=== PATIENT | female | born 1970 | race Caucasian/White ===

== ENCOUNTER 2021-04-11 14:47 | Emergency (ER) | payer MEDICAID, SELFPAY ==
[2021-04-11 14:48] VITALS: BP 143/87; PULSE 95; RESP 22; TEMP 37.1; O2SAT 91; BMI 29.2; BMI 32.8
--- NOTE | 2021-04-11 14:58 | XR_ITS ---
FINAL REPORT CLINICAL HISTORY: cough, smoker, no hx of surg FINDINGS: The heart size is normal. The mediastinum is normal. There is no focal infiltrate or edema. There are no pleural effusions. There is no pneumothorax. There is no osseous abnormality. IMPRESSION: No acute cardiopulmonary process Reviewed, Interpreted and Dictated by Elías Sumner MD Transcribed by Jaime Dick Authenticated by Elías Sumner MD on 04/11/2021 04:58:[address] [facility]
[2021-04-11 15:18] VITALS: PULSE 93; PULSE 96
--- NOTE | 2021-04-11 15:23 | HMH.EDGENADL ---
ED Disposition Clinical Impression: COPD (chronic obstructive pulmonary disease) Qualifiers: COPD type: chronic bronchitis Chronic bronchitis type: simple Qualified Code(s): J41.0 - Simple chronic bronchitis Lumbar strain Qualifiers: Encounter type: initial encounter Qualified Code(s): S39.012A - Strain of muscle, fascia and tendon of lower back, initial encounter Disposition: Home, Self-Care Condition on Discharge: Good Instructions: Chronic Obstructive Pulmonary Disease (Alternative Therapy) Prescriptions: Doxycycline Monohydrate [Doxycycline Pike 100mg Tab] 100 mg PO Q12 #20 tab Transmission Status: Pending to [id number] methocarbamoL [Methocarbamol 500mg Tablet] 1,000 mg PO TID 10 Days #60 tab Transmission Status: Pending to [id number] Referrals: Sunny Subramanian [Primary Care Provider] - - Critical Care Critical Care Time: No Attestation: On 04/11/21, the high probability of a clinically significant, sudden or life threatening deterioration of the following system(s) required my full and direct attention, intervention and personal management. The time I documented below is in addition to time spent performing reported procedures but includes the following listed in this critical care notation. Medical Decision Making - Medical Records Medical records reviewed: Yes: I reviewed the patient's medical records. - Kristofer Inquiry Pt receiving controlled substance: No Vital Signs: 04/11/21 14:48 04/11/21 15:18 04/11/21 16:57 Temperature 98.8 F Temperature Source Oral Pulse Rate 96 H 98 H Pulse Rate [Radial] 95 H Respiratory Rate 22 18 Blood Pressure 136/80 Blood Pressure [Right Arm] 143/87 H Blood Pressure Mean 99 Blood Pressure Mean [Right Arm] 105 Blood Pressure Position [Right Arm] Sitting 02 Sat by Pulse Oximetry 91 L 97 Oxygen Delivery Method Room Air 04/11/21 17:00 04/11/21 17:30 Temperature Temperature Source Pulse Rate 100 H 99 H Pulse Rate [Radial] Respiratory Rate Blood Pressure 143/87 H 129/79 Blood Pressure [Right Arm] Blood Pressure Mean 100 100 Blood Pressure Mean [Right Arm] Blood Pressure Position [Right Arm] 02 Sat by Pulse Oximetry 96 93 L Oxygen Delivery Method - Lab Data Lab Results 04/11/21 15:46: WBC 5.8, RBC 5.21, Hgb 16.9 H, Hct 47.3 H, MCV 90.7, MCH 32.4 H, MCHC 35.7 H, RDW 16.0, Plt Count 266, MPV 8.1, Neut % (Auto) 57.6, Lymph % (Auto) 33.0, [place] % (Auto) 5.1, Eos % (Auto) 2.0, Baso % (Auto) 2.3 H, Neut # (Auto) 3.3, Lymph # (Auto) 1.9, [place] # (Auto) 0.3, Eos # (Auto) 0.1, Baso # (Auto) 0.1 04/11/21 15:46: Troponin I 0.03, NT-Pro-B Natriuret Pep 15.0 04/11/21 15:46: Sodium 130 L, Potassium 5.8 H, Chloride 100, Carbon Dioxide 20 L, Anion Gap 15.8 H, BUN 12, Creatinine 0.40 L, Estimated Creat Clear 203, Estimated GFR 170, Est GFR ( Amer) 206, Glucose 480 H*, Calcium 9.0 04/11/21 17:32: POC Glucose 384 H* 04/11/21 17:35: Urine Color Straw, Urine Appearance Clear, Urine pH 6.0, Ur Specific [place] 1.015, Urine Protein Trace, Urine Glucose (UA) 3+, Urine Ketones Negative, Urine Blood Negative, Urine Nitrate Negative, Urine Bilirubin Negative, Urine Urobilinogen 0.2, Ur Leukocyte Esterase Negative Result diagrams: 04/11/21 15:46 04/11/21 15:46 Orders (Tests/Meds): ED MEDICATIONS Generic Name Dose Route Start Last Admin Trade Name Freq PRN Reason Stop Dose Admin Sodium Chloride 1,000 mls @ 999 mls/hr 04/11/21 16:45 04/11/21 16:54 Sod Chlor 0.9% 1000ml Bag IV 04/11/21 17:45 999 mls/hr .Q1H1M MAUREEN Administration Discontinued Medications Generic Name Dose Route Start Last Admin Trade Name Freq PRN Reason Stop Dose Admin Albuterol/Ipratropium 3 ml 04/11/21 14:59 04/11/21 15:18 Ipratropium/Albuterol 3 Ml Neb IH 04/11/21 15:00 3 ml ONCE ONE Administration Insulin Human Regular 10 unit 04/11/21 16:33 04/11/21 16:54 Insulin Human Regular 100 Units/Ml 10ml Vial I
[2021-04-11 16:18] LABS: Anion Gap 15.8 mEq/L (5-15); Blood Urea Nitrogen 12 mg/dl (7-17); Carbon Dioxide 20 mmol/L (22.0-30.0); Chloride 100 mmol/L (98-107); Creatinine Clearance Estimated 203 mL/min (50-200); Estimated Glomerular Filt Rate 170 ml/min (>60); GFR (African American) 206 ML/MIN (>60); Potassium 5.8 mmoL/L (3.5-5.1); Sodium 130 mmol/L (136-145)
[2021-04-11 16:27] LABS: Glucose 480 mg/dl (74-100)
[2021-04-11 16:31] LABS: Troponin I 0.03 ng/ml (0.00-0.034)
[2021-04-11 16:57] VITALS: BP 136/80; PULSE 98; RESP 18; O2SAT 97
[2021-04-11 17:00] VITALS: BP 143/87; PULSE 100; O2SAT 96
[2021-04-11 17:09] LABS: Basophils # 0.1 K/mm3 (0-0.2); Basophils % 2.3 % (0.1-2.0); Eosinophils # 0.1 K/mm3 (0.0-0.4); Hematocrit 47.3 % (37.0-47.0); Hemoglobin 16.9 g/dL (12.2-16.2); Lymphocytes # 1.9 K/mm3 (0.7-4.5); Mean Corpuscular HGB Conc 35.7 g/dL (31.8-35.4); Mean Corpuscular Hemoglobin 32.4 pg (27.0-31.2); Mean Corpuscular Volume 90.7 fl (81-99); Mean Platelet Volume 8.1 fl (7.4-10.4); Monocytes # 0.3 K/mm3 (0.1-1.0); Monocytes % 5.1 % (1.7-9.3); Neutrophils # 3.3 K/mm3 (1.8-7.8); Neutrophils % 57.6 % (37.0-80.0); Platelet Count 266 K/mm3 (142-424); Red Blood Count 5.21 M/mm3 (4.20-5.40); White Blood Count 5.8 K/mm3 (4.8-10.8)
[2021-04-11 17:30] VITALS: BP 129/79; PULSE 99; O2SAT 93
--- NOTE | 2021-04-11 17:32 | ECG_ITS ---
APPROVED REPORT Exam: Resting ECG HR:97 bpm ECG Measurements Heart Rate 97 AXES [place] 179 P 35 QRSd 96 QRS 164 QT 357 T 47 QTc 412 Conclusion SINUS RHYTHM INCOMPLETE RIGHT BUNDLE BRANCH BLOCK Old anteroseptal changes ABNORMAL ECG UNCONFIRMED REPORT Electronically signed by : Shun Goss MD 04/12/2021 13:49:49
[2021-04-11 17:38] LABS: POC Glucose,Bedside 384 (70-110)
[2021-04-11 18:21] LABS: Microscopic, Urine URINE MICROSCOPIC (MICROSCOPIC)
[2021-04-11 18:25] LABS: Appearance,Urine CLEAR (Clear); Bilirubin,Urine Negative (Negative); Blood, Urine Negative (Negative); Color,Urine STRAW (Yellow); Glucose,Urine (UA) 3+ (Negative); Ketones,Urine Negative (Negative); Leukocyte Esterase,Urine Negative (Negative); Nitrate,Urine Negative (Negative); Protein,Urine TRACE (Negative); Specific Gravity, Urine 1.015 (1.005-1.030); Urobilinogen,Urine 0.2 EU/dl (0.2)
[2021-04-11 19:05] VITALS: BP 121/74; PULSE 78; RESP 20; TEMP 36.6; O2SAT 98
[2021-04-11 19:15] LABS: Troponin I 0.01 ng/ml (0.00-0.034)
== END 2021-04-11 19:06 | disposition home or self-care (01) ==
PROVIDERS: Emergency Provider Emergency Medicine; PCP Family Medicine
DX: J44.0 Chronic obstructive pulmonary disease with (acute) lower respiratory infection (principal); S39.012A Strain of muscle, fascia and tendon of lower back, initial encounter; E11.65 Type 2 diabetes mellitus with hyperglycemia; F41.8 Other specified anxiety disorders; F17.210 Nicotine dependence, cigarettes, uncomplicated
CPT/HCPCS: 71045; 80048; 81001; 82962; 83880; 84484; 85025; 93005; 96365; 96375; 99283

== ENCOUNTER 2021-05-02 19:58 | Emergency (ER) | payer MEDICAID, SELFPAY ==
[2021-05-02 19:59] VITALS: BP 123/70; PULSE 102; RESP 22; TEMP 36.9; O2SAT 96; BMI 32.8
--- NOTE | 2021-05-02 20:29 | PC.NURSE ---
patient was called back to room at approximately 8:15 patient went to her car to smoke and has not returned as of this time
--- NOTE | 2021-05-02 20:32 | PC.NURSE ---
registration called and stated that patient is back in from parking lot
[2021-05-02 20:44] LABS: Microscopic, Urine URINE MICROSCOPIC (MICROSCOPIC)
--- NOTE | 2021-05-02 20:47 | CT_ITS ---
PROCEDURE INFORMATION: Exam: CT Abdomen And Pelvis With Contrast Exam date and time: 05/02/2021 8:47 PM Age: 50 years old Clinical indication: Abdominal pain; Additional info: Ruq pain TECHNIQUE: Imaging protocol: Computed tomography of the abdomen and pelvis with contrast. Radiation optimization: All CT scans at this facility use at least one of these dose optimization techniques: automated exposure control; mA and/or kV adjustment per patient size (includes targeted exams where dose is matched to clinical indication); or iterative reconstruction. Contrast material: ISOVUE; Contrast volume: 75 ml; Contrast route: IV; COMPARISON: CR XR CHEST PORTABLE 04/11/2021 3:24 PM FINDINGS: Lungs: 1.9 cm mass in the left lung base. Liver: Fatty liver and hepatomegaly. Gallbladder and bile ducts: Normal. No calcified stones. No ductal dilation. Pancreas: Normal. No ductal dilation. Spleen: Tiny too small to characterize hypodense lesions. No splenomegaly. Adrenal glands: Normal. No mass. Kidneys and ureters: Scarring in the right kidney. No hydronephrosis or calcified stones bilaterally. Stomach and bowel: There is wall thickening of the sigmoid colon with diverticulosis and subtle infiltration of the surrounding fat in the distal sigmoid which could reflect mild acute diverticulitis. There is constipation. No small bowel obstruction. Appendix: Appendix normal. Intraperitoneal space: Unremarkable. No free air. No significant fluid collection. Vasculature: Unremarkable. No abdominal aortic aneurysm. Lymph nodes: Unremarkable. No enlarged lymph nodes. Urinary bladder: Unremarkable as visualized. Reproductive: Unremarkable as visualized. Bones/joints: Unremarkable. No acute fracture. Soft tissues: Unremarkable. IMPRESSION: 1. Mild acute diverticulitis in the sigmoid colon. 2. Gallbladder normal. 3. Pancreas normal. 4. No obstructive uropathy. 5. Innumerable too small to characterize hypodense lesions in the spleen technically indeterminate. Outpatient nonemergent ultrasound can be obtained to further characterize. 6. 1.9 cm mass in the left lung base. Recommend chest CT for complete evaluation of the chest. For both low risk and high risk patients, consider CT Chest at 3 months, PET/CT, or biopsy. (Reference: Girma) References: Girma Bob, et al. Guidelines for Management of Incidental Pulmonary Nodules Detected on CT Images: From the Fleischner Society 2017. Radiology. 2017;284(1):228-243.
[2021-05-02 20:48] LABS: Appearance,Urine CLEAR (Clear); Bilirubin,Urine Negative (Negative); Blood, Urine Negative (Negative); Color,Urine YELLOW (Yellow); Glucose,Urine (UA) 3+ (Negative); Ketones,Urine TRACE (Negative); Leukocyte Esterase,Urine Negative (Negative); Nitrate,Urine Negative (Negative); PH,Urine 5.5 (5.0-8.5); Protein,Urine Negative (Negative); Urobilinogen,Urine 0.2 EU/dl (0.2)
[2021-05-02 20:55] LABS: WBC,Urine Occasional #/hpf (0-3)
[2021-05-02 21:00] VITALS: PULSE 98; O2SAT 96
[2021-05-02 21:13] LABS: Basophils # 0.1 K/mm3 (0-0.2); Basophils % 2.2 % (0.1-2.0); Eosinophils # 0.2 K/mm3 (0.0-0.4); Eosinophils % 2.6 % (0.1-12.0); Hematocrit 46.5 % (37.0-47.0); Hemoglobin 16.9 g/dL (12.2-16.2); Lymphocytes # 1.8 K/mm3 (0.7-4.5); Lymphocytes % 29.2 % (10-50); Mean Corpuscular HGB Conc 36.3 g/dL (31.8-35.4); Mean Corpuscular Volume 90.9 fl (81-99); Mean Platelet Volume 7.9 fl (7.4-10.4); Monocytes # 0.3 K/mm3 (0.1-1.0); Monocytes % 4.7 % (1.7-9.3); Neutrophils # 3.7 K/mm3 (1.8-7.8); Neutrophils % 61.4 % (37.0-80.0); Platelet Count 327 K/mm3 (142-424); Red Blood Count 5.11 M/mm3 (4.20-5.40); Red Cell Distribution Width 16.7 % (11.5-17.5)
[2021-05-02 21:21] LABS: Alanine Aminotransferase 29 U/L (12-78); Albumin Level 4.6 g/dl (3.5-5.0); Alkaline Phosphatase 109 U/L (38-126); Amylase 49 U/L (30-110); Anion Gap 17.7 mEq/L (5-15); Aspartate Amino Transferase 65 U/L (14-36); Bilirubin,Total 2.4 mg/dl (0.2-1.3); Blood Urea Nitrogen 10 mg/dl (7-17); Calcium 8.8 mg/dl (8.4-10.2); Carbon Dioxide 21 mmol/L (22.0-30.0); Chloride 98 mmol/L (98-107); Creatinine Clearance Estimated 152 mL/min (50-200); Estimated Glomerular Filt Rate 107 ml/min (>60); GFR (African American) 129 ML/MIN (>60); Globulin 4.7 g/dL (1.3-3.2); Lipase 71 U/L (23-300); Sodium 130 mmol/L (136-145); Total Protein,Serum 9.3 g/dl (6.3-8.2)
[2021-05-02 21:26] LABS: C-Reactive Protein 9.9 mg/L (0-4)
[2021-05-02 21:30] VITALS: PULSE 101; O2SAT 97
[2021-05-02 21:36] LABS: Erythrocyte Sedimentation Rate 1 mm/hr (0-20)
[2021-05-02 21:39] LABS: Glucose 602 mg/dl (74-100); Potassium 6.7 mmoL/L (3.5-5.1)
[2021-05-02 21:40] LABS: Procalcitonin 0.065 ng/mL (0.0-2.0)
--- NOTE | 2021-05-02 21:45 | PC.NURSE ---
notified crystal of critical potassium of 6.7. glucose 602
[2021-05-02 21:50] LABS: Acetone, Serum (Rapid) None Detected (None Detect)
--- NOTE | 2021-05-02 21:57 | HMH.EDNVD ---
ED Disposition Clinical Impression: Diverticulitis, Severe sepsis with acute organ dysfunction, Hyperkalemia Diabetes mellitus Qualifiers: Diabetes mellitus type: type 2 Diabetes mellitus terminal manager insulin use: unspecified terminal manager insulin use status Diabetes mellitus complication status: with other specified complication Qualified Code(s): E11.69 - Type 2 diabetes mellitus with other specified complication Disposition: Left Against Medical Advice Condition on Discharge: Good - Critical Care Critical Care Time: No Attestation: On 05/02/21, the high probability of a clinically significant, sudden or life threatening deterioration of the following system(s) required my full and direct attention, intervention and personal management. The time I documented below is in addition to time spent performing reported procedures but includes the following listed in this critical care notation. Medical Decision Making - Medical Records Medical records reviewed: Yes: I reviewed the patient's medical records. - Kristofer Inquiry Pt receiving controlled substance: No Vital Signs: 05/02/21 19:59 05/02/21 21:00 05/02/21 21:30 Temperature 98.5 F Temperature Source Oral Pulse Rate 98 H 101 H Pulse Rate [Right] 102 H Respiratory Rate 22 Blood Pressure Blood Pressure [Right Arm] 123/70 Blood Pressure Mean Blood Pressure Mean [Right Arm] 87 02 Sat by Pulse Oximetry 96 96 97 Oxygen Delivery Method Room Air Room Air 05/02/21 22:00 05/02/21 22:30 05/03/21 00:40 Temperature Temperature Source Pulse Rate 98 H 104 H 92 H Pulse Rate [Right] Respiratory Rate Blood Pressure 126/87 123/84 Blood Pressure [Right Arm] Blood Pressure Mean 99 Blood Pressure Mean [Right Arm] 02 Sat by Pulse Oximetry 94 L 94 L 95 Oxygen Delivery Method Room Air Room Air Room Air 05/03/21 01:00 Temperature Temperature Source Pulse Rate 93 H Pulse Rate [Right] Respiratory Rate Blood Pressure 119/80 Blood Pressure [Right Arm] Blood Pressure Mean Blood Pressure Mean [Right Arm] 02 Sat by Pulse Oximetry 95 Oxygen Delivery Method Room Air - Lab Data Lab results reviewed: Yes: I reviewed the patient's lab results. Lab Results 05/02/21 20:39: Urine Color Yellow, Urine Appearance Clear, Urine pH 5.5, Ur Specific [place] 1.010, Urine Protein Negative, Urine Glucose (UA) 3+, Urine Ketones Trace, Urine Blood Negative, Urine Nitrate Negative, Urine Bilirubin Negative, Urine Urobilinogen 0.2, Ur Leukocyte Esterase Negative, Urine RBC None, Urine WBC Occasional, Ur Squamous Epith Cells 3-5, Urine Bacteria None 05/02/21 21:04: WBC 6.0, RBC 5.11, Hgb 16.9 H, Hct 46.5, MCV 90.9, MCH 33.0 H, MCHC 36.3 H, RDW 16.7, Plt Count 327, MPV 7.9, Neut % (Auto) 61.4, Lymph % (Auto) 29.2, [place] % (Auto) 4.7, Eos % (Auto) 2.6, Baso % (Auto) 2.2 H, Neut # (Auto) 3.7, Lymph # (Auto) 1.8, [place] # (Auto) 0.3, Eos # (Auto) 0.2, Baso # (Auto) 0.1, ESR 1 05/02/21 21:04: Sodium 130 L, Potassium 6.7 H*, Chloride 98, Carbon Dioxide 21 L, Anion Gap 17.7 H, BUN 10, Creatinine 0.60, Estimated Creat Clear 152, Estimated GFR 107, Est GFR ( Amer) 129, Glucose 602 H*, Calcium 8.8, Total Bilirubin 2.4 H, AST 65 H, ALT 29, Alkaline Phosphatase 109, C-Reactive Protein 9.9 H, Total Protein 9.3 H D, Albumin 4.6, Globulin 4.7 H, Albumin/Globulin Ratio 1.0 L, Amylase 49, Lipase 71, Procalcitonin 0.065 05/02/21 21:04: Acetone Level None detected 05/02/21 21:04: Troponin I 0.02 05/02/21 22:34: Lactate 1.9 05/02/21 22:34: SARS-CoV-2 (PCR) Not detected, Influenza A Untype (PCR) Not detected, Influenza Type B (PCR) Not detected 05/02/21 23:07: POC Glucose 514 H* 05/02/21 23:31: Sodium 131 L, Potassium 4.5 D, Chloride 103, Carbon Dioxide 18 L, Anion Gap 14.5, BUN 9, Creatinine 0.50 L, Estimated Creat Clear 182, Estimated GFR 132, Est GFR ( Amer) 159 D, Glucose 436 H* D, Calcium 8.4 Result diagrams: 05/02/21 21:04 05/02/21 23:31 Orders (Tests/Meds
[2021-05-02 22:00] VITALS: PULSE 98; O2SAT 94
--- NOTE | 2021-05-02 22:03 | CT_ITS ---
PROCEDURE INFORMATION: Exam: CT Thoracic Spine With Contrast Exam date and time: 05/02/2021 10:03 PM Age: 50 years old Clinical indication: Pain in thoracic spine; Additional info: Pain for several weeks TECHNIQUE: Imaging protocol: Computed tomography images of the thoracic spine with intravenous contrast. Radiation optimization: All CT scans at this facility use at least one of these dose optimization techniques: automated exposure control; mA and/or kV adjustment per patient size (includes targeted exams where dose is matched to clinical indication); or iterative reconstruction. Contrast material: ISOVUE; Contrast volume: 45 ml; Contrast route: IV; COMPARISON: CT ABDOMEN PELVIS W CON 05/02/2021 9:14 PM FINDINGS: Vertebrae: No acute fracture. Normal alignment. Discs/Spinal canal/Neural foramina: No significant disc protrusion. No severe spinal canal stenosis. No significant neural foraminal narrowing. Soft tissues: Unremarkable. 1.9 cm mass in the left lung base. Pleural based pulmonary nodule right lung base 7 mm. IMPRESSION: Unremarkable CT Spine. Pulmonary nodules in the lower lobes. Recommend chest CT to further evaluate. For patients at low risk (minimal or absent history of smoking and of other known risk factors), recommend CT Chest at 3-6 months, then consider CT Chest at 18-24 months. For patients at high risk (history of smoking or of other known risk factors), recommend CT Chest at 3-6 months, then CT Chest at 18-24 months. (Reference: Girma) References: Girma Bob et al. Guidelines for Management of Incidental Pulmonary Nodules Detected on CT Images: From the Fleischner Society 2017. Radiology. 2017;284(1):228-243.
--- NOTE | 2021-05-02 22:04 | CT_ITS ---
PROCEDURE INFORMATION: Exam: CT Lumbar Spine With Contrast Exam date and time: 05/02/2021 10:04 PM Age: 50 years old Clinical indication: Low back pain TECHNIQUE: Imaging protocol: Computed tomography images of the lumbar spine with intravenous contrast. Radiation optimization: All CT scans at this facility use at least one of these dose optimization techniques: automated exposure control; mA and/or kV adjustment per patient size (includes targeted exams where dose is matched to clinical indication); or iterative reconstruction. Contrast material: ISOVUE; Contrast volume: 50 ml; Contrast route: IV; COMPARISON: CT THORACIC SPINE W CON 05/02/2021 10:51 PM FINDINGS: Vertebrae: No acute fracture. Normal alignment. Discs/Spinal canal/Neural foramina: No significant disc protrusion. No severe spinal canal stenosis. No significant neural foraminal narrowing. Soft tissues: Unremarkable. IMPRESSION: No acute findings.
--- NOTE | 2021-05-02 22:18 | ECG_ITS ---
APPROVED REPORT Exam: Resting ECG HR:102 bpm ECG Measurements Heart Rate 102 AXES [place] 182 P 23 QRSd 98 QRS -59 QT 340 T 44 QTc 398 Conclusion SINUS TACHYCARDIA POSSIBLE LEFT ATRIAL ENLARGEMENT [-0.1mV P-WAVE IN V1/V2] INDETERMINATE AXIS INCOMPLETE RIGHT BUNDLE block, Poor R wave progression, unchanged Electronically signed by : Shun Goss MD 05/03/2021 14:06:02
[2021-05-02 22:30] VITALS: BP 126/87; PULSE 100; PULSE 104; PULSE 99; O2SAT 94
[2021-05-02 22:37] LABS: Troponin I 0.02 ng/ml (0.00-0.034)
[2021-05-02 22:40] LABS: Coronavirus 19, PCR Not Detected (NotDetected); Influenza A, PCR Not Detected (NotDetected); Influenza B, PCR Not Detected (NotDetected)
[2021-05-02 22:50] LABS: Lactic Acid 1.9 mmol/L (0.7-2.1)
--- NOTE | 2021-05-02 22:54 | PC.NURSE ---
pt to CT scan
[2021-05-02 23:14] LABS: POC Glucose,Bedside 514 (70-110)
[2021-05-02 23:48] LABS: Anion Gap 14.5 mEq/L (5-15); Blood Urea Nitrogen 9 mg/dl (7-17); Calcium 8.4 mg/dl (8.4-10.2); Carbon Dioxide 18 mmol/L (22.0-30.0); Chloride 103 mmol/L (98-107); Creatinine Clearance Estimated 182 mL/min (50-200); Estimated Glomerular Filt Rate 132 ml/min (>60); GFR (African American) 159 ML/MIN (>60); Potassium 4.5 mmoL/L (3.5-5.1); Sodium 131 mmol/L (136-145)
[2021-05-02 23:50] LABS: Glucose 436 mg/dl (74-100)
[2021-05-03 00:40] VITALS: BP 123/84; PULSE 92; O2SAT 95
--- NOTE | 2021-05-03 00:46 | XR_ITS ---
PROCEDURE INFORMATION: Exam: XR Chest Exam date and time: 05/03/2021 12:46 AM Age: 50 years old Clinical indication: Abnormal findings; Abnormal radiologic exam of lung or chest; Additional info: Abd CT scan TECHNIQUE: Imaging protocol: XR of the chest. Views: 2 views. COMPARISON: CR XR CHEST PORTABLE 04/11/2021 3:24 PM FINDINGS: Lungs: Subtle interstitial haziness could reflect interstitial pneumonia. No consolidation. Pleural spaces: Unremarkable. No pleural effusion. No pneumothorax. Heart/Mediastinum: Unremarkable. No cardiomegaly. Bones/joints: Unremarkable. IMPRESSION: Subtle interstitial haziness could reflect interstitial pneumonia.
[2021-05-03 01:00] VITALS: BP 119/80; PULSE 93; O2SAT 95
--- NOTE | 2021-05-03 01:57 | PC.NURSE ---
Pt refuses to stay for admission, states she will stay for IV abx but that is it, I have a grandbaby to get home to . MD notified, he & staff encouraged pt to stay and continue treatment. She continued to refuse, stating I am feeling better now . Pt signed AMA form.
[2021-05-03 02:08] VITALS: BP 116/80; PULSE 85; RESP 20; TEMP 36.9; O2SAT 96
--- NOTE | 2021-05-03 07:30 | P.CONPHA_ITS ---
[facility] Pharmacy VTE Monitoring - Patient Demographics Admission date: 05/03/21 Report Date: 05/03/21 Time: 07:30 Allergies/Adverse Reactions: Patient Allergies aspirin Allergy (Verified 12/07/17 17:56) fluoxetine [From Prozac] Allergy (Verified 12/07/17 17:56) latex Allergy (Verified 09/12/18 23:53) morphine Allergy (Verified 09/12/18 23:50) quetiapine [From Seroquel] Allergy (Verified 12/07/17 17:56) Height: 1.6 m Weight: 83.915 kg Patient Problems: Current Active Problems Diverticulitis (Acute) Severe sepsis with acute organ dysfunction (Acute) Diabetes mellitus (Acute) Hyperkalemia (Acute) - VTE Risk Labs: VTE Related Lab Results Hgb 16.9 g/dL (12.2-16.2) H 05/02/21 21:04 Hct 46.5 % (37.0-47.0) 05/02/21 21:04 Plt Count 327 K/mm3 (142-424) 05/02/21 21:04 BUN 9 mg/dl (7-17) 05/02/21 23:31 Creatinine 0.50 mg/dl (0.52-1.04) L 05/02/21 23:31 Estimated Creat Clear 182 mL/min (50-200) 05/02/21 23:31 Clinical Trial Participant: No - Prophylaxis VTE Prophylaxis Ordered?: Yes Types of VTE Prophylaxis: TEDS Knee High
== END 2021-05-03 02:15 | disposition left against medical advice (07) ==
LOC: ER 20:57 → 2ND 05-03 02:14
PROVIDERS: Emergency Provider Emergency Medicine; PCP Family Medicine
DX: E87.5 Hyperkalemia (principal)
CPT/HCPCS: 71046; 72129; 72132; 74177; 80048; 80053; 81001; 82009; 82150; 82962; 83605; 83690; 84145; 84484; 85025; 85651; 86140; 87040; 93005; 96365; 96366; 96367; 96375; C9803; J1956; J2405; Q9967; U0003; U0005

== ENCOUNTER 2021-05-03 19:36 | Inpatient (IN) | payer MEDICAID, SELFPAY ==
[2021-05-03] VITALS (10 sets, daily range): BP systolic 111–140; BP diastolic 67–82; PULSE 87–98; RESP 18; TEMP 36.6; O2SAT 95–98; BMI 32.8; BMI 31.5
--- NOTE | 2021-05-03 19:47 | CT_ITS ---
PROCEDURE INFORMATION: Exam: CT Abdomen And Pelvis With Contrast Exam date and time: 05/03/2021 7:47 PM Age: 50 years old Clinical indication: Abdominal pain; Generalized; Patient HX: Worsening abdomen pain. Patient had a cat scan of the abdomen last night here at this hospital. ; Additional info: Abd pain TECHNIQUE: Imaging protocol: Computed tomography of the abdomen and pelvis with contrast. Radiation optimization: All CT scans at this facility use at least one of these dose optimization techniques: automated exposure control; mA and/or kV adjustment per patient size (includes targeted exams where dose is matched to clinical indication); or iterative reconstruction. Contrast material: ISOVUE; Contrast volume: 75 ml; Contrast route: IV; COMPARISON: CT ABDOMEN PELVIS W CON 05/02/2021 9:14 PM FINDINGS: Lungs: Pulmonary nodules again noted in the lung bases. Liver: Fatty liver. Hepatomegaly, measuring 21.0 cm in craniocaudal axis. Gallbladder and bile ducts: Acute areas excretion of intravenous contrast material noted in the gallbladder. Gallbladder is otherwise unremarkable. Biliary Pancreas: Unremarkable. Spleen: Splenomegaly, measuring 13.5 cm in craniocaudal axis. Innumerable subcentimeter hypodensities in the spleen unchanged. Adrenal glands: Unremarkable. Kidneys and ureters: No renal or ureteral stones. No hydronephrosis. Stomach and bowel: Colonic diverticulosis with focal segment of mild wall thickening and pericolonic fat stranding in the sigmoid colon. No focal fluid collection or free air to suggest perforation. No pneumatosis. Appendix: Appendix is normal. Intraperitoneal space: No free fluid. No pneumoperitoneum. Vasculature: Unremarkable. Lymph nodes: Unremarkable. Urinary bladder: Within normal limits. Reproductive: Unremarkable. Bones/joints: No acute osseous abnormality. Soft tissues: Unremarkable. IMPRESSION: 1. Acute uncomplicated diverticulitis, not significantly changed from CT performed 1 day prior. 2. Fatty liver and hepatomegaly. Consider non-emergent referral to Hepatology. 3. Splenomegaly with subcentimeter hypodensities in the spleen unchanged. Please see comment #1 below. 4. Pulmonary nodules again noted in the lung bases. Please see comment #2 below. COMMENTS: 1. Regarding incidental splenic lesions, current guidelines recommend for patients with cancer history to pursue follow-up MRI in 6 and 12 months for subcentimeter lesions or prompt evaluation with PET-CT vs MRI vs biopy. For patients with no cancer history, guidelines recommend follow-up MRI in 6 and 12 months for lesions with indeterminate imaging features or prompt evaluation with PET-CT vs MRI vs biopy for lesions with suspicious imaging features. (Reference: Arlene) 2. Per current guidelines, for patients at low risk (minimal or absent history of smoking and of other known risk factors), recommend CT Chest at 3-6 months, then consider CT Chest at 18-24 months. For patients at high risk (history of smoking or of other known risk factors), recommend CT Chest at 3-6 months, then CT Chest at 18-24 months. (Reference: Girma) REFERENCES: 1. Christophre Jacobs, et al. Managing incidental findings on abdominal and pelvic CT and MRI, part 3: white paper of the ACR Incidental Findings Committee II on splenic and cameron findings. Journal of the [employer] 10.11 (2013): 833-839. 2. Girma Bob, et al. Guidelines for Management of Incidental Pulmonary Nodules Detected on CT Images: From the Fleischner Society 2017. Radiology. 2017;284(1):228-243. 20
[2021-05-03 19:51] LABS: Basophils # 0.1 K/mm3 (0-0.2); Basophils % 1.2 % (0.1-2.0); Eosinophils # 0.2 K/mm3 (0.0-0.4); Eosinophils % 3.4 % (0.1-12.0); Hematocrit 46.6 % (37.0-47.0); Hemoglobin 16.1 g/dL (12.2-16.2); Lymphocytes # 1.7 K/mm3 (0.7-4.5); Lymphocytes % 27.4 % (10-50); Mean Corpuscular HGB Conc 34.6 g/dL (31.8-35.4); Mean Corpuscular Hemoglobin 31.5 pg (27.0-31.2); Mean Platelet Volume 8.3 fl (7.4-10.4); Monocytes # 0.2 K/mm3 (0.1-1.0); Monocytes % 3.1 % (1.7-9.3); Neutrophils % 64.8 % (37.0-80.0); Platelet Count 308 K/mm3 (142-424); Red Blood Count 5.12 M/mm3 (4.20-5.40); Red Cell Distribution Width 16.6 % (11.5-17.5); White Blood Count 6.2 K/mm3 (4.8-10.8)
[2021-05-03 20:00] LABS: Alanine Aminotransferase 24 U/L (12-78); Albumin Level 4.1 g/dl (3.5-5.0); Albumin/Globulin Ratio 1.1 (1.1-1.8); Alkaline Phosphatase 90 U/L (38-126); Anion Gap 15.9 mEq/L (5-15); Aspartate Amino Transferase 34 U/L (14-36); Bilirubin,Total 0.8 mg/dl (0.2-1.3); Blood Urea Nitrogen 10 mg/dl (7-17); Calcium 9.1 mg/dl (8.4-10.2); Carbon Dioxide 22 mmol/L (22.0-30.0); Chloride 103 mmol/L (98-107); Creatinine Clearance Estimated 152 mL/min (50-200); Estimated Glomerular Filt Rate 107 ml/min (>60); GFR (African American) 129 ML/MIN (>60); Globulin 3.6 g/dL (1.3-3.2); Lactic Acid 1.1 mmol/L (0.7-2.1); Potassium 4.9 mmoL/L (3.5-5.1); Sodium 136 mmol/L (136-145); Total Protein,Serum 7.7 g/dl (6.3-8.2)
[2021-05-03 20:04] LABS: Glucose 400 mg/dl (74-100)
[2021-05-03 20:05] LABS: C-Reactive Protein 8.5 mg/L (0-4)
[2021-05-03 20:19] LABS: Procalcitonin 0.057 ng/mL (0.0-2.0)
--- NOTE | 2021-05-03 21:08 | HMH.EDNVD ---
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 The time I documented below is in addition to time spent performing reported procedures but includes the following listed in this critical care notation. Medical Decision Making - Medical Records Medical records reviewed: Yes: I reviewed the patient's medical records. - Kristofer Inquiry Pt receiving controlled substance: No Vital Signs: 05/03/21 19:33 Temperature 97.8 F Temperature Source Oral Pulse Rate [Left Radial] 92 H Respiratory Rate 18 Blood Pressure [Right Arm] 133/82 Blood Pressure Mean [Right Arm] 99 02 Sat by Pulse Oximetry 98 Oxygen Delivery Method Room Air - Lab Data Lab results reviewed: Yes: I reviewed the patient's lab results. Lab Results 05/03/21 19:35: WBC 6.2, RBC 5.12, Hgb 16.1, Hct 46.6, MCV 91.0, MCH 31.5 H, MCHC 34.6, RDW 16.6, Plt Count 308, MPV 8.3, Neut % (Auto) 64.8, Lymph % (Auto) 27.4, [place] % (Auto) 3.1, Eos % (Auto) 3.4, Baso % (Auto) 1.2, Neut # (Auto) 4.0, Lymph # (Auto) 1.7, [place] # (Auto) 0.2, Eos # (Auto) 0.2, Baso # (Auto) 0.1 05/03/21 19:35: Sodium 136, Potassium 4.9, Chloride 103, Carbon Dioxide 22, Anion Gap 15.9 H, BUN 10, Creatinine 0.60, Estimated Creat Clear 152, Estimated GFR 107, Est GFR ( Amer) 129, Glucose 400 H, Calcium 9.1, Total Bilirubin 0.8, AST 34 D, ALT 24, Alkaline Phosphatase 90, C-Reactive Protein 8.5 H, Total Protein 7.7, Albumin 4.1 D, Globulin 3.6 H, Albumin/Globulin Ratio 1.1, Procalcitonin 0.057 05/03/21 19:35: Lactate 1.1 05/03/21 19:35: ESR 2 05/03/21 19:35: Hemoglobin A1c 13.9 H 05/03/21 19:43: Urine Opiates Screen Positive H, Urine Methadone Screen Negative, Ur Barbituates Screen Negative, Ur Phencyclidine Scrn Negative, Ur Amphetamines Screen Negative, U Benzodiazepines Scrn Negative, Urine Cocaine Screen Negative, U Marijuana (THC) Screen Positive H 05/03/21 22:00: SARS-CoV-2 (PCR) Not detected, Influenza A Untype (PCR) Not detected, Influenza Type B (PCR) Not detected Result diagrams: 05/03/21 19:35 05/03/21 19:35 Orders (Tests/Meds): ED MEDICATIONS Generic Name Dose Route Start Last Admin Trade Name Freq PRN Reason Stop Dose Admin Sodium Chloride 1,000 mls @ 999 mls/hr 05/03/21 19:45 05/03/21 19:50 Sod Chlor 0.9% 1000ml Bag IV 05/03/21 20:45 999 mls/hr .Q1H1M MAUREEN Administration Levofloxacin/Dextrose 750 mg in 150 mls @ 100 mls/hr 05/03/21 23:00 05/03/21 23:39 Levofloxacin 750mg/150ml Premix IV 05/17/21 22:59 100 mls/hr Q24H MAUREEN Administration Metronidazole 500 mg in 100 mls @ 100 mls/hr 05/03/21 23:00 Flagyl 500mg/100ml Ivpb IV 05/17/21 22:59 Q8H MAUREEN Sodium Chloride 8 ml 05/03/21 19:47 Sodium Chloride 0.9% 10ml Vial IV 06/02/21 19:46 NEEDED PRN dilute pepcid Discontinued Medications Generic Name Dose Route Start Last Admin Trade Name Freq PRN Reason Stop Dose Admin Famotidine 20 mg 05/03/21 19:47 05/03/21 19:51 Famotidine 20mg/2ml Vial IV 05/03/21 19:48 20 mg ONCE ONE Administration Iopamidol 75 ml 05/03/21 20:16 05/03/21 20:17 Iopamidol-370 (76%);100ml Bottle IV 05/03/21 20:17 75 ml ONCE ONE Administration Ketorolac Tromethamine 30 mg 05/03/21 19:47 05/03/21 19:50 Ketorolac 30mg/Ml Vial IV 05/03/21 19:48 30 mg ONCE ONE Admi
[2021-05-03 21:23] LABS: Erythrocyte Sedimentation Rate 2 mm/hr (0-20)
[2021-05-03 22:09] LABS: Amphetamine/Metha Screen,Urine Negative ng/ml (<1000)
[2021-05-03 22:10] LABS: Barbiturates Screen,Urine Negative ng/ml (<200); Benzodiazepines Screen,Urine Negative ng/ml (<200)
[2021-05-03 22:11] LABS: Cannabinoid Screen,Urine Positive ng/ml (<50)
[2021-05-03 22:12] LABS: Cocaine Screen,Urine Negative ng/ml (<300); Methadone Screen,Urine Negative ng/ml (<300)
[2021-05-03 22:13] LABS: Opiate Screen,Urine Positive ng/ml (<300)
[2021-05-03 22:14] LABS: Phencyclidine Screen,Urine Negative ng/ml (<25)
[2021-05-03 23:02] LABS: Hemoglobin A1C 13.9 % (4.0-6.0)
[2021-05-03 23:02] LABS: Coronavirus 19, PCR Not Detected (NotDetected); Influenza A, PCR Not Detected (NotDetected); Influenza B, PCR Not Detected (NotDetected)
[2021-05-04] VITALS (8 sets, daily range): BP systolic 131–150; BP diastolic 66–91; PULSE 76–97; RESP 16–20; TEMP 36.3–36.9; O2SAT 89–98; BMI 31.2
--- NOTE | 2021-05-04 01:43 | PC.NURSE ---
patient up to floor @ 00:26.
[2021-05-04 06:10] LABS: POC Glucose,Bedside 323 (70-110)
[2021-05-04 06:41] LABS: Basophils # 0.1 K/mm3 (0-0.2); Eosinophils # 0.2 K/mm3 (0.0-0.4); Monocytes # 0.3 K/mm3 (0.1-1.0); Neutrophils # 2.7 K/mm3 (1.8-7.8)
--- NOTE | 2021-05-04 07:19 | HMH.PHAVTE ---
[facility] Pharmacy VTE Monitoring - Patient Demographics Admission date: 05/03/21 Report Date: 05/04/21 Time: 07:19 Allergies/Adverse Reactions: Patient Allergies aspirin Allergy (Verified 12/07/17 17:56) fluoxetine [From Prozac] Allergy (Verified 12/07/17 17:56) latex Allergy (Verified 09/12/18 23:53) morphine Allergy (Verified 09/12/18 23:50) quetiapine [From Seroquel] Allergy (Verified 12/07/17 17:56) Height: 1.6 m Weight: 80.768 kg Patient Problems: Current Active Problems Diverticulitis (Acute) Diabetes mellitus (Acute) Obesity (BMI 30-39.9) (Acute) Tobacco use (Acute) - VTE Risk Labs: VTE Related Lab Results Hgb 16.1 g/dL (12.2-16.2) 05/03/21 19:35 Hct 46.6 % (37.0-47.0) 05/03/21 19:35 Plt Count 308 K/mm3 (142-424) 05/03/21 19:35 BUN 10 mg/dl (7-17) 05/03/21 19:35 Creatinine 0.60 mg/dl (0.52-1.04) 05/03/21 19:35 Estimated Creat Clear 152 mL/min (50-200) 05/03/21 19:35 VTE Score: 3 VTE Risk Level: Low Risk - Prophylaxis VTE Prophylaxis Ordered?: Yes Types of VTE Prophylaxis: TEDS Knee High Location of Applied Device: Bilateral Lower Extremeties
[2021-05-04 07:20] LABS: Anion Gap 13.5 mEq/L (5-15); Blood Urea Nitrogen 8 mg/dl (7-17); Calcium 8.6 mg/dl (8.4-10.2); Carbon Dioxide 23 mmol/L (22.0-30.0); Chloride 105 mmol/L (98-107); Creatinine Clearance Estimated 175 mL/min (50-200); Estimated Glomerular Filt Rate 132 ml/min (>60); GFR (African American) 159 ML/MIN (>60); Glucose 289 mg/dl (74-100); Potassium 4.5 mmoL/L (3.5-5.1); Sodium 137 mmol/L (136-145)
[2021-05-04 07:42] LABS: Basophils % 1.3 % (0.1-2.0); Eosinophils % 3.8 % (0.1-12.0); Hematocrit 41.3 % (37.0-47.0); Lymphocytes # 1.8 K/mm3 (0.7-4.5); Lymphocytes % 34.9 % (10-50); Mean Corpuscular HGB Conc 34.8 g/dL (31.8-35.4); Mean Corpuscular Hemoglobin 32.1 pg (27.0-31.2); Mean Corpuscular Volume 92.3 fl (81-99); Mean Platelet Volume 8.5 fl (7.4-10.4); Monocytes % 5.8 % (1.7-9.3); Neutrophils % 54.2 % (37.0-80.0); Platelet Count 289 K/mm3 (142-424); Red Blood Count 4.47 M/mm3 (4.20-5.40); Red Cell Distribution Width 16.6 % (11.5-17.5)
--- NOTE | 2021-05-04 07:53 | HMH.PHAINT ---
Home med rec complete
[2021-05-04 11:19] LABS: POC Glucose,Bedside 323 (70-110)
--- NOTE | 2021-05-04 11:55 | HMH.HP ---
*Admission Date: 05/03/21 *History of present illness: 50 yr old female presented to ed with c/o rt sided abd pain and back pain over the last few days. Pt states she signed out AMA yesterday and returned home but the back,abd and elevated glucose and returned for treatment. Pt admitted for diverticulitis and iv antibiotics. pt has hx of dm and diverticulitis [facility] History I have reviewed the patient's past medical history: Yes Medical History: Reports:: Anxiety, Cancer (CERVICAL), Coronary Artery Disease, Depression, Diabetes Mellitus Type 2 Denies:: Diabetes Mellitus Type 1 *Have you ever received a pneumonia vaccine?: Yes *Have you received a flu vaccine this season?: Yes Other Medical History: Reports: Other (Chronic left arm pain) Other Surgeries: Yes: Cardiac Catheterization - *Social History Smoking Status: Current every day smoker Tobacco Type: cigarettes # Packs/Day (cigarettes): 1 Alcohol Intake: never Alcohol Intake Frequency:: holidays/special occasions only *Occupational Status:: disabled *Travel in the last 8 weeks: None - Psychiatric History Pschychiatric History:: Reports:: Anxiety, Depression Family Hx:: Cancer, Diabetes, Heart Attack, Hypertension Review of Systems - Review of Systems Review of systems:: pertinent systems reviewed and negative unless documented below - Constitutional Denies daytime sleepiness - Eyes Denies change in vision - ENT Denies change in voice - *Cardiovascular Denies chest pain with activity - *Respiratory Denies chest congestion - *Gastrointestinal Reports abdominal pain, Denies bloating - *Genitourinary Denies urinary urgency - *Musculoskeletal Denies joint pain - Integumentary/Breasts Denies boil - *Neurologic Denies abnormal movements, Denies seizure-like activity - Psychiatric Denies lack of enjoyment - Endocrine Denies flushing - Hematologic/Lymphatic Denies enlarged lymph nodes - Allergic/Immunologic Denies lip swelling Meds Home Medications Medication Instructions Recorded Confirmed Type ALPRAZolam [Alprazolam ER] 1 mg PO BID PRN 05/04/21 05/04/21 History Diclofenac Sodium [Diclofenac 75mg 75 mg PO BID 05/04/21 05/04/21 History Tab] Dicyclomine HCl 20 mg PO TID 05/04/21 05/04/21 History Dulaglutide [Trulicity] 1.5 mg SQ TU 05/04/21 05/04/21 History Famotidine [Acid Controller] 20 mg PO DAILY 05/04/21 05/04/21 History Fenofibric Acid (Choline) 135 mg PO DAILY 05/04/21 05/04/21 History [Fenofibric Acid] Fluticasone/Salmeterol [Advair 1 puff INHALATION BID 05/04/21 05/04/21 History 250/50mcg Diskus] Insulin Glargine,Hum.rec.anlog 70 units SQ HS 05/04/21 05/04/21 History [Lantus Solostar 100 Units/mL 3mL flexpen] Linagliptin [Tradjenta 5mg tablet] 5 mg PO DAILY 05/04/21 05/04/21 History OLANZapine [Olanzapine] 20 mg PO HS 05/04/21 05/04/21 History Topiramate 50 mg PO BID 05/04/21 05/04/21 History Venlafaxine HCl [Venlafaxine HCl 75 mg PO DAILY 05/04/21 05/04/21 History ER] Venlafaxine HCl [Venlafaxine HCl 150 mg PO DAILY 05/04/21 05/04/21 History ER] Allergies Allergy/AdvReac Type Severity Reaction Status Date / Time aspirin Allergy Verified 12/07/17 17:56 fluoxetine [From Prozac] Allergy Verified 12/07/17 17:56 latex Allergy Verified 09/12/18 23:53 morphine Allergy Verified 09/12/18 23:50 quetiapine [From Seroquel] Allergy Verified 12/07/17 17:56 Exam Vital signs and Labs for Last 24 Hours: Temp Pulse Resp BP Pulse Ox 97.9 F 85 18 131/72 89 L 05/04/21 08:00 05/04/21 08:00 05/04/21 08:00 05/04/21 08:00 05/04/21 08:00 Laboratory Results - last 24 hr 05/03/21 19:35: WBC 6.2, RBC 5.12, Hgb 16.1, Hct 46.6, MCV 91.0, MCH 31.5 H, MCHC 34.6, RDW 16.6, Plt Count 308, MPV 8.3, Neut % (Auto) 64.8, Lymph % (Auto) 27.4, [place] % (Auto) 3.1, Eos % (Auto) 3.4, Baso % (Auto) 1.2, Neut # (Auto) 4.0, Lymph # (Auto) 1.7, [place] # (Auto) 0.2, Eos # (Auto) 0.2, Baso # (Auto) 0.
[2021-05-04 16:27] LABS: POC Glucose,Bedside 292 (70-110)
[2021-05-04 17:51] LABS: Hemoglobin 14.3 g/dL (12.2-16.2)
[2021-05-04 20:33] LABS: POC Glucose,Bedside 254 (70-110)
[2021-05-05 04:00] VITALS: BP 150/80; PULSE 85; RESP 16; TEMP 36.8; O2SAT 94
[2021-05-05 06:16] VITALS: BMI 31.6
--- NOTE | 2021-05-05 06:17 | PC.NURSE ---
pt has been restless t/o shift, has required PRN medications twice for RUQ pain, no complaints of SOA, has remained on room air with O2 sats 93-94%, ambulating to independently
[2021-05-05 07:05] LABS: Basophils # 0.1 K/mm3 (0-0.2); Basophils % 1.3 % (0.1-2.0); Eosinophils # 0.2 K/mm3 (0.0-0.4); Eosinophils % 3.2 % (0.1-12.0); Hematocrit 45.8 % (37.0-47.0); Hemoglobin 14.6 g/dL (12.2-16.2); Lymphocytes # 1.8 K/mm3 (0.7-4.5); Lymphocytes % 32.4 % (10-50); Mean Corpuscular Hemoglobin 29.6 pg (27.0-31.2); Mean Corpuscular Volume 92.6 fl (81-99); Mean Platelet Volume 7.8 fl (7.4-10.4); Monocytes # 0.3 K/mm3 (0.1-1.0); Monocytes % 4.8 % (1.7-9.3); Neutrophils # 3.3 K/mm3 (1.8-7.8); Neutrophils % 58.2 % (37.0-80.0); Platelet Count 282 K/mm3 (142-424); Red Blood Count 4.94 M/mm3 (4.20-5.40); Red Cell Distribution Width 16.4 % (11.5-17.5); White Blood Count 5.6 K/mm3 (4.8-10.8)
[2021-05-05 07:10] LABS: Anion Gap 14.1 mEq/L (5-15); Blood Urea Nitrogen 5 mg/dl (7-17); Calcium 8.6 mg/dl (8.4-10.2); Carbon Dioxide 22 mmol/L (22.0-30.0); Chloride 106 mmol/L (98-107); Creatinine Clearance Estimated 220 mL/min (50-200); Estimated Glomerular Filt Rate 170 ml/min (>60); GFR (African American) 206 ML/MIN (>60); Glucose 237 mg/dl (74-100); Potassium 4.1 mmoL/L (3.5-5.1); Sodium 138 mmol/L (136-145)
[2021-05-05 08:00] VITALS: BP 144/56; PULSE 81; RESP 21; TEMP 36.6; O2SAT 95
--- NOTE | 2021-05-05 08:33 | CT_ITS ---
FINAL REPORT CLINICAL HISTORY: confusion FINDINGS: Axial images of the head were obtained without contrast. Coronal reformatted images were also obtained.This study was performed with techniques to keep radiation doses as low as reasonably achievable (ALARA). Individualized dose reduction techniques using automated exposure control or adjustment of mA and/or kV according to the patient's size were employed. There is no evidence of intracranial hemorrhage or mass. The ventricular size is within normal limits. There is no evidence of shift of the midline structures. No abnormal extra axial fluid collection is identified. No skull abnormality is seen on the bone window images. IMPRESSION: No acute intracranial abnormality. Reviewed, Interpreted and Dictated by Octaviano Perry III, MD Transcribed by Isa Sierra Authenticated by Octaviano Perry III, MD on 05/05/2021 09:14:24 AM [facility]
[2021-05-05 08:51] LABS: POC Glucose,Bedside 249 (70-110)
[2021-05-05 09:20] LABS: Barbiturates Screen,Urine Negative ng/ml (<200)
[2021-05-05 09:21] LABS: Amphetamine/Metha Screen,Urine Negative ng/ml (<1000)
[2021-05-05 09:23] LABS: Methadone Screen,Urine Negative ng/ml (<300)
--- NOTE | 2021-05-05 09:27 | P.PN_ITS ---
Internal Medicine - PN: Subj *Date: 05/05/21 *Time: 08:15 Interval history: pt sitting up in bed states she is confused. pt states she is unable to say what she is thinking Exam Vital signs and Labs for Last 24 Hours: Temp Pulse Resp BP Pulse Ox 97.8 F 81 21 144/56 H 95 05/05/21 08:00 05/05/21 08:00 05/05/21 08:00 05/05/21 08:00 05/05/21 08:00 Laboratory Results - last 24 hr 05/04/21 05:36: Hgb 14.3 D 05/04/21 11:06: POC Glucose 323 H* 05/04/21 16:13: POC Glucose 292 H 05/04/21 20:05: POC Glucose 254 H 05/05/21 05:41: WBC 5.6, RBC 4.94, Hgb 14.6, Hct 45.8, MCV 92.6, MCH 29.6, MCHC 32.0, RDW 16.4, Plt Count 282, MPV 7.8, Neut % (Auto) 58.2, Lymph % (Auto) 32.4, [place] % (Auto) 4.8, Eos % (Auto) 3.2, Baso % (Auto) 1.3, Neut # (Auto) 3.3, Lymph # (Auto) 1.8, [place] # (Auto) 0.3, Eos # (Auto) 0.2, Baso # (Auto) 0.1 05/05/21 05:41: Sodium 138, Potassium 4.1, Chloride 106, Carbon Dioxide 22, Anion Gap 14.1, BUN 5 L D, Creatinine 0.40 L, Estimated Creat Clear 220, Estimated GFR 170, Est GFR ( Amer) 206 D, Glucose 237 H, Calcium 8.6 05/05/21 08:37: POC Glucose 249 H 05/05/21 08:58: Urine Methadone Screen Negative, Ur Barbituates Screen Negative, Ur Amphetamines Screen Negative I & O for Last 24 hours: Intake & Output 05/02/21 05/03/21 05/04/21 05/05/21 11:59 11:59 11:59 11:59 Intake Total 1100 / 1100 2659 / 2659 Balance 1100 / 1100 2659 / 2659 Weight 176 lb 5.917 oz 178 lb 7 oz - Constitutional no acute distress, obese - *Routine HEENT Exam Head: Present: normocephalic Eye: Present: PERRL ENT: Present: mucous membranes moist - *Routine Neck Exam Present: supple. Absent: lymphadenopathy - *Routine Respiratory Exam Present: CTA bilaterally - *Routine Cardiovascular Exam Present: RRR - *Routine Abdominal Exam Present: soft, normoactive bowel sounds, tenderness - *Routine Extremities Exam Present: normal capillary refill. Absent: cyanosis, clubbing, edema - *Routine Skin Exam Present: warm. Absent: rash - *Routine Neurological Exam Present: alert, oriented X3, CN II-XII intact pt short with answers but answers vincenzo Assessment and Plan (1) Diabetes mellitus Status: Acute Qualifiers: Diabetes mellitus type: type 2 Diabetes mellitus [employer] insulin use: unspecified [employer] de[employer] insulin use status Diabetes mellitus complication status: with other specified complication Qualified Code(s): E11.69 - Type 2 diabetes mellitus with other specified complication Category: Medical Code(s): E11.9 - Type 2 diabetes mellitus without c omplications (2) Diverticulitis Status: Acute Category: Medical Code(s): K57.92 - Diverticulitis of inte milady, part unspecified, without perforation or abscess without bleeding (3) Obesity (BMI 30-39.9) Status: Acute Category: Medical Code(s): E66.9 - Obesity, unspecified - Assessment and plan all Dx Assessment and Plan for all problems:: rounded with dr rojas all orders per dr rojas ct head urine uds surgery consult
--- NOTE | 2021-05-05 10:58 | HMH.GSCON ---
*Admission Date: 05/03/21 *Reason for consult:: Diverticulitis *History of present illness: This is a 50-year-old female seen in consultation from the primary service for evaluation regarding diverticulitis. She was initially evaluated in the emergency department on May 02 after presenting with abdominal pain and nausea. She left AGAINST MEDICAL ADVICE. She returned the following evening with persistent symptoms. A CT scan performed on both days revealed changes consistent with mild sigmoid diverticulitis. She has been placed on IV Levaquin/Flagyl and states that she feels better right now . No fevers. Some recent nausea/vomiting/diarrhea. Forwarded from admission H&P and emergency department evaluation: *Admission Date: 05/03/21 *History of present illness: 50 yr old female presented to ed with c/o rt sided abd pain and back pain over the last few days. Pt states she signed out AMA yesterday and returned home but the back,abd and elevated glucose and returned for treatment. Pt admitted for diverticulitis and iv antibiotics. pt has hx of dm and diverticulitis Nausea/Vomiting/Diarrhea HPI - General Chief complaint: Abdominal Pain Stated complaint: BACK PAIN Time Seen by Provider: 05/03/21 21:08 Mode of Arrival: EMS Source of Information: Patient, Medical Record Limitations: No Limitations Description of Symptoms (Recalled from ER Triage Doc. by RN): PT REPORTS THAT SHE SIGNED OUT AMA YESTERDAY. SHE HAS RETURNED TODAY BECAUSE SHE CONTINUES TO HAVE BACK PAIN, ABDOMINAL PAIN AND HIGH BLOOD SUGARS AT HOME. - History of Present Illness HPI Narrative: pt with progressive abd pain with vomiting and diarrhea - no other c/o MD complaint: nausea, vomiting, abdominal pain Onset (ago): day(s) Associated Abdominal Pain: Yes Location of pain: RUQ Severity: moderate Associated symptoms: denies other symptoms Review of Systems - Constitutional Denies body ache(s), Denies chills, Denies fever(s) - *Cardiovascular Denies chest pain - *Respiratory Denies cough - *Gastrointestinal Reports abdominal pain, Reports loose stools, Reports nausea, Reports vomiting - *Neurologic Denies abnormal movements, Denies seizure-like activity [facility] History Medical History: Reports:: Anxiety, Cancer (CERVICAL), Coronary Artery Disease, Depression, Diabetes Mellitus Type 2 Denies:: Diabetes Mellitus Type 1 *Have you ever received a pneumonia vaccine?: Yes *Have you received a flu vaccine this season?: Yes Other Medical History: Reports: Other (Chronic left arm pain) Other Surgeries: Yes: Cardiac Catheterization - *Social History Smoking Status: Current every day smoker Tobacco Type: cigarettes # Packs/Day (cigarettes): 1 Alcohol Intake: never Alcohol Intake Frequency:: holidays/special occasions only *Occupational Status:: disabled *Travel in the last 8 weeks: None - Psychiatric History Pschychiatric History:: Reports:: Anxiety, Depression Family Hx:: Cancer, Diabetes, Heart Attack, Hypertension Meds Home Medications Medication Instructions Recorded Confirmed Type ALPRAZolam [Alprazolam ER] 1 mg PO BID PRN 05/04/21 05/04/21 History Diclofenac Sodium [Diclofenac 75mg 75 mg PO BID 05/04/21 05/04/21 History Tab] Dicyclomine HCl 20 mg PO TID 05/04/21 05/04/21 History Dulaglutide [Trulicity] 1.5 mg SQ TU 05/04/21 05/04/21 History Famotidine [Acid Controller] 20 mg PO DAILY 05/04/21 05/04/21 History Fenofibric Acid (Choline) 135 mg PO DAILY 05/04/21 05/04/21 History [Fenofibric Acid] Fluticasone/Salmeterol [Advair 1 puff INHALATION BID 05/04/21 05/04/21 History 250/50mcg Diskus] Insulin Glargine,Hum.rec.anlog 70 units SQ HS 05/04/21 05/04/21 History [Lantus Solostar 100 Units/mL 3mL flexpen] Linagliptin [Tradjenta 5mg tablet] 5 mg PO DAILY 05/04/21
--- NOTE | 2021-05-05 11:22 | PC.NURSE ---
spoke with lab about patient urine drug screen and they stated it would have to be sent out to obtain results. did request for them to use that urine for a ua as well.
[2021-05-05 11:26] LABS: Microscopic, Urine URINE MICROSCOPIC (MICROSCOPIC)
[2021-05-05 11:30] LABS: Appearance,Urine SL CLOUDY (Clear); Blood, Urine Negative (Negative); Glucose,Urine (UA) 3+ (Negative); Ketones,Urine 3+ (Negative); Leukocyte Esterase,Urine Negative (Negative); Nitrate,Urine Negative (Negative); Protein,Urine 1+ (Negative); Specific Gravity, Urine >= 1.030 (1.005-1.030); Urobilinogen,Urine 0.2 EU/dl (0.2)
[2021-05-05 11:43] LABS: Bilirubin,Urine 2+ (Negative); Color,Urine AMBER (Yellow)
[2021-05-05 11:54] LABS: Bacteria,Urine 1+ /lpf
[2021-05-05 13:18] LABS: POC Glucose,Bedside 293 (70-110)
[2021-05-05 13:18] LABS: POC Glucose,Bedside 254 (70-110)
--- NOTE | 2021-05-05 14:39 | PC.NURSE ---
patient is requesting to go home at this time. called md office to relay this information
--- NOTE | 2021-05-05 15:22 | PC.NURSE ---
patient has agreed to stat since md stated she could not be discharged. she is asking for her xanax which md was notified. they stated they would get back to us about that. patient does seem more alert than earlier in shift. answers all questions appropriately. does seem to take longer to get out what she means, but has no other issues noted.
[2021-05-05 16:00] VITALS: BP 132/71; PULSE 78; RESP 19; TEMP 36.9; O2SAT 92
[2021-05-05 20:00] VITALS: BP 157/86; PULSE 76; RESP 17; TEMP 36.8; O2SAT 93
[2021-05-05 20:31] LABS: POC Glucose,Bedside 252 (70-110)
[2021-05-06 04:00] VITALS: BP 140/83; PULSE 87; RESP 16; TEMP 37; O2SAT 90
[2021-05-06 05:00] VITALS: BMI 32.4
[2021-05-06 06:16] LABS: POC Glucose,Bedside 224 (70-110)
[2021-05-06 06:59] LABS: Anion Gap 8.2 mEq/L (5-15); Blood Urea Nitrogen 5 mg/dl (7-17); Calcium 8.4 mg/dl (8.4-10.2); Carbon Dioxide 25 mmol/L (22.0-30.0); Chloride 108 mmol/L (98-107); Creatinine Clearance Estimated 180 mL/min (50-200); Estimated Glomerular Filt Rate 132 ml/min (>60); GFR (African American) 159 ML/MIN (>60); Glucose 192 mg/dl (74-100); Potassium 4.2 mmoL/L (3.5-5.1); Sodium 137 mmol/L (136-145)
[2021-05-06 07:01] LABS: Basophils # 0.1 K/mm3 (0-0.2); Basophils % 2.1 % (0.1-2.0); Eosinophils # 0.2 K/mm3 (0.0-0.4); Hematocrit 42.7 % (37.0-47.0); Hemoglobin 13.7 g/dL (12.2-16.2); Lymphocytes # 1.4 K/mm3 (0.7-4.5); Lymphocytes % 35.9 % (10-50); Mean Corpuscular HGB Conc 32.1 g/dL (31.8-35.4); Mean Corpuscular Hemoglobin 29.3 pg (27.0-31.2); Mean Corpuscular Volume 91.2 fl (81-99); Mean Platelet Volume 7.9 fl (7.4-10.4); Monocytes # 0.2 K/mm3 (0.1-1.0); Monocytes % 6.1 % (1.7-9.3); Platelet Count 228 K/mm3 (142-424); Red Blood Count 4.68 M/mm3 (4.20-5.40); Red Cell Distribution Width 16.3 % (11.5-17.5); White Blood Count 3.9 K/mm3 (4.8-10.8)
[2021-05-06 08:00] VITALS: BP 121/63; PULSE 80; RESP 18; TEMP 36.4; O2SAT 95
--- NOTE | 2021-05-06 09:16 | HMH.GSPN ---
Subjective Patient reports: feels better Progress Note: A&P (1) Diabetes mellitus Status: Acute (2) Diverticulitis Status: Acute Assessment and plan: Continuing to improve on Levaquin/Flagyl Okay from surgical standpoint to convert to PO Levaquin/Flagyl Outpatient follow-up for serial abdominal exams and to plan colonoscopy in 6-8 weeks (3) Obesity (BMI 30-39.9) Status: Acute Exam Vital signs and Labs for Last 24 Hours: Temp Pulse Resp BP Pulse Ox 97.6 F 80 18 121/63 95 05/06/21 08:00 05/06/21 08:00 05/06/21 08:00 05/06/21 08:00 05/06/21 08:00 Laboratory Results - last 24 hr 05/05/21 05:33: POC Glucose 254 H 05/05/21 08:58: Urine Color [place], Urine Appearance Sl cloudy, Urine pH 6.0, Ur Specific [place] >= 1.030, Urine Protein 1+, Urine Glucose (UA) 3+, Urine Ketones 3+, Urine Blood Negative, Urine Nitrate Negative, Urine Bilirubin 2+ A, Urine Urobilinogen 0.2, Ur Leukocyte Esterase Negative, Urine RBC None, Urine WBC None, Ur Squamous Epith Cells 5-10, Urine Bacteria 1+ 05/05/21 08:58: Urine Opiates Screen TNP, Urine Methadone Screen Negative, Ur Barbituates Screen Negative, Ur Phencyclidine Scrn TNP, Ur Amphetamines Screen Negative, U Benzodiazepines Scrn TNP, Urine Cocaine Screen TNP, U Marijuana (THC) Screen TNP 05/05/21 11:44: POC Glucose 293 H 05/05/21 20:13: POC Glucose 252 H 05/06/21 05:31: WBC 3.9 L D, RBC 4.68, Hgb 13.7, Hct 42.7, MCV 91.2, MCH 29.3, MCHC 32.1, RDW 16.3, Plt Count 228, MPV 7.9, Neut % (Auto) 52.0, Lymph % (Auto) 35.9, [place] % (Auto) 6.1, Eos % (Auto) 4.0, Baso % (Auto) 2.1 H, Neut # (Auto) 2.0, Lymph # (Auto) 1.4, [place] # (Auto) 0.2, Eos # (Auto) 0.2, Baso # (Auto) 0.1 05/06/21 05:31: Sodium 137, Potassium 4.2, Chloride 108 H, Carbon Dioxide 25, Anion Gap 8.2, BUN 5 L, Creatinine 0.50 L D, Estimated Creat Clear 180, Estimated GFR 132, Est GFR ( Amer) 159 D, Glucose 192 H, Calcium 8.4 05/06/21 05:59: POC Glucose 224 H I & O for Last 24 hours: Intake & Output 05/03/21 05/04/21 05/05/21 05/06/21 11:59 11:59 11:59 11:59 Intake Total 1100 / 1100 2899 / 2899 960 / 960 Output Total 0 / 0 600 / 600 Balance 1100 / 1100 2899 / 2899 360 / 360 Weight 176 lb 5.917 oz 178 lb 7 oz 183 lb 1.6 oz Microbiology Reports for the Last 24 Hours: Microbiology 05/03/21 19:35 Blood Blood Culture - Preliminary NO GROWTH AFTER 48 HOURS 05/03/21 19:35 Blood Blood Culture - Preliminary NO GROWTH AFTER 48 HOURS - Constitutional no acute distress - *Routine Respiratory Exam Absent: respiratory distress - *Routine Cardiovascular Exam Absent: tachycardia - *Routine Abdominal Exam Present: soft
--- NOTE | 2021-05-06 09:50 | DIET.NUTRFU ---
During rounds Dr. Witt decided to advance diet and plan for discharge. RD updated ordered and took lunch menu
--- NOTE | 2021-05-06 11:28 | HMH.DCSUM ---
General - General Admission date:: 05/04/21 Discharge date: 05/06/21 HPI HPI: 50 yr old female presented to ed with c/o rt sided abd pain and back pain over the last few days. Pt states she signed out AMA yesterday and returned home but the back,abd and elevated glucose and returned for treatment. Pt admitted for diverticulitis and iv antibiotics. pt has hx of dm and diverticulitis Hospital Course Hospital Course: Abnormal Lab Results 05/05/21 05:33: POC Glucose 254 H 05/05/21 08:58: Urine Bilirubin 2+ A 05/05/21 11:44: POC Glucose 293 H 05/05/21 20:13: POC Glucose 252 H 05/06/21 05:31: WBC 3.9 L D, Baso % (Auto) 2.1 H 05/06/21 05:31: Chloride 108 H, BUN 5 L, Creatinine 0.50 L D, Glucose 192 H 05/06/21 05:59: POC Glucose 224 H Microbiology 05/03/21 19:35 Blood Blood Culture - Preliminary NO GROWTH AFTER 48 HOURS 05/03/21 19:35 Blood Blood Culture - Preliminary NO GROWTH AFTER 48 HOURS Ordering Physician: Derrick Witt MD Date of Service: 05/03/21 Procedure(s): CT abdomen pelvis w con Accession Number(s): [id number] cc: Sunny Subramanian ; Derrick Witt MD; Jazzmine Barragan MD~ PROCEDURE INFORMATION: Exam: CT Abdomen And Pelvis With Contrast Exam date and time: 05/03/2021 7:47 PM Age: 50 years old Clinical indication: Abdominal pain; Generalized; Patient HX: Worsening abdomen pain. Patient had a cat scan of the abdomen last night here at this hospital. ; Additional info: Abd pain TECHNIQUE: Imaging protocol: Computed tomography of the abdomen and pelvis with contrast. Radiation optimization: All CT scans at this facility use at least one of these dose optimization techniques: automated exposure control; mA and/or kV adjustment per patient size (includes targeted exams where dose is matched to clinical indication); or iterative reconstruction. Contrast material: ISOVUE; Contrast volume: 75 ml; Contrast route: IV; COMPARISON: CT ABDOMEN PELVIS W CON 05/02/2021 9:14 PM FINDINGS: Lungs: Pulmonary nodules again noted in the lung bases. Liver: Fatty liver. Hepatomegaly, measuring 21.0 cm in craniocaudal axis. Gallbladder and bile ducts: Acute areas excretion of intravenous contrast material noted in the gallbladder. Gallbladder is otherwise unremarkable. Biliary Pancreas: Unremarkable. Spleen: Splenomegaly, measuring 13.5 cm in craniocaudal axis. Innumerable subcentimeter hypodensities in the spleen unchanged. Adrenal glands: Unremarkable. Kidneys and ureters: No renal or ureteral stones. No hydronephrosis. Stomach and bowel: Colonic diverticulosis with focal segment of mild wall thickening and pericolonic fat stranding in the sigmoid colon. No focal fluid collection or free air to suggest perforation. No pneumatosis. Appendix: Appendix is normal. Intraperitoneal space: No free fluid. No pneumoperitoneum. Vasculature: Unremarkable. Lymph nodes: Unremarkable. Urinary bladder: Within normal limits. Reproductive: Unremarkable. Bones/joints: No acute osseous abnormality. Soft tissues: Unremarkable. IMPRESSION: 1. Acute uncomplicated diverticulitis, not significantly changed from CT performed 1 day prior. 2. Fatty liver and hepatomegaly. Consider non-emergent referral to Hepatology. 3. Splenomegaly with subcentimeter hypodensities in the spleen unchanged. Please see comment #1 below. 4. Pulmonary nodules again noted in the lung bases. Please see comment #2 below. Ordering Physician: Luda Otto APRN Date of Service: 05/05/21 Procedure(s): CT head/brain wo con Accession Number(s): [id number] cc: Sunny Subramanian ; Luda Otto APRN; Octaviano Perry MD~ FINAL REPORT CLINICAL HISTORY: confusion FINDINGS: Axial images of the head were obtained without contrast. Coronal reformatted images were also obtained.This study was performed with techniqu
[2021-05-06 16:03] LABS: POC Glucose,Bedside 206 (70-110)
--- NOTE | 2021-05-09 15:06 | CARE MANAGER ---
Spoke with patient. Was able to picker and sorter load and unload prescriptions an francisca saware of follow up appointment with Dr. Saldivar this week. She denies any questions or concerns. States her appetite is fine and she is having some abdominal pain but not like it was. ALEXANDRE Bey
[2021-05-12 04:20] LABS: Phencyclidine, Urine Negative (Cutoff=25)
[2021-05-18 15:14] LABS: Alprazolam Negative (Cutoff=100); Benzodiazepines Positive ng/mL (Cutoff=100); Clonazepam Negative (Cutoff=100); Codeine Positive (.); Codeine Confirm 181 ng/mL (Cutoff=100); Flurazepam Negative (Cutoff=100); Hydrocodone Negative (Cutoff=100); Hydromorphone Positive (.); Hydromorphone Confirm 2037 ng/mL (Cutoff=100); Lorazepam Positive (.); Midazolam Negative (Cutoff=100); Morphine Positive (.); Morphine Confirm 282 ng/mL (Cutoff=100); Opiates Positive (.); Temazepam Negative (Cutoff=100); Triazolam Negative (Cutoff=100)
== END 2021-05-06 14:08 | disposition home or self-care (01) | DRG 392 ==
LOC: ER 20:43 → 2ND 23:11
PROVIDERS: Nurse Practitioner Family; Admitting Provider Emergency Medicine; Emergency Provider Emergency Medicine; PCP Family Medicine; Visit Provider Emergency Medicine
DX: K57.92 Diverticulitis of intestine, part unspecified, without perforation or abscess without bleeding (principal); E66.9 Obesity, unspecified; Z68.32 Body mass index [BMI] 32.0-32.9, adult; E11.9 Type 2 diabetes mellitus without complications; Z85.41 Personal history of malignant neoplasm of cervix uteri; I25.10 Atherosclerotic heart disease of native coronary artery without angina pectoris; F17.210 Nicotine dependence, cigarettes, uncomplicated; Z20.822 Contact with and (suspected) exposure to COVID-19
CPT/HCPCS: 36415; 70450; 71046; 72129; 72132; 74177; 80048; 80053; 80305; 80346; 80349; 80353; 80361; 81001; 82009; 82150; 82962; 83036; 83605; 83690; 83992; 84145; 84484; 85025; 85651; 86140; 87040; 87086; 93005; 96365; 96366; 96367; 96375; 99285; C9803; G0480; J1956; J2405; Q9967; U0003; U0005

== ENCOUNTER 2022-07-06 23:33 | Emergency (ER) | payer MEDICAID, SELFPAY ==
--- NOTE | 2022-07-06 23:42 | ECG_ITS ---
APPROVED REPORT Exam: Resting ECG HR:99 bpm ECG Measurements Heart Rate 99 AXES AK 169 P 55 QRSd 102 QRS 266 QT 350 T 57 QTc 406 Conclusion SINUS RHYTHM Late R wave progression with biatrial abnormality and Borderline right axis deviation ABNORMAL ECG UNCONFIRMED REPORT Electronically signed by : Shun Goss MD 07/08/2022 07:50:03
[2022-07-06 23:57] VITALS: BP 131/83; PULSE 89; RESP 18; TEMP 36.6; O2SAT 90; BMI 30.8
--- NOTE | 2022-07-07 00:01 | CT_ITS ---
PROCEDURE INFORMATION: Exam: CTA Chest With Contrast Exam date and time: 07/07/2022 12:30 AM Age: 51 years old Clinical indication: Shortness of breath; Additional info: SOA TECHNIQUE: Imaging protocol: Computed tomographic angiography of the chest with contrast. 3D rendering (Not supervised by radiologist): MIP and/or 3D reconstructed images were created by the technologist. Radiation optimization: All CT scans at this facility use at least one of these dose optimization techniques: automated exposure control; mA and/or kV adjustment per patient size (includes targeted exams where dose is matched to clinical indication); or iterative reconstruction. Contrast material: ISOVUE; Contrast volume: 70 ml; Contrast route: INTRAVENOUS (IV); REPORTING DATA: Count of CT and Cardiac NM exams in prior 12 months: This patient has received 0 known CTs and 0 known cardiac nuclear medicine studies in the 12 months prior to the current study. COMPARISON: CR XR CHEST 2V 07/07/2022 12:16 AM FINDINGS: Pulmonary arteries: Normal. No pulmonary emboli. Aorta: Unremarkable. No aortic aneurysm. No aortic dissection. Lungs: Poorly defined hypodense focus in left posterior lung base measuring 2.6 x 2.1 cm with central air collection. Surrounding nodular bronchovascular thickening in posterior lung base. Poorly defined hypodense focus in superior segment right lower lobe measuring 1.4 x 1.9 cm. Small adjacent nodule measuring approximally 0.3 cm. 0.7 cm nodular focus in right posterior basilar lung. Pleural spaces: Unremarkable. No pneumothorax. No pleural effusion. Heart: Unremarkable. No cardiomegaly. No pericardial effusion. Lymph nodes: Confluent poorly defined mediastinal and perihilar lymphadenopathy. Largest discrete lymph node measures 2.1 x 1.0 cm in subcarinal region. Liver: Fatty liver infiltration in visualized abdomen Bones/joints: Unremarkable. No acute fracture. Soft tissues: Unremarkable. IMPRESSION: 1. No central or segmental pulmonary embolism by CT criteria. 2. Multiple pulmonary masses/nodules with largest nodular mass in left lower lobe with central necrosis, suspicious for metastases. Possible regional lymphangitic tumor spread in left lower lobe adjacent to this necrotic lesion. Smaller metastatic lesions in both lungs. 3. Mediastinal and perihilar lymphadenopathy. 4. Fatty liver infiltration.
--- NOTE | 2022-07-07 00:01 | XR_ITS ---
PROCEDURE INFORMATION: Exam: XR Chest Exam date and time: 07/07/2022 12:16 AM Age: 51 years old Clinical indication: Shortness of breath; Additional info: SOA TECHNIQUE: Imaging protocol: Radiologic exam of the chest. Views: 2 views. COMPARISON: CR XR CHEST 2V 05/03/2021 1:15 AM FINDINGS: Lungs: Known pulmonary nodules are not conspicuous on radiographs. Pleural spaces: Unremarkable. No pleural effusion. No pneumothorax. Heart/Mediastinum: Mediastinum aorta, cardiac silhouettes stable. Bones/joints: Unremarkable. IMPRESSION: Stable radiographs.
[2022-07-07 00:07] LABS: Coronavirus 19, PCR Not Detected (NotDetected); Influenza A, PCR Not Detected (NotDetected); Influenza B, PCR Not Detected (NotDetected)
[2022-07-07 00:11] LABS: Basophils # 0.1 K/mm3 (0-0.2); Basophils % 0.8 % (0.1-2.0); Eosinophils # 0.2 K/mm3 (0.0-0.4); Eosinophils % 2.2 % (0.1-12.0); Hematocrit 44.8 % (37.0-47.0); Hemoglobin 14.9 g/dL (12.2-16.2); Lymphocytes # 2.9 K/mm3 (0.7-4.5); Lymphocytes % 27.9 % (10-50); Mean Corpuscular HGB Conc 33.3 g/dL (31.8-35.4); Mean Corpuscular Hemoglobin 29.9 pg (27.0-31.2); Mean Platelet Volume 7.8 fl (7.4-10.4); Monocytes # 0.6 K/mm3 (0.1-1.0); Monocytes % 5.8 % (1.7-9.3); Neutrophils # 6.7 K/mm3 (1.8-7.8); Neutrophils % 63.4 % (37.0-80.0); Platelet Count 315 K/mm3 (142-424); Red Blood Count 4.98 M/mm3 (4.20-5.40); White Blood Count 10.5 K/mm3 (4.8-10.8)
[2022-07-07 00:12] LABS: Chloride 100 mmol/L (98-107); Potassium 3.7 mmoL/L (3.5-5.1); Sodium 136 mmol/L (136-145)
[2022-07-07 00:15] LABS: Anion Gap 16.7 mEq/L (5-15); Blood Urea Nitrogen 12 mg/dl (7-17); Calcium 9.5 mg/dl (8.4-10.2); Carbon Dioxide 23 mmol/L (22.0-30.0); Creatinine Clearance Estimated 106 mL/min (50-200); Estimated Glomerular Filt Rate 76 ml/min (>60); GFR (African American) 92 ML/MIN (>60); Glucose 196 mg/dl (74-100)
[2022-07-07 00:22] LABS: C-Reactive Protein 74.4 mg/L (0-4)
[2022-07-07 00:25] VITALS: PULSE 100; PULSE 97
[2022-07-07 00:30] LABS: Troponin I < 0.01 ng/ml (0.00-0.034)
--- NOTE | 2022-07-07 00:34 | HMH.EDSOB ---
Discharge Plan Disposition Patient Disposition: Home, Self-Care Prescriptions Prescriptions: New prednisone [prednisone] 20 mg tablet 20 mg PO BID Qty: 10 0RF levofloxacin 500 mg tablet 500 mg PO DAILY Qty: 7 0RF No Action topiramate 50 MG tablet 50 mg PO BID venlafaxine 150 MG capsule,extended release 24hr 150 mg PO DAILY dicyclomine 20 MG tablet 20 mg PO TID diclofenac sodium 75 MG tablet,delayed release (DR/EC) 75 mg PO BID olanzapine 20 MG tablet 20 mg PO HS alprazolam 1 MG tablet extended release 24 hr 1 mg PO BID PRN (Reason: Anxiety) venlafaxine 75 MG tablet extended release 24hr 75 mg PO DAILY fluticasone propion-salmeterol 28 PUFFS/50 MCG inhaler 1 puff INHALATION BID famotidine 20 MG tablet 20 mg PO DAILY insulin glargine 100 UNIT/ML insulin pen 70 units SQ HS Label Comments: USE SUBCUTANEOUSLY (INJECT UNDER THE SKIN) 70 UNITS NIGHTLY. fenofibric acid (choline) 135 MG capsule,delayed release(DR/EC) 135 mg PO DAILY linagliptin 5 MG tablet 5 mg PO DAILY dulaglutide 1.5 MG/0.5 ML pen injector 1.5 mg SQ TU Referrals Follow up/Referrals: Scottie Siu MD [Physician] - See instructions Sunny Subramanian [Primary Care Provider] - See instructions Clinical Impressions Clinical Impression: Acute exacerbation of chronic obstructive airways disease, Pulmonary mass Instructions Patient Instructions: DI for Chronic Obstructive Pulmonary Disease Discharge ED Provider: Eduar (ED)Derrick Resp/SOB HPI General Chief Complaint: Shortness of Breath/Dyspnea Stated Complaint: Cough; Short of breath Time Seen by Provider: 07/07/22 00:34 Mode of Arrival: Ambulatory Source of Information: Patient and Medical Record Limitations: No Limitations Description of Symptoms (Recalled from ER Triage Doc. by RN): Pt arrives via private vehicle c c/o soa since this afternoon with associated dizziness and lung pain. States that she does have copd but this is worse than normal. History of Present Illness pt with cough and sob with lt sided chest pain - pt with hx of pul nodules - pt with tob use and copd Complaint: shortness of breath, cough and pain with inspiration Onset (ago): day(s) Severity: moderate Known history of: COPD Associated symptoms: denies other symptoms Related Data Home oxygen amount: none Home Medications Medication Instructions Recorded Confirmed alprazolam 1 mg tablet,extended 1 mg PO BID PRN Anxiety 05/04/21 05/13/21 release 24 hr diclofenac sodium 75 mg 75 mg PO BID Pain 05/04/21 05/13/21 tablet,delayed release dicyclomine 20 mg tablet 20 mg PO TID Stomach cramps 05/04/21 05/13/21 dulaglutide 1.5 mg/0.5 mL 1.5 mg SQ TU Diabetes 05/04/21 05/13/21 subcutaneous pen injector famotidine 20 mg tablet 20 mg PO DAILY GERD 05/04/21 05/13/21 fenofibric acid (choline) 135 mg 135 mg PO DAILY High cholesterol 05/04/21 05/13/21 capsule,delayed release fluticasone 250 mcg-salmeterol 50 1 puff inhalation BID Breathing 05/04/21 05/13/21 mcg/dose blistr powdr for problems inhalation insulin glargine 100 unit/mL (3 70 units SQ HS Diabetes 05/04/21 05/13/21 mL) subcutaneous pen linagliptin 5 mg tablet 5 mg PO DAILY Diabetes 05/04/21 05/13/21 olanzapine 20 mg tablet 20 mg PO HS Mental disorder 05/04/21 05/13/21 topiramate 50 mg tablet 50 mg PO BID headache 05/04/21 05/13/21 venlafaxine 150 mg 150 mg PO DAILY antidepressant 05/04/21 05/13/21 capsule,extended release 24 hr venlafaxine 75 mg tablet,extended 75 mg PO DAILY Antidepessant 05/04/21 05/13/21 release 24 hr Previous Rx's Medication Instructions Recorded levofloxacin 500 mg tablet 500 mg PO DAILY #7 tabs 07/07/22 prednisone 20 mg tablet 20 mg PO BID #10 tabs 07/07/22 Allergies Allergy/AdvReac Type Severity Reaction Status Date / Time aspirin Allergy Verified 05/13/21 09:19 fluoxetine [From [facility]] Allergy Verified
[2022-07-07 00:50] LABS: Erythrocyte Sedimentation Rate 37 mm/hr (0-20)
[2022-07-07 01:00] VITALS: BP 102/58; PULSE 99; RESP 27; O2SAT 91
[2022-07-07 01:17] LABS: Procalcitonin 0.063 ng/mL (0.0-2.0)
[2022-07-07 01:22] LABS: ABG Base Excess -6.6 mmol/L (-2.4-2.3); ABG HCO3 19.2 mmhg (22.0-26.0); ABG Oxygen Saturation 87 % (90-100); ABG PCO2 36.7 mmhg (35.0-45.0); ABG PH 7.34 mmol/L (7.35-7.45); ABG PO2 53.9 mmhg (80-100); ABG TCO2 20.3 mmhg (23-27); Allen's Test Acceptable; Oxygen RA %; Source Right Radial
[2022-07-07 01:30] VITALS: BP 103/54; PULSE 100; RESP 45; O2SAT 90
--- NOTE | 2022-07-07 02:03 | PC.NURSE ---
Spoke with Patient with . Patient was updated on the results of her ct scan and advised to follow up with pulmonology in the am and to speak to her pcp as soon as possible.
[2022-07-07 02:16] VITALS: BP 105/55; PULSE 105; RESP 24; TEMP 36.6; O2SAT 90
== END 2022-07-07 02:31 | disposition home or self-care (01) ==
PROVIDERS: Emergency Provider Emergency Medicine; PCP Family Medicine
DX: J44.1 Chronic obstructive pulmonary disease with (acute) exacerbation (principal); R91.8 Other nonspecific abnormal finding of lung field; F17.210 Nicotine dependence, cigarettes, uncomplicated
CPT/HCPCS: 71046; 71275; 80048; 82803; 83735; 83880; 84145; 84484; 85025; 85651; 86140; 87635; 87636; 93005; 96361; 96374; 99285; C9803; Q9967; U0003; U0005

== ENCOUNTER → 2022-07-19 10:50 | Outpatient (CLI) | payer MEDICAID, SELFPAY ==
[2022-07-19 11:36] LABS: Basophils # 0.1 K/mm3 (0-0.2); Basophils % 0.7 % (0.1-2.0); Eosinophils # 0.2 K/mm3 (0.0-0.4); Eosinophils % 1.9 % (0.1-12.0); Hematocrit 51.8 % (37.0-47.0); Hemoglobin 16.4 g/dL (12.2-16.2); Lymphocytes # 3.2 K/mm3 (0.7-4.5); Mean Corpuscular HGB Conc 31.6 g/dL (31.8-35.4); Mean Corpuscular Hemoglobin 28.7 pg (27.0-31.2); Mean Corpuscular Volume 90.8 fl (81-99); Mean Platelet Volume 7.6 fl (7.4-10.4); Monocytes # 0.5 K/mm3 (0.1-1.0); Monocytes % 4.7 % (1.7-9.3); Neutrophils % 60.7 % (37.0-80.0); Platelet Count 337 K/mm3 (142-424); Red Cell Distribution Width 16.8 % (11.5-17.5)
[2022-07-19 11:46] LABS: C-Reactive Protein 4.4 mg/L (0-4)
[2022-07-22 00:10] LABS: QuantiFERON-TB Gold Plus Negative (Negative)
[2022-07-22 20:02] LABS: Aspergillus flavus Negative (Neg:<1:1); Aspergillus fumigatus Negative (Neg:<1:1); Aspergillus niger Negative (Neg:<1:1); Blastomyces Antibody Negative (Neg:<1:1)
== END ==
PROVIDERS: PCP Family Medicine; Visit Provider Internal Medicine Pulmonary Disease
DX: R06.09 Other forms of dyspnea (principal); J45.909 Unspecified asthma, uncomplicated; J84.10 Pulmonary fibrosis, unspecified; J18.9 Pneumonia, unspecified organism
CPT/HCPCS: 36415; 85025; 86140; 86480; 86606; 86612; 87070; 87116; 87186; 87205; 87206; 87220

== ENCOUNTER → 2022-08-04 13:00 | Outpatient (CLI) | payer MEDICAID, SELFPAY ==
--- NOTE | 2022-08-04 13:09 | ECG_ITS ---
APPROVED REPORT Exam: Resting ECG HR:80 bpm ECG Measurements Heart Rate 80 AXES OK 160 P -5 QRSd 96 QRS -62 QT 352 T 30 QTc 388 Conclusion SINUS RHYTHM LEFT ANTERIOR FASCICULAR BLOCK [QRS AXIS <= -45, QR IN I, RS IN II] NONSPECIFIC T-WAVE ABNORMALITY ABNORMAL ECG UNCONFIRMED REPORT Electronically signed by : Shun Goss MD 08/04/2022 16:16:16
== END ==
PROVIDERS: PCP Family Medicine; Visit Provider Internal Medicine Pulmonary Disease
DX: R06.09 Other forms of dyspnea (principal)
CPT/HCPCS: 93005

== ENCOUNTER 2022-08-07 08:05 | Day surgery (SDC) | payer MEDICAID, SELFPAY ==
[2022-08-03 10:44] VITALS: BMI 28.3
[2022-08-07] VITALS (13 sets, daily range): BP systolic 102–147; BP diastolic 61–73; PULSE 71–88; RESP 12–18; TEMP 36.1–43; O2SAT 93–97
[2022-08-07 09:33] LABS: Chloride 105 mmol/L (98-107)
[2022-08-07 09:34] LABS: Sodium 139 mmol/L (136-145)
[2022-08-07 09:37] LABS: Blood Urea Nitrogen 12 mg/dl (7-17); Calcium 9.2 mg/dl (8.4-10.2); Carbon Dioxide 23 mmol/L (22.0-30.0); Creatinine Clearance Estimated 111 mL/min (50-200); Estimated Glomerular Filt Rate 89 ml/min (>60); GFR (African American) 108 ML/MIN (>60); Glucose 260 mg/dl (74-100)
[2022-08-07 09:50] LABS: Anion Gap 16.5 mEq/L (5-15); Potassium 5.5 mmoL/L (3.5-5.1)
--- NOTE | 2022-08-07 09:56 | EXP.ANES.CKL ---
[facility] Disclaimer: The information contained in this section may have been updated after the patient was seen, as this information can be updated by other users. Medical History Asthma Cervical cancer Coronary artery disease Dyspnea on exertion Hilar lymphadenopathy History of asthma History of COPD History of coronary angiogram History of diverticulitis History of stroke Hyperlipidemia Irritable bowel syndrome (IBS) Mediastinal lymphadenopathy Migraine Multiple lung nodules on CT Smoking greater than 30 pack years Surgical History H/O laparoscopy History of tubal ligation Family History Other Family history of COPD (chronic obstructive pulmonary disease) Family history of diabetes mellitus type II Social History Smoking Status: Current every day smoker tobacco type: cigarettes packs per day: 1 years smoked: 35 second hand exposure: Yes alcohol intake: never substance use type: denies use current occupational status: disabled Travel in the last 8 weeks: None household members: none lives independently: Yes marital status: single pets and animals: Yes [facility] Anesthesia Checklist Patient Identification Patient Identification: Arm Band Structural Data Admitted From: Home Planned Operative Procedure/s: Bronchoscopy with Bx and EBUS Consent for Planned Operative Procedure(s) Verified: Yes Verified Documents: Surgical Consent and History and Physical NPO Status Verified Time NPO: 00:00 Additional verifications Anesthesia Reactions: No Hx Blood Transfusions: No Airway Assessment C-Spine Mobility Assessed: Yes TMJ Mobility Assessed: Yes Neurological Assessment Level of Consciousness: Awake and Alert Anesthesia Plan Anesthesia Risk discussed: Yes Anesthesia Plan: Verified ASA Class: III Anesthesia Type: General
--- NOTE | 2022-08-07 12:05 | XR_ITS ---
FINAL REPORT CLINICAL HISTORY: BRONCHOSCOPY WITH BIOPSY, LEFT LOWER LOBE 4:48 fluoro time FINDINGS: Intraoperative fluoroscopy was performed during a bronchoscopy with biopsy in the left lower lobe by history. No films were available for evaluation. FLUORO TIME PROCEDURE: Fluoroscopy in the operating room. FINDINGS: Fluoroscopy time was provided by the radiology department for the clinical service. 0 films were obtained. Fluoroscopy exposure time: 4 minutes 48 seconds IMPRESSION: See operative report. Reviewed, Interpreted and Dictated by Elías Sumner MD Transcribed by Pooja Foster Authenticated and [facility]
--- NOTE | 2022-08-07 12:19 | P.PNANES_ITS ---
[facility] Anesthesia Record Part I Anesthesia Record I Intake, IV Amount: 1,500 Estimated blood loss (mL): 0 Urine output (mL): 0 Blood Pressure: 141/67 SaO2: 95 Pulse Rate: 88 Respiratory Rate: 12 Temperature: 97.5 F Patient is:: Awake and Stable Stable to PACU at:: 12:15
--- NOTE | 2022-08-07 12:24 | XR_ITS ---
FINAL REPORT CLINICAL HISTORY: POST BRONCH COMPARISON: 07/07/2022 FINDINGS: The heart size is normal. The mediastinum is normal. There is no focal infiltrate or edema. There are no pleural effusions. There is no pneumothorax. There is no osseous abnormality. IMPRESSION: No acute cardiopulmonary process. No evidence of pneumothorax post bronchoscopy. Reviewed, Interpreted and Dictated by Elías Sumner MD Transcribed by Ana Navarro Authenticated and [facility]
[2022-08-07 12:36] LABS: POC Glucose,Bedside 276 (70-110)
[2022-08-07 12:56] LABS: POC Glucose,Bedside 331 (70-110)
--- NOTE | 2022-08-07 13:07 | SUR.PHASEI ---
1230- radiology at bedside for chest xray 1250- fsbs- [id number] yohana herron aware and ok with this at this time 1259- detailed report given to normarn in post op. pt in stable condition in post op with vss
--- NOTE | 2022-08-07 13:09 | EXP.BRONCH.N ---
Procedure: Date: 08/07/22 Patient Date of :: 1970 Procedure Performed:: Bronchoscopy airway examination, bronchoalveolar lavage, transbronchial biopsy and endobronchial ultrasound-guided fine-needle aspiration of lymph nodes Indications:: Lung nodule. Lymphadenopathy Performing Provider:: Scottie Siu MD Referring Provider:: Dr:Sunny Martinez Sedation:: General anesthesia Procedure:: Bronchoscopy airway examination, bronchoalveolar lavage, transbronchial biopsy and endobronchial ultrasound-guided fine-needle aspiration of lymph nodes: A clean EBUS bronchoscopy advance to the ET tube and lymph node surveillance was performed. Patient noted lymphadenopathy at stations 10 R, station 7 and station 10 L. Five passes were performed at stations 7 and station 10 R. Pathology at bedside confirmed lymphoid tissue. No evidence of malignancy noted on preliminary examination. Seven passes was performed at station 10 L, specimens from 5 passes were sent in CytoLyt for cytopathologic examination. The remaining 2 passes were each sent separately in broth medium and AFB, fungal and bacterial stain and cultures. A clean DIAGNOSTIC bronchoscopy was advanced through the ET tube and airways were examined up to subsegmental bronchi. Airways appeared grossly normal, no evidence of mucoid secretions, mucous plugging active bleeding/old blood clots noted. Bronchoalveolar lavage was performed in the LEFT LOWER LOBE with instillation of 60 cc normal saline with return of 15 cc back. BAL fluid was sent for bacterial fungal and AFB stain and cultures. Transbronchial biopsy was performed in the LEFT LOWER LOBE with a total of 7 biopsies performed, 5 biopsy specimens were sent in formalin for cytopathologic examination. The other 2 biopsy samples, one was sent in broth medium for AFB and fungal cultures. The second sample was send in normal saline and bacterial stain and cultures. Special request was also made for the pathologist to evaluate for AFB and fungal organisms on the cytopathologic examination. Patient tolerated the procedure with no immediate acute complications. We will follow the patient in pulmonary clinic in 7 to 10 days. Findings:: Please see the procedure note Recommendations:: Please see the procedure note. Postoperative bronchoscopy instructions Follow in pulmonary clinic in 5 to 7 days Complications:: No acute immediate complications Estimated blood obtained (mL): 10
--- NOTE | 2022-08-07 13:16 | PC.NURSE ---
Very faint inspiratory wheezes scattered throughout all lobes
--- NOTE | 2022-08-07 13:37 | SUR.PHASEII ---
Pt coughed deeply and produced red blood tinged mucous, small amt. Denies pain.
== END 2022-08-07 13:39 | disposition home or self-care (01) ==
PROVIDERS: PCP Family Medicine; Visit Provider Internal Medicine Pulmonary Disease
DX: R59.1 Generalized enlarged lymph nodes (principal)
CPT/HCPCS: 71045; 76000; 80048; 82962; 87070; 87102; 87116; 87186; 87205; 87206; J2405

== ENCOUNTER 2022-08-07 21:27 | Inpatient (IN) | payer MEDICAID, SELFPAY ==
[2022-08-07 21:26] VITALS: BP 161/90; PULSE 111; RESP 20; TEMP 37; O2SAT 85; BMI 28.3
[2022-08-07 21:28] VITALS: BMI 25.8
--- NOTE | 2022-08-07 21:29 | XR_ITS ---
PROCEDURE INFORMATION: Exam: XR Chest Exam date and time: 08/07/22 09:31 PM Age: 51 years old Clinical indication: Shortness of breath; Prior surgery; Surgery date: Post-operative (0-2 days); Surgery type: Biopsy; Additional info: SOA TECHNIQUE: Imaging protocol: Radiologic exam of the chest. Views: 1 view. COMPARISON: CR XR CHEST PORTABLE 08/07/22 12:41 PM FINDINGS: Lungs: Left lower lobe atelectasis. No consolidation. Pleural spaces: Small left apical pneumothorax. Heart/Mediastinum: Unremarkable. No cardiomegaly. Bones/joints: Unremarkable. IMPRESSION: Small left apical pneumothorax.
[2022-08-07 21:38] LABS: ABG Base Excess -2.6 mmol/L (-2.4-2.3); ABG HCO3 22.6 mmhg (22.0-26.0); ABG Oxygen Saturation 93 % (90-100); ABG PCO2 39.8 mmhg (35.0-45.0); ABG PH 7.37 mmol/L (7.35-7.45); ABG TCO2 23.9 mmhg (23-27)
[2022-08-07 21:39] LABS: Allen's Test Acceptable; Oxygen 2 lpm %; Source Left Radial
--- NOTE | 2022-08-07 21:45 | ECG_ITS ---
APPROVED REPORT Exam: Resting ECG HR:107 bpm ECG Measurements Heart Rate 107 AXES IN 175 P 40 QRSd 82 QRS 137 QT 318 T 53 QTc 381 Conclusion SINUS TACHYCARDIA INDETERMINATE AXIS POSSIBLE ANTERIOR MYOCARDIAL INFARCTION , OF INDETERMINATE AGE [30 ms Q WAVE IN V3/V4, OR R < 0.2 mV IN V4] ABNORMAL ECG UNCONFIRMED REPORT Electronically signed by : Shun Goss MD 08/08/2022 20:14:17
[2022-08-07 21:47] LABS: Basophils % 0.2 % (0.1-2.0); Eosinophils # 0.2 K/mm3 (0.0-0.4); Hematocrit 50.7 % (37.0-47.0); Hemoglobin 16.3 g/dL (12.2-16.2); Mean Corpuscular HGB Conc 32.2 g/dL (31.8-35.4); Mean Corpuscular Hemoglobin 29.2 pg (27.0-31.2); Mean Corpuscular Volume 90.7 fl (81-99); Mean Platelet Volume 7.5 fl (7.4-10.4); Monocytes # 0.6 K/mm3 (0.1-1.0); Neutrophils # 13.1 K/mm3 (1.8-7.8); Neutrophils % 87.9 % (37.0-80.0); Platelet Count 306 K/mm3 (142-424); Red Blood Count 5.59 M/mm3 (4.20-5.40); White Blood Count 14.9 K/mm3 (4.8-10.8)
[2022-08-07 21:49] LABS: Chloride 100 mmol/L (98-107); MANUAL DIFFERENTIAL MANUAL DIFFERENTIAL (MANUAL DIFF)
[2022-08-07 21:50] LABS: Potassium 4.4 mmoL/L (3.5-5.1); Sodium 140 mmol/L (136-145)
[2022-08-07 21:52] LABS: Alanine Aminotransferase 50 U/L (12-78); Alkaline Phosphatase 70 U/L (38-126); Aspartate Amino Transferase 38 U/L (14-36); Bilirubin,Total 0.4 mg/dl (0.2-1.3); Blood Urea Nitrogen 13 mg/dl (7-17); Creatinine Clearance Estimated 87 mL/min (50-200); Estimated Glomerular Filt Rate 67 ml/min (>60); GFR (African American) 81 ML/MIN (>60)
[2022-08-07 21:53] LABS: Albumin Level 4.7 g/dl (3.5-5.0); Albumin/Globulin Ratio 1.5 (1.1-1.8); Anion Gap 20.4 mEq/L (5-15); Calcium 9.6 mg/dl (8.4-10.2); Carbon Dioxide 24 mmol/L (22.0-30.0); Globulin 3.1 g/dL (1.3-3.2); Glucose 372 mg/dl (74-100); Total Protein,Serum 7.8 g/dl (6.3-8.2)
--- NOTE | 2022-08-07 21:53 | HMH.EDGENADL ---
Discharge Plan Disposition Patient Disposition: Admitted Chief Complaint: PAIN Clinical Impressions Clinical Impression: Diabetes mellitus, COPD (chronic obstructive pulmonary disease), Pneumothorax after biopsy Discharge ED Provider: Eduar (ED)Derrick General Adult HPI General Chief complaint: PAIN Stated complaint: lt lung pain Time Seen by Provider: 08/07/22 21:40 Mode of Arrival: EMS Source of Information: Patient, EMS and Medical Record Limitations: No Limitations Description of Symptoms (Recalled from ER Triage Doc. by RN): pt reports that she had a lung biopsy today.pt states that about 5 pm she started having pain and was unable to take a deep breath. the pt states the pain starts in her back lower rib cage and radiates around to the front pain 10/10. History of Present Illness HPI narrative: recent bronchoscopy with lung bx and has inc pain and sob this pm - Onset (ago): hour(s) Location: chest Severity: moderate Quality: sharp Consistency: intermittent Exacerbating factors: other (resp) Associated symptoms: shortness of breath Related Data Home Medications Medication Instructions Recorded Confirmed alprazolam 1 mg tablet,extended 1 mg PO BID PRN Anxiety 05/04/21 08/03/22 release 24 hr diclofenac sodium 75 mg 75 mg PO BID Pain 05/04/21 08/03/22 tablet,delayed release dicyclomine 20 mg tablet 20 mg PO TID Stomach cramps 05/04/21 08/03/22 famotidine 20 mg tablet 20 mg PO DAILY GERD 05/04/21 08/03/22 fenofibric acid (choline) 135 mg 135 mg PO DAILY High cholesterol 05/04/21 08/03/22 capsule,delayed release insulin glargine 100 unit/mL (3 60 units SQ HS Diabetes 05/04/21 08/03/22 mL) subcutaneous pen olanzapine 20 mg tablet 20 mg PO HS Mental disorder 05/04/21 08/03/22 topiramate 50 mg tablet 50 mg PO BID headache 05/04/21 08/03/22 venlafaxine 150 mg 150 mg PO DAILY antidepressant 05/04/21 08/03/22 capsule,extended release 24 hr venlafaxine 75 mg tablet,extended 75 mg PO DAILY Antidepessant 05/04/21 08/03/22 release 24 hr acarbose 25 mg tablet 25 mg PO TID * 07/19/22 08/03/22 albuterol sulfate 0.63 mg/3 mL 0.63 mg inhalation Q6H soa 07/19/22 08/03/22 solution for nebulization albuterol sulfate 90 mcg/actuation 2 puff inhalation Q6H PRN soa 07/19/22 08/03/22 aerosol inhaler aspirin 81 mg tablet,delayed 81 mg PO DAILY CAD 07/19/22 08/03/22 release (Adult Low Dose Aspirin) atorvastatin 40 mg tablet 40 mg PO DAILY Cholesterol 07/19/22 08/03/22 bupropion HCl 150 mg 24 hr tablet, 150 mg PO DAILY Depression 07/19/22 08/03/22 extended release (Wellbutrin XL) cholecalciferol (vitamin D3) 625 625 mcg PO WEEKLY Supplement 07/19/22 08/03/22 mcg (25,000 unit) capsule empagliflozin 25 mg tablet 25 mg PO DAILY Diabetes 07/19/22 08/03/22 (Jardiance) epinephrine 0.3 mg/0.3 mL 0.3 mg IM Q4H PRN Allergy Symptoms 07/19/22 08/03/22 injection, auto-injector fluticasone 100 mcg-salmeterol 50 1 inh inhalation BID COPD 07/19/22 08/03/22 mcg/dose blistr powdr for inhalation (Advair Diskus) methocarbamol 500 mg tablet 500 mg PO HS * 07/19/22 08/03/22 promethazine 25 mg tablet 25 mg PO Q6H PRN Nausea 07/19/22 08/03/22 propranolol 10 mg tablet 10 mg PO TID bp 07/19/22 08/03/22 Allergies Allergy/AdvReac Type Severity Reaction Status Date / Time fluoxetine [From Prozac] Allergy Verified 08/07/22 08:44 latex Allergy Verified 08/07/22 08:44 morphine Allergy Verified 08/07/22 08:44 quetiapine [From Seroquel] Allergy Verified 08/07/22 08:44 shellfish derived Allergy Anaphylaxis Verified 08/07/22 08:44 [facility] Disclaimer: The information contained in this section may have been updated after the patient was seen, as this information can be updated by other users. Medical History Asthma Cervical cancer Coronary artery disease Dyspnea on exertion Hilar lymphadenopathy History of asthma History of COPD History of coronary angiogram History of diverticulitis History of strok
[2022-08-07 21:56] VITALS: BP 126/76; PULSE 108; O2SAT 95
[2022-08-07 22:00] VITALS: BP 128/71; PULSE 110; O2SAT 96
[2022-08-07 22:00] LABS: Lymphocytes % 7 % (10-50); Monocytes % 1 % (2-9); Neutrophils % 92 % (42-76); Platelet Estimate Normal; RBC Morphology Normal; Total Cells Counted 100
[2022-08-07 22:05] LABS: Troponin I < 0.01 ng/ml (0.00-0.034)
[2022-08-07 22:10] LABS: NT Pro Brain Natriuretic Pep. 98.5 pg/mL (0-125)
[2022-08-07 22:10] LABS: Lactic Acid 3.3 mmol/L (0.7-2.1)
[2022-08-07 22:31] LABS: Coronavirus 19, PCR Not Detected (NotDetected); Influenza A, PCR Not Detected (NotDetected); Influenza B, PCR Not Detected (NotDetected)
[2022-08-07 22:41] VITALS: BP 131/72; PULSE 105; RESP 20; TEMP 37; O2SAT 96
--- NOTE | 2022-08-07 22:53 | EXP.HP ---
History of Present Illness *Admission Date: 08/07/22 *Reason for visit:: pain and SOB *History of present illness: This is a 51-year-old female with extensive PMHx including but not limitted to COPD and asthma, multiples pulmonary nodules, current smoker greater than 33-[id number] smoker, diabetes mellitus, CAD, bipolar, anxiety, PTSD patient was over the pulmonary clinic after abnormal CT chest that showed multiple pulmonary nodules. pt reported that she had a lung biopsy today. pt stated? that about 5 pm she started having pain and was unable to take a deep breath. the pt states the pain starts in her back lower rib cage and radiates around to the front pain 10/10. At ER initial evaluation included chest x-ray, concerning an small left apical pneumothorax, patient tachycardic, tachypneic, satting 85 on room air, patient was placed on O2, now was obtained, leukocytosis present. ABG was showing hypoxemic. Patient denied fever, chest pain, no nausea and vomiting, sepsis work-up was performed. Discussed with pulmonology and ER provider. I agree for admission. [facility] Disclaimer: The information contained in this section may have been updated after the patient was seen, as this information can be updated by other users. Medical History Advanced osteoarthritis of spine Anxiety disorder Asthma Cervical cancer Coronary artery disease Dyspnea on exertion Dyspnea on exertion Hilar lymphadenopathy History of asthma History of COPD History of coronary angiogram History of diverticulitis History of stroke Hyperlipidemia Irritable bowel syndrome (IBS) Major depression Mediastinal lymphadenopathy Migraine Multiple lung nodules on CT Pneumothorax Smoking greater than 30 pack years Surgical History (Updated 08/07/22 @ 23:08 by Kimmie Joshi RN) H/O laparoscopy History of lung biopsy History of tubal ligation Family History Other Family history of COPD (chronic obstructive pulmonary disease) Family history of diabetes mellitus type II Social History (Updated 08/07/22 @ 23:09 by Kimmie Joshi RN) Smoking Status: Current every day smoker tobacco type: cigarettes packs per day: 2 pack-years: 40 years smoked: 35 second hand exposure: Yes alcohol intake: never substance use type: denies use current occupational status: disabled Travel in the last 8 weeks: None household members: none lives independently: Yes marital status: single pets and animals: Yes Review of Systems Review of Systems Review of systems:: pertinent systems reviewed and negative unless documented below Meds Home Medications and Allergies Home Medications Medication Instructions Recorded Confirmed Type diclofenac sodium 75 mg 75 mg PO BIDP PRN Mild Pain (Scale 05/04/21 08/08/22 History tablet,delayed release Score 1-4) famotidine 20 mg tablet 20 mg PO DAILY Acid reflux 05/04/21 08/07/22 History fenofibric acid (choline) 135 mg 135 mg PO DAILY High cholesterol 05/04/21 08/07/22 History capsule,delayed release insulin glargine 100 unit/mL (3 60 units SQ HS Diabetes 05/04/21 08/07/22 History mL) subcutaneous pen olanzapine 20 mg tablet 20 mg PO HS MOOD 05/04/21 08/07/22 History topiramate 50 mg tablet 50 mg PO BID MIGRAINES 05/04/21 08/07/22 History venlafaxine 150 mg 150 mg PO DAILY MOOD 05/04/21 08/07/22 History capsule,extended release 24 hr venlafaxine 75 mg tablet,extended 75 mg PO DAILY MOOD 05/04/21 08/07/22 History release 24 hr acarbose 25 mg tablet 25 mg PO TIDWMEAL Diabetes 07/19/22 08/08/22 History albuterol sulfate 90 mcg/actuation 2 puff inhalation Q4HP PRN 07/19/22 08/08/22 History aerosol inhaler Shortness Of Breath aspirin 81 mg tablet,delayed 81 mg PO DAILY HEART HEALTH 07/19/22 08/07/22 History release (Adult Low Dose Aspirin) atorvastatin 40 mg tablet 40 mg PO HS Cholesterol 07/19/22 08/07/22 History bupropion HCl 150 mg 24 hr
[2022-08-07 23:12] VITALS: BP 127/72; PULSE 105; RESP 22; TEMP 37.9; O2SAT 97; BMI 25.5
[2022-08-07 23:12] LABS: Acetone, Serum (Rapid) None Detected (None Detect)
[2022-08-08] VITALS (13 sets, daily range): BP systolic 99–119; BP diastolic 49–71; PULSE 60–100; RESP 18–22; TEMP 36.1–37.3; O2SAT 97–100; BMI 25.5; BMI 25.4
[2022-08-08 00:50] LABS: Troponin I < 0.01 ng/ml (0.00-0.034)
[2022-08-08 01:57] LABS: Reflex Lactic Add Lactic Reflex
[2022-08-08 03:12] LABS: Troponin I < 0.01 ng/ml (0.00-0.034)
[2022-08-08 05:54] LABS: POC Glucose,Bedside 292 (70-110)
--- NOTE | 2022-08-08 06:10 | PC.NURSE ---
Pt tolerating 6 L nc well with O2 >96% per E Salmeron request. Pt has asked for PRN pain medication 2x rating pain in left side 8/10. Pt states pain level <4/10 after administration. Lung sounds diminished. Pt currently in shower at this time.
[2022-08-08 06:19] LABS: Basophils % 0.2 % (0.1-2.0); Mean Platelet Volume 7.8 fl (7.4-10.4); Monocytes # 0.6 K/mm3 (0.1-1.0); Monocytes % 5.2 % (1.7-9.3)
[2022-08-08 06:24] LABS: Chloride 102 mmol/L (98-107); Potassium 4.2 mmoL/L (3.5-5.1); Sodium 137 mmol/L (136-145)
[2022-08-08 06:26] LABS: Alanine Aminotransferase 29 U/L (12-78); Aspartate Amino Transferase 23 U/L (14-36); Blood Urea Nitrogen 12 mg/dl (7-17); Creatinine Clearance Estimated 111 mL/min (50-200); Estimated Glomerular Filt Rate 89 ml/min (>60); GFR (African American) 108 ML/MIN (>60)
[2022-08-08 06:27] LABS: Albumin Level 3.7 g/dl (3.5-5.0); Albumin/Globulin Ratio 1.4 (1.1-1.8); Alkaline Phosphatase 59 U/L (38-126); Anion Gap 15.2 mEq/L (5-15); Bilirubin,Total 0.4 mg/dl (0.2-1.3); Calcium 8.8 mg/dl (8.4-10.2); Carbon Dioxide 24 mmol/L (22.0-30.0); Globulin 2.6 g/dL (1.3-3.2); Glucose 284 mg/dl (74-100); Total Protein,Serum 6.3 g/dl (6.3-8.2)
[2022-08-08 06:39] LABS: Eosinophils % 0.3 % (0.1-12.0); Hematocrit 44.7 % (37.0-47.0); Hemoglobin 14.3 g/dL (12.2-16.2); Lymphocytes # 2.2 K/mm3 (0.7-4.5); Lymphocytes % 18.5 % (10-50); Mean Corpuscular HGB Conc 31.9 g/dL (31.8-35.4); Mean Corpuscular Hemoglobin 28.5 pg (27.0-31.2); Mean Corpuscular Volume 89.3 fl (81-99); Neutrophils # 8.9 K/mm3 (1.8-7.8); Neutrophils % 75.8 % (37.0-80.0); Platelet Count 210 K/mm3 (142-424); Red Blood Count 5.01 M/mm3 (4.20-5.40); Red Cell Distribution Width 16.1 % (11.5-17.5); White Blood Count 11.7 K/mm3 (4.8-10.8)
[2022-08-08 07:04] LABS: Lactate Dehydrogenase 222 U/L (313-618)
--- NOTE | 2022-08-08 07:56 | PC.NURSE ---
Pt. switched from NC 6L to NRB 15L by respiratory staff per DR. Siu.
--- NOTE | 2022-08-08 08:17 | HMH.PHAINT1 ---
Pharmacy Intervention Comments: MEDICATION RECONCILIATION COMPLETED ON PATIENT USING EXTERNAL FILL HISTORY FROM PHARMACY AND PATIENT INTERVIEW. -WONG AGUILAR, SANTOSHD
--- NOTE | 2022-08-08 08:25 | P.PNANES_ITS ---
[facility] Anesthesia Record Part II Anesthesia Record Part II Discharge Time: 12:45 Destination: [facility] PAC[facility] nurse assessment reviewed?: Yes Patient Condition:: Good Anesthesia Complications:: None Swallowing reflex intact?: Yes Cyanosis?: No Blood Pressure: 119/71 Pulse Rate: 76 Temperature: 97.0 F Mental Status: Alert & Oriented Pain level:: 2 Nausea and/or vomitting:: None Intake, IV Amount: 1,500
--- NOTE | 2022-08-08 09:08 | XR_ITS ---
FINAL REPORT CLINICAL HISTORY: eval pneuthorax progression/regression trend COMPARISON: 08/07/2022 FINDINGS: SINGLE-VIEW CHEST The heart size is upper limits of normal in size. The mediastinum is normal. There is mild left lung base atelectasis. The previously seen left apical pneumothorax is no longer seen. IMPRESSION: Previously seen left apical pneumothorax is no longer seen. Reviewed, Interpreted and Dictated by Elías Sumner MD Transcribed by Louisa Medina Authenticated and [facility]
--- NOTE | 2022-08-08 09:49 | EXP.PULM.CON ---
History of Present Illness History of present illness: Ms. Putnam is a 51-year-old female greater than 88-kvth-[id number] smoking history, emphysema, lung nodule lymphadenopathy presented for elective bronchoscopy transbronchial biopsy EBUS FNA discharged home presented to the ER with worsening chest pain and new oxygen requirements found to be having small left apical pneumothorax and was admitted to the hospital for further observation management. [facility] Disclaimer: The information contained in this section may have been updated after the patient was seen, as this information can be updated by other users. Medical History Advanced osteoarthritis of spine Anxiety disorder Asthma Cervical cancer Coronary artery disease Dyspnea on exertion Dyspnea on exertion Hilar lymphadenopathy History of asthma History of COPD History of coronary angiogram History of diverticulitis History of stroke Hyperlipidemia Irritable bowel syndrome (IBS) Major depression Mediastinal lymphadenopathy Migraine Multiple lung nodules on CT Pneumothorax Smoking greater than 30 pack years Surgical History (Updated 08/07/22 @ 23:08 by Kimmie Joshi RN) H/O laparoscopy History of lung biopsy History of tubal ligation Family History Other Family history of COPD (chronic obstructive pulmonary disease) Family history of diabetes mellitus type II Social History (Updated 08/07/22 @ 23:09 by Kimmie Joshi RN) Smoking Status: Current every day smoker tobacco type: cigarettes packs per day: 2 pack-years: 40 years smoked: 35 second hand exposure: Yes alcohol intake: never substance use type: denies use current occupational status: disabled Travel in the last 8 weeks: None household members: none lives independently: Yes marital status: single pets and animals: Yes Review of Systems Constitutional Constitutional: Denies anorexia, Denies body ache(s) and Denies fatigue Eyes Eyes: Denies eye discharge, Denies dry eyes, Denies irritation and Denies itchy eyes ENT Ears, Nose, Mouth, and Throat: Denies epistaxis, Denies facial pain, Denies lip swelling and Denies throat swelling *Cardiovascular Cardiovascular: Reports dyspnea on exertion and Denies orthopnea *Respiratory Respiratory: Denies chest congestion, Reports cough, Reports dyspnea on exertion, Denies excessive phlegm production, Denies hemoptysis, Reports pain on inspiration, Reports pain with cough and Denies wheezing *Gastrointestinal Gastrointestinal: Denies abdominal pain, Denies belching, Denies cramping and Reports nausea *Musculoskeletal Musculoskeletal: Reports back pain, Reports myalgias and Reports other (No small joint swelling or Pain) Psychiatric Psychiatric: Denies homicidal ideation and Denies suicidal ideation Endocrine Endocrine: Denies fatigue and Denies heat intolerance Hematologic/Lymphatic Hematologic/Lymphatic: Denies easy bleeding and Denies lymphadenopathy Allergic/Immunologic Allergic/Immunologic: Denies itchy eyes, Denies lip swelling, Denies throat swelling and Denies wheezing Pulmonology Exam Inpatient Vital signs and Labs for Last 24 Hours: Temp Pulse Resp BP Pulse Ox 98.4 F 86 22 111/60 100 08/08/22 08:00 08/08/22 08:00 08/08/22 08:00 08/08/22 08:00 08/08/22 08:00 Laboratory Results - last 24 hr 08/07/22 21:12: NT-Pro-B Natriuret Pep 98.5 08/07/22 21:28: Specimen Source Left radial, O2 % 2 lpm, ABG pH 7.37, ABG pCO2 39.8, ABG pO2 61.0 L, ABG HCO3 22.6, ABG Total CO2 23.9, ABG O2 Saturation 93, ABG Base Excess -2.6 L, Frank Test Acceptable 08/07/22 21:28: WBC 14.9 H, RBC 5.59 H, Hgb 16.3 H, Hct 50.7 H, MCV 90.7, MCH 29.2, MCHC 32.2, RDW 16.0, Plt Count 306, MPV 7.5, Neut % (Auto) 87.9 H, Lymph % (Auto) 7.0 L, Taney % (Auto) 4.0, Eos % (Auto) 1.0, Baso % (Auto) 0.2, Neut # (Auto) 13.1 H, Lymph # (Auto) 1.0, Taney # (Auto) 0.6, Eos # (Auto) 0.2, Baso # (Auto) 0.0, Tot
[2022-08-08 12:09] LABS: POC Glucose,Bedside 307 (70-110)
--- NOTE | 2022-08-08 13:13 | EXP.PN ---
Subjective *Date: 08/08/22 *Time: 09:30 Interval history: Patient in good spirits at time of evaluation by Dr. Parsons today. Patient on nonrebreather per pulmonary consult advised. Denies new respiratory distress. Still complains of pleuritic chest discomfort with deep breathing. Exam Data for Last 24 hours Vital signs and Labs for Last 24 Hours: Temp Pulse Resp BP Pulse Ox 98.0 F 78 20 119/64 100 08/08/22 12:00 08/08/22 13:07 08/08/22 12:00 08/08/22 12:00 08/08/22 12:00 Laboratory Results - last 24 hr 08/07/22 21:12: NT-Pro-B Natriuret Pep 98.5 08/07/22 21:28: Specimen Source Left radial, O2 % 2 lpm, ABG pH 7.37, ABG pCO2 39.8, ABG pO2 61.0 L, ABG HCO3 22.6, ABG Total CO2 23.9, ABG O2 Saturation 93, ABG Base Excess -2.6 L, Frank Test Acceptable 08/07/22 21:28: WBC 14.9 H, RBC 5.59 H, Hgb 16.3 H, Hct 50.7 H, MCV 90.7, MCH 29.2, MCHC 32.2, RDW 16.0, Plt Count 306, MPV 7.5, Neut % (Auto) 87.9 H, Lymph % (Auto) 7.0 L, Traill % (Auto) 4.0, Eos % (Auto) 1.0, Baso % (Auto) 0.2, Neut # (Auto) 13.1 H, Lymph # (Auto) 1.0, Traill # (Auto) 0.6, Eos # (Auto) 0.2, Baso # (Auto) 0.0, Total Counted 100, Neutrophils % (Manual) 92 H, Lymphocytes % (Manual) 7 L, Monocytes % (Manual) 1 L, Platelet Estimate Normal, RBC Morphology Normal 08/07/22 21:28: Sodium 140, Potassium 4.4, Chloride 100, Carbon Dioxide 24, Anion Gap 20.4 H, BUN 13, Creatinine 0.90 D, Estimated Creat Clear 87, Estimated GFR 67, Est GFR ( Amer) 81 D, Glucose 372 H D, Calcium 9.6, Total Bilirubin 0.4, AST 38 H, ALT 50, Alkaline Phosphatase 70, Troponin I < 0.01, Total Protein 7.8, Albumin 4.7, Globulin 3.1, Albumin/Globulin Ratio 1.5 08/07/22 21:52: Lactate 3.3 H 08/07/22 22:21: Acetone Level None detected 08/07/22 22:21: SARS-CoV-2 (PCR) Not detected, Influenza A Untype (PCR) Not detected, Influenza Type B (PCR) Not detected 08/08/22 00:15: Troponin I < 0.01 08/08/22 02:35: Troponin I < 0.01 08/08/22 02:35: Lactate 2.0 08/08/22 05:40: WBC 11.7 H, RBC 5.01, Hgb 14.3 D, Hct 44.7, MCV 89.3, MCH 28.5, MCHC 31.9, RDW 16.1, Plt Count 210 D, MPV 7.8, Neut % (Auto) 75.8, Lymph % (Auto) 18.5, Traill % (Auto) 5.2, Eos % (Auto) 0.3, Baso % (Auto) 0.2, Neut # (Auto) 8.9 H, Lymph # (Auto) 2.2, Traill # (Auto) 0.6, Eos # (Auto) 0.0, Baso # (Auto) 0.0 08/08/22 05:40: Sodium 137, Potassium 4.2, Chloride 102, Carbon Dioxide 24, Anion Gap 15.2 H, BUN 12, Creatinine 0.70 D, Estimated Creat Clear 111, Estimated GFR 89, Est GFR ( Amer) 108 D, Glucose 284 H D, Calcium 8.8, Total Bilirubin 0.4, AST 23 D, ALT 29 D, Alkaline Phosphatase 59, Total Protein 6.3, Albumin 3.7 D, Globulin 2.6, Albumin/Globulin Ratio 1.4 08/08/22 05:40: Lactate Dehydrogenase 222 L 08/08/22 05:47: POC Glucose 292 H 08/08/22 11:59: POC Glucose 307 H* I & O for Last 24 hours: Intake & Output 08/05/22 08/06/22 08/07/22 08/08/22 23:59 23:59 23:59 23:59 Intake Total 1620 / 1620 Output Total 0 / 0 Balance 1620 / 1620 Weight 72.076 kg 72 kg Constitutional Constitutional: no acute distress *Routine HEENT Exam Head: Present normocephalic Eye: Present EOMI and normal accommodation ENT: Present mucous membranes moist *Routine Neck Exam Neck: Present supple and full ROM *Routine Respiratory Exam Respiratory: Present accessory muscle use, respiratory distress and diminished air movement *Routine Cardiovascular Exam Cardiovascular: Present RRR and Normal S1 *Routine Abdominal Exam Abdominal: Present soft and normoactive bowel sounds; Absent rebound or guarding *Routine Rectal Exam Comments: deferred *Routine Exam Comments: deferred *Routine Extremities Exam Extremities: Present full ROM and normal capillary refill *Routine Skin Exam Skin: Present intact and normal turgor *Routine Neurological Exam Neurological: Present alert, oriented X3 and moving all extremities Assessment and Plan *Assessment and plan (1) Dyspnea on exertion: Status: Acute Category: Medical Code(s):
[2022-08-08 16:05] LABS: POC Glucose,Bedside 301 (70-110)
--- NOTE | 2022-08-08 17:01 | PC.NURSE ---
20g iv rt ac. no skin issues noted. OR staff speaking with pt now.
[2022-08-08 21:19] LABS: POC Glucose,Bedside 272 (70-110)
[2022-08-09] VITALS (7 sets, daily range): BP systolic 96–106; BP diastolic 43–49; PULSE 58–86; RESP 17–19; TEMP 36.4–36.9; O2SAT 92–100; BMI 26.3
[2022-08-09 05:43] LABS: POC Glucose,Bedside 157 (70-110)
--- NOTE | 2022-08-09 07:53 | XR_ITS ---
FINAL REPORT CLINICAL HISTORY: Shortness of breath COMPARISON: 08/08/2022 FINDINGS: The heart size is normal. The mediastinum is normal. There is scarring at the left base. There is no focal infiltrate or edema. There are no pleural effusions. There is no pneumothorax. There is no osseous abnormality. IMPRESSION: No acute cardiopulmonary process Reviewed, Interpreted and Dictated by Elías Sumner MD Transcribed by Ana Navarro Authenticated and [facility]
--- NOTE | 2022-08-09 09:37 | EXP.PULM.PN ---
Subjective *Date: 08/09/22 *Time: 10:02 Interval history: No acute respiratory vents overnight. Pulmonology Exam Inpatient Vital signs and Labs for Last 24 Hours: Temp Pulse Resp BP Pulse Ox FiO2 98.5 F 86 19 106/47 L 97 100 08/09/22 07:52 08/09/22 07:52 08/09/22 07:52 08/09/22 07:52 08/09/22 07:52 08/08/22 18:38 Laboratory Results - last 24 hr 08/08/22 11:59: POC Glucose 307 H* 08/08/22 15:56: POC Glucose 301 H* 08/08/22 21:03: POC Glucose 272 H 08/09/22 05:36: POC Glucose 157 H I & O for Labs for Last 24 Hours: Intake & Output 08/06/22 08/07/22 08/08/22 08/09/22 23:59 23:59 23:59 23:59 Intake Total 1860 / 1860 240 / 240 Output Total 0 / 0 Balance 1860 / 1860 240 / 240 Weight 158 lb 14.4 oz 158 lb 11.725 oz 163 lb 11.2 oz Constitutional: Present mild distress Head: Present normocephalic and atraumatic ENT: Present normal exam, normal oropharynx and mucous membranes moist Neck: Present normal inspection and full ROM Respiratory: Present able to speak in complete sentences; Absent accessory muscle use, respiratory distress, wheezes, crackles or diminished air movement Cardiac: Present S1/S2, Tachycardia and radial pulses present GI: Present soft and distention; Absent tenderness or guarding Rectal (female): Present deferred (female): Present deferred Skin: Present intact; Absent cyanosis or jaundice Neuro: Present alert, awake and oriented x 3 Extremities: Present normal inspection; Absent clubbing or cyanosis Psychiatric: Present normal affect and cooperative Assessment and Plan *Assessment and plan (1) Pneumothorax: Status: Acute Category: Medical Code(s): J93.9 - Pneumothorax, unspecified (2) Dyspnea on exertion: Status: Acute Category: Medical Code(s): R06.09 - Other forms of dyspnea Plan Ms. Putnam is a 51-year-old female greater than [id number] smoking history, emphysema, lung nodule lymphadenopathy presented for elective bronchoscopy transbronchial biopsy EBUS FNA discharged home presented to the ER with worsening chest pain and new oxygen requirements found to be having small left apical pneumothorax and was admitted to the hospital for further observation management. Patient is morning admits significant improvement in her pain. Patient was initially on antibiotics and admission service upon admission. Patient continued to be stable with no new respiratory complaints. Chest x-ray this morning near complete resolution of the noted left apical pneumothorax. Plan: -Patient can be discharged home on home inhaler therapy include Anoro along with DuoNebs every 6 hours on as-needed basis -Benzonatate 100 mg 3 times daily as needed for cough -Tramadol/ibuprofen as needed for pain management #Thank you for involving pulmonary in this patient care. We will follow the patient in pulmonary clinic as previously scheduled
--- NOTE | 2022-08-09 10:34 | EXP.DC.SUM ---
General Admission date:: 08/07/22 HPI HPI HPI: This is a 51-year-old female with extensive PMHx including but not limitted to COPD and asthma, multiples pulmonary nodules, current smoker greater than 96-[id number] smoker, diabetes mellitus, CAD, bipolar, anxiety, PTSD patient was over the pulmonary clinic after abnormal CT chest that showed multiple pulmonary nodules. pt reported that she had a lung biopsy today. pt stated? that about 5 pm she started having pain and was unable to take a deep breath. the pt states the pain starts in her back lower rib cage and radiates around to the front pain 10/10. At ER initial evaluation included chest x-ray, concerning an small left apical pneumothorax, patient tachycardic, tachypneic, satting 85 on room air, patient was placed on O2, now was obtained, leukocytosis present. ABG was showing hypoxemic. Patient denied fever, chest pain, no nausea and vomiting, sepsis work-up was performed. Discussed with pulmonology and ER provider. I agree for admission. Hospital Course Hospital Course Hospital Course: Patient presented with shortness of breath after lung biopsy with small pneumothorax. Patient maintained on nonrebreather during hospitalization, with rapid improvement/amelioration of pneumothorax. Patient never required chest tube placement. Patient only required oral pain medications during hospitalization. Patient followed by pulmonary cost consultant throughout inpatient hospital stay. Patient ultimately discharged home with instructions to follow-up with both pulmonary and primary care physician on outpatient basis. Exam Data for Last 24 hours Vital signs and Labs for Last 24 Hours: Temp Pulse Resp BP Pulse Ox FiO2 98.5 F 86 19 106/47 L 92 L 100 08/09/22 07:52 08/09/22 07:52 08/09/22 07:52 08/09/22 07:52 08/09/22 10:14 08/08/22 18:38 Laboratory Results - last 24 hr 08/08/22 11:59: POC Glucose 307 H* 08/08/22 15:56: POC Glucose 301 H* 08/08/22 21:03: POC Glucose 272 H 08/09/22 05:36: POC Glucose 157 H I & O for Last 24 hours: Intake & Output 08/06/22 08/07/22 08/08/22 08/09/22 23:59 23:59 23:59 23:59 Intake Total 1860 / 1860 240 / 240 Output Total 0 / 0 Balance 1859 240 / 240 Weight 72.076 kg 72 kg 74.253 kg Results Data Completed and Pending Labs on day of discharge: Labs from last 24 hours 08/09/22 08/08/22 08/08/22 05:36 21:03 15:56 POC Glucose 157 H 272 H 301 H* 08/08/22 11:59 POC Glucose 307 H* DS: Diagnosis Discharge Diagnosis (1) Pneumothorax: Status: Acute Code(s): J93.9 - Pneumothorax, unspecified (2) Dyspnea on exertion: Status: Acute Code(s): R06.09 - Other forms of dyspnea Meds Home Medications and Allergies Home Medications Medication Instructions Recorded Confirmed Type diclofenac sodium 75 mg 75 mg PO BIDP PRN Mild Pain (Scale 05/04/21 08/08/22 History tablet,delayed release Score 1-4) famotidine 20 mg tablet 20 mg PO DAILY Acid reflux 05/04/21 08/07/22 History fenofibric acid (choline) 135 mg 135 mg PO DAILY High cholesterol 05/04/21 08/07/22 History capsule,delayed release insulin glargine 100 unit/mL (3 60 units SQ HS Diabetes 05/04/21 08/07/22 History mL) subcutaneous pen olanzapine 20 mg tablet 20 mg PO HS MOOD 05/04/21 08/07/22 History topiramate 50 mg tablet 50 mg PO BID MIGRAINES 05/04/21 08/07/22 History venlafaxine 150 mg 150 mg PO DAILY MOOD 05/04/21 08/07/22 History capsule,extended release 24 hr venlafaxine 75 mg tablet,extended 75 mg PO DAILY MOOD 05/04/21 08/07/22 History release 24 hr acarbose 25 mg tablet 25 mg PO TIDWMEAL Diabetes 07/19/22 08/08/22 History aspirin 81 mg tablet,delayed 81 mg PO BID HEART HEALTH 07/19/22 08/09/22 History release (Adult Low Dose Aspirin) atorvastatin 40 mg tablet 40 mg PO HS Cholesterol 07/19/22 08/07/22 History bupropion HCl 150 mg 24 hr tablet, 150 mg PO DAILY Depression 07/19/22 08/07/22 H
--- NOTE | 2022-08-09 10:45 | PC.NURSE ---
Patient 94-95% room air while walking
[2022-08-09 11:29] LABS: POC Glucose,Bedside 315 (70-110)
--- NOTE | 2022-08-10 13:26 | CARE MANAGER ---
Contacted patient related to hospital discharge. She states she is still in pain but the Tramadol is helping. She is aware of follow up appointments and denies any questions or concerns. ALEXANDRE Bey
== END 2022-08-09 11:25 | disposition home or self-care (01) | DRG 168 ==
LOC: ER 21:54 → 2ND 22:31
PROVIDERS: Nurse Practitioner Family; Admitting Provider Internal Medicine; Emergency Provider Emergency Medicine; PCP Family Medicine; Visit Provider Internal Medicine
DX: J95.811 Postprocedural pneumothorax (principal); E11.9 Type 2 diabetes mellitus without complications; Z79.4 Long term (current) use of insulin; F17.210 Nicotine dependence, cigarettes, uncomplicated; I25.10 Atherosclerotic heart disease of native coronary artery without angina pectoris; Z86.73 Personal history of transient ischemic attack (TIA), and cerebral infarction without residual deficits; E78.5 Hyperlipidemia, unspecified; J43.9 Emphysema, unspecified; F41.9 Anxiety disorder, unspecified; F31.9 Bipolar disorder, unspecified
CPT/HCPCS: 31624; 31628; 36415; 71045; 76000; 80048; 80053; 82009; 82803; 82962; 83605; 83615; 83880; 84484; 85007; 85025; 87040; 87070; 87077; 87102; 87116; 87186; 87205; 87206; 87636; 93005; 94640; 94760; 99285; C9803; J0696; J2405; U0003; U0005

== ENCOUNTER 2022-11-02 21:55 | Observation (INO) | payer MEDICAID, SELFPAY ==
[2022-11-02 21:55] VITALS: BP 141/74; PULSE 91; RESP 18; TEMP 36.9; O2SAT 98; BMI 27.4
[2022-11-02 22:30] VITALS: BP 131/82; PULSE 86; RESP 17; O2SAT 97
--- NOTE | 2022-11-02 22:48 | CT_ITS ---
PROCEDURE INFORMATION: Exam: CT Abdomen And Pelvis With Contrast Exam date and time: 11/02/2022 11:53 PM Age: 52 years old Clinical indication: Abdominal pain; Epigastric; Patient HX: States pain started around 1800 tonight; Additional info: Epigastric pain, vomiting TECHNIQUE: Imaging protocol: Computed tomography of the abdomen and pelvis with contrast. Radiation optimization: All CT scans at this facility use at least one of these dose optimization techniques: automated exposure control; mA and/or kV adjustment per patient size (includes targeted exams where dose is matched to clinical indication); or iterative reconstruction. Contrast material: ISOVUE; Contrast volume: 75 ml; Contrast route: IV; REPORTING DATA: Count of CT and Cardiac NM exams in prior 12 months: This patient has received [address] and 0 known cardiac nuclear medicine studies in the 12 months prior to the current study. COMPARISON: CT ABDOMEN PELVIS W CON 05/03/2021 8:06 PM FINDINGS: Lungs: Marked interval improvement in the previously identified mass in the left lower lobe, image 13 series 3. 7 mm noncalcified pulmonary nodule in the dependent right lower lobe, slightly decreased in size compared to the prior exam, image 6 series 3. Liver: No acute findings. No mass. Gallbladder and bile ducts: No acute findings, calcified stones or ductal dilation. Pancreas: No acute findings, focal abnormality or ductal dilation. Spleen: Numerous subcentimeter cystic appearing lesions in the spleen, similar to the prior exam. Adrenal glands: Normal. No mass. Kidneys and ureters: Persistent cortical atrophy in the right kidney likely related to remote infection. No acute obstructive uropathy. Stomach and bowel: There are several loops of mildly dilated small bowel with a short segment of focal wall thickening suggestive of partial obstruction. Diverticulosis is noted in the colon without evidence of acute diverticulitis. Appendix: No evidence of appendicitis. Intraperitoneal space: Small amount of free fluid in the pelvis. No free air. Vasculature: No abdominal aortic aneurysm. Lymph nodes: No pathologically enlarged lymph nodes. Urinary bladder: Unremarkable as visualized. Reproductive: Unremarkable as visualized. Bones/joints: No acute fracture. Soft tissues: No acute findings. IMPRESSION: 1. Small-bowel obstruction suspected be partial or early which may be related to focal enteritis. 2. Small amount of free fluid in the pelvis. 3. Interval improvement in bilateral lower lobe pulmonary nodules for which continued follow-up is recommended. 4. Other chronic changes as described.
[2022-11-02 22:58] LABS: Chloride 107 mmol/L (98-107); Potassium 4.5 mmoL/L (3.5-5.1); Sodium 141 mmol/L (136-145)
[2022-11-02 22:59] LABS: Basophils # 0.1 K/mm3 (0-0.2); Basophils % 0.7 % (0.1-2.0); Eosinophils # 0.2 K/mm3 (0.0-0.4); Eosinophils % 2.1 % (0.1-12.0); Hematocrit 54.3 % (37.0-47.0); Hemoglobin 17.3 g/dL (12.2-16.2); Lymphocytes # 1.8 K/mm3 (0.7-4.5); Lymphocytes % 19.3 % (10-50); Mean Corpuscular HGB Conc 31.8 g/dL (31.8-35.4); Mean Corpuscular Hemoglobin 28.3 pg (27.0-31.2); Mean Corpuscular Volume 89.1 fl (81-99); Mean Platelet Volume 7.8 fl (7.4-10.4); Monocytes # 0.5 K/mm3 (0.1-1.0); Monocytes % 5.2 % (1.7-9.3); Neutrophils # 6.9 K/mm3 (1.8-7.8); Neutrophils % 72.7 % (37.0-80.0); Platelet Count 244 K/mm3 (142-424); Red Blood Count 6.09 M/mm3 (4.20-5.40); Red Cell Distribution Width 16.1 % (11.5-17.5); White Blood Count 9.5 K/mm3 (4.8-10.8)
--- NOTE | 2022-11-02 22:59 | ECG_ITS ---
APPROVED REPORT Exam: Resting ECG HR:91 bpm ECG Measurements Heart Rate 91 AXES CA 188 P 30 QRSd 95 QRS -77 QT 358 T 34 QTc 407 Conclusion SINUS RHYTHM POSSIBLE LEFT ATRIAL ENLARGEMENT [-0.1mV P-WAVE IN V1/V2] LEFT AXIS DEVIATION [QRS AXIS < -30] LOW QRS VOLTAGE IN PRECORDIAL LEADS [QRS DEFLECTION < 1.0 mV IN CHEST LEADS] INCOMPLETE RIGHT BUNDLE BRANCH BLOCK [90+ ms QRS DURATION, TERMINAL R IN V1/V2, 40+ ms S IN I/aVL/V4/V5/V6] ABNORMAL ECG UNCONFIRMED REPORT Electronically signed by : Shun Goss MD 11/03/2022 15:54:46
[2022-11-02 23:00] VITALS: BP 124/83; PULSE 93; RESP 18; O2SAT 97
[2022-11-02 23:01] LABS: Alanine Aminotransferase 21 U/L (12-78); Albumin/Globulin Ratio 1.2 (1.1-1.8); Alkaline Phosphatase 82 U/L (38-126); Anion Gap 12.5 mEq/L (5-15); Aspartate Amino Transferase 24 U/L (14-36); Bilirubin,Total 0.4 mg/dl (0.2-1.3); Blood Urea Nitrogen 19 mg/dl (7-17); Calcium 9.7 mg/dl (8.4-10.2); Carbon Dioxide 26 mmol/L (22.0-30.0); Creatinine Clearance Estimated 107 mL/min (50-200); Estimated Glomerular Filt Rate 89 ml/min (>60); GFR (African American) 107 ML/MIN (>60); Globulin 3.3 g/dL (1.3-3.2); Glucose 256 mg/dl (74-100); Lipase 105 U/L (23-300); Total Protein,Serum 7.3 g/dl (6.3-8.2)
[2022-11-02 23:16] LABS: Microscopic, Urine URINE MICROSCOPIC (MICROSCOPIC)
[2022-11-02 23:19] LABS: Appearance,Urine CLEAR (Clear); Blood, Urine Negative (Negative); Color,Urine YELLOW (Yellow); Glucose,Urine (UA) 3+ (Negative); Ketones,Urine 1+ (Negative); Leukocyte Esterase,Urine Negative (Negative); Nitrate,Urine Negative (Negative); Protein,Urine TRACE (Negative); Specific Gravity, Urine 1.025 (1.005-1.030); Urobilinogen,Urine 0.2 EU/dl (0.2)
--- NOTE | 2022-11-02 23:24 | HMH.EDGENADL ---
Discharge Plan Disposition Patient Disposition: Admitted Chief Complaint: Abdominal Pain Clinical Impressions Clinical Impression: Generalized abdominal pain, Nausea vomiting and diarrhea, Partial small bowel obstruction, Enteritis Discharge ED Provider: Latasha Lam General Adult HPI <Latasha Lam DO - Last Filed: 11/02/22 23:28> General Chief complaint: Abdominal Pain Stated complaint: Abd pain Time Seen by Provider: 11/02/22 22:46 Mode of Arrival: EMS Source of Information: Patient Limitations: No Limitations Description of Symptoms (Recalled from ER Triage Doc. by RN): Presents to ED with c/o 6/10 epigastric pain that began at 1600. +N/V/D. Patient reports hx of diverticulitis and takes Bentyl PRN but did not take any today. Patient also reports hx of stomach ulcers. 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 History of Present Illness HPI narrative: This patient is a 52-year-old female with a history of diabetes, CAD, diverticulitis, and COPD presenting to the emergency department for evaluation with concern for generalized abdominal pain, nausea, vomiting, and diarrhea that started around 4:00 PM. She stated initially started out as epigastric abdominal pain. She reported that she also was feeling lightheaded. She states that she had multiple episodes of nonbloody, nonbilious emesis as well as loose, watery, nonbloody diarrhea. She did not take any medications prior to arrival. Nothing seems to make her symptoms better or worse. Related Data Home Medications Medication Instructions Recorded Confirmed diclofenac sodium 75 mg 75 mg PO BIDP PRN Mild Pain (Scale 05/04/21 08/17/22 tablet,delayed release Score 1-4) famotidine 20 mg tablet 20 mg PO DAILY Acid reflux 05/04/21 08/17/22 fenofibric acid (choline) 135 mg 135 mg PO DAILY High cholesterol 05/04/21 08/17/22 capsule,delayed release insulin glargine 100 unit/mL (3 60 units SQ HS Diabetes 05/04/21 08/17/22 mL) subcutaneous pen olanzapine 20 mg tablet 20 mg PO HS MOOD 05/04/21 08/17/22 topiramate 50 mg tablet 50 mg PO BID MIGRAINES 05/04/21 08/17/22 venlafaxine 150 mg 150 mg PO DAILY MOOD 05/04/21 08/17/22 capsule,extended release 24 hr venlafaxine 75 mg tablet,extended 75 mg PO DAILY MOOD 05/04/21 08/17/22 release 24 hr acarbose 25 mg tablet 25 mg PO TIDWMEAL Diabetes 07/19/22 08/17/22 aspirin 81 mg tablet,delayed 81 mg PO BID HEART HEALTH 07/19/22 08/17/22 release (Adult Low Dose Aspirin) atorvastatin 40 mg tablet 40 mg PO HS Cholesterol 07/19/22 08/17/22 bupropion HCl 150 mg 24 hr tablet, 150 mg PO DAILY Depression 07/19/22 08/17/22 extended release (Wellbutrin XL) cholecalciferol (vitamin D3) 625 1,250 mcg PO WEEKLY Supplement 07/19/22 08/17/22 mcg (25,000 unit) capsule empagliflozin 25 mg tablet 25 mg PO DAILY Diabetes 07/19/22 08/17/22 (Jardiance) fluticasone 100 mcg-salmeterol 50 1 inh inhalation BID COPD 07/19/22 08/17/22 mcg/dose blistr powdr for inhalation (Advair Diskus) promethazine 25 mg tablet 25 mg PO Q6HP PRN Nausea 07/19/22 08/17/22 propranolol 10 mg tablet 10 mg PO TID Hypertension 07/19/22 08/17/22 albuterol sulfate 2.5 mg/3 mL 2.5 mg inhalation Q4HP PRN 08/08/22 08/17/22 (0.083 %) solution for nebulization Shortness Of Breath alprazolam 1 mg tablet 1 mg PO BIDP PRN Anxiety 08/08/22 08/17/22 ondansetron HCl 4 mg tablet 4 mg PO Q8HP PRN Nausea 08/08/22 08/17/22 semaglutide 0.25 mg or 0.5 mg (2 0.5 mg SQ WEEKLY Diabetes 08/08/22 08/17/22 mg/3 mL) subcutaneous pen injector (Ozempic) sumatriptan succinate 100 mg tablet 100 mg PO DAILYP PRN Migraine 08/08/22 08/17/22 Headache Previous Rx's Medication Instructions Recorded albuterol sulfate 90 mcg/actuation 2 puff inhalation Q4HP PRN 08/09/22 aerosol inhaler Shortness Of Breath #8.5 grams benzonatate 100 mg capsule 200 mg PO TID #90 caps 08/09/22 dextromethorphan-guaifenesin 10 10 ml PO Q4HP PRN Cough #237 mL 08/09/22 mg-100 mg/5 mL oral syrup cefdinir 300 mg capsule 300 mg PO BI
[2022-11-02 23:30] VITALS: BP 147/93; PULSE 90; O2SAT 94
[2022-11-03] VITALS (8 sets, daily range): BP systolic 91–135; BP diastolic 52–82; PULSE 64–96; RESP 16–20; TEMP 36.6–36.9; O2SAT 90–97; BMI 27.8
[2022-11-03 00:03] LABS: Bilirubin,Urine 1+ (Negative)
[2022-11-03 00:04] LABS: WBC,Urine Occasional #/hpf (0-3)
--- NOTE | 2022-11-03 00:47 | PC.NURSE ---
on phone with hospitalist
--- NOTE | 2022-11-03 00:49 | PC.NURSE ---
observation 208 to service of hospitalist with dx of enteritis and SBO.
--- NOTE | 2022-11-03 00:50 | PC.NURSE ---
Rounded on patient; NG tube placed by Lesia SCHROEDER.
--- NOTE | 2022-11-03 00:51 | XR_ITS ---
PROCEDURE INFORMATION: Exam: XR Chest Exam date and time: 11/03/2022 1:11 AM Age: 52 years old Clinical indication: Device placement; Ng tube TECHNIQUE: Imaging protocol: Radiologic exam of the chest. Views: 1 view. COMPARISON: CR XR CHEST PORTABLE 08/09/2022 8:25 AM FINDINGS: Tubes, catheters and devices: Enteric tube is seen with the tip in the left upper quadrant, likely in the stomach. Lungs: No acute findings or consolidation. Pleural spaces: No pleural effusion. No pneumothorax. Heart/Mediastinum: No acute findings or cardiomegaly. Bones/joints: No acute findings. IMPRESSION: 1. Enteric tube tip in the left upper quadrant, likely in the stomach. 2. No acute cardiopulmonary findings.
--- NOTE | 2022-11-03 00:57 | PC.NURSE ---
Radiology has been notified of XR for NG tube placement
--- NOTE | 2022-11-03 01:07 | PC.NURSE ---
Report called to Josselin SCHROEDER. Report handed off to Bhavesh SCHROEDER
--- NOTE | 2022-11-03 01:18 | PC.NURSE ---
pt to floor via wheelchair at this time
--- NOTE | 2022-11-03 02:04 | EXP.HP ---
History of Present Illness *Admission Date: 11/03/22 *Reason for visit:: SBO *History of present illness: This is a 52-year-old female with PMHx of diabetes, CAD, diverticulitis, and COPD presenting to the emergency department for evaluation with concern for generalized abdominal pain, nausea, vomiting, and diarrhea that started around 4:00 PM. She stated initially started out as epigastric abdominal pain. She reported that she also was feeling lightheaded. She states that she had multiple episodes of nonbloody, nonbilious emesis as well as loose, watery, nonbloody diarrhea. She did not take any medications prior to arrival. Nothing seems to make her symptoms better or worse. Admitted for treatment and management. [facility] Disclaimer: The information contained in this section may have been updated after the patient was seen, as this information can be updated by other users. Medical History Advanced osteoarthritis of spine Anxiety disorder Asthma Cervical cancer Coronary artery disease Dyspnea on exertion Dyspnea on exertion Hilar lymphadenopathy History of asthma History of COPD History of coronary angiogram History of diverticulitis History of stroke Hyperlipidemia Irritable bowel syndrome (IBS) Major depression Mediastinal lymphadenopathy Migraine Multiple lung nodules on CT Pneumothorax Smoking greater than 30 pack years Surgical History H/O laparoscopy History of lung biopsy History of tubal ligation Family History Other Family history of COPD (chronic obstructive pulmonary disease) Family history of diabetes mellitus type II Social History (Updated 11/03/22 @ 01:42 by Mar Harvey RN) Smoking Status: Current every day smoker tobacco type: cigarettes packs per day: 2 pack-years: 40 years smoked: 35 second hand exposure: Yes alcohol intake: never substance use type: denies use current occupational status: disabled Travel in the last 8 weeks: None household members: none lives independently: Yes marital status: single pets and animals: Yes Review of Systems Review of Systems Review of systems:: pertinent systems reviewed and negative unless documented below Meds Home Medications and Allergies Home Medications Medication Instructions Recorded Confirmed Type famotidine 20 mg tablet 20 mg PO DAILY Acid reflux 05/04/21 11/03/22 History fenofibric acid (choline) 135 mg 135 mg PO DAILY High cholesterol 05/04/21 11/03/22 History capsule,delayed release insulin glargine 100 unit/mL (3 60 units SQ HS Diabetes 05/04/21 11/03/22 History mL) subcutaneous pen olanzapine 20 mg tablet 20 mg PO HS MOOD 05/04/21 11/03/22 History topiramate 50 mg tablet 50 mg PO BID MIGRAINES 05/04/21 11/03/22 History venlafaxine 150 mg 150 mg PO DAILY MOOD 05/04/21 11/03/22 History capsule,extended release 24 hr venlafaxine 75 mg tablet,extended 75 mg PO DAILY MOOD 05/04/21 11/03/22 History release 24 hr aspirin 81 mg tablet,delayed 81 mg PO DAILY CAD 07/19/22 11/03/22 History release (Adult Low Dose Aspirin) bupropion HCl 150 mg 24 hr tablet, 150 mg PO DAILY Depression 07/19/22 11/03/22 History extended release (Wellbutrin XL) empagliflozin 25 mg tablet 25 mg PO DAILY Diabetes 07/19/22 11/03/22 History (Jardiance) fluticasone 100 mcg-salmeterol 50 1 inh inhalation BIDRT COPD 07/19/22 11/03/22 History mcg/dose blistr powdr for inhalation (Advair Diskus) promethazine 25 mg tablet 25 mg PO Q6HP PRN Nausea 07/19/22 11/03/22 History propranolol 10 mg tablet 10 mg PO TID Headache 07/19/22 11/03/22 History albuterol sulfate 2.5 mg/3 mL 2.5 mg inhalation Q4HP PRN 08/08/22 11/03/22 History (0.083 %) solution for nebulization Shortness Of Breath alprazolam 1 mg tablet 1 mg PO BIDP PRN Anxiety 08/08/22 11/03/22 History ondansetron HCl 4 mg tablet 4 mg PO Q8HP PRN Nausea 06
--- NOTE | 2022-11-03 05:19 | PC.NURSE ---
Since coming to the floor the patient has rested well. NG remains in place at 62, to low wall suction. Has complained of pain once see MAR. has not companied of it since. States it comes in waves. No other issues noted
--- NOTE | 2022-11-03 06:39 | EXP.SURG.CON ---
History of Present Illness *Admission Date: 11/03/22 *Reason for visit:: Partial SBO *History of present illness: Patient is a 52-year-old female from [facility] with medical history of diabetes, coronary artery disease, diverticulitis, COPD, anxiety, reported history of stroke, history of irritable bowel syndrome , who presented to the emergency department this morning with generalized abdominal pain, nausea, vomiting, and diarrhea which started in the afternoon of 11/02/2022. Evaluation in the emergency department included CT scan which revealed findings of small bowel obstruction suspected be partial or early which may be related to focal enteritis. Small amount of free fluid in the pelvis... She had a nasogastric tube placed and was admitted for inpatient management. Surgical consultation was obtained. She has had prior laparoscopy and tubal ligation. Patient was admitted in April 2021 with findings of uncomplicated diverticulitis of the sigmoid colon. She was seen as an inpatient by Dr. Saldivar as well as for outpatient follow-up. Plan was for repeat blood work and CT scan and tentative outpatient colonoscopy. Patient did not follow through with any of this. Patient states that she was evaluated after that, last year, as an outpatient at [place] for obstruction in my lower bowel . Consideration was apparently being given for colonoscopy. Exact details are unknown. [facility] Disclaimer: The information contained in this section may have been updated after the patient was seen, as this information can be updated by other users. Medical History Advanced osteoarthritis of spine Anxiety disorder Asthma Cervical cancer Coronary artery disease Dyspnea on exertion Dyspnea on exertion Hilar lymphadenopathy History of asthma History of COPD History of coronary angiogram History of diverticulitis History of stroke Hyperlipidemia Irritable bowel syndrome (IBS) Major depression Mediastinal lymphadenopathy Migraine Multiple lung nodules on CT Pneumothorax Smoking greater than 30 pack years Surgical History H/O laparoscopy History of lung biopsy History of tubal ligation Family History Other Family history of COPD (chronic obstructive pulmonary disease) Family history of diabetes mellitus type II Social History (Updated 11/03/22 @ 01:42 by Mar Harvey RN) Smoking Status: Current every day smoker tobacco type: cigarettes packs per day: 2 pack-years: 40 years smoked: 35 second hand exposure: Yes alcohol intake: never substance use type: denies use current occupational status: disabled Travel in the last 8 weeks: None household members: none lives independently: Yes marital status: single pets and animals: Yes Meds Home Medications and Allergies Home Medications Medication Instructions Recorded Confirmed Type diclofenac sodium 75 mg 75 mg PO BIDP PRN Mild Pain (Scale 05/04/21 11/03/22 History tablet,delayed release Score 1-4) famotidine 20 mg tablet 20 mg PO DAILY Acid reflux 05/04/21 11/03/22 History fenofibric acid (choline) 135 mg 135 mg PO DAILY High cholesterol 05/04/21 11/03/22 History capsule,delayed release insulin glargine 100 unit/mL (3 60 units SQ HS Diabetes 05/04/21 11/03/22 History mL) subcutaneous pen olanzapine 20 mg tablet 20 mg PO HS MOOD 05/04/21 11/03/22 History topiramate 50 mg tablet 50 mg PO BID MIGRAINES 05/04/21 11/03/22 History venlafaxine 150 mg 150 mg PO DAILY MOOD 05/04/21 11/03/22 History capsule,extended release 24 hr venlafaxine 75 mg tablet,extended 75 mg PO DAILY MOOD 05/04/21 11/03/22 History release 24 hr aspirin 81 mg tablet,delayed 81 mg PO BID HEART HEALTH 07/19/22 11/03/22 History release (Adult Low Dose Aspirin) bupropion HCl 150 mg 24 hr tablet, 150 mg PO DAILY Depression 07/19/22 11/03/22 History extended r
[2022-11-03 07:03] LABS: Basophils # 0.1 K/mm3 (0-0.2); Eosinophils # 0.2 K/mm3 (0.0-0.4); Eosinophils % 2.6 % (0.1-12.0); Hematocrit 51.4 % (37.0-47.0); Hemoglobin 16.3 g/dL (12.2-16.2); Lymphocytes # 2.5 K/mm3 (0.7-4.5); Lymphocytes % 30.2 % (10-50); Mean Corpuscular HGB Conc 31.7 g/dL (31.8-35.4); Mean Corpuscular Hemoglobin 28.2 pg (27.0-31.2); Mean Corpuscular Volume 88.9 fl (81-99); Mean Platelet Volume 7.8 fl (7.4-10.4); Monocytes # 0.5 K/mm3 (0.1-1.0); Monocytes % 6.4 % (1.7-9.3); Neutrophils # 4.9 K/mm3 (1.8-7.8); Neutrophils % 59.8 % (37.0-80.0); Platelet Count 220 K/mm3 (142-424); Red Blood Count 5.77 M/mm3 (4.20-5.40); Red Cell Distribution Width 16.3 % (11.5-17.5); White Blood Count 8.2 K/mm3 (4.8-10.8)
--- NOTE | 2022-11-03 07:04 | FL_ITS ---
FINAL REPORT CLINICAL HISTORY: . . BOWEL DISTENTION DAP:627.49 .49 SEC FINDINGS: SMALL BOWEL FOLLOW THROUGH HISTORY: Bowel distention, nausea, diarrhea. PROCEDURE: Gastrografin was administered through the patient's NG tube. Spot and overhead films were obtained. 18 images were saved. FINDINGS: The technical support representative film demonstrates dilated loops of small bowel. Manufacturing Engineer Paint film also reveals the NG tip to be in the distal esophagus. The NG tube was advanced until the tip was in the stomach prior to administration of contrast. The transit time to the colon is normal . Contrast reaches the colon at 90 minutes. No transition point could be identified. TI could not be visualized due to Gastrografin contrast. FLUOROSCOPY TIME: 49 seconds FLUORO DOSE: 627.49 DAP in [employer] IMPRESSION: Dilated small bowel loops. No complete small bowel obstruction. Contrast reaches colon in 90 minutes. Reviewed, Interpreted and Dictated by Octaviano Perry III, MD Transcribed by Marta Martinez PA-C Authenticated and . [facility]
[2022-11-03 07:12] LABS: Alanine Aminotransferase 17 U/L (12-78); Albumin Level 3.7 g/dl (3.5-5.0); Albumin/Globulin Ratio 1.4 (1.1-1.8); Alkaline Phosphatase 69 U/L (38-126); Anion Gap 13.1 mEq/L (5-15); Aspartate Amino Transferase 21 U/L (14-36); Bilirubin,Total 0.2 mg/dl (0.2-1.3); Blood Urea Nitrogen 19 mg/dl (7-17); Calcium 8.8 mg/dl (8.4-10.2); Carbon Dioxide 24 mmol/L (22.0-30.0); Chloride 107 mmol/L (98-107); Creatinine Clearance Estimated 108 mL/min (50-200); Estimated Glomerular Filt Rate 89 ml/min (>60); GFR (African American) 107 ML/MIN (>60); Globulin 2.7 g/dL (1.3-3.2); Glucose 212 mg/dl (74-100); Potassium 4.1 mmoL/L (3.5-5.1); Sodium 140 mmol/L (136-145); Total Protein,Serum 6.4 g/dl (6.3-8.2)
--- NOTE | 2022-11-03 10:51 | HMH.PHAINT1 ---
Pharmacy Intervention Comments: MEDICATION RECONCILIATION COMPLETE USING LIST FROM MOST RECENT MD OFFICE VISIT AND EXTERNAL PHARMACY FILL HISTORY.
--- NOTE | 2022-11-03 13:09 | SW/DCPLANNER ---
I received a referral on this patient regarding [facility]. Patient expressed to me this afternoon during my visit that she has issues w/ transportation and food at home. I have presented this patient w/ [facility] Resource list and discussed resources available on the list. Patient stated that she will need assistance w/ transportation home and I explained to patient we will be able to set up [employer]. Patient has no further needs/questions at this time. Discharge date is unknown: I will continue to follow up w/ this patient until ready for discharge.
--- NOTE | 2022-11-03 13:10 | EXP.PN ---
Subjective *Date: 11/03/22 *Time: 13:10 Interval history: Patient is seen and examined today. I am accompanied by nursing staff. Nursing staff report that she remains afebrile with stable vital signs and saturating appropriately on room air. She is due for small bowel follow-through this morning. Her morning labs and inflammatory markers have been reviewed, discussed and I personally interpreted her CBC as normal with a WBC 8.2 hemoglobin 16 platelet count 220. Her electrolytes are normal with a BUN 19 and creatinine 0.7. Her glucose is uncontrolled with blood sugars greater than 200. Her magnesium is normal. Her LFTs are normal. Her urinalysis is normal. Her lipase is normal. A CT scan of the abdomen identifies concerns with small bowel obstruction. Previous pulmonary nodules are well-documented as well as fatty liver with hepatosplenomegaly. She has chronic diverticulosis on previous imaging. Exam Data for Last 24 hours Vital signs and Labs for Last 24 Hours: Temp Pulse Resp BP Pulse Ox O2 Del Method 97.9 F 96 H 20 133/68 91 L Room Air 11/03/22 12:00 11/03/22 12:00 11/03/22 12:00 11/03/22 12:00 11/03/22 12:00 11/03/22 12:00 Laboratory Results - last 24 hr 11/02/22 22:05: WBC 9.5, RBC 6.09 H, Hgb 17.3 H, Hct 54.3 H, MCV 89.1, MCH 28.3, MCHC 31.8, RDW 16.1, Plt Count 244, MPV 7.8, Neut % (Auto) 72.7, Lymph % (Auto) 19.3, [place] % (Auto) 5.2, Eos % (Auto) 2.1, Baso % (Auto) 0.7, Neut # (Auto) 6.9, Lymph # (Auto) 1.8, [place] # (Auto) 0.5, Eos # (Auto) 0.2, Baso # (Auto) 0.1, Sodium 141, Potassium 4.5, Chloride 107, Carbon Dioxide 26, Anion Gap 12.5, BUN 19 H, Creatinine 0.70, Estimated Creat Clear 107, Estimated GFR 89, Est GFR ( Amer) 107, Glucose 256 H, Calcium 9.7, Total Bilirubin 0.4, AST 24, ALT 21, Alkaline Phosphatase 82, Total Protein 7.3, Albumin 4.0, Globulin 3.3 H, Albumin/Globulin Ratio 1.2, Lipase 105 11/02/22 23:08: Urine Color Yellow, Urine Appearance Clear, Urine pH 6.0, Ur Specific [place] 1.025, Urine Protein Trace, Urine Glucose (UA) 3+, Urine Ketones 1+, Urine Blood Negative, Urine Nitrate Negative, Urine Bilirubin 1+ A, Urine Urobilinogen 0.2, Ur Leukocyte Esterase Negative, Urine RBC None, Urine WBC Occasional, Ur Squamous Epith Cells 10-20, Urine Bacteria None 11/03/22 06:25: WBC 8.2, RBC 5.77 H, Hgb 16.3 H, Hct 51.4 H, MCV 88.9, MCH 28.2, MCHC 31.7 L, RDW 16.3, Plt Count 220, MPV 7.8, Neut % (Auto) 59.8, Lymph % (Auto) 30.2, [place] % (Auto) 6.4, Eos % (Auto) 2.6, Baso % (Auto) 1.0, Neut # (Auto) 4.9, Lymph # (Auto) 2.5, [place] # (Auto) 0.5, Eos # (Auto) 0.2, Baso # (Auto) 0.1, Sodium 140, Potassium 4.1, Chloride 107, Carbon Dioxide 24, Anion Gap 13.1, BUN 19 H, Creatinine 0.70, Estimated Creat Clear 108, Estimated GFR 89, Est GFR ( Amer) 107, Glucose 212 H, Calcium 8.8, Magnesium 2.0, Total Bilirubin 0.2, AST 21, ALT 17, Alkaline Phosphatase 69, Total Protein 6.4, Albumin 3.7, Globulin 2.7, Albumin/Globulin Ratio 1.4 I & O for Last 24 hours: Intake & Output 10/31/22 11/01/22 11/02/22 11/03/22 23:59 23:59 23:59 23:59 Output Total 0 / 0 Balance 0 / 0 Weight 70.307 kg 71.242 kg Constitutional Constitutional: no acute distress, chronically ill appearing and cooperative *Routine HEENT Exam Head: Present normocephalic Eye: Present EOMI and PERRL ENT: Present mucous membranes moist Comments: NG tube in place and secured *Routine Neck Exam Neck: Present supple, full ROM and trachea midline; Absent lymphadenopathy *Routine Respiratory Exam Respiratory: Present rhonchi, normal respiratory effort and symmetric chest movement *Routine Cardiovascular Exam Cardiovascular: Present RRR *Routine Abdominal Exam Abdominal: Present soft, normoactive bowel sounds and tenderness; Absent distended, rebound or guarding *Routine Extremities Exam Extremities: Present full ROM, pulses intact and normal capillary refill; Absent edema *Routine Skin Exam Skin: Present warm; Absent rash *Routine Neurolo
[2022-11-03 13:48] LABS: Adenovirus F 40/41, stool Not Detected (NotDetected); Astrovirus Not Detected (NotDetected); Campylobacter Not Detected (NotDetected); Clostridium Difficile A/B, PCR Not Detected (NotDetected); Cryptosporidium Not Detected (NotDetected); Cyclospora Cayetanesis Not Detected (NotDetected); Entamoeba histolytica Not Detected (NotDetected); Enteroaggregative E coli Not Detected (NotDetected); Enteropathogenic E coli Not Detected (NotDetected); Enterotoxigenic E coli Not Detected (NotDetected); Giardia lamblia Not Detected (NotDetected); Norovirus Not Detected (NotDetected); Plesimonas Shigalloides, PCR Not Detected (NotDetected); Rotavirus A Not Detected (NotDetected); Salmonella, PCR Not Detected (NotDetected); Sapovirus Not Detected (NotDetected); Shiga-like toxin E coli Not Detected (NotDetected); Shigella Enterovasive E coli Not Detected (NotDetected); Vibrio Cholerae Not Detected (NotDetected); Vibrio, PCR Not Detected (NotDetected); Yersinia Entercolitica, PCR Not Detected (NotDetected)
--- NOTE | 2022-11-03 15:35 | PC.NURSE ---
NG tube removed.
[2022-11-03 20:35] LABS: POC Glucose,Bedside 366 (70-110)
[2022-11-04 04:00] VITALS: BP 95/51; PULSE 51; RESP 20; TEMP 36.6; O2SAT 98; BMI 28.5
[2022-11-04 05:49] LABS: POC Glucose,Bedside 156 (70-110)
[2022-11-04 07:49] VITALS: BP 117/61; PULSE 70; RESP 17; TEMP 36.3; O2SAT 98
[2022-11-04 07:55] LABS: Anion Gap 8.5 mEq/L (5-15); Blood Urea Nitrogen 13 mg/dl (7-17); Calcium 8.7 mg/dl (8.4-10.2); Carbon Dioxide 27 mmol/L (22.0-30.0); Chloride 112 mmol/L (98-107); Creatinine Clearance Estimated 97 mL/min (50-200); Estimated Glomerular Filt Rate 76 ml/min (>60); GFR (African American) 92 ML/MIN (>60); Glucose 158 mg/dl (74-100); Potassium 4.5 mmoL/L (3.5-5.1); Sodium 143 mmol/L (136-145)
--- NOTE | 2022-11-04 08:04 | PC.NURSE ---
pt denies any nausea or vomiting this am. no reports of diarrhea. tolerating sips of clears this am
--- NOTE | 2022-11-04 10:07 | PC.NURSE ---
hospitalist advanced pts diet to bland.
--- NOTE | 2022-11-04 10:13 | EXP.DC.SUM ---
General Admission date:: 11/03/22 Discharge date: 11/04/22 HPI HPI HPI: Patient is a 52-year-old female from [facility] with medical history of diabetes, coronary artery disease, diverticulitis, COPD, anxiety, reported history of stroke, history of irritable bowel syndrome , who presented to the emergency department this morning with generalized abdominal pain, nausea, vomiting, and diarrhea which started in the afternoon of 11/02/2022. Evaluation in the emergency department included CT scan which revealed findings of small bowel obstruction suspected be partial or early which may be related to focal enteritis. Small amount of free fluid in the pelvis... She had a nasogastric tube placed and was admitted for inpatient management. Surgical consultation was obtained. She has had prior laparoscopy and tubal ligation. Patient was admitted in April 2021 with findings of uncomplicated diverticulitis of the sigmoid colon. She was seen as an inpatient by Dr. Saldivar as well as for outpatient follow-up. Plan was for repeat blood work and CT scan and tentative outpatient colonoscopy. Patient did not follow through with any of this. Patient states that she was evaluated after that, last year, as an outpatient at [place] for obstruction in my lower bowel . Consideration was apparently being given for colonoscopy. Exact details are unknown. Hospital Course Hospital Course Hospital Course: 52-year-old female with PMHx of diabetes, CAD, diverticulosis, and COPD presenting to the emergency department for evaluation with concern for generalized abdominal pain, nausea, vomiting, and diarrhea that started around 4:00 PM. She stated initially started out as epigastric abdominal pain. upon ER arrival CT of abdomen showed partial vs earlier SBO. PAK tube was placed. The patient reports sick contacts (grandchildren). Imaging, laboratory studies and inflammatory markers were trended. She was provided IV fluid resuscitation, IV antibiotic therapy and general surgery was consulted. Problems addressed as follows: Small bowel obstruction General surgery consultation reviewed IV fluid resuscitation NG tube care and eventually discontinued CT scan of abdomen reviewed with concerns for small bowel obstruction small bowel follow-through with contrast to the colon in 90 minutes Initially n.p.o. then diet advanced with good tolerance Positive flatus and bowel elimination noted IV antiemetic therapy GI PCR panel Trending labs and inflammatory markers Coronary artery disease Antiplatelet therapy Statin therapy Beta-edith therapy ARB therapy Fatty liver with hepatosplenomegaly Chronicity identified on previous CT scans of abdomen and pelvis Fenofibrate therapy Statin therapy Low-fat calorie appropriate diet when taking p.o. Chronic hypoxic respiratory failure Tobacco dependence Pulse oximetry monitoring Oxygen therapy to maintain appropriate oxygen saturations Currently oxygenating appropriately on room air Dora/Walt inhalation therapy Tobacco cessation education Nicotine replacement therapy The patient identified improvement, NG tube was discontinued and she tolerated and advance diet with effective flatus and bowel elimination. With her identified improvement she inquired about discharge home. We have recommended continue oral hydration with bowel elimination diary. We have recommended she follow-up with her PCP next week and general surgery as scheduled. I spent 35 minutes in [id number] time with the patient and nursing staff concerning the discharge process. We discussed the admitting diagnoses and hospital course. We discussed identified improvement and the patient's desire to be discharged. We reviewed inpatient studies and imaging. The patient voiced understanding on the importance of follow-up with her primary care provider and general surgeon. The patient plans to be compliant with the medication regimen prescribed and follow-up appo
--- NOTE | 2022-11-06 15:30 | CARE MANAGER ---
Spoke with patient for post-discharge phone interview, no issues noted.
== END 2022-11-04 11:39 | disposition home or self-care (01) ==
LOC: ER 22:56 → 2ND 11-03 00:57
PROVIDERS: Emergency Medicine; Nurse Practitioner Family; Admitting Provider Family Medicine; Emergency Provider Emergency Medicine; PCP Family Medicine; Visit Provider Family Medicine
DX: R10.84 Generalized abdominal pain (principal); F17.210 Nicotine dependence, cigarettes, uncomplicated; K56.600 Partial intestinal obstruction, unspecified as to cause; E11.69 Type 2 diabetes mellitus with other specified complication; Z79.4 Long term (current) use of insulin; F33.40 Major depressive disorder, recurrent, in remission, unspecified; F41.0 Panic disorder [episodic paroxysmal anxiety]; I25.10 Atherosclerotic heart disease of native coronary artery without angina pectoris; J43.9 Emphysema, unspecified; Z79.899 Other long term (current) drug therapy; J96.11 Chronic respiratory failure with hypoxia; G43.909 Migraine, unspecified, not intractable, without status migrainosus; K52.9 Noninfective gastroenteritis and colitis, unspecified
CPT/HCPCS: 36415; 71045; 74177; 74250; 80048; 80053; 81001; 82962; 83690; 83735; 84145; 85025; 87507; 93005; 99291; G0378; J0131; J2405; Q9967

== ENCOUNTER 2023-04-22 12:30 | Emergency (ER) | payer MEDICAID, SELFPAY ==
--- NOTE | 2023-04-22 12:31 | CT_ITS ---
PROCEDURE INFORMATION: Exam: CT Abdomen And Pelvis With Contrast Exam date and time: 04/22/2023 1:08 PM Age: 52 years old Clinical indication: Abdominal pain; Localized; Lower; Additional info: History of diverticulitis, ower abdominal pain TECHNIQUE: Imaging protocol: Computed tomography of the abdomen and pelvis with contrast. Radiation optimization: All CT scans at this facility use at least one of these dose optimization techniques: automated exposure control; mA and/or kV adjustment per patient size (includes targeted exams where dose is matched to clinical indication); or iterative reconstruction. Contrast material: ISOVUE; Contrast volume: 75 ml; Contrast route: IV; COMPARISON: CT ABDOMEN PELVIS W CON 11/02/2022 11:53 PM FINDINGS: Lungs: 7.3 mm pleural-based nodule in the right lower lobe. Series 3, image 9 Previously it measured 6.5 mm.. Liver: Normal. No mass. Gallbladder and bile ducts: Normal. No calcified stones. No ductal dilation. Pancreas: Normal. No ductal dilation. Spleen: Again noted are multiple Subcentimeter low attenuation areas in the spleen which are too small for characterization. Adrenal glands: Normal. No mass. Kidneys and ureters: Stable contour abnormality in the right kidney. Subcentimeter low attenuation area in the right kidney is too small for characterization. Stomach and bowel: Diverticulosis and Bowel wall thickening along the rectosigmoid colon. Mild pericolonic inflammatory changes. No evidence of perforation or abscess formation or bleeding. Findings consistent with acute diverticulitis. Appendix: Normal appendix Intraperitoneal space: Unremarkable. No free air. No significant fluid collection. Vasculature: Unremarkable. No abdominal aortic aneurysm. Lymph nodes: Unremarkable. No enlarged lymph nodes. Urinary bladder: Unremarkable as visualized. Reproductive: Unremarkable as visualized. Bones/joints: Unremarkable. No acute fracture. Soft tissues: Unremarkable. Other findings: As an underlying malignancy cannot be entirely excluded, a follow-up examination after a course of treatment is recommended if clinically warranted. IMPRESSION: 1. Diverticulosis and Bowel wall thickening along the rectosigmoid colon. Mild pericolonic inflammatory changes. No evidence of perforation or abscess formation or bleeding. Findings consistent with acute diverticulitis. 2. As an underlying malignancy cannot be entirely excluded, a follow-up examination after a course of treatment is recommended if clinically warranted. 3. 7.3 mm pleural-based nodule in the right lower lobe. Series 3, image 9 Previously it measured 6.5 mm.. For patients at low risk (minimal or absent history of smoking and of other known risk factors), recommend CT Chest at 6-12 months, then consider CT Chest at 18-24 months. For patients at high risk (history of smoking or of other known risk factors), recommend CT Chest at 6-12 months, then CT Chest at 18-24 months. (Reference: Girma) References: Girma Bob, et al. Guidelines for Management of Incidental Pulmonary Nodules Detected on CT Images: From the Fleischner Society 2017. Radiology. 2017;284(1):228-243.
[2023-04-22 12:33] VITALS: BP 120/83; PULSE 94; RESP 16; TEMP 36.9; O2SAT 98; BMI 27.8
[2023-04-22] MEDS: ACETAMINOPHEN 1,000MG/100ML VIAL 1000 MG IV (12:44)
[2023-04-22] MEDS: KETOROLAC 30MG/ML VIAL 15 MG IV (12:44)
--- NOTE | 2023-04-22 12:47 | PC.NURSE ---
Dr. Phan at [facility] for pt eval
[2023-04-22 12:51] LABS: Microscopic, Urine URINE MICROSCOPIC (MICROSCOPIC)
[2023-04-22 12:52] LABS: Alanine Aminotransferase 27 U/L (12-78); Albumin Level 4.8 g/dl (3.5-5.0); Albumin/Globulin Ratio 1.5 (1.1-1.8); Alkaline Phosphatase 103 U/L (38-126); Aspartate Amino Transferase 25 U/L (14-36); Bilirubin,Total 0.5 mg/dl (0.2-1.3); Blood Urea Nitrogen 10 mg/dl (7-17); Calcium 10.2 mg/dl (8.4-10.2); Carbon Dioxide 29 mmol/L (22.0-30.0); Chloride 99 mmol/L (98-107); Creatinine Clearance Estimated 126 mL/min (50-200); Estimated Glomerular Filt Rate 106 ml/min (>60); GFR (African American) 128 ML/MIN (>60); Globulin 3.3 g/dL (1.3-3.2); Glucose 365 mg/dl (74-100); Lipase 225 U/L (23-300); Sodium 137 mmol/L (136-145); Total Protein,Serum 8.1 g/dl (6.3-8.2)
[2023-04-22 12:54] LABS: Appearance,Urine CLEAR (Clear); Bilirubin,Urine Negative (Negative); Blood, Urine Negative (Negative); Color,Urine YELLOW (Yellow); Glucose,Urine (UA) 3+ (Negative); Ketones,Urine Negative (Negative); Leukocyte Esterase,Urine Negative (Negative); Nitrate,Urine Negative (Negative); Protein,Urine Negative (Negative); Specific Gravity, Urine 1.015 (1.005-1.030); Urobilinogen,Urine 0.2 EU/dl (0.2)
[2023-04-22 12:59] LABS: Basophils # 0.1 K/mm3 (0-0.2); Basophils % 0.7 % (0.1-2.0); Eosinophils # 0.3 K/mm3 (0.0-0.4); Hemoglobin 16.7 g/dL (12.2-16.2); Lymphocytes % 33.6 % (10-50); Mean Corpuscular HGB Conc 32.8 g/dL (31.8-35.4); Mean Corpuscular Hemoglobin 30.7 pg (27.0-31.2); Mean Corpuscular Volume 93.7 fl (81-99); Mean Platelet Volume 8.1 fl (7.4-10.4); Monocytes # 0.5 K/mm3 (0.1-1.0); Monocytes % 5.1 % (1.7-9.3); Neutrophils # 5.1 K/mm3 (1.8-7.8); Neutrophils % 57.6 % (37.0-80.0); Platelet Count 261 K/mm3 (142-424); Red Blood Count 5.44 M/mm3 (4.20-5.40); Red Cell Distribution Width 15.3 % (11.5-17.5); White Blood Count 8.8 K/mm3 (4.8-10.8)
[2023-04-22 13:00] VITALS: BP 128/71; PULSE 79; RESP 16; O2SAT 98
--- NOTE | 2023-04-22 13:11 | ED_ITS ---
Discharge Plan Disposition Patient Disposition: Home, Self-Care Prescriptions Prescriptions: New levofloxacin 750 mg tablet 750 mg PO DAILY 10 Days Qty: 10 0RF metronidazole 500 mg tablet 500 mg PO Q8H 10 Days Qty: 30 0RF No Action propranolol 10 mg tablet 10 mg PO TID bupropion HCl [Wellbutrin XL] 150 mg tablet extended release 24 hr 150 mg PO DAILY aspirin [Adult Low Dose Aspirin] 81 mg tablet,delayed release (DR/EC) 81 mg PO DAILY Jardiance 25 mg tablet 25 mg PO DAILY promethazine 25 mg tablet 25 mg PO Q6HP PRN (Reason: Nausea) fluticasone propion-salmeterol [Advair Diskus] 100-50 mcg/dose blister with device 1 inh inhalation BIDRT Ozempic 1 mg/dose (4 mg/3 mL) pen injector 1 mg SQ WEEKLY clindamycin HCl 300 mg capsule 300 mg PO TID Qty: 30 0RF topiramate 50 MG tablet 50 mg PO BID venlafaxine 150 MG capsule,extended release 24hr 150 mg PO DAILY Rx Instructions: take with 75 mg for a total of 225mg. olanzapine 20 MG tablet 20 mg PO HS famotidine 20 MG tablet 20 mg PO DAILY insulin glargine 100 UNIT/ML insulin pen 60 units SQ HS fenofibric acid (choline) 135 MG capsule,delayed release(DR/EC) 135 mg PO DAILY pioglitazone 15 mg Tablet 15 mg PO DAILYDM rosuvastatin 40 mg Tablet 40 mg PO DAILY ergocalciferol (vitamin D2) 1,250 mcg (50,000 unit) capsule 50,000 unit PO WEEKLY Patient Comments: TAKE 1 CAPSULE BY MOUTH ONCE A WEEK. albuterol sulfate 2.5 mg /3 mL (0.083 %) solution for nebulization 2.5 mg inhalation Q4HP PRN (Reason: Shortness Of Breath) Patient Comments: INHALE THE CONTENTS OF 1 VIAL VIA NEBULIZER EVERY 4 HOURS NEEDED FOR WHEEZING. alprazolam 1 mg tablet 1 mg PO BIDP PRN (Reason: Anxiety) Patient Comments: TAKE 1 TABLET BY MOUTH TWICE DAILY NEEDED. ondansetron HCl 4 mg tablet 4 mg PO Q8HP PRN (Reason: Nausea) Patient Comments: TAKE 1 TABLET BY MOUTH EVERY 8 HOURS NEEDED FOR NAUSEA. albuterol sulfate 90 mcg/actuation HFA aerosol inhaler 2 puff inhalation Q4HP PRN (Reason: Shortness Of Breath) Qty: 8.5 3RF Referrals Follow up/Referrals: Marcus Castellon MD [Primary Care Provider] - See instructions Activity Restrictions/Add. Instructions Additional Instructions/Restrictions: Take levofloxacin once daily for 10 days and metronidazole 3 times daily for 10 days. Call your family doctor to establish care for this visit to the emergency department and schedule follow-up within 48 hours to ensure improvement. If you have any worsening of your condition or any other concerning signs or symptoms, return to the emergency department or your primary care doctor for further evaluation. Clinical Impressions Clinical Impression: Diverticulitis of large intestine without complication Instructions Patient Instructions: DI for Acute Abdominal Pain Discharge ED Provider: Fritz Phan General Adult HPI General Chief complaint: Abdominal Pain Stated complaint: DIVERT. Time Seen by Provider: 04/22/23 12:31 Mode of Arrival: Ambulatory Source of Information: Patient and EMS Limitations: No Limitations Description of Symptoms (Recalled from ER Triage Doc. by RN): EMS reports the pt called out for abd pain. pt reports she thinks her diverticulitis has been flared up x4d. pt c/o LLAsh, andi, 10/10 abd pain. pt also states when she had a BM last night she had some almita blood in her stool. History of Present Illness HPI narrative: [id number] female history of hypertension, hyperlipidemia, tobacco abuse, COPD, diverticulitis presenting with abdominal pain. She states that the abdominal pain started about 4 days prior to this visit. Is left lower quadrant, does not radiate, associated with nausea without vomiting. It is moderate to severe, intermittent, cramping in nature. 1 episode of bloody stool last night, 3/2, but since that time has had normal bowel movements that are primarily water. Has been able to tolerate intake still passing gas. No fevers or chills, dysuria, hematuria, abnormal vaginal discharge or bleeding, or any other concerns. Related Data Home Medications Medication Instructions Recorded Confirmed famotidine 20 mg tablet 20 mg PO DAILY Acid reflux 05/04/21 04/02/23 fenofibric acid (choline) 135 mg 135 mg PO DAILY High cholesterol 05/04/21 04/02/23 capsule,delayed release insulin glargine 100 unit/mL (3 60 units SQ HS Diabetes 05/04/21 04/02/23 mL) subcutaneous pen olanzapine 20 mg tablet 20 mg PO HS MOOD 05/04/21 04/02/23 topiramate 50 mg tablet 50 mg PO BID MIGRAINES 05/04/21 04/02/23 venlafaxine 150 mg 150 mg PO DAILY MOOD 05/04/21 04/02/23 capsule,extended release 24 hr aspirin 81 mg tablet,delayed 81 mg PO DAILY CAD 07/19/22 04/02/23 release (Adult Low Dose Aspirin) bupropion HCl 150 mg 24 hr tablet, 150 mg PO DAILY Depression 07/19/22 04/02/23 extended release (Wellbutrin XL) empagliflozin 25 mg tablet 25 mg PO DAILY Diabetes 07/19/22 04/02/23 (Jardiance) fluticasone 100 mcg-salmeterol 50 1 inh inhalation BIDRT COPD 07/19/22 04/02/23 mcg/dose blistr powdr for inhalation (Advair Diskus) promethazine 25 mg tablet 25 mg PO Q6HP PRN Nausea 07/19/22 04/02/23 propranolol 10 mg tablet 10 mg PO TID Headache 07/19/22 04/02/23 albuterol sulfate 2.5 mg/3 mL 2.5 mg inhalation Q4HP PRN 08/08/22 04/02/23 (0.083 %) solution for nebulization Shortness Of Breath alprazolam 1 mg tablet 1 mg PO BIDP PRN Anxiety 08/08/22 04/02/23 ondansetron HCl 4 mg tablet 4 mg PO Q8HP PRN Nausea 08/08/22 04/02/23 ergocalciferol (vitamin D2) 1,250 50,000 unit PO WEEKLY Supplement 11/03/22 04/02/23 mcg (50,000 unit) capsule pioglitazone 15 mg tablet 15 mg PO DAILYDM Diabetes 11/03/22 04/02/23 rosuvastatin 40 mg tablet 40 mg PO DAILY Cholesterol 11/03/22 04/02/23 semaglutide 1 mg/dose (4 mg/3 mL) 1 mg SQ WEEKLY 03/29/23 04/02/23 subcutaneous pen injector (Ozempic) Previous Rx's Medication Instructions Recorded albuterol sulfate 90 mcg/actuation 2 puff inhalation Q4HP PRN 08/09/22 aerosol inhaler Shortness Of Breath #8.5 grams clindamycin HCl 300 mg capsule 300 mg PO TID #30 caps 03/29/23 levofloxacin 750 mg tablet 750 mg PO DAILY 10 days #10 tabs 04/22/23 metronidazole 500 mg tablet 500 mg PO Q8H 10 days #30 tabs 04/22/23 Allergies Allergy/AdvReac Type Severity Reaction Status Date / Time adhesive tape Allergy Blister Verified 04/02/23 13:08 fluoxetine [From Prozac] Allergy Unknown Verified 04/02/23 13:08 allergy reaction latex Allergy Unknown Verified 04/02/23 13:08 allergy reaction quetiapine [From Seroquel] Allergy Unknown Verified 04/02/23 13:08 allergy reaction shellfish derived Allergy Anaphylaxis Verified 04/02/23 13:08 morphine AdvReac PANIC Verified 04/02/23 13:08 ATTACK PFSH [facility] Disclaimer: The information contained in this section may have been updated after the jonathan ent was seen, as this information can be updated by other users. Medical History Advanced osteoarthritis of spine Anxiety disorder Asthma Cervical cancer Coronary artery disease Dental caries Dyspnea on exertion Dyspnea on exertion Facial cellulitis Hilar lymphadenopathy History of asthma History of COPD History of coronary angiogram History of diverticulitis History of stroke Hyperlipidemia Irritable bowel syndrome (IBS) Major depression Mediastinal lymphadenopathy Migraine Multiple lung nodules on CT Multiple personality Pneumothorax Smoking greater than 30 pack years Surgical History H/O laparoscopy History of lung biopsy History of tubal ligation Family History Father Alcoholism Asthma Coronary artery disease Diabetes FHx: mental illness Heart attack Hypertension Mother Anemia Asthma Coronary artery disease FHx: mental illness Hyperlipidemia Hypertension Grandmother Stroke Other Cancer Family history of COPD (chronic obstructive pulmonary disease) Family history of diabetes mellitus type II Social History Smoking Status: Current every day smoker tobacco type: cigarettes packs per day: 2 years smoked: 35 second hand exposure: Yes alcohol intake: never substance use type: denies use current occupational status: disabled Travel in the last 8 weeks: None household members: none lives independently: Yes marital status: single pets and animals: Yes ROS Obtained: Yes All systems reviewed & no additional complaints except as do cumented Physical Exam General General appearance: alert and in no apparent distress Head Head exam: atraumatic and normocephalic Eye Eye exam: Present normal appearance, PERRL and EOMI ENT ENT exam: Present mucous membranes moist Neck Neck exam: Present normal inspection, full ROM and trachea midline Respiratory Respiratory exam: Absent respiratory distress, wheezes, stridor, accessory muscle use or prolonged expiratory phase Cardiovascular Cardiovascular exam: Present regular rate and normal rhythm Abdominal Exam Abdominal exam: Present soft and tenderness; Absent distention, guarding, rebound or rigidity Abdominal tenderness: Present RLQ, LLQ and moderate Extremities Exam Extremities exam: Absent edema Neurological Exam Neurological exam: Present alert, oriented X3, CN II-XII intact and normal gait; Absent motor sensory deficit Skin Skin exam: Present warm and dry; Absent diaphoresis or erythema Medical Decision Making Medical Records Medical records reviewed: Yes I reviewed the patient's medical records. Kristofer Inquiry Pt receiving controlled substance: No Kristofer was queried for this patient: No Vital Signs: 04/22/23 12:33 04/22/23 13:00 04/22/23 13:16 Temperature 98.4 F Temperature Source Oral Pulse Rate 79 77 Pulse Rate [Left] 94 H Respiratory Rate 16 16 Blood Pressure 128/71 114/80 Blood Pressure [Right Arm] 120/83 Blood Pressure Mean 88 Blood Pressure Mean [Right Arm] 95 Blood Pressure Source [Right Arm] Automatic Cuff Blood Pressure Position [Right Arm] Sitting 02 Sat by Pulse Oximetry 98 98 99 Oxygen Delivery Method Room Air Room Air 04/22/23 14:19 04/22/23 14:30 Temperature Temperature Source Pulse Rate 92 H 76 Pulse Rate [Left] Respiratory Rate Blood Pressure 125/80 138/72 Blood Pressure [Right Arm] Blood Pressure Mean Blood Pressure Mean [Right Arm] Blood Pressure Source [Right Arm] Blood Pressure Position [Right Arm] 02 Sat by Pulse Oximetry 98 99 Oxygen Delivery Method Room Air Room Air Lab Data Lab Results 04/22/23 12:34: WBC 8.8, RBC 5.44 H, Hgb 16.7 H, Hct 51.0 H, MCV 93.7, MCH 30.7, MCHC 32.8, RDW 15.3, Plt Count 261, MPV 8.1, Neut % (Auto) 57.6, Lymph % (Auto) 33.6, Mccreary % (Auto) 5.1, Eos % (Auto) 3.0, Baso % (Auto) 0.7, Neut # (Auto) 5.1, Lymph # (Auto) 3.0, Mccreary # (Auto) 0.5, Eos # (Auto) 0.3, Baso # (Auto) 0.1, Sodium 137, Potassium 4.0, Chloride 99, Carbon Dioxide 29, Anion Gap 13.0, BUN 10, Creatinine 0.60, Estimated Creat Clear 126, Estimated GFR 106, Est GFR ( Amer) 128, Glucose 365 H, Calcium 10.2, Total Bilirubin 0.5, AST 25, ALT 27, Alkaline Phosphatase 103, Total Protein 8.1 D, Albumin 4.8, Globulin 3.3 H, Albumin/Globulin Ratio 1.5, Lipase 225 04/22/23 12:45: Urine Color Yellow, Urine Appearance Clear, Urine pH 6.0, Ur Specific [place] 1.015, Urine Protein Negative, Urine Glucose (UA) 3+, Urine Ketones Negative, Urine Blood Negative, Urine Nitrate Negative, Urine Bilirubin Negative, Urine Urobilinogen 0.2, Ur Leukocyte Esterase Negative, Urine RBC None, Urine WBC None, Ur Squamous Epith Cells 5-10, Urine Bacteria Trace, Urine Yeast Occasional 04/22/23 13:22: Lactate 2.0 04/22/23 12:34 04/22/23 12:34 Orders (Tests/Meds): ED MEDICATIONS Generic Name Dose Route Start Last Admin Trade Name Freq PRN Reason Stop Dose Admin Sodium Chloride 10 ml 04/22/23 13:16 04/22/23 13:17 Sodium Chloride 0.9% 10ml Syr (Rad Only) IV 05/22/23 13:15 10 ml NEEDED PRN Administration Maintain IV Site Discontinued Medications Generic Name Dose Route Start Last Admin Trade Name Freq PRN Reason Stop Dose Admin Acetaminophen 1,000 mg 04/22/23 12:31 04/22/23 12:44 Acetaminophen 1,000mg/100ml Vial IV 04/22/23 12:32 1,000 mg ONCE ONE Administration Hydromorphone HCl 0.5 mg 04/22/23 14:20 04/22/23 14:34 Hydromorphone 2mg/Ml Syringe IV 04/22/23 14:21 0.5 mg ONCE ONE Administration Ampicillin Sodium/Sulbactam 100 mls @ 200 mls/hr 04/22/23 14:41 Sodium 3 gm/ Sodium Chloride IV 04/22/23 14:42 ONCE ONE Iopamidol 75 ml 04/22/23 13:16 04/22/23 13:17 Iopamidol-370 (76%);100ml Bottle IV 04/22/23 13:17 75 ml ONCE ONE Administration Ketorolac Tromethamine 15 mg 04/22/23 12:31 04/22/23 12:44 Ketorolac 30mg/Ml Vial IV 04/22/23 12:32 15 mg ONCE ONE Administration Levofloxacin 750 mg 04/22/23 14:50 Levofloxacin 750 Mg Tablet PO 04/22/23 14:51 ONCE ONE Metronidazole 500 mg 04/22/23 14:50 Metronidazole 500 Mg Tablet PO 04/22/23 14:51 ONCE ONE ORDERS Category Date Time Status CT abdomen pelvis w con Stat Cat Scan 04/22/23 12:31 Completed CBC w/Auto Diff [Complete Blood Count Auto Diff] Stat Lab 04/22/23 12:34 Completed CMP [Comprehensive Metabolic Panel] Stat Lab 04/22/23 12:34 Completed Lactic Acid Stat Lab 04/22/23 13:22 Completed Lipase Stat Lab 04/22/23 12:34 Completed UA [Urinalysis and Microscopic] Stat Lab 04/22/23 12:45 Completed Medical Decision Narrative: [id number] female history of hypertension, hyperlipidemia, tobacco abuse, COPD, diverticulitis presenting with abdominal pain. She states that the abdominal pain started about 4 days prior to this visit. Is left lower quadrant, does not radiate, associated with nausea without vomiting. It is moderate to severe, intermittent, cramping in nature. 1 episode of bloody stool last night, 3/2, but since that time has had normal bowel movements that are primarily water. Has been able to tolerate intake still passing gas. No fevers or chills, dysuria, hematuria, abnormal vaginal discharge or bleeding, or any other concerns. History was obtained via conversation with patient and EMS. On arrival, patient hemodynamically stable, alert, oriented x4, appropriate, GCS 15, moving all extremities spontaneously, pupils equal and reactive to light. Full physical exam performed and significant for well-appearing woman in no acute distress. Nontachycardic, normotensive, afebrile. Abdomen is soft, but tender in left lower quadrant and right lower quadrant without signs of peritonitis. No overlying skin changes. No flank tenderness. Differential includes PUD, gastritis, enteritis, gastroenteritis, pancreatitis, SBO, colitis, diverticulitis, nephrolithiasis, UTI, cholecystitis, ch oledocholithiasis, appendicitis, hepatitis, torsion, aortic pathology, mesenteric ischemia among others Patient was given Toradol, 0.5 mg Dilaudid for symptomatic management and correction of underlying abnormalities. Workup independently interpreted and significant for nonactionable CBC or chem istry. Lactate negative. Kidney function normal. Nonactionable UA. CT abdomen pelvis with sigmoid colonic diverticulitis without perforation or abscess. See radiology read for full review of final results. On reevaluation, patient resting comfortably in bed. She was given levofloxacin and Flagyl. Given patient presentation, workup, history, this most likely represents uncomplicated colonic diverticulitis. Because patient at baseline without signs or symptoms of clinical decompensation, deemed appropriate for discharge. Results were relayed to patient who voiced understanding and were agreeable to outpatient management and follow up. At the time of discharge the patient was hemodynamically stable, tolerating PO, and mobilizing appropriately. Critical Care Critical Care Time Critical Care Time: No
[2023-04-22 13:16] VITALS: BP 114/80; PULSE 77; O2SAT 99
[2023-04-22] MEDS: SODIUM CHLORIDE 0.9% 10ML SYR (RAD ONLY) 10 ML IV (13:17)
[2023-04-22] MEDS: IOPAMIDOL-370 (76%);100ML BOTTLE 75 ML IV (13:17)
[2023-04-22 13:20] LABS: Bacteria,Urine Trace /lpf; Yeast,Urine Occasional /lpf
[2023-04-22 14:19] VITALS: BP 125/80; PULSE 92; O2SAT 98
--- NOTE | 2023-04-22 14:19 | PC.NURSE ---
Rounded on pt. Advised she was still in pain at this time. Dr. Phan made aware.
[2023-04-22 14:30] VITALS: BP 138/72; PULSE 76; O2SAT 99
[2023-04-22] MEDS: HYDROMORPHONE 2MG/ML SYRINGE 0.5 MG IV (14:34)
[2023-04-22] MEDS: levoFLOXacin 750 MG TABLET PO (14:55)
[2023-04-22] MEDS: metroNIDAZOLE 500 MG TABLET PO (14:55)
[2023-04-22 15:05] VITALS: BP 146/81; PULSE 75; RESP 16; TEMP 36.9; O2SAT 98
== END 2023-04-22 15:06 | disposition home or self-care (01) ==
PROVIDERS: Emergency Provider Emergency Medicine; PCP Family Medicine
DX: K57.32 Diverticulitis of large intestine without perforation or abscess without bleeding (principal); R10.32 Left lower quadrant pain; R11.0 Nausea; J44.9 Chronic obstructive pulmonary disease, unspecified; F17.210 Nicotine dependence, cigarettes, uncomplicated; E11.65 Type 2 diabetes mellitus with hyperglycemia; I11.9 Hypertensive heart disease without heart failure; I25.10 Atherosclerotic heart disease of native coronary artery without angina pectoris; E78.5 Hyperlipidemia, unspecified; Z79.4 Long term (current) use of insulin; Z79.84 Long term (current) use of oral hypoglycemic drugs; Z79.85 Long-term (current) use of injectable non-insulin antidiabetic drugs
CPT/HCPCS: 74177; 80053; 81001; 83605; 83690; 85025; 96365; 96375; 99285; J0131; Q9967

== ENCOUNTER 2023-04-27 18:46 | Emergency (ER) | payer MEDICAID, SELFPAY ==
[2023-04-27] VITALS (8 sets, daily range): BP systolic 112–129; BP diastolic 63–82; PULSE 86–98; RESP 17–18; TEMP 36.7–36.9; O2SAT 95–98; BMI 27.8
[2023-04-27 19:16] LABS: Basophils # 0.1 K/mm3 (0-0.2); Basophils % 1.1 % (0.1-2.0); Eosinophils # 0.3 K/mm3 (0.0-0.4); Eosinophils % 3.8 % (0.1-12.0); Hematocrit 52.5 % (37.0-47.0); Hemoglobin 17.4 g/dL (12.2-16.2); Lymphocytes # 1.4 K/mm3 (0.7-4.5); Lymphocytes % 20.2 % (10-50); Mean Corpuscular HGB Conc 33.1 g/dL (31.8-35.4); Mean Corpuscular Hemoglobin 31.3 pg (27.0-31.2); Mean Corpuscular Volume 94.7 fl (81-99); Mean Platelet Volume 7.9 fl (7.4-10.4); Monocytes # 0.4 K/mm3 (0.1-1.0); Monocytes % 5.9 % (1.7-9.3); Neutrophils # 4.7 K/mm3 (1.8-7.8); Neutrophils % 69.1 % (37.0-80.0); Platelet Count 217 K/mm3 (142-424); Red Blood Count 5.54 M/mm3 (4.20-5.40); Red Cell Distribution Width 15.3 % (11.5-17.5); White Blood Count 6.8 K/mm3 (4.8-10.8)
[2023-04-27 19:17] LABS: Chloride 100 mmol/L (98-107); Potassium 4.1 mmoL/L (3.5-5.1); Sodium 136 mmol/L (136-145)
[2023-04-27 19:20] LABS: Alanine Aminotransferase 26 U/L (12-78); Alkaline Phosphatase 119 U/L (38-126); Amylase 74 U/L (30-110); Anion Gap 12.1 mEq/L (5-15); Aspartate Amino Transferase 29 U/L (14-36); Bilirubin,Total 0.6 mg/dl (0.2-1.3); Blood Urea Nitrogen 12 mg/dl (7-17); Calcium 9.4 mg/dl (8.4-10.2); Carbon Dioxide 28 mmol/L (22.0-30.0); Creatinine Clearance Estimated 108 mL/min (50-200); Estimated Glomerular Filt Rate 89 ml/min (>60); GFR (African American) 107 ML/MIN (>60); Glucose 343 mg/dl (74-100); Lipase 127 U/L (23-300)
[2023-04-27 19:21] LABS: Albumin Level 4.4 g/dl (3.5-5.0); Albumin/Globulin Ratio 1.3 (1.1-1.8); Globulin 3.3 g/dL (1.3-3.2); Total Protein,Serum 7.7 g/dl (6.3-8.2)
--- NOTE | 2023-04-27 19:55 | PC.NURSE ---
Patient reports that those medications didn't do anything for me last time when I brought ofirmev and toradol for administration. Discussed with patient the listed allergy to morphine which she reports she no longer has an adverse reaction to now that her panic attacks are under control . Patient states that she's too nauseated to take medications she knows will not work . Spoke with provider regarding patient concerns. Orders received.
--- NOTE | 2023-04-27 19:58 | CT_ITS ---
PROCEDURE INFORMATION: Exam: CT Abdomen And Pelvis With Contrast Exam date and time: 04/27/2023 8:36 PM Age: 52 years old Clinical indication: Abdominal pain; Additional info: Diverticulitis, worsening despite abx TECHNIQUE: Imaging protocol: Computed tomography of the abdomen and pelvis with contrast. Radiation optimization: All CT scans at this facility use at least one of these dose optimization techniques: automated exposure control; mA and/or kV adjustment per patient size (includes targeted exams where dose is matched to clinical indication); or iterative reconstruction. Contrast material: ISOVUE; Contrast volume: 75 ml; Contrast route: IV; COMPARISON: CT ABDOMEN PELVIS W CON 04/22/2023 1:08 PM FINDINGS: Lungs: Mild bibasilar atelectasis. Unchanged 7 mm noncalcified subpleural nodule in the posterior right lower lobe. Liver: Hepatic steatosis with mild hepatomegaly. No liver lesions. Gallbladder and bile ducts: Normal. No calcified stones. No ductal dilation. Pancreas: Normal. No ductal dilation. Spleen: Mild splenomegaly. Unchanged numerous subcentimeter low-density lesions throughout the spleen. Adrenal glands: Normal. No mass. Kidneys and ureters: Mild right renal scarring. No renal masses or cysts. No calculi or hydronephrosis. Stomach and bowel: Extensive sigmoid colon diverticulosis with improving surrounding inflammatory change. No dilated or thickened bowel loops. Appendix: No evidence of appendicitis. Intraperitoneal space: Unremarkable. No free air. No significant fluid collection. Vasculature: Mild atherosclerotic disease without aneurysm. Lymph nodes: Unremarkable. No enlarged lymph nodes. Urinary bladder: Unremarkable as visualized. Reproductive: Unremarkable as visualized. Bones/joints: Unremarkable. No acute fracture. Soft tissues: Unremarkable. IMPRESSION: 1. Extensive sigmoid colon diverticulosis with improving diverticulitis. 2. Unchanged splenomegaly and multiple low-density splenic lesions which are too small to characterize. 3. Unchanged 7 mm noncalcified subpleural nodule in the posterior right lower lobe. For patients at low risk (minimal or absent history of smoking and of other known risk factors), recommend CT Chest at 6-12 months, then consider CT Chest at 18-24 months. For patients at high risk (history of smoking or of other known risk factors), recommend CT Chest at 6-12 months, then CT Chest at 18-24 months. (Reference: Girma) REFERENCES: Girma Bob et al. Guidelines for Management of Incidental Pulmonary Nodules Detected on CT Images: From the Fleischner Society 2017. Radiology. 2017;284(1):228-243.
--- NOTE | 2023-04-27 20:01 | ED_ITS ---
Discharge Plan Disposition Patient Disposition: Home, Self-Care Prescriptions Prescriptions: New acetaminophen 500 mg capsule 1,000 mg PO Q6H PRN (Reason: pain) Qty: 30 3RF ibuprofen 400 mg tablet 400 mg PO Q8H PRN (Reason: pain) Qty: 30 3RF ondansetron 4 mg tablet,disintegrating 4 mg PO Q6H PRN (Reason: nausea and vomiting) Qty: 10 0RF No Action propranolol 10 mg tablet 10 mg PO TID bupropion HCl [Wellbutrin XL] 150 mg tablet extended release 24 hr 150 mg PO DAILY aspirin [Adult Low Dose Aspirin] 81 mg tablet,delayed release (DR/EC) 81 mg PO DAILY Jardiance 25 mg tablet 25 mg PO DAILY promethazine 25 mg tablet 25 mg PO Q6HP PRN (Reason: Nausea) fluticasone propion-salmeterol [Advair Diskus] 100-50 mcg/dose blister with device 1 inh inhalation BIDRT Ozempic 1 mg/dose (4 mg/3 mL) pen injector 1 mg SQ WEEKLY clindamycin HCl 300 mg capsule 300 mg PO TID Qty: 30 0RF topiramate 50 MG tablet 50 mg PO BID venlafaxine 150 MG capsule,extended release 24hr 150 mg PO DAILY Rx Instructions: take with 75 mg for a total of 225mg. olanzapine 20 MG tablet 20 mg PO HS famotidine 20 MG tablet 20 mg PO DAILY insulin glargine 100 UNIT/ML insulin pen 60 units SQ HS fenofibric acid (choline) 135 MG capsule,delayed release(DR/EC) 135 mg PO DAILY pioglitazone 15 mg Tablet 15 mg PO DAILYDM rosuvastatin 40 mg Tablet 40 mg PO DAILY ergocalciferol (vitamin D2) 1,250 mcg (50,000 unit) capsule 50,000 unit PO WEEKLY Patient Comments: TAKE 1 CAPSULE BY MOUTH ONCE A WEEK. levofloxacin 750 mg tablet 750 mg PO DAILY 10 Days Qty: 10 0RF metronidazole 500 mg tablet 500 mg PO Q8H 10 Days Qty: 30 0RF albuterol sulfate 2.5 mg /3 mL (0.083 %) solution for nebulization 2.5 mg inhalation Q4HP PRN (Reason: Shortness Of Breath) Patient Comments: INHALE THE CONTENTS OF 1 VIAL VIA NEBULIZER EVERY 4 HOURS NEEDED FOR WHEEZING. alprazolam 1 mg tablet 1 mg PO BIDP PRN (Reason: Anxiety) Patient Comments: TAKE 1 TABLET BY MOUTH TWICE DAILY NEEDED. ondansetron HCl 4 mg tablet 4 mg PO Q8HP PRN (Reason: Nausea) Patient Comments: TAKE 1 TABLET BY MOUTH EVERY 8 HOURS NEEDED FOR NAUSEA. albuterol sulfate 90 mcg/actuation HFA aerosol inhaler 2 puff inhalation Q4HP PRN (Reason: Shortness Of Breath) Qty: 8.5 3RF Referrals Follow up/Referrals: Marcus Castellon MD [Primary Care Provider] - See instructions Activity Restrictions/Add. Instructions Additional Instructions/Restrictions: Call your family doctor to establish care for this visit to the emergency department and schedule follow-up within 48 hours to ensure improvement. If you have any worsening of your condition or any other concerning signs or symptoms, return to the emergency department or your primary care doctor for further evaluation. Take Tylenol 1000 mg every 6 hours (4 times daily) and ibuprofen 400 mg every 6 hours (4 times daily) as needed with food and water to prevent GI upset and kidney damage. Continue taking your antibiotics for the full course Clinical Impressions Clinical Impression: Abdominal pain, Diverticulitis Vomiting Qualifiers: Vomiting type: unspecified Nausea presence: with nausea Qualified Code(s): R 11.2 - Nausea with vomiting, unspecified Diarrhea Qualifiers: Diarrhea type: unspecified type Qualified Code(s): R19.7 - Diarrhea, unspecified Instructions Patient Instructions: DI for Acute Abdominal Pain Discharge ED Provider: Fritz Phan General Adult HPI General Chief complaint: Abdominal Pain Stated complaint: abd pain Time Seen by Provider: 04/27/23 18:48 Mode of Arrival: EMS Source of Information: Patient Limitations: No Limitations Description of Symptoms (Recalled from ER Triage Doc. by RN): pt reports coonstant, sharp lower abdominal pain that has been going on since 05/17/23, states it radiates to her back up into her shoulder blades, states she was seen here on sunday, reports n/v/d for 2 days as well, states movement helps some with pain for a little bit but that's it, states nausea meds aren't helping that she has been taking at home, hx diverculitis History of Present Illness HPI narrative: 52-year-old female history of hypertension, hyperlipidemia, COPD, diverticulosis with recent diagnosis of diverticulitis currently on Cipro and Flagyl presenting with worsening abdominal pain. I saw her just a couple days ago and diagnosed her with diverticulitis. She has been taking her antibiotics since that time. Now having abdominal cramping, diarrhea this nonbloody. No fevers or chills, but also having flank pain. Pain is intermittent, but severe in intensity when flaring up, mild in intensity when not present. Does not radiate. Related Data Home Medications Medication Instructions Recorded Confirmed famotidine 20 mg tablet 20 mg PO DAILY Acid reflux 05/04/21 04/02/23 fenofibric acid (choline) 135 mg 135 mg PO DAILY High cholesterol 05/04/21 04/02/23 capsule,delayed release insulin glargine 100 unit/mL (3 60 units SQ HS Diabetes 05/04/21 04/02/23 mL) subcutaneous pen olanzapine 20 mg tablet 20 mg PO HS MOOD 05/04/21 04/02/23 topiramate 50 mg tablet 50 mg PO BID MIGRAINES 05/04/21 04/02/23 venlafaxine 150 mg 150 mg PO DAILY MOOD 05/04/21 04/02/23 capsule,extended release 24 hr aspirin 81 mg tablet,delayed 81 mg PO DAILY CAD 07/19/22 04/02/23 release (Adult Low Dose Aspirin) bupropion HCl 150 mg 24 hr tablet, 150 mg PO DAILY Depression 07/19/22 04/02/23 extended release (Wellbutrin XL) empagliflozin 25 mg tablet 25 mg PO DAILY Diabetes 07/19/22 04/02/23 (Jardiance) fluticasone 100 mcg-salmeterol 50 1 inh inhalation BIDRT COPD 07/19/22 04/02/23 mcg/dose blistr powdr for inhalation (Advair Diskus) promethazine 25 mg tablet 25 mg PO Q6HP PRN Nausea 07/19/22 04/02/23 propranolol 10 mg tablet 10 mg PO TID Headache 07/19/22 04/02/23 albuterol sulfate 2.5 mg/3 mL 2.5 mg inhalation Q4HP PRN 08/08/22 04/02/23 (0.083 %) solution for nebulization Shortness Of Breath alprazolam 1 mg tablet 1 mg PO BIDP PRN Anxiety 08/08/22 04/02/23 ondansetron HCl 4 mg tablet 4 mg PO Q8HP PRN Nausea 08/08/22 04/02/23 ergocalciferol (vitamin D2) 1,250 50,000 unit PO WEEKLY Supplement 11/03/22 04/02/23 mcg (50,000 unit) capsule pioglitazone 15 mg tablet 15 mg PO DAILYDM Diabetes 11/03/22 04/02/23 rosuvastatin 40 mg tablet 40 mg PO DAILY Cholesterol 11/03/22 04/02/23 semaglutide 1 mg/dose (4 mg/3 mL) 1 mg SQ WEEKLY 03/29/23 04/02/23 subcutaneous pen injector ([employer]) Previous Rx's Medication Instructions Recorded albuterol sulfate 90 mcg/actuation 2 puff inhalation Q4HP PRN 08/09/22 aerosol inhaler Shortness Of Breath #8.5 grams clindamycin HCl 300 mg capsule 300 mg PO TID #30 caps 03/29/23 levofloxacin 750 mg tablet 750 mg PO DAILY 10 days #10 tabs 04/22/23 metronidazole 500 mg tablet 500 mg PO Q8H 10 days #30 tabs 04/22/23 acetaminophen 500 mg capsule 1,000 mg (2 x 500 mg) PO Q6H PRN 04/27/23 pain #30 caps ibuprofen 400 mg tablet 400 mg PO Q8H PRN pain #30 tabs 04/27/23 ondansetron 4 mg disintegrating 4 mg PO Q6H PRN nausea and 04/27/23 tablet vomiting #10 tabs Allergies Allergy/AdvReac Type Severity Reaction Status Date / Time adhesive tape Allergy Blister Verified 04/27/23 19:08 fluoxetine [From Prozac] Allergy Unknown Verified 04/27/23 19:08 allergy reaction latex Allergy Unknown Verified 04/27/23 19:08 allergy reaction quetiapine [From Seroquel] Allergy Unknown Verified 04/27/23 19:08 allergy reaction shellfish derived Allergy Anaphylaxis Verified 04/27/23 19:08 PFS PFS Disclaimer: The information contained in this section may have been updated after the patient was seen, as this information can be updated by other users. Medical History (Updated 04/27/23 @ 21:52 by Fritz Phan MD) Dental caries Facial cellulitis Multiple personality Dyspnea on exertion Pneumothorax Anxiety disorder Advanced osteoarthritis of spine Major depression Migraine History of stroke Coronary artery disease Hyperlipidemia Irritable bowel syndrome (IBS) History of diverticulitis Asthma Cervical cancer Hilar lymphadenopathy Mediastinal lymphadenopathy Dyspnea on exertion History of asthma History of COPD Smoking greater than 30 pack years Multiple lung nodules on CT History of coronary angiogram Surgical History History of lung biopsy H/O laparoscopy History of tubal ligation Family History Father Alcoholism Asthma Coronary artery disease Diabetes FHx: mental illness Heart attack Hypertension Mother Anemia Asthma Coronary artery disease FHx: mental illness Hyperlipidemia Hypertension Grandmother Stroke Other Cancer Family history of COPD (chronic obstructive pulmonary disease) Family history of diabetes mellitus type II Social History Smoking Status: Current every day smoker tobacco type: cigarettes packs per day: 2 years smoked: 35 second hand exposure: Yes alcohol intake: never substance use type: denies use current occupational status: disabled Travel in the last 8 weeks: None household members: none lives independently: Yes marital status: single pets and animals: Yes ROS Obtained: Yes All systems reviewed & no additional complaints except as documented Physical Exam General General appearance: alert and in no apparent distress Head Head exam: atraumatic and normocephalic Eye Eye exam: Present normal appearance, PERRL and EOMI ENT ENT exam: Present mucous membranes moist Neck Neck exam: Present normal inspection, full ROM and trachea midline Respiratory Respiratory exam: Present normal lung sounds bilaterally; Absent respiratory distress, wheezes, stridor, accessory muscle use or prolonged expiratory phase Cardiovascular Cardiovascular exam: Present regular rate and normal rhythm Abdominal Exam Abdominal exam: Present soft and tenderness; Absent distention, guarding, rebound or rigidity Abdominal tenderness: Present LLQ Extremities Exam Extremities exam: Absent edema Neurological Exam Neurological exam: Present alert, oriented X3, CN II-XII intact and normal gait; Absent motor sensory deficit Skin Skin exam: Present warm and dry; Absent diaphoresis or erythema Medical Decision Making Medical Records Medical records reviewed: Yes I reviewed the patient's medical records. Kristofer Inquiry Pt receiving controlled substance: No Kristofer was queried for this patient: No Vital Signs: 04/27/23 18:47 04/27/23 19:00 04/27/23 19:30 Temperature 98.4 F Temperature Source Oral Pulse Rate 93 H 86 Pulse Rate [Left Radial] 98 H Respiratory Rate 18 Blood Pressure 120/82 122/75 Blood Pressure [Right Arm] 112/76 Blood Pressure Mean [Right Arm] 88 Blood Pressure Source [Right Arm] Automatic Cuff Blood Pressure Position [Right Arm] Sitting 02 Sat by Pulse Oximetry 98 95 97 Oxygen Delivery Method Room Air 04/27/23 20:00 04/27/23 20:30 04/27/23 21:00 Temperature Temperature Source Pulse Rate 98 H 98 H 95 H Pulse Rate [Left Radial] Respiratory Rate Blood Pressure 117/76 129/82 127/69 Blood Pressure [Right Arm] Blood Pressure Mean [Right Arm] Blood Pressure Source [Right Arm] Blood Pressure Position [Right Arm] 02 Sat by Pulse Oximetry 96 96 97 Oxygen Delivery Method 04/27/23 21:30 Temperature Temperature Source Pulse Rate 90 Pulse Rate [Left Radial] Respiratory Rate Blood Pressure 112/63 Blood Pressure [Right Arm] Blood Pressure Mean [Right Arm] Blood Pressure Source [Right Arm] Blood Pressure Position [Right Arm] 02 Sat by Pulse Oximetry 97 Oxygen Delivery Method Lab Data Lab Results 04/27/23 19:00: WBC 6.8, RBC 5.54 H, Hgb 17.4 H, Hct 52.5 H, MCV 94.7, MCH 31.3 H, MCHC 33.1, RDW 15.3, Plt Count 217, MPV 7.9, Neut % (Auto) 69.1, Lymph % (Auto) 20.2, [place] % (Auto) 5.9, Eos % (Auto) 3.8, Baso % (Auto) 1.1, Neut # (Auto) 4.7, Lymph # (Auto) 1.4, [place] # (Auto) 0.4, Eos # (Auto) 0.3, Baso # (Auto) 0.1, Sodium 136, Potassium 4.1, Chloride 100, Carbon Dioxide 28, Anion Gap 12.1, BUN 12, Creatinine 0.70, Estimated Creat Clear 108, Estimated GFR 89, Est GFR ( Amer) 107, Glucose 343 H, Calcium 9.4, Total Bilirubin 0.6, AST 29, ALT 26, Alkaline Phosphatase 119, Total Protein 7.7, Albumin 4.4, Globulin 3.3 H, Albumin/Globulin Ratio 1.3, Amylase 74, Lipase 127 04/27/23 20:19: Lactate 1.9 04/27/23 19:00 04/27/23 19:00 Orders (Tests/Meds): ED MEDICATIONS Generic Name Dose Route Start Last Admin Trade Name Rony PRN Reason Stop Dose Admin Sodium Chloride 10 ml 04/27/23 19:11 04/27/23 20:02 Sodium Chloride 0.9% 10ml Flush Syringe IV 05/27/23 19:10 10 ml NEEDED PRN Administration Maintain IV Site Discontinued Medications Generic Name Dose Route Start Last Admin Trade Name Rony PRN Reason Stop Dose Admin Acetaminophen 1,000 mg 04/27/23 19:31 04/27/23 19:59 Acetaminophen 1,000mg/100ml Vial IV 04/27/23 19:32 Not Given ONCE ONE Iopamidol 75 ml 04/27/23 20:59 04/27/23 21:00 Iopamidol-370 (76%);100ml Bottle IV 04/27/23 21:00 75 ml ONCE ONE Administration Ketorolac Tromethamine 15 mg 04/27/23 19:31 04/27/23 19:59 Ketorolac 30mg/Ml Vial IV 04/27/23 19:32 Not Given ONCE ONE Morphine Sulfate 4 mg 04/27/23 19:58 04/27/23 20:02 Morphine 4mg/Ml Syringe IV 04/27/23 19:59 4 mg ONCE ONE Administration Ondansetron HCl 4 mg 04/27/23 19:58 04/27/23 20:02 Ondansetron 4mg/2ml Vial IV 04/27/23 19:59 4 mg ONCE ONE Administration Sodium Chloride 10 ml 04/27/23 20:59 04/27/23 21:00 Sodium Chloride 0.9% 10ml Syr (Rad Only) IV 04/27/23 21:00 10 ml ONCE ONE Administration ORDERS Category Date Time Status CT abdomen pelvis w con Stat Cat Scan 04/27/23 19:58 Completed Amylase Stat Lab 04/27/23 19:00 Completed Complete Blood Count Auto Diff Stat Lab 04/27/23 19:00 Completed Comprehensive Metabolic Panel Stat Lab 04/27/23 19:00 Completed Diarrhea 6-11 Panel, Cdiff PCR Stat Lab 04/27/23 19:31 Ordered Lactic Acid Stat Lab 04/27/23 20:19 Completed Lipase Stat Lab 03/08/24 19:00 Completed UA [Urinalysis and Microscopic] Stat Lab 04/27/23 19:31 Ordered Blood Culture Stat Micro 04/27/23 20:14 Received Medical Decision Narrative: 52-year-old female history of hypertension, hyperlipidemia, COPD, diverticulosis with recent diagnosis of diverticulitis currently on Cipro and Flagyl presenting with worsening abdominal pain. I saw her just a couple days ago and diagnosed her with diverticulitis. She has been taking her antibiotics since that time. Now having abdominal cramping, diarrhea this nonbloody. No urinary symptoms. No fevers or chills, but also having flank pain. Pain is intermittent, but severe in intensity when flaring up, mild in intensity when not present. Does not radiate. History obtained with patient. On arrival, patient hemodynamically stable, alert, oriented, nontachycardic. Afebrile. Well- appearing. She does have abdominal tenderness in the left lower quadrant. No signs of peritonitis. No overlying skin changes. No flank tenderness. Differential includes complicated diverticulitis, infectious colitis, antibiotic associated colitis, UTI, nephrolithiasis, PUD, gastritis, enteritis, gastroenteritis, pancreatitis, aortic pathology, mesenteric ischemia among others. patient was given Toradol, morphine, Zofran, acetaminophen IV as well as IV fluids for symptomatic management. Workup independently interpreted and significant for no leukocytosis. Lactic acid unremarkable at 1.9. Chemistry normal. Lipase negative. CT abdomen pelvis independently interpreted and demonstrated improving diverticulitis and inflammation. Given this, this most likely represents subacute pain in the setting of known diverticulitis without complication. Because patient already on ciprofloxacin and Flagyl, vomiting and diarrhea likely due to antibiotic associated illness. Because patient at baseline without signs or symptoms of clinical decompensation, deemed appropriate for discharge. Results were relayed to patient who voiced understanding and were agreeable to outpatient management and follow up. At the time of discharge the patient was hemodynamically stable, tolerating PO, and mobilizing appropriately. Critical Care Critical Care Time Critical Care Time: No
[2023-04-27] MEDS: SODIUM CHLORIDE 0.9% 10ML FLUSH SYRINGE 10 ML IV (20:02)
[2023-04-27] MEDS: MORPHINE 4MG/ML SYRINGE 4 MG IV (20:02)
[2023-04-27] MEDS: ONDANSETRON 4MG/2ML VIAL 4 MG IV (20:02)
[2023-04-27 20:37] LABS: Lactic Acid 1.9 mmol/L (0.7-2.1)
--- NOTE | 2023-04-27 20:42 | PC.NURSE ---
Return from radiology
[2023-04-27] MEDS: SODIUM CHLORIDE 0.9% 10ML SYR (RAD ONLY) 10 ML IV (21:00)
[2023-04-27] MEDS: IOPAMIDOL-370 (76%);100ML BOTTLE 75 ML IV (21:00)
== END 2023-04-27 22:07 | disposition home or self-care (01) ==
PROVIDERS: Emergency Provider Emergency Medicine; PCP Family Medicine
DX: R10.32 Left lower quadrant pain (principal); K57.32 Diverticulitis of large intestine without perforation or abscess without bleeding; R11.2 Nausea with vomiting, unspecified; R19.7 Diarrhea, unspecified; F17.210 Nicotine dependence, cigarettes, uncomplicated; J44.9 Chronic obstructive pulmonary disease, unspecified; I11.9 Hypertensive heart disease without heart failure; I25.10 Atherosclerotic heart disease of native coronary artery without angina pectoris; E11.65 Type 2 diabetes mellitus with hyperglycemia; E78.5 Hyperlipidemia, unspecified; Z79.4 Long term (current) use of insulin; Z79.84 Long term (current) use of oral hypoglycemic drugs; Z79.85 Long-term (current) use of injectable non-insulin antidiabetic drugs
CPT/HCPCS: 74177; 80053; 82150; 83605; 83690; 85025; 87040; J0131; J2405; Q9967

== ENCOUNTER 2023-06-04 10:36 | Outpatient (CLI) | payer MEDICAID, SELFPAY ==
[2023-06-04 18:57] LABS: Cholesterol 314 mg/dl (140-200); HDL Cholesterol 35 mg/dl (40-60)
[2023-06-04 19:05] LABS: Triglycerides 1215 mg/dl (30-150)
[2023-06-04 19:08] LABS: Direct LDL Cholesterol 67.14 mg/dL (100-129)
[2023-06-04 20:20] LABS: Hemoglobin A1C 12.8 % (4.0-6.0)
== END 2023-06-04 23:59 ==
LOC: LAB.DROPOF 06-05 10:36
PROVIDERS: PCP Family Medicine; Visit Provider Family Medicine
DX: E11.69 Type 2 diabetes mellitus with other specified complication (principal); F33.40 Major depressive disorder, recurrent, in remission, unspecified; F41.0 Panic disorder [episodic paroxysmal anxiety]
CPT/HCPCS: 80061; 83036

== ENCOUNTER 2023-06-22 18:00 | Outpatient (CLI) | payer MEDICAID, SELFPAY ==
[2023-06-22 18:50] LABS: Chol/HDL Ratio 4.4 (1-3.5); Cholesterol 195 mg/dl (140-200); HDL Cholesterol 44 mg/dl (40-60)
[2023-06-22 18:51] LABS: Triglycerides 473 mg/dl (30-150)
[2023-06-22 19:01] LABS: Direct LDL Cholesterol 83.21 mg/dL (100-129)
[2023-06-22 19:19] LABS: Thyroid Stimulating Hormone 1.22 uIU/mL (0.465-4.68)
== END 2023-06-22 23:59 | disposition home or self-care (01) ==
LOC: LAB.DROPOF 06-23 09:28
PROVIDERS: PCP Family Medicine; Visit Provider Family Medicine
DX: E78.5 Hyperlipidemia, unspecified (principal); R53.83 Other fatigue
CPT/HCPCS: 80061; 84443

== ENCOUNTER 2023-08-16 08:30 | Outpatient (CLI) | payer MEDICAID, SELFPAY ==
--- NOTE | 2023-08-16 08:44 | MR_ITS ---
FINAL REPORT CLINICAL HISTORY: spleenic lesions COMPARISON: CT 05/02/2021 and 04/27/2023 FINDINGS: Multiplanar MR imaging of the abdomen was performed without and with contrast. There are multiple hypodense lesions throughout the spleen which do not definitely enhance. These are similar to the prior CTs dated back to 2021 and favored to represent multiple cysts. Mild right renal scarring is noted. The remainder of the solid abdominal organs are unremarkable. The gallbladder is negative. There is no evidence of biliary ductal dilatation. IMPRESSION: Innumerable subcentimeter splenic lesions with imaging features most suggestive of benign cysts. Reviewed, Interpreted and Dictated by Cecelia Maya MD Transcribed by Ana Navarro Authenticated and [facility]
[2023-08-16 08:52] LABS: Blood Urea Nitrogen 9 mg/dl (7-17); Estimated Glomerular Filt Rate 89 ml/min (>60); GFR (African American) 107 ML/MIN (>60)
[2023-08-16] MEDS: 0.9 % SODIUM CHLORIDE 50 ML VIAL 25 ML IV (10:05)
[2023-08-16] MEDS: SODIUM CHLORIDE 0.9% 10ML SYR (RAD ONLY) 10 ML IV (10:05)
[2023-08-16] MEDS: GADOTERIDOL INJ 20ML SYRINGE 14 ML IV (10:05)
== END 2023-08-16 23:59 | disposition home or self-care (01) ==
LOC: RAD 08:31
PROVIDERS: PCP Family Medicine; Visit Provider Family Medicine
DX: K57.92 Diverticulitis of intestine, part unspecified, without perforation or abscess without bleeding (principal)
CPT/HCPCS: 36415; 74183; 82565; 84520; A9576

== ENCOUNTER 2023-10-24 19:02 | Outpatient (CLI) | payer MEDICAID, SELFPAY ==
[2023-10-24 18:11] LABS: Coronavirus 19, PCR Not Detected (NotDetected); Influenza A, PCR Not Detected (NotDetected); Influenza B, PCR Not Detected (NotDetected)
== END 2023-10-24 23:59 | disposition home or self-care (01) ==
LOC: LAB.DROPOF 19:03
PROVIDERS: PCP Nurse Practitioner; Visit Provider Nurse Practitioner
DX: J06.9 Acute upper respiratory infection, unspecified (principal)
CPT/HCPCS: 87636

== ENCOUNTER 2024-01-01 17:16 | Emergency (ER) | payer MEDICAID, SELFPAY ==
[2024-01-01 17:17] VITALS: BP 136/86; PULSE 97; RESP 20; TEMP 36.6; O2SAT 98; BMI 26.0
[2024-01-01 18:00] VITALS: BP 189/134; PULSE 99; O2SAT 98
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
--- NOTE | 2024-01-01 18:08 | CT_ITS ---
PROCEDURE INFORMATION: Exam: CT Abdomen And Pelvis Without Contrast Exam date and time: 01/01/2024 6:19 PM Age: 53 years old Clinical indication: Vomiting; Additional info: Intractable n/v, h/o diverticulitis TECHNIQUE: Imaging protocol: Computed tomography of the abdomen and pelvis without contrast. Radiation optimization: All CT scans at this facility use at least one of these dose optimization techniques: automated exposure control; mA and/or kV adjustment per patient size (includes targeted exams where dose is matched to clinical indication); or iterative reconstruction. COMPARISON: MR ABDOMEN WO/W CON 16/08/2023 09:22 FINDINGS: Lungs: There is a 6 mm right lower lobe pulmonary nodule on image 11 series 3 that is unchanged since at least 2021. No additional follow-up imaging is warranted for incidental pulmonary nodules. Liver: Normal. No mass. Gallbladder and biliary ducts: Contracted gallbladder. Pancreas: Normal. No ductal dilation. Spleen: Normal. No splenomegaly. Adrenal glands: Normal. No mass. Kidneys and ureters: Mild right renal scarring. Stomach and bowel: Mild nonspecific bowel wall thickening of portions of small bowel and colon. Moderate sigmoid diverticulosis without diverticulitis. Appendix: Unremarkable appendix. Intraperitoneal space: Unremarkable. No free air. No significant fluid collection. Vasculature: The arteries demonstrate mild atherosclerotic disease. Lymph nodes: Unremarkable. No enlarged lymph nodes. Urinary bladder: Unremarkable as visualized. Reproductive: Unremarkable as visualized. Bones/joints: Unremarkable. No acute fracture. Soft tissues: Unremarkable. IMPRESSION: Mild nonspecific bowel wall thickening of portions of small bowel and colon. Please exclude enterocolitis.
--- NOTE | 2024-01-01 18:16 | PC.NURSE ---
patient gone to CT at this time.
[2024-01-01 18:46] LABS: Basophils # 0.1 K/mm3 (0-0.2); Basophils % 1.2 % (0.1-2.0); Eosinophils # 0.2 K/mm3 (0.0-0.4); Eosinophils % 1.8 % (0.1-12.0); Hematocrit 48.6 % (37.0-47.0); Hemoglobin 16.5 g/dL (12.2-16.2); Lymphocytes # 1.8 K/mm3 (0.7-4.5); Lymphocytes % 18.3 % (10-50); Mean Corpuscular HGB Conc 33.9 g/dL (31.8-35.4); Mean Corpuscular Hemoglobin 30.7 pg (27.0-31.2); Mean Corpuscular Volume 90.6 fl (81-99); Mean Platelet Volume 7.3 fl (7.4-10.4); Monocytes # 0.5 K/mm3 (0.1-1.0); Monocytes % 4.6 % (1.7-9.3); Neutrophils # 7.4 K/mm3 (1.8-7.8); Neutrophils % 74.1 % (37.0-80.0); Platelet Count 227 K/mm3 (142-424); Red Blood Count 5.37 M/mm3 (4.20-5.40); Red Cell Distribution Width 15.4 % (11.5-17.5); White Blood Count 9.9 K/mm3 (4.8-10.8)
[2024-01-01 18:51] LABS: Albumin Level 4.7 g/dl (3.5-5.0); Chloride 100 mmol/L (98-107)
[2024-01-01 18:52] LABS: Potassium 4.7 mmoL/L (3.5-5.1); Sodium 134 mmol/L (136-145)
[2024-01-01 18:54] LABS: Alanine Aminotransferase 22 U/L (12-78); Albumin/Globulin Ratio 1.4 (1.1-1.8); Anion Gap 12.7 mEq/L (5-15); Aspartate Amino Transferase 22 U/L (14-36); Blood Urea Nitrogen 20 mg/dl (7-17); Carbon Dioxide 26 mmol/L (22.0-30.0); Creatinine Clearance Estimated 78 mL/min (50-200); Estimated Glomerular Filt Rate 66 ml/min (>60); GFR (African American) 80 ML/MIN (>60); Globulin 3.4 g/dL (1.3-3.2); Total Protein,Serum 8.1 g/dl (6.3-8.2)
[2024-01-01 18:55] LABS: Alkaline Phosphatase 74 U/L (38-126); Bilirubin,Total 0.6 mg/dl (0.2-1.3); Calcium 9.9 mg/dl (8.4-10.2); Lipase 151 U/L (23-300); Magnesium 1.6 mg/dl (1.6-2.3)
[2024-01-01 18:56] LABS: Glucose 428 mg/dl (74-100)
[2024-01-01] MEDS: OLANZapine 5 MG ODT TABLET 20 MG SL (19:05)
[2024-01-01 19:14] LABS: HIV (1&2) Antibody Rapid NONREACTIVE (NONREACTIVE)
[2024-01-01] MEDS: humaLOG 100 UNITS/ML 10ML VIAL (SSI) 5 UNIT SUBCUT (19:38)
[2024-01-01 19:45] VITALS: BP 159/90; PULSE 98; RESP 20; TEMP 36.6; O2SAT 98
[2024-01-03 05:15] LABS: HCV Ab Non Reactive (Non Reactive)
== END 2024-01-01 19:49 ==
PROVIDERS: Emergency Provider Emergency Medicine; PCP Family Medicine
DX: A04.72 Enterocolitis due to Clostridium difficile, not specified as recurrent (principal); E11.65 Type 2 diabetes mellitus with hyperglycemia
CPT/HCPCS: 74176; 80053; 83690; 83735; 85025; 86803; 87389; 96372; 99284

== ENCOUNTER 2024-04-01 14:08 | Outpatient (CLI) | payer MEDICAID, SELFPAY ==
[2024-04-01 18:23] LABS: Basophils % 0.4 % (0.1-2.0); Eosinophils # 0.2 K/mm3 (0.0-0.4); Eosinophils % 2.8 % (0.1-12.0); Hematocrit 45.2 % (37.0-47.0); Hemoglobin 16.2 g/dL (12.2-16.2); Lymphocytes # 2.7 K/mm3 (0.7-4.5); Lymphocytes % 40.1 % (10-50); Mean Corpuscular HGB Conc 35.8 g/dL (31.8-35.4); Mean Corpuscular Hemoglobin 31.6 pg (27.0-31.2); Mean Corpuscular Volume 88.3 fl (81-99); Mean Platelet Volume 10.1 fl (7.4-10.4); Monocytes # 0.4 K/mm3 (0.1-1.0); Monocytes % 6.1 % (1.7-9.3); Neutrophils # 3.4 K/mm3 (1.8-7.8); Neutrophils % 50.2 % (37.0-80.0); Platelet Count 303 K/mm3 (142-424); Red Blood Count 5.12 M/mm3 (4.20-5.40); Red Cell Distribution Width 13.5 % (11.5-17.5); White Blood Count 6.7 K/mm3 (4.8-10.8)
[2024-04-01 18:44] LABS: Alanine Aminotransferase 38 U/L (12-78); Albumin Level 4.3 g/dl (3.5-5.0); Albumin/Globulin Ratio 1.5 (1.1-1.8); Alkaline Phosphatase 114 U/L (38-126); Anion Gap 17.3 mEq/L (5-15); Aspartate Amino Transferase 32 U/L (14-36); Bilirubin,Total 0.7 mg/dl (0.2-1.3); Blood Urea Nitrogen 9 mg/dl (7-17); Calcium 9.1 mg/dl (8.4-10.2); Carbon Dioxide 23 mmol/L (22.0-30.0); Chloride 96 mmol/L (98-107); Estimated Glomerular Filt Rate 105 ml/min (>60); GFR (African American) 128 ML/MIN (>60); Globulin 2.9 g/dL (1.3-3.2); Potassium 5.3 mmoL/L (3.5-5.1); Sodium 131 mmol/L (136-145); Total Protein,Serum 7.2 g/dl (6.3-8.2)
[2024-04-01 21:14] LABS: Glucose 424 mg/dl (74-100)
--- NOTE | 2024-04-01 22:09 | EXP.EVENT.NO ---
I contacted patient right around 10:05 PM on 04/01. Relayed results to her. Recommended she come to the emergency department. Patient states that she is still feeling pretty bad, weak, nausea, vomiting etc. States that she does not have a ride to the emergency department, will need to call an ambulance for this.
== END 2024-04-01 23:59 | disposition home or self-care (01) ==
LOC: LAB.DROPOF 04-02 09:53
PROVIDERS: PCP Nurse Practitioner; Visit Provider Nurse Practitioner
DX: R10.32 Left lower quadrant pain (principal); Z87.19 Personal history of other diseases of the digestive system; R11.2 Nausea with vomiting, unspecified; B35.1 Tinea unguium; E11.65 Type 2 diabetes mellitus with hyperglycemia
CPT/HCPCS: 80053; 85025

== ENCOUNTER 2024-04-01 23:00 | Observation (INO) | payer MEDICAID, SELFPAY ==
[2024-04-01 23:01] VITALS: BP 130/72; PULSE 92; RESP 18; TEMP 36.6; O2SAT 93; BMI 26.5
--- NOTE | 2024-04-01 23:09 | XR_ITS ---
PROCEDURE INFORMATION: Exam: XR Chest Exam date and time: 04/01/2024 11:33 PM Age: 53 years old Clinical indication: Other: Vomiting; Additional info: Diabetic vomiting/ill, smoker TECHNIQUE: Imaging protocol: Radiologic exam of the chest. Views: 1 view. Total images: 1 COMPARISON: CR XR CHEST PORTABLE 11/03/2022 1:11 AM FINDINGS: Tubes, catheters and devices: EKG leads are present. Lungs: Minor bibasilar atelectasis/crowding. No consolidation. No pulmonary vascular congestion or edema. Pleural spaces: Unremarkable. No pleural effusion. No pneumothorax. Heart/Mediastinum: Unremarkable. No cardiomegaly. No mediastinal widening or hilar enlargement. Bones/joints: Unremarkable. IMPRESSION: No radiographically acute cardiopulmonary process.
[2024-04-01 23:19] LABS: Basophils % 0.5 % (0.1-2.0); Eosinophils # 0.2 K/mm3 (0.0-0.4); Eosinophils % 2.8 % (0.1-12.0); Hematocrit 43.9 % (37.0-47.0); Hemoglobin 15.3 g/dL (12.2-16.2); Lymphocytes # 2.9 K/mm3 (0.7-4.5); Lymphocytes % 51.6 % (10-50); Mean Corpuscular HGB Conc 34.9 g/dL (31.8-35.4); Mean Corpuscular Hemoglobin 30.7 pg (27.0-31.2); Mean Corpuscular Volume 88.2 fl (81-99); Mean Platelet Volume 9.6 fl (7.4-10.4); Monocytes # 0.3 K/mm3 (0.1-1.0); Neutrophils # 2.2 K/mm3 (1.8-7.8); Neutrophils % 39.6 % (37.0-80.0); Platelet Count 257 K/mm3 (142-424); Red Blood Count 4.98 M/mm3 (4.20-5.40); Red Cell Distribution Width 13.4 % (11.5-17.5); White Blood Count 5.6 K/mm3 (4.8-10.8)
--- NOTE | 2024-04-01 23:19 | ECG_ITS ---
APPROVED REPORT Exam: Resting ECG HR:97 bpm ECG Measurements Heart Rate 97 AXES NJ 177 P 39 QRSd 105 QRS 189 QT 372 T 42 QTc 427 Conclusion SINUS RHYTHM INDETERMINATE AXIS LOW QRS VOLTAGE IN PRECORDIAL LEADS [QRS DEFLECTION < 1.0 mV IN CHEST LEADS] INCOMPLETE RIGHT BUNDLE BRANCH BLOCK [90+ ms QRS DURATION, TERMINAL R IN V1/V2, 40+ ms S IN I/aVL/V4/V5/V6] POSSIBLE ANTERIOR MYOCARDIAL INFARCTION , OF INDETERMINATE AGE [30 ms Q WAVE IN V3/V4, OR R < 0.2 mV IN V4] No STEMI Electronically signed by : CHUYITA SANCHEZ, 04/02/2024 07:16:59
[2024-04-01 23:20] LABS: MANUAL DIFFERENTIAL MANUAL DIFFERENTIAL (MANUAL DIFF)
[2024-04-01] MEDS: LACTATED RINGERS 1000ML 1,000 ML 999 ML IV (23:23)
[2024-04-01] MEDS: ONDANSETRON 4MG/2ML VIAL 4 MG IV (23:23)
[2024-04-01 23:25] LABS: Albumin Level 4.3 g/dl (3.5-5.0); Chloride 98 mmol/L (98-107); Potassium 4.6 mmoL/L (3.5-5.1); Sodium 134 mmol/L (136-145)
[2024-04-01 23:27] LABS: Alanine Aminotransferase 36 U/L (12-78); Anion Gap 14.6 mEq/L (5-15); Aspartate Amino Transferase 37 U/L (14-36); Blood Urea Nitrogen 13 mg/dl (7-17); Carbon Dioxide 26 mmol/L (22.0-30.0); Creatinine Clearance Estimated 89 mL/min (50-200); Estimated Glomerular Filt Rate 76 ml/min (>60); GFR (African American) 92 ML/MIN (>60)
[2024-04-01 23:28] LABS: Albumin/Globulin Ratio 1.3 (1.1-1.8); Alkaline Phosphatase 88 U/L (38-126); Bilirubin,Total 0.7 mg/dl (0.2-1.3); Calcium 8.8 mg/dl (8.4-10.2); Globulin 3.4 g/dL (1.3-3.2); Lipase 139 U/L (23-300); Total Protein,Serum 7.7 g/dl (6.3-8.2)
[2024-04-01 23:30] VITALS: BP 112/66; PULSE 90; RESP 19; O2SAT 95
[2024-04-01 23:30] LABS: Microscopic, Urine URINE MICROSCOPIC (MICROSCOPIC)
--- NOTE | 2024-04-01 23:30 | CT_ITS ---
PROCEDURE INFORMATION: Exam: CT Abdomen And Pelvis Without Contrast Exam date and time: 04/01/2024 11:39 PM Age: 53 years old Clinical indication: Vomiting; Additional info: Vomiting llq pain, shellfish allergy-noncon study TECHNIQUE: Imaging protocol: Computed tomography of the abdomen and pelvis without contrast. Total images: 314 Radiation optimization: All CT scans at this facility use at least one of these dose optimization techniques: automated exposure control; mA and/or kV adjustment per patient size (includes targeted exams where dose is matched to clinical indication); or iterative reconstruction. COMPARISON: CT ABDOMEN PELVIS WO CON 01/01/2024 6:19 PM FINDINGS: Lungs: Bibasilar atelectasis. Heart: Normal heart size. Liver: Moderate hepatomegaly at 22 cm. Mild hepatic steatosis. Normal contour. No discrete mass. Gallbladder and biliary ducts: Normal. No calcified stones. No ductal dilation. Pancreas: Normal. No ductal dilation. Spleen: Upper normal spleen at 13.2 cm. No splenic mass. Adrenal glands: Normal. No mass. Kidneys and ureters: Upper pole right renal cortical scarring. Punctate upper pole right renal calculus, coronal image 48. Subcentimeter right renal cortical hypodensities too small to characterize but statistically cysts. Unremarkable left kidney. No ureteral stones. Stomach and bowel: Unremarkable stomach and duodenum. No ileus or bowel obstruction. Limited bowel wall assessment. Suspect mild jejunal wall thickening. Moderate to severe sigmoid diverticulosis without acute diverticulitis. Unremarkable rectum. Appendix: Normal appendix. Intraperitoneal space: Unremarkable. No free air. No significant fluid collection. Vasculature: Nonaneurysmal abdominal aorta with minor calcifications. Pelvic phleboliths. Lymph nodes: Small benign-appearing bilateral inguinal lymph nodes. Urinary bladder: Mostly collapsed bladder. Reproductive: Physiologic uterus. Nonenlarged ovaries. No adnexal mass. Bones/joints: Mild degenerative changes of the lumbar spine. Mild degenerative changes bilateral hips and SI joints. Soft tissues: Unremarkable. IMPRESSION: 1. Suspect nonspecific acute enteritis. No complicating features. 2. Moderate hepatomegaly with mild steatosis. 3. Single punctate right intrarenal calculus. No hydronephrosis. 4. Normal appendix 5. Moderate to severe sigmoid diverticulosis without diverticulitis. 6. Additional chronic and incidental findings. COMMENTS: Consistent with the [employer]'s Incidental Findings Committee white paper (J Am Hebert [employer]iol 2018): Any incidental renal lesion less than 1 cm or classified as too small to characterize, or any incidental cystic renal lesion characterized as simple-appearing, is likely benign. No follow-up imaging is recommended for these lesions per consensus recommendations based on imaging criteria.
[2024-04-01 23:32] LABS: Appearance,Urine CLEAR (Clear); Bilirubin,Urine Negative (Negative); Blood, Urine Negative (Negative); Color,Urine YELLOW (Yellow); Glucose,Urine (UA) 3+ (Negative); Ketones,Urine Negative (Negative); Leukocyte Esterase,Urine Negative (Negative); Nitrate,Urine Negative (Negative); Protein,Urine Negative (Negative); Urobilinogen,Urine 0.2 EU/dl (0.2)
[2024-04-01 23:36] LABS: Glucose 500 mg/dl (74-100)
[2024-04-01 23:40] LABS: Troponin I 0.03 ng/ml (0.00-0.034)
[2024-04-01 23:41] LABS: Bacteria,Urine Trace /lpf; RBC,Urine Occasional #/hpf (0-3)
[2024-04-01 23:42] LABS: Yeast,Urine 1+ /lpf
[2024-04-01 23:43] LABS: Lactic Acid 2.6 mmol/L (0.7-2.1)
[2024-04-01 23:43] LABS: Lactate Venous 2.1 mmol/L (0.4-2.0); VBG Base Excess -6.9 mmol/L (-2.4-2.3); VBG HCO3 19.4 mmol/L (23-30); VBG Oxygen Saturation 66.6 % (50-70); VBG PO2 34.2 mmol/L (28-40); VBG Total CO2 20.6 mmol/L (23-27)
--- NOTE | 2024-04-01 23:43 | ED_ITS ---
Discharge Plan Disposition Patient Disposition: Admitted Condition: Fair Prescriptions Prescriptions: No Action bupropion HCl [Wellbutrin XL] 150 mg tablet extended release 24 hr 150 mg PO DAILY aspirin [Adult Low Dose Aspirin] 81 mg tablet,delayed release (DR/EC) 81 mg PO DAILY albuterol sulfate 2.5 mg /3 mL (0.083 %) solution for nebulization 2.5 mg inhalation Q4HP PRN (Reason: Shortness Of Breath) Qty: 180 3RF Jardiance 25 mg tablet 25 mg PO DAILY Qty: 90 3RF ergocalciferol (vitamin D2) 1,250 mcg (50,000 unit) capsule 50,000 unit PO WEEKLY Qty: 14 10RF famotidine 20 mg tablet 20 mg PO DAILY Qty: 90 3RF fenofibric acid (choline) 135 mg capsule,delayed release(DR/EC) 135 mg PO DAILY Qty: 90 3RF fluticasone propion-salmeterol [Advair Diskus] 100-50 mcg/dose blister with device 1 inh inhalation BIDRT Qty: 60 12RF insulin glargine 100 unit/mL (3 mL) insulin pen 60 unit SQ HS Qty: 15 12RF pioglitazone 15 mg tablet 15 mg PO DAILYDM Qty: 90 3RF propranolol 10 mg tablet 10 mg PO TID Qty: 90 3RF rosuvastatin 40 mg tablet 40 mg PO DAILY Qty: 90 3RF Ozempic 1 mg/dose (4 mg/3 mL) pen injector 1 mg SQ WEEKLY Qty: 3 10RF (DME) Dexcom G7 Sensor Device See Rx Instructions .Route Qty: 1 2RF Rx Instructions: As directed promethazine 25 mg tablet 25 mg PO TID PRN (Reason: nausea and vomiting) Qty: 60 3RF ciprofloxacin HCl 500 mg tablet 500 mg PO BID 7 Days Qty: 14 0RF metronidazole 500 mg tablet 500 mg PO TID 7 Days Qty: 21 0RF ciclopirox 8 % solution 1 applic topical DAILY 84 Days Qty: 6.6 1RF albuterol sulfate 90 mcg/actuation HFA aerosol inhaler 2 puff inhalation Q4HP PRN (Reason: Shortness Of Breath) Qty: 8.5 3RF (DME) Dexcom G7 Customer Service Attendant Misc See Rx Instructions .Route Qty: 1 0RF Rx Instructions: As directed promethazine 25 mg suppository 25 mg MT Q6H PRN (Reason: nausea and vomiting) Qty: 12 10RF polyethylene glycol 3350 [Miralax] 17 gram/dose powder 17 g PO BID Qty: 238 10RF topiramate 50 MG tablet 50 mg PO BID venlafaxine 150 MG capsule,extended release 24hr 150 mg PO DAILY Rx Instructions: take with 75 mg for a total of 225mg. olanzapine 20 MG tablet 20 mg PO HS ondansetron 4 mg tablet,disintegrating 4 mg PO Q8H PRN (Reason: nausea and vomiting) 4 Days Qty: 12 0RF alprazolam 1 mg tablet 1 mg PO BIDP PRN (Reason: Anxiety) Patient Comments: TAKE 1 TABLET BY MOUTH TWICE DAILY NEEDED. acetaminophen 500 mg capsule 1,000 mg PO Q6H PRN (Reason: pain) Qty: 30 3RF ibuprofen 400 mg tablet 400 mg PO Q8H PRN (Reason: pain) Qty: 30 3RF Referrals Follow up/Referrals: Provider,Referral, MD [Primary Care Provider] - See instructions Clinical Impressions Clinical Impression: Enteritis, Hyperglycemia, Diverticulosis, Nausea & vomiting, Acidosis, lactic Instructions Patient Instructions: DI for Hyperglycemia -- Adult Print Language Print Language: Kiswahili Discharge ED Provider: Beatriz Bahena General Adult HPI General Chief complaint: Hyper/Hypoglycemia Stated complaint: hyperglycemia Time Seen by Provider: 04/01/24 23:09 Mode of Arrival: EMS Source of Information: Patient and EMS Limitations: No Limitations Description of Symptoms (Recalled from ER Triage Doc. by RN): pt presents with c/o hyperglycemia, known diabetic with dexcom that she has no way to manage. Pt reports associated n/v. Pt denies chest pain/soa. Pt BG at time of triage 523 History of Present Illness HPI narrative: 53-year-old female presents to the ER with concerns of elevated blood sugar. She is a known diabetic who has a Dexcom but reports she does not wear it. Patient states she has had 5 days of nausea and 2 to 3 days of vomiting, nonbloody, nonbilious. Patient denies chest pain and shortness of breath, she states she has left lower quadrant abdominal pain but has a history of diverticulitis. She states she has had constipation, not diarrhea recently. She states her last bowel movement was yesterday. Patient denies dysuria or hematuria. She states she was able to eat soup approximately 3 hours ago without any emesis. Patient saw PCP earlier today for her concerns of nausea and vomiting, labs resulted with abnormalities for which she was called, she was then contacted by our ER doctor who was notified about the lab abnormalities and recommended to come to the ER for further evaluation. She called EMS and was brought in by [facility]. They report they were unable to obtain IV access and patient did not receive any medications during transportation. Patient states she does not take short acting insulin but does take Lantus. She states she typically takes 60 units nightly but can titrate up if her sugars are running high. She states tonight approximately 2 hours prior to arrival she took 80 units because of her recent high blood sugar. Despite this, on arrival during triage patient's fingerstick blood glucose was 523. Related Data Home Medications ?Medication ?Instructions ?Recorded ?Confirmed olanzapine 20 mg tablet 20 mg PO HS MOOD 05/04/21 04/01/24 topiramate 50 mg tablet 50 mg PO BID MIGRAINES 05/04/21 04/01/24 venlafaxine 150 mg 150 mg PO DAILY MOOD 05/04/21 04/01/24 capsule,extended release 24 hr aspirin 81 mg tablet,delayed 81 mg PO DAILY CAD 07/19/22 04/01/24 release (Adult Low Dose Aspirin) bupropion HCl 150 mg 24 hr tablet, 150 mg PO DAILY Depression 07/19/22 04/01/24 extended release (Wellbutrin XL) alprazolam 1 mg tablet 1 mg PO BIDP PRN Anxiety 08/08/22 04/01/24 Previous Rx's ?Medication ?Instructions ?Recorded acetaminophen 500 mg capsule 1,000 mg (2 x 500 mg) PO Q6H PRN 04/27/23 pain #30 caps ibuprofen 400 mg tablet 400 mg PO Q8H PRN pain #30 tabs 04/27/23 albuterol sulfate 2.5 mg/3 mL 2.5 mg (3 mL) inhalation Q4HP PRN 06/04/23 (0.083 %) solution for nebulization Shortness Of Breath #180 mL empagliflozin 25 mg tablet 25 mg PO DAILY Diabetes #90 tabs 06/04/23 (Jardiance) ergocalciferol (vitamin D2) 1,250 50,000 unit PO WEEKLY Supplement 06/04/23 mcg (50,000 unit) capsule #14 caps famotidine 20 mg tablet 20 mg PO DAILY Acid reflux #90 tabs 06/04/23 fenofibric acid (choline) 135 mg 135 mg PO DAILY High cholesterol 06/04/23 capsule,delayed release #90 caps fluticasone 100 mcg-salmeterol 50 1 inh inhalation BIDRT COPD #60 ea 06/04/23 mcg/dose blistr powdr for inhalation (Advair Diskus) insulin glargine 100 unit/mL (3 60 unit (0.6 mL) SQ HS Diabetes 06/04/23 mL) subcutaneous pen #15 mL pioglitazone 15 mg tablet 15 mg PO DAILYDM Diabetes #90 tabs 06/04/23 propranolol 10 mg tablet 10 mg PO TID Headache #90 tabs 06/04/23 rosuvastatin 40 mg tablet 40 mg PO DAILY Cholesterol #90 tabs 06/04/23 semaglutide 1 mg/dose (4 mg/3 mL) 1 mg (0.75 mL) SQ WEEKLY #3 mL 06/04/23 subcutaneous pen injector (Ozempic) Dexcom G7 Sensor (blood-glucose #1 ea 06/22/23 sensor) albuterol sulfate 90 mcg/actuation 2 puff inhalation Q4HP PRN 08/24/23 aerosol inhaler Shortness Of Breath #8.5 grams Dexcom G7 Customer Service Attendant (blood-glucose #1 ea 09/19/23 meter,continuous) promethazine 25 mg tablet 25 mg PO TID PRN nausea and 09/27/23 vomiting #60 tabs polyethylene glycol 3350 17 17 g PO BID #238 grams 12/05/23 gram/dose oral powder (Miralax) promethazine 25 mg rectal 25 mg MT Q6H PRN nausea and 12/05/23 suppository vomiting #12 ea ondansetron 4 mg disintegrating 4 mg PO Q8H PRN nausea and 01/01/24 tablet vomiting 4 days #12 tabs ciclopirox 8 % topical solution 1 applic topical DAILY 12 weeks 04/01/24 #6.6 mL ciprofloxacin HCl 500 mg tablet 500 mg PO BID 7 days #14 tabs 04/01/24 metronidazole 500 mg tablet 500 mg PO TID 7 days #21 tabs 04/01/24 Allergies Allergy/AdvReac Type Severity Reaction Status Date / Time adhesive tape Allergy Blister Verified 04/01/24 13:25 fluoxetine (From Prozac) Allergy Unknown Verified 04/01/24 13:25 allergy reaction latex Allergy Unknown Verified 04/01/24 13:25 allergy reaction quetiapine (From Seroquel) Allergy Unknown Verified 04/01/24 13:25 allergy reaction shellfish derived Allergy Anaphylaxis Verified 04/01/24 13:25 [facility] Disclaimer: The information contained in this section may have been updated after the patient was seen, as this information can be updated by other users. Medical History Dental caries Facial cellulitis Multiple personality Dyspnea on exertion Pneumothorax Anxiety disorder Advanced osteoarthritis of spine Major depression Migraine History of stroke Coronary artery disease Hyperlipidemia Irritable bowel syndrome (IBS) History of diverticulitis Asthma Cervical cancer Hilar lymphadenopathy Mediastinal lymphadenopathy Dyspnea on exertion History of asthma History of COPD Smoking greater than 30 pack years Multiple lung nodules on CT History of coronary angiogram Surgical History History of lung biopsy H/O laparoscopy History of tubal ligation Family History Father Alcoholism Asthma Coronary artery disease Diabetes FHx: mental illness Heart attack Hypertension Mother Anemia Asthma Coronary artery disease FHx: mental illness Hyperlipidemia Hypertension Grandmother Stroke Other Cancer Family history of COPD (chronic obstructive pulmonary disease) Family history of diabetes mellitus type II Social History Smoking Status: Current every day smoker tobacco type: cigarettes packs per day: 2 years smoked: 35 second hand exposure: Yes alcohol intake: never substance use type: denies use current occupational status: disabled Travel in the last 8 weeks: None household members: none lives independently: Yes marital status: single pets and animals: Yes Other Medical History Have you received the Flu Vaccine for this season: No Have you received the Pneumonia Vaccine: No ROS Obtained: Yes Systems reviewed as appropriate & no additional complaints except as documented Per HPI Physical Exam General General appearance: alert and in no apparent distress Head Head exam: atraumatic and normocephalic Eye Eye exam: Present PERRL and EOMI ENT ENT exam: Present mucous membranes moist Neck Neck exam: Present normal inspection and full ROM Chest Chest inspection: Present symmetric chest wall rise Respiratory Respiratory exam: Present normal lung sounds bilaterally; Absent respiratory distress, wheezes or stridor Cardiovascular Cardiovascular exam: Present regular rate and normal rhythm Abdominal Exam Abdominal exam: Present soft and tenderness (Left lower quadrant); Absent distention, guarding, rebound or rigidity Extremities Exam Extremities exam: Present full ROM; Absent edema Neurological Exam Neurological exam: Present alert, oriented X3 and CN II-XII intact; Absent motor sensory deficit Psychiatric Psychiatric exam: Present normal affect and normal mood Skin Skin exam: Present warm and dry Medical Decision Making Medical Records Medical records reviewed: Yes I reviewed the patient's medical records. Screening: Per USPSTF and CDC recommendations, given the prevalence of disease in our region, it is our hospital?s policy to screen for HIV and viral Hepatitis for all patients aged 18 and over and those with ongoing risk factors. MR Comment: Review of previous labs demonstrates patient consistently has elevated blood sugar. Blood glucose earlier today on labs drawn outpatient was 424, in December it was 428, prior to that it was in the mid to upper upper 300s. On labs drawn earlier today outpatient, patient did have hyperkalemia with potassium 5.3 but no leukocytosis or anemia. In December 2023 patient was evaluated in our ER and found to have enterocolitis. She initially presented for medical clearance but had nausea and vomiting. When she was found to be hyperglycemic she received 5 units subcutaneous insulin. She was not in DKA at that time. She was ultimately discharged with law enforcement from that encounter Kristofer Inquiry Pt receiving controlled substance: No Vital Signs: 04/01/24 23:01 04/01/24 23:30 Temperature 98 F Temperature Source Oral Pulse Rate 90 Pulse Rate [Radial] 92 H Respiratory Rate 18 19 Blood Pressure 112/66 Blood Pressure [Right Arm] 130/72 Blood Pressure Mean [Right Arm] 91 Blood Pressure Source [Right Arm] Automatic Cuff 02 Sat by Pulse Oximetry 93 L 95 Oxygen Delivery Method Room Air Lab Data Lab Results 04/01/24 23:09: VBG pH 7.30 L, VBG pCO2 40.0, VBG pO2 34.2, VBG HCO3 19.4 L, VBG Total CO2 20.6 L, VBG O2 Saturation 66.6, VBG Base Excess -6.9 L, VBG Lactic Acid 2.1 H 04/01/24 23:12: WBC 5.6, RBC 4.98, Hgb 15.3, Hct 43.9, MCV 88.2, MCH 30.7, MCHC 34.9, RDW 13.4, Plt Count 257, MPV 9.6, Neut % (Auto) 39.6, Lymph % (Auto) 51.6 H, [place] % (Auto) 5.0, Eos % (Auto) 2.8, Baso % (Auto) 0.5, Neut # (Auto) 2.2, Lymph # (Auto) 2.9, [place] # (Auto) 0.3, Eos # (Auto) 0.2, Baso # (Auto) 0.0, Total Counted 100, Neutrophils % (Manual) 36 L, Lymphocytes % (Manual) 61 H, Eosinophils % (Manual) 3, Platelet Estimate Normal, RBC Morphology Normal, S odium 134 L, Potassium 4.6, Chloride 98, Carbon Dioxide 26, Anion Gap 14.6, BUN 13 D, Creatinine 0.80 D, Estimated Creat Clear 89, Estimated GFR 76, Est GFR ( Amer) 92 D, Glucose 500 H*, Calcium 8.8, Total Bilirubin 0.7, AST 37 H , ALT 36, Alkaline Phosphatase 88, Troponin I 0.03, Total Protein 7.7, Albumin 4.3, Globulin 3.4 H, Albumin/Globulin Ratio 1.3, Lipase 139, Acetone Level Small 04/01/24 23:25: Lactate 2.6 H, Urine Color Yellow, Urine Appearance Clear, Urine pH 6.0, Ur Specific [place] 1.020, Urine Protein Negative, Urine Glucose (UA) 3+, Urine Ketones Negative, Urine Blood Negative, Urine Nitrate Negative, Urine Bilirubin Negative, Urine Urobilinogen 0.2, Ur Leukocyte Esterase Negative, Urine RBC Occasional, Urine WBC 3-5, Ur Squamous Epith Cells 10-20, Urine Bacteria Trace, Urine Yeast 1+ 04/02/24 01:02: VBG pH 7.33, VBG pCO2 51.2 H, VBG pO2 39.6, VBG HCO3 26.2, VBG Total CO2 27.8 H, VBG O2 Saturation 76.0 H, VBG Base Excess 0.2, VBG Lactic Acid 2.7 H 04/01/24 23:12 04/01/24 23:12 Orders (Tests/Meds): ED MEDICATIONS Discontinued Medications Generic Name Dose Route Start Last Admin Trade Name Rony PRN Reason Stop Dose Admin Lactated Ringer's 1,000 mls @ 999 mls/hr 04/01/24 23:10 04/01/24 23:23 Lactated Ringer's 1000 Ml Bag IV 04/02/24 00:10 999 mls/hr .Q1H1M ONE Administration Lactated Ringer's 500 mls @ 999 mls/hr 04/02/24 00:24 04/02/24 00:47 Lactated Ringer's 500ml IV 04/02/24 00:54 999 mls/hr .Q31M ONE Administration Insulin Human Lispro 7 unit 04/01/24 23:44 04/01/24 23:52 Humalog 100 Units/Ml 10ml Vial (Ssi) SUBCUT 04/01/24 23:45 7 unit ONCE ONE Administration Ondansetron HCl 4 mg 04/01/24 23:10 04/01/24 23:23 Ondansetron 4mg/2ml Vial IV 04/01/24 23:11 4 mg ONCE ONE Administration ORDERS Category Date Time Status CT abdomen pelvis wo con Stat Cat Scan 04/01/24 23:30 Completed CXR --portable [XR chest portable] Stat Exams 04/01/24 23:09 Completed Acetone, Serum (Rapid) Stat Lab 04/01/24 23:12 Completed CBC w/Auto Diff [Complete Blood Count Auto Diff] Stat Lab 04/01/24 23:12 Completed CMP [Comprehensive Metabolic Panel] Stat Lab 04/01/24 23:12 Completed Lactic Acid Stat Lab 04/01/24 23:25 Completed Lipase Stat Lab 04/01/24 23:12 Completed Trop I [Troponin I] Stat Lab 04/01/24 23:12 Completed Troponin I Q3H Lab 04/02/24 02:15 Ordered Troponin I Q3H Lab 04/02/24 05:15 Ordered Urinalysis and Microscopic Stat Lab 04/01/24 23:25 Completed VBG [Venous Blood Gas] Stat RT 04/01/24 23:09 Completed VBG [Venous Blood Gas] Stat RT 04/02/24 01:02 Completed Medical Decision Narrative: In summary, this 53-year-old female with history of diabetes, COPD, diverticulitis, reported history of gastroparesis all of which complicate her current presentation, increase her overall morbidity, and most of which are not at goal therapy presents to the emergency department today with nausea, vomiting, concerns of lab abnormalities on outpatient labs drawn earlier today. On initial evaluation patient is hemodynamically stable, afebrile, she appears well-hydrated but has left lower quadrant tenderness to palpation, cardiopulmonary exam benign, GCS 15, no neurologic deficits. Differential diagnosis includes but is not limited to hyperglycemia, electrolyte abnormalities, DKA, HHS, urinary tract infection, diverticulosis, diverticulitis, gastroparesis, medication noncompliance, viral syndrome, colitis, atypical presentation of ACS, among others. Based on these concerns, I ordered serum labs, cardiac workup, CT abdomen pelvis was initially ordered with contrast however patient has history of shellfish allergy so this was changed to a noncontrast study, chest x-ray, VBG. ECG personally interpreted demonstrates sinus rhythm, rate 97, normal axis, normal MT and QTc, no STEMI. Patient received IV fluids and ondansetron initial for treatment of symptoms. Labs personally reviewed demonstrate no leukocytosis or anemia, platelets normal, CMP with hyperglycemia, normal BUN and creatinine, trace hyponatremia, improved from earlier today, hyperkalemia that was 5.3 earlier today is now 4.6 on CMP. Patient has VBG with pH 7.3, appears to be metabolic acidosis with elevated lactic at 2.1 on VBG, lactic on chemistry is 2.6. Initial troponin 0.03, patient is not complaining of chest pain and ECG is reassuring. Repeat troponin pending. Lipase normal at 139, UA negative for findings of infection, no ketones. Patient does have small serum acetone but her acidosis is nonanion gap, her anion gap is 14.6. Patient is not in DKA or HHS. Chest x-ray personally interpreted does not demonstrate acute intrathoracic abnormality, see radiology read for final interpretation. CT abdomen pelvis personally interpreted does not demonstrate bowel obstruction, no obvious diverticulitis, patient has right intrarenal calculus. See radiology read for final interpretation which does discuss nonspecific acute enteritis. Findings were discussed with the patient. Overall her CT is very reassuring. Patient was placed into ED observation at 0030 for serial labs, trending glucose since she received insulin, continued fluid resuscitation, and for reassessment patient's lactic acidosis and troponin. By doing this I hope to avoid unnecessary admission while ruling out evolving NH or worsening metabolic derangement. On reassessment patient has received IV fluid repletion, she states her symptoms are improved, she is tolerating oral intake. She has had no emesis in the ER. She is resting comfortably at this time. FSBG down to 418. Repeat VBG demonstrates pH 7.33 which is improved, her bicarb is also improved, unfortunately her lactic on VBG has actually increased, now 2.7. Since patient did have an anion gap on her labs at PCP earlier today and was likely bordering on DKA at that time, while her labs are reassuring against DKA here, I am concerned about the worsening lactic acidosis and believe that she would be best served by admission for continued IV fluids and management of symptoms until labs are improving. I discussed this with the hospitalist including my concern that the patient was likely bordering on DKA earlier today when she was at PCP and while she is not in DKA at this time her lactic acidosis is concerning especially since it is worsening despite fluid resuscitation. He agrees with this and graciously accepted the patient for admission. Patient admitted in stable condition. Total time in ED observation: 54 minutes Critical Care Critical Care Time Critical Care Time: No
[2024-04-01] MEDS: humaLOG 100 UNITS/ML 10ML VIAL (SSI) 7 UNIT SUBCUT (23:52)
[2024-04-01 23:56] LABS: Acetone, Serum (Rapid) Small (None Detect)
[2024-04-02] VITALS (8 sets, daily range): BP systolic 102–159; BP diastolic 59–75; PULSE 74–98; RESP 14–20; TEMP 36.4–37.2; O2SAT 91–97; BMI 29.9
[2024-04-02 00:24] LABS: Eosinophils % 3 % (0-3); Lymphocytes % 61 % (10-50); Neutrophils % 36 % (42-76); Total Cells Counted 100
[2024-04-02 00:26] LABS: Platelet Estimate Normal; RBC Morphology Normal
[2024-04-02] MEDS: RINGERS SOLUTION,LACTATED 500 ML 999 ML IV (00:47)
--- NOTE | 2024-04-02 01:06 | PC.NURSE ---
Repeat VBG collected and sent to lab Accucheck 418
--- NOTE | 2024-04-02 01:09 | PC.NURSE ---
fsbg 494 mg/dl @ 0022.
--- NOTE | 2024-04-02 01:10 | PC.NURSE ---
fsbg 418mg/dl @ 0106
[2024-04-02 01:12] LABS: VBG Base Excess 0.2 mmol/L (-2.4-2.3); VBG HCO3 26.2 mmol/L (23-30); VBG PH 7.33 mmol/L (7.31-7.41); VBG PO2 39.6 mmol/L (28-40); VBG Total CO2 27.8 mmol/L (23-27)
[2024-04-02 01:17] LABS: Lactate Venous 2.7 mmol/L (0.4-2.0); VBG PCO2 51.2 mmol/L (35-51)
--- NOTE | 2024-04-02 01:23 | PC.NURSE ---
Pt aware of plans for admission. umbrella supervisor notified of plans for admission
--- NOTE | 2024-04-02 01:45 | PC.NURSE ---
Patient arrived to floor via stretcher from ED at 01:43.
--- NOTE | 2024-04-02 01:48 | P.HP_ITS ---
<Statement entered by Garth Felix MD - 04/08/24 14:21> I personally examined the patient and agree with the plan of care outlined by the [employer]ST[employer]ER. History of Present Illness *Admission Date: 04/02/24 *Reason for visit:: Not feeling well *History of present illness: This is a 53-year-old female who has a past medical history significant for anxiety, major depression, migraine, CVA, coronary artery disease, hyperlipidemia, irritable bowel syndrome, diverticulosis, diverticulitis, asthma, cervical cancer, lymphadenopathy, asthma, COPD, and lung nodules who presents with a chief complaint of not feeling well and abnormal lab values. Patient had not been feeling well for 5 days, so she presented to her primary care physician's office for evaluation. Primary care physician obtain some routine labs. Some of her lab values returned abnormal, so ER provider encouraged patient to come in for evaluation. Due to these recommendations, patient presented to the emergency room for evaluation. While in emergency room, patient's blood glucose was greater than 500, her CT scan of the abdomen pelvis revealed nonspecific acute enteritis/moderate hepatomegaly/right intrarenal calculus with no hydronephrosis/moderate to severe sigmoid diverticulosis without diverticulitis, and her lactic acid was elevating despite IV hydration. As result, patient is being admitted for further management Per my evaluation of the patient, patient states that she has been not feeling well for approximately 5 days. She reports having 2-3 episodes of nonbilious emesis. She also mentions she did have some left lower quadrant abdominal pain but was consistent with her normal diverticulitis. She is currently denying any chest pain, lightheadedness, dizziness, fever, rigors, shortness of breath, dyspnea, or diarrhea. Additional pertinent vitals obtained include pH is 7.33, pCO2 of 51.2, bicarb of 26.2, sodium 134, blood glucose of 500, base lactic acid 2.6, AST of 37, and patient did have a small amount of ketones. [facility] Disclaimer: The information contained in this section may have been updated after the patient was seen, as this information can be updated by other users. Medical History Dental caries Facial cellulitis Multiple personality Dyspnea on exertion Pneumothorax Anxiety disorder Advanced osteoarthritis of spine Major depression Migraine History of stroke Coronary artery disease Hyperlipidemia Irritable bowel syndrome (IBS) History of diverticulitis Asthma Cervical cancer Hilar lymphadenopathy Mediastinal lymphadenopathy Dyspnea on exertion History of asthma History of COPD Smoking greater than 30 pack years Multiple lung nodules on CT History of coronary angiogram Surgical History History of lung biopsy H/O laparoscopy History of tubal ligation Family History Father Alcoholism Asthma Coronary artery disease Diabetes FHx: mental illness Heart attack Hypertension Mother Anemia Asthma Coronary artery disease FHx: mental illness Hyperlipidemia Hypertension Grandmother Stroke Other Cancer Family history of COPD (chronic obstructive pulmonary disease) Family history of diabetes mellitus type II Social History (Updated 04/02/24 @ 02:02 by Mar Harvey RN) Smoking Status: Current every day smoker tobacco type: cigarettes packs per day: 2 years smoked: 35 second hand exposure: Yes alcohol intake: never substance use type: denies use current occupational status: disabled Travel in the last 8 weeks: None household members: none lives independently: Yes marital status: single pets and animals: Yes Contact w/someone who lives/traveled outside [place] past 30 days?: No Exposure to someone with infectious disease in past 14 days?: No Do you have a fever (greater than 100.4 F or 38 C)?: No Have you tested positive for COVID-19: No Exposed to someone with COVID-19 in past 14 days?: No Do you have a sore throat?: No Do you have a cough?: No Do you have any weakness?: No Are you experiencing any nausea/vomitting?: No Do you have any diarrhea?: No Are you experiencing any unusual bleeding?: No Do you have any muscle aches/pain?: No Do you have any abdominal pain?: No Are you experiencing loss of taste or smell?: No Other Medical History Have you received the Flu Vaccine for this season: No Have you received the Pneumonia Vaccine: No Review of Systems Review of Systems Review of systems:: pertinent systems reviewed and negative unless documented below Constitutional Constitutional: Reports system reviewed and no additional complaints, except as documented Eyes Eyes: Reports system reviewed and no additional complaints, except as documented ENT Ears, Nose, Mouth, and Throat: Reports system reviewed and no additional complaints, except as documented *Cardiovascular Cardiovascular: Reports system reviewed and no additional complaints, except as documented *Respiratory Respiratory: Reports system reviewed and no additional complaints, except as documented *Gastrointestinal Gastrointestinal: Reports abdominal pain *Genitourinary Genitourinary: Reports system reviewed and no additional complaints, except as documented *Musculoskeletal Musculoskeletal: Reports system reviewed and no additional complaints, except as documented Integumentary/Breasts Skin/Breast: Reports system reviewed and no additional complaints, except as documented *Neurologic Neurologic: Reports system reviewed and no additional complaints, except as documented Psychiatric Psychiatric: Reports system reviewed and no additional complaints, except as documented Endocrine Endocrine: Reports system reviewed and no additional complaints, except as documented Hematologic/Lymphatic Hematologic/Lymphatic: Reports system reviewed and no additional complaints, except as documented Allergic/Immunologic Allergic/Immunologic: Reports system reviewed and no additional complaints, except as documented Meds Home Medications and Allergies Home Medications ?Medication ?Instructions ?Recorded ?Confirmed ?Type olanzapine 20 mg tablet 20 mg PO HS MOOD 05/04/21 04/01/24 History topiramate 50 mg tablet 50 mg PO BID MIGRAINES 05/04/21 04/01/24 History venlafaxine 150 mg 150 mg PO DAILY MOOD 05/04/21 04/01/24 History capsule,extended release 24 hr aspirin 81 mg tablet,delayed 81 mg PO DAILY CAD 07/19/22 04/01/24 History release (Adult Low Dose Aspirin) bupropion HCl 150 mg 24 hr tablet, 150 mg PO DAILY Depression 07/19/22 04/01/24 History extended release (Wellbutrin XL) alprazolam 1 mg tablet 1 mg PO BIDP PRN Anxiety 08/08/22 04/01/24 History acetaminophen 500 mg capsule 1,000 mg (2 x 500 mg) PO Q6H PRN 04/27/23 04/01/24 Rx pain #30 caps ibuprofen 400 mg tablet 400 mg PO Q8H PRN pain #30 tabs 04/27/23 04/01/24 Rx albuterol sulfate 2.5 mg/3 mL 2.5 mg (3 mL) inhalation Q4HP PRN 06/04/23 04/01/24 Rx (0.083 %) solution for nebulization Shortness Of Breath #180 mL empagliflozin 25 mg tablet 25 mg PO DAILY Diabetes #90 tabs 06/04/23 04/01/24 Rx (Jardiance) ergocalciferol (vitamin D2) 1,250 50,000 unit PO WEEKLY Supplement 06/04/23 04/01/24 Rx mcg (50,000 unit) capsule #14 caps famotidine 20 mg tablet 20 mg PO DAILY Acid reflux #90 tabs 06/04/23 04/01/24 Rx fenofibric acid (choline) 135 mg 135 mg PO DAILY High cholesterol 06/04/23 04/01/24 Rx capsule,delayed release #90 caps fluticasone 100 mcg-salmeterol 50 1 inh inhalation BIDRT COPD #60 ea 06/04/23 04/01/24 Rx mcg/dose blistr powdr for inhalation (Advair Diskus) insulin glargine 100 unit/mL (3 60 unit (0.6 mL) SQ HS Diabetes 06/04/23 04/01/24 Rx mL) subcutaneous pen #15 mL pioglitazone 15 mg tablet 15 mg PO DAILYDM Diabetes #90 tabs 06/04/23 04/01/24 Rx propranolol 10 mg tablet 10 mg PO TID Headache #90 tabs 06/04/23 04/01/24 Rx rosuvastatin 40 mg tablet 40 mg PO DAILY Cholesterol #90 tabs 06/04/23 04/01/24 Rx semaglutide 1 mg/dose (4 mg/3 mL) 1 mg (0.75 mL) SQ WEEKLY #3 mL 06/04/23 04/01/24 Rx subcutaneous pen injector (Ozempic) Dexcom G7 Sensor (blood-glucose #1 ea 06/22/23 04/01/24 Rx sensor) albuterol sulfate 90 mcg/actuation 2 puff inhalation Q4HP PRN 08/24/23 04/01/24 Rx aerosol inhaler Shortness Of Breath #8.5 grams Dexcom G7 Square Shear Operator (blood-glucose #1 ea 09/19/23 04/01/24 Rx meter,continuous) promethazine 25 mg tablet 25 mg PO TID PRN nausea and 09/27/23 04/01/24 Rx vomiting #60 tabs polyethylene glycol 3350 17 17 g PO BID #238 grams 12/05/23 04/01/24 Rx gram/dose oral powder (Miralax) promethazine 25 mg rectal 25 mg KS Q6H PRN nausea and 12/05/23 04/01/24 Rx suppository vomiting #12 ea ondansetron 4 mg disintegrating 4 mg PO Q8H PRN nausea and 01/01/24 04/01/24 Rx tablet vomiting 4 days #12 tabs ciclopirox 8 % topical solution 1 applic topical DAILY 12 weeks 04/01/24 04/01/24 Rx #6.6 mL ciprofloxacin HCl 500 mg tablet 500 mg PO BID 7 days #14 tabs 04/01/24 04/01/24 Rx metronidazole 500 mg tablet 500 mg PO TID 7 days #21 tabs 04/01/24 04/01/24 Rx New Prescriptions to Start Prescriptions: Allergies Allergy/AdvReac Type Severity Reaction Status Date / Time adhesive tape Allergy Blister Verified 04/01/24 13:25 fluoxetine (From Prozac) Allergy Unknown Verified 04/01/24 13:25 allergy reaction latex Allergy Unknown Verified 04/01/24 13:25 allergy reaction quetiapine (From Seroquel) Allergy Unknown Verified 04/01/24 13:25 allergy reaction shellfish derived Allergy Anaphylaxis Verified 04/01/24 13:25 Exam Data for Last 24 hours Vital signs and Labs for Last 24 Hours: Temp Pulse Resp BP Pulse Ox O2 Del Method 98.9 F 81 20 102/59 L 95 Room Air 04/02/24 01:36 04/02/24 01:36 04/02/24 01:36 04/02/24 01:36 04/01/24 23:30 04/02/24 01:36 Laboratory Results - last 24 hr 04/01/24 23:09: VBG pH 7.30 L, VBG pCO2 40.0, VBG pO2 34.2, VBG HCO3 19.4 L, VBG Total CO2 20.6 L, VBG O2 Saturation 66.6, VBG Base Excess -6.9 L, VBG Lactic Acid 2.1 H 04/01/24 23:12: WBC 5.6, RBC 4.98, Hgb 15.3, Hct 43.9, MCV 88.2, MCH 30.7, MCHC 34.9, RDW 13.4, Plt Count 257, MPV 9.6, Neut % (Auto) 39.6, Lymph % (Auto) 51.6 H, [place] % (Auto) 5.0, Eos % (Auto) 2.8, Baso % (Auto) 0.5, Neut # (Auto) 2.2, Lymph # (Auto) 2.9, [place] # (Auto) 0.3, Eos # (Auto) 0.2, Baso # (Auto) 0.0, Total Counted 100, Neutrophils % (Manual) 36 L, Lymphocytes % (Manual) 61 H, Eosinophils % (Manual) 3, Platelet Estimate Normal, RBC Morphology Normal, Sodium 134 L, Potassium 4.6, Chloride 98, Carbon Dioxide 26, Anion Gap 14.6, BUN 13 D, Creatinine 0.80 D, Estimated Creat Clear 89, Estimated GFR 76, Est GFR ( Amer) 92 D, Glucose 500 H*, Calcium 8.8, Total Bilirubin 0.7, AST 37 H , ALT 36, Alkaline Phosphatase 88, Troponin I 0.03, Total Protein 7.7, Albumin 4.3, Globulin 3.4 H, Albumin/Globulin Ratio 1.3, Lipase 139, Acetone Level Small 04/01/24 23:25: Lactate 2.6 H, Urine Color Yellow, Urine Appearance Clear, Urine pH 6.0, Ur Specific [place] 1.020, Urine Protein Negative, Urine Glucose (UA) 3+, Urine Ketones Negative, Urine Blood Negative, Urine Nitrate Negative, Urine Bilirubin Negative, Urine Urobilinogen 0.2, Ur Leukocyte Esterase Negative, Urine RBC Occasional, Urine WBC 3-5, Ur Squamous Epith Cells 10-20, Urine Bacteria Trace, Urine Yeast 1+ 04/02/24 01:02: VBG pH 7.33, VBG pCO2 51.2 H, VBG pO2 39.6, VBG HCO3 26.2, VBG Total CO2 27.8 H, VBG O2 Saturation 76.0 H, VBG Base Excess 0.2, VBG Lactic Acid 2.7 H I & O for Last 24 hours: Intake & Output 03/30/24 03/31/24 04/01/24 04/02/24 23:59 23:59 23:59 23:59 Weight 68.039 kg Constitutional Constitutional: no acute distress and cooperative *Routine HEENT Exam Head: Present normocephalic and atraumatic Eye: Present EOMI ENT: Present mucous membranes moist *Routine Neck Exam Neck: Present supple and full ROM *Routine Respiratory Exam Respiratory: Present normal respiratory effort, able to speak in complete sentences and symmetric chest movement *Routine Cardiovascular Exam Cardiovascular: Present RRR, Normal S1 and Normal S2 *Routine Abdominal Exam Abdominal: Present normoactive bowel sounds and obese *Routine Rectal Exam Rectal:: deferred *Routine Genitalia Exam Genitalia:: deferred *Routine Extremities Exam Extremities: Present full ROM, pulses intact and normal capillary refill Routine Back/Spine/Pelvis Exam Back/Spine: Present full ROM *Routine Skin Exam Skin: Present intact and warm *Routine Neurological Exam Neurological: Present alert, oriented X3, CN II-XII intact, moving all extremities and normal tone Routine Psychiatric Exam Psychiatric: Present normal affect, normal thought process, cooperative, good insight and good judgment H&P: Result Impressions 53-year-old female who has not been feeling well for the past 5 days has had some nonbilious emesis. Presented to her primary care physician evaluation and labs revealed some abnormal blood glucose levels with an anion gap. Upon presentation to the emergency room labs reassessed and there were no findings consistent with DKA. Patient was administered 1.5 L of IV fluid and had worsening of her lactic acid. Assessment and Plan *Assessment and plan (1) Hyperglycemia: Status: Acute Category: Medical Code(s): R73.9 - Hyperglycemia, unspecified (2) Diverticulosis: Status: Acute Category: Medical Code(s): K57.90 - Diverticulosis of intestine, part unspecified, without perforation or abscess without bleeding (3) Hepatomegaly: Status: Acute Category: Medical Code(s): R16.0 - Hepatomegaly, not elsewhere classified (4) Diverticulosis: Status: Acute Category: Medical Code(s): K57.90 - Diverticulosis of intestine, part unspecified, without perforation or abscess without bleeding (5) Acidosis, lactic: Status: Acute Category: Medical Code(s): E87.20 - Acidosis, unspecified Plan Assessment: Hyperglycemia -Sliding scale insulin every 8 hours with moderate sliding scale coverage -LR at 150 mL an hour -Once med rec has been updated we will restart patient's home insulin regiment -Patient voices she has OmniPod but not wearing it-concern for noncompliance- -Will try to promote tight glycemic control Lactic acidosis -LR at 150 mL an hour -Repeat venous lactic acid in the a.m. Enteritis: May be viral in nature -Patient is denying any diarrhea -We will implement conservative measures -If patient has more than 5 stools while in hospital, will obtain GI BioFire, stool culture, and C. difficile -Will obtain respiratory panel to rule out any upper respiratory/common cold illnesses Hepatomegaly: Seen on imaging -Patient can have outpatient follow-up Moderate to severe sigmoid diverticular Kalosis without diverticulitis -Will monitor Plan: Admit patient to the MedSurg unit Activity as tolerated Daily weight Vital signs every shift Cardiac/1800 ADA diet CBC/BMP daily 40 mg Lovenox subcu daily for DVT prophylax 5 mg [place] p.o. every 4 hours for moderate pain 2 mg morphine IV push every 4 hours Issa rib pain 4 mg Zofran IV push to 8 hours for nausea and vomiting Full code I will discuss this case with attending physician Dr. Felix and a look forward to more input
[2024-04-02] MEDS: LACTATED RINGERS 1000ML 1,000 ML 150 ML IV ×3 (02:10→15:24)
[2024-04-02 02:40] LABS: Troponin I 0.02 ng/ml (0.00-0.034)
[2024-04-02 03:26] LABS: Reflex Lactic Add Lactic Reflex
[2024-04-02 04:03] LABS: Lactic Acid Follow Up (RFLX 1) 1.6 mmol/L (0.7-2.1)
--- NOTE | 2024-04-02 04:37 | PC.NURSE ---
Addendum entered by Madeline Lima RN 04/02/24 04:51: Ms Leslye Putnam was newly admitted on behalf of the following documented diagnosis: hyperglycemia. Her glucose reading this morning was 271; insulin coverage to be given per sliding scale and MAR. Vital signs stable. Original Note: Admission assessments completed by charge nurse (Bar Harvey RN); home medication reconciliation attempted but unable to be completed efficiently this shift on behalf of the patient's current state of drowsiness and fatigue. Patient was observed to have eyes closed, respirations even and unlabored on room air, and no apparent distress since her arrival to the floor. Lactated Ringer's solution currently infusing at 150 mL/hr. ACHS glucose fingerstick performed; insulin sliding scale ordered in APR. Auscultation of her heart, lungs (clear but slightly diminished), and bowels were within normal findings. Patient is alert and oriented x4 and ambulatory. At this time, the patient is resting in bed without any further complaints. Call light within reach.
[2024-04-02 05:00] LABS: POC Glucose,Bedside 271 (70-110)
[2024-04-02] MEDS: humaLOG 100 UNITS/ML 10ML VIAL (SSI) SUBCUT ×3 (05:49→16:35)
[2024-04-02 06:25] LABS: Basophils % 0.2 % (0.1-2.0); Eosinophils # 0.1 K/mm3 (0.0-0.4); Eosinophils % 2.4 % (0.1-12.0); Hematocrit 39.6 % (37.0-47.0); Lymphocytes # 2.6 K/mm3 (0.7-4.5); Mean Corpuscular HGB Conc 34.3 g/dL (31.8-35.4); Mean Corpuscular Hemoglobin 30.3 pg (27.0-31.2); Mean Corpuscular Volume 88.2 fl (81-99); Mean Platelet Volume 10.1 fl (7.4-10.4); Monocytes # 0.4 K/mm3 (0.1-1.0); Monocytes % 6.8 % (1.7-9.3); Neutrophils # 2.4 K/mm3 (1.8-7.8); Neutrophils % 43.2 % (37.0-80.0); Platelet Count 75 K/mm3 (142-424); Red Blood Count 4.49 M/mm3 (4.20-5.40); Red Cell Distribution Width 13.5 % (11.5-17.5); White Blood Count 5.5 K/mm3 (4.8-10.8)
[2024-04-02 06:34] LABS: Hemoglobin 13.7 g/dL (12.2-16.2)
[2024-04-02 06:50] LABS: Troponin I 0.03 ng/ml (0.00-0.034)
[2024-04-02 07:32] LABS: Chloride 112 mmol/L (98-107); Sodium 138 mmol/L (136-145)
[2024-04-02 07:33] LABS: Potassium 4.5 mmoL/L (3.5-5.1)
[2024-04-02 07:35] LABS: Blood Urea Nitrogen 11 mg/dl (7-17); Creatinine Clearance Estimated 134 mL/min (50-200); Estimated Glomerular Filt Rate 105 ml/min (>60); GFR (African American) 128 ML/MIN (>60)
[2024-04-02 07:36] LABS: Anion Gap 15.5 mEq/L (5-15); Calcium 8.4 mg/dl (8.4-10.2); Carbon Dioxide 15 mmol/L (22.0-30.0); Glucose 277 mg/dl (74-100)
[2024-04-02 08:54] LABS: Adenovirus,PCR Not Detected (NotDetected); Bordetella Pertussis Not Detected (NotDetected); Chlamydophila Pneumoniae, PCR Not Detected (NotDetected); Coronavirus 19, PCR Not Detected (NotDetected); Coronavirus 229E Not Detected (NotDetected); Coronavirus NL63 Not Detected (NotDetected); Coronavirus OC43 Not Detected (NotDetected); Coronovirus HKU1,PCR Not Detected (NotDetected); Human Metapneumovirus Not Detected (NotDetected); Influenza A, PCR Not Detected (NotDetected); Influenza AH1, 2009 Not Detected (NotDetected); Influenza AH1, PCR Not Detected (NotDetected); Influenza AH3,PCR Not Detected (NotDetected); Influenza B, PCR Not Detected (NotDetected); Mycoplasma Pneumoniae, PCR Not Detected (NotDetected); Parainfluenza 1, PCR Not Detected (NotDetected); Parainfluenza 2, PCR Not Detected (NotDetected); Parainfluenza 3, PCR Not Detected (NotDetected); Parainfluenza 4, PCR Not Detected (NotDetected); Respiratory Syncytial Virus Not Detected (NotDetected); Rhinovirus/Enterovirus Not Detected (NotDetected)
--- NOTE | 2024-04-02 09:37 | HMH.PHAINT1 ---
Pharmacy Intervention Comments: Home medication list verified using list from outpatient pharmacy and pt interview
[2024-04-02 09:40] LABS: Thyroid Stimulating Hormone 2.33 uIU/mL (0.465-4.68)
[2024-04-02 10:13] LABS: Free T4 (Free Thyroxine) 1.01 ng/dl (0.78-2.19)
[2024-04-02] MEDS: INSULIN GLARGINE 100 UNITS/ML 10ML VIAL 15 UNIT SUBCUT (10:13)
[2024-04-02 11:20] LABS: Hemoglobin A1C 9.8 % (4.0-6.0)
[2024-04-02 11:46] LABS: POC Glucose,Bedside 320 (70-110)
[2024-04-02] MEDS: PIOGLITAZONE 15MG TAB 15 MG PO (13:49)
[2024-04-02] MEDS: EMPAGLIFLOZIN 25MG TABLET 25 MG PO (13:49)
--- NOTE | 2024-04-02 16:13 | P.DS_ITS ---
General Admission date:: 04/02/24 HPI HPI HPI: This is a 53-year-old female who has a past medical history significant for anxiety, major depression, migraine, CVA, coronary artery disease, hyperlipidemia, irritable bowel syndrome, diverticulosis, diverticulitis, asthma, cervical cancer, lymphadenopathy, asthma, COPD, and lung nodules who presents with a chief complaint of not feeling well and abnormal lab values. Patient had not been feeling well for 5 days, so she presented to her primary care physician's office for evaluation. Primary care physician obtain some routine labs. Some of her lab values returned abnormal, so ER provider encouraged patient to come in for evaluation. Due to these recommendations, patient presented to the emergency room for evaluation. While in emergency room, patient's blood glucose was greater than 500, her CT scan of the abdomen pelvis revealed nonspecific acute enteritis/moderate hepatomegaly/right intrarenal calculus with no hydronephrosis/moderate to severe sigmoid divertic ulosis without diverticulitis, and her lactic acid was elevating despite IV hydration. As result, patient is being admitted for further management Per my evaluation of the patient, patient states that she has been not feeling well for approximately 5 days. She reports having 2-3 episodes of nonbilious emesis. She also mentions she did have some left lower quadrant abdominal pain but was consistent with her normal diverticulitis. She is currently denying any chest pain, lightheadedness, dizziness, fever, rigors, shortness of breath, dyspnea, or diarrhea. Additional pertinent vitals obtained include pH is 7.33, pCO2 of 51.2, bicarb of 26.2, sodium 134, blood glucose of 500, base lactic acid 2.6, AST of 37, and patient did have a small amount of ketones. Hospital Course Hospital Course Hospital Course: Leslye Putnam is a 53-year-old female with a medical history significant for insulin-dependent diabetes, anxiety/depression who presents with nausea/vomiting, abdominal pain, and blood glucose in 500s on her Dexcom and was admitted for the same. #Hyperglycemia #Nausea/vomiting #Abdominal pain ? Patient notes LLQ mild abdominal pain, CT abdomen/pelvis revealed nonspecific acute enteritis. Respiratory panel negative. ? Initial blood glucose 424, improved with basal bolus insulin regimen. No overt signs of DKA. ? Nausea/vomiting improved with Zofran and controlling hyperglycemia. ? Discharged with new medium dose sliding scale, continue home Lantus 60 units nightly, Jardiance 25 mg, Ozempic, pioglitazone. ? Advised to follow-up with PCP within 1 week. #Anxiety/depression ? Resume home medications Total time spent on discharge: 32 minutes on chart review, counseling, documentation, and direct care with patient. Exam Data for Last 24 hours Vital signs and Labs for Last 24 Hours: Temp Pulse Resp BP Pulse Ox O2 Del Method O2 Flow Rate 97.5 F L 92 H 18 124/69 95 Room Air 1.5 04/02/24 16:00 04/02/24 16:00 04/02/24 16:00 04/02/24 16:00 04/02/24 16:00 04/02/24 16:00 04/02/24 07:53 Laboratory Results - last 24 hr 04/01/24 23:09: VBG pH 7.30 L, VBG pCO2 40.0, VBG pO2 34.2, VBG HCO3 19.4 L, VBG Total CO2 20.6 L, VBG O2 Saturation 66.6, VBG Base Excess -6.9 L, VBG Lactic Acid 2.1 H 04/01/24 23:12: WBC 5.6, RBC 4.98, Hgb 15.3, Hct 43.9, MCV 88.2, MCH 30.7, MCHC 34.9, RDW 13.4, Plt Count 257, MPV 9.6, Neut % (Auto) 39.6, Lymph % (Auto) 51.6 H, Potter % (Auto) 5.0, Eos % (Auto) 2.8, Baso % (Auto) 0.5, Neut # (Auto) 2.2, Lymph # (Auto) 2.9, Potter # (Auto) 0.3, Eos # (Auto) 0.2, Baso # (Auto) 0.0, Total Counted 100, Neutrophils % (Manual) 36 L, Lymphocytes % (Manual) 61 H, Eosinophils % (Manual) 3, Platelet Estimate Normal, RBC Morphology Normal, Sodium 134 L, Potassium 4.6, Chloride 98, Carbon Dioxide 26, Anion Gap 14.6, BUN 13 D, Creatinine 0.80 D, Estimated Creat Clear 89, Estimated GFR 76, Est GFR ( Amer) 92 D, Glucose 500 H*, Calcium 8.8, Total Bilirubin 0.7, AST 37 H , ALT 36, Alkaline Phosphatase 88, Troponin I 0.03, Total Protein 7.7, Albumin 4.3, Globulin 3.4 H, Albumin/Globulin Ratio 1.3, Lipase 139, Acetone Level Small 04/01/24 23:25: Lactate 2.6 H, Urine Color Yellow, Urine Appearance Clear, Urine pH 6.0, Ur Specific [place] 1.020, Urine Protein Negative, Urine Glucose (UA) 3+, Urine Ketones Negative, Urine Blood Negative, Urine Nitrate Negative, Urine Bilirubin Negative, Urine Urobilinogen 0.2, Ur Leukocyte Esterase Negative, Urine RBC Occasional, Urine WBC 3-5, Ur Squamous Epith Cells 10-20, Urine Bacteria Trace, Urine Yeast 1+ 04/02/24 01:02: VBG pH 7.33, VBG pCO2 51.2 H, VBG pO2 39.6, VBG HCO3 26.2, VBG Total CO2 27.8 H, VBG O2 Saturation 76.0 H, VBG Base Excess 0.2, VBG Lactic Acid 2.7 H 04/02/24 02:15: Troponin I 0.02 04/02/24 03:49: Lactate 1.6 04/02/24 04:50: POC Glucose 271 H 04/02/24 05:40: WBC 5.5, RBC 4.49, Hgb 13.7 D, Hct 39.6, MCV 88.2, MCH 30.3, MCHC 34.3, RDW 13.5, Plt Count 75 L D, MPV 10.1, Neut % (Auto) 43.2, Lymph % (Auto) 47.0, Potter % (Auto) 6.8, Eos % (Auto) 2.4, Baso % (Auto) 0.2, Neut # (Auto) 2.4, Lymph # (Auto) 2.6, Potter # (Auto) 0.4, Eos # (Auto) 0.1, Baso # (Auto) 0.0, Sodium 138, Potassium 4.5, Chloride 112 H, Carbon Dioxide 15 L, Anion Gap 15.5 H, BUN 11, Creatinine 0.60 D, Estimated Creat Clear 134, Estimated GFR 105, Est GFR ( Amer) 128 D, Glucose 277 H D, Hemoglobin A1c 9.8 H, Calcium 8.4, Troponin I 0.03, TSH 2.33 04/02/24 06:23: Chlamy pneumoniae PCR Not detected, Adenovirus (PCR) Not detected, B. pertussis DNA (PCR) Not detected, Coronavirus OC43 (PCR) Not detected, Coronavirus HKU1 (PCR) Not detected, Coronavirus 229E (PCR) Not detected, SARS-CoV-2 (PCR) Not detected, Coronavirus NL63 (PCR) Not detected, Human Metapneumovir PCR Not detected, Influenza A (H1) PCR Not detected, Influ A (H1N1/09) PCR Not detected, Influenza A (H3) PCR Not detected, Influenza Type A (PCR) Not detected, Influenza Type B (PCR) Not detected, M. pneumoniae (PCR) Not detected, Parainfluenza 1 (PCR) Not detected, Parainfluenza 2 (PCR) Not detected, Parainfluenza 3 (PCR) Not detected, Parainfluenza 4 (PCR) Not detected, RSV (PCR) Not detected, Entero/Rhino (PCR) Not detected 04/02/24 09:05: Free T4 1.01 04/02/24 11:38: POC Glucose 320 H* I & O for Last 24 hours: Intake & Output 03/30/24 03/31/24 04/01/24 04/02/24 23:59 23:59 23:59 23:59 Intake Total 3040 / 3040 Output Total 0 / 0 Balance 3040 / 3040 Weight 68.039 kg 76.748 kg Constitutional Constitutional: no acute distress *Routine HEENT Exam Head: Present normocephalic Eye: Present EOMI and PERRL ENT: Present mucous membranes moist *Routine Neck Exam Neck: Present supple; Absent lymphadenopathy *Routine Respiratory Exam Respiratory: Present CTA bilaterally *Routine Cardiovascular Exam Cardiovascular: Present RRR *Routine Abdominal Exam Abdominal: Present soft and normoactive bowel sounds; Absent tenderness *Routine Extremities Exam Extremities: Absent cyanosis, clubbing or edema *Routine Skin Exam Skin: Present warm; Absent rash *Routine Neurological Exam Neurological: Present alert and oriented X3 Results Data Completed and Pending Labs on day of discharge: Labs from last 24 hours 04/02/24 04/02/24 04/02/24 11:38 09:05 06:23 WBC RBC Hgb Hct MCV MCH MCHC RDW Plt Count MPV Neut % (Auto) Lymph % (Auto) Potter % (Auto) Eos % (Auto) Baso % (Auto) Neut # (Auto) Lymph # (Auto) Potter # (Auto) Eos # (Auto) Baso # (Auto) Total Counted Neutrophils % (Manual) Lymphocytes % (Manual) Eosinophils % (Manual) Platelet Estimate RBC Morphology VBG pH VBG pCO2 VBG pO2 VBG HCO3 VBG Total CO2 VBG O2 Saturation VBG Base Excess VBG Lactic Acid Sodium Potassium Chloride Carbon Dioxide Anion Gap BUN Creatinine Estimated Creat Clear Estimated GFR Est GFR ( Amer) Glucose POC Glucose 320 H* Hemoglobin A1c Lactate Calcium Total Bilirubin AST ALT Alkaline Phosphatase Troponin I Total Protein Albumin Globulin Albumin/Globulin Ratio Lipase TSH Free T4 1.01 Urine Color Urine Appearance Urine pH Ur Specific [place] Urine Protein Urine Glucose (UA) Urine Ketones Urine Blood Urine Nitrate Urine Bilirubin Urine Urobilinogen Ur Leukocyte Esterase Urine RBC Urine WBC Ur Squamous Epith Cells Urine Bacteria Urine Yeast Acetone Level Chlamy pneumoniae PCR Not detected Adenovirus (PCR) Not detected B. pertussis DNA (PCR) Not detected Coronavirus OC43 (PCR) Not detected Coronavirus HKU1 (PCR) Not detected Coronavirus 229E (PCR) Not detected SARS-CoV-2 (PCR) Not detected Coronavirus NL63 (PCR) Not detected Human Metapneumovir PCR Not detected Influenza A (H1) PCR Not detected Influ A (H1N1/09) PCR Not detected Influenza A (H3) PCR Not detected Influenza Type A (PCR) Not detected Influenza Type B (PCR) Not detected M. pneumoniae (PCR) Not detected Parainfluenza 1 (PCR) Not detected Parainfluenza 2 (PCR) Not detected Parainfluenza 3 (PCR) Not detected Parainfluenza 4 (PCR) Not detected RSV (PCR) Not detected Entero/Rhino (PCR) Not detected 04/02/24 04/02/24 04/02/24 05:40 04:50 03:49 WBC 5.5 RBC 4.49 Hgb 13.7 D Hct 39.6 MCV 88.2 MCH 30.3 MCHC 34.3 RDW 13.5 Plt Count 75 L D MPV 10.1 Neut % (Auto) 43.2 Lymph % (Auto) 47.0 Potter % (Auto) 6.8 Eos % (Auto) 2.4 Baso % (Auto) 0.2 Neut # (Auto) 2.4 Lymph # (Auto) 2.6 Potter # (Auto) 0.4 Eos # (Auto) 0.1 Baso # (Auto) 0.0 Total Counted Neutrophils % (Manual) Lymphocytes % (Manual) Eosinophils % (Manual) Platelet Estimate RBC Morphology VBG pH VBG pCO2 VBG pO2 VBG HCO3 VBG Total CO2 VBG O2 Saturation VBG Base Excess VBG Lactic Acid Sodium 138 Potassium 4.5 Chloride 112 H Carbon Dioxide 15 L Anion Gap 15.5 H BUN 11 Creatinine 0.60 D Estimated Creat Clear 134 Estimated GFR 105 Est GFR ( Amer) 128 D Glucose 277 H D POC Glucose 271 H Hemoglobin A1c 9.8 H Lactate 1.6 Calcium 8.4 Total Bilirubin AST ALT Alkaline Phosphatase Troponin I 0.03 Total Protein Albumin Globulin Albumin/Globulin Ratio Lipase TSH 2.33 Free T4 Urine Color Urine Appearance Urine pH Ur Specific [place] Urine Protein Urine Glucose (UA) Urine Ketones Urine Blood Urine Nitrate Urine Bilirubin Urine Urobilinogen Ur Leukocyte Esterase Urine RBC Urine WBC Ur Squamous Epith Cells Urine Bacteria Urine Yeast Acetone Level Chlamy pneumoniae PCR Adenovirus (PCR) B. pertussis DNA (PCR) Coronavirus OC43 (PCR) Coronavirus HKU1 (PCR) Coronavirus 229E (PCR) SARS-CoV-2 (PCR) Coronavirus NL63 (PCR) Human Metapneumovir PCR Influenza A (H1) PCR Influ A (H1N1/09) PCR Influenza A (H3) PCR Influenza Type A (PCR) Influenza Type B (PCR) M. pneumoniae (PCR) Parainfluenza 1 (PCR) Parainfluenza 2 (PCR) Parainfluenza 3 (PCR) Parainfluenza 4 (PCR) RSV (PCR) Entero/Rhino (PCR) 04/02/24 04/02/24 04/01/24 02:15 01:02 23:25 WBC RBC Hgb Hct MCV MCH MCHC RDW Plt Count MPV Neut % (Auto) Lymph % (Auto) [place] % (Auto) Eos % (Auto) Baso % (Auto) Neut # (Auto) Lymph # (Auto) [place] # (Auto) Eos # (Auto) Baso # (Auto) Total Counted Neutrophils % (Manual) Lymphocytes % (Manual) Eosinophils % (Manual) Platelet Estimate RBC Morphology VBG pH 7.33 VBG pCO2 51.2 H VBG pO2 39.6 VBG HCO3 26.2 VBG Total CO2 27.8 H VBG O2 Saturation 76.0 H VBG Base Excess 0.2 VBG Lactic Acid 2.7 H Sodium Potassium Chloride Carbon Dioxide Anion Gap BUN Creatinine Estimated Creat Clear Estimated GFR Est GFR ( Amer) Glucose POC Glucose Hemoglobin A1c Lactate 2.6 H Calcium Total Bilirubin AST ALT Alkaline Phosphatase Troponin I 0.02 Total Protein Albumin Globulin Albumin/Globulin Ratio Lipase TSH Free T4 Urine Color Yellow Urine Appearance Clear Urine pH 6.0 Ur Specific [place] 1.020 Urine Protein Negative Urine Glucose (UA) 3+ Urine Ketones Negative Urine Blood Negative Urine Nitrate Negative Urine Bilirubin Negative Urine Urobilinogen 0.2 Ur Leukocyte Esterase Negative Urine RBC Occasional Urine WBC 3-5 Ur Squamous Epith Cells 10-20 Urine Bacteria Trace Urine Yeast 1+ Acetone Level Chlamy pneumoniae PCR Adenovirus (PCR) B. pertussis DNA (PCR) Coronavirus OC43 (PCR) Coronavirus HKU1 (PCR) Coronavirus 229E (PCR) SARS-CoV-2 (PCR) Coronavirus NL63 (PCR) Human Metapneumovir PCR Influenza A (H1) PCR Influ A (H1N1/09) PCR Influenza A (H3) PCR Influenza Type A (PCR) Influenza Type B (PCR) M. pneumoniae (PCR) Parainfluenza 1 (PCR) Parainfluenza 2 (PCR) Parainfluenza 3 (PCR) Parainfluenza 4 (PCR) RSV (PCR) Entero/Rhino (PCR) 04/01/24 04/01/24 23:12 23:09 WBC 5.6 RBC 4.98 Hgb 15.3 Hct 43.9 MCV 88.2 MCH 30.7 MCHC 34.9 RDW 13.4 Plt Count 257 MPV 9.6 Neut % (Auto) 39.6 Lymph % (Auto) 51.6 H Potter % (Auto) 5.0 Eos % (Auto) 2.8 Baso % (Auto) 0.5 Neut # (Auto) 2.2 Lymph # (Auto) 2.9 Potter # (Auto) 0.3 Eos # (Auto) 0.2 Baso # (Auto) 0.0 Total Counted 100 Neutrophils % (Manual) 36 L Lymphocytes % (Manual) 61 H Eosinophils % (Manual) 3 Platelet Estimate Normal RBC Morphology Normal VBG pH 7.30 L VBG pCO2 40.0 VBG pO2 34.2 VBG HCO3 19.4 L VBG Total CO2 20.6 L VBG O2 Saturation 66.6 VBG Base Excess -6.9 L VBG Lactic Acid 2.1 H Sodium 134 L Potassium 4.6 Chloride 98 Carbon Dioxide 26 Anion Gap 14.6 BUN 13 D Creatinine 0.80 D Estimated Creat Clear 89 Estimated GFR 76 Est GFR ( Amer) 92 D Glucose 500 H* POC Glucose Hemoglobin A1c Lactate Calcium 8.8 Total Bilirubin 0.7 AST 37 H ALT 36 Alkaline Phosphatase 88 Troponin I 0.03 Total Protein 7.7 Albumin 4.3 Globulin 3.4 H Albumin/Globulin Ratio 1.3 Lipase 139 TSH Free T4 Urine Color Urine Appearance Urine pH Ur Specific [place] Urine Protein Urine Glucose (UA) Urine Ketones Urine Blood Urine Nitrate Urine Bilirubin Urine Urobilinogen Ur Leukocyte Esterase Urine RBC Urine WBC Ur Squamous Epith Cells Urine Bacteria Urine Yeast Acetone Level Small Chlamy pneumoniae PCR Adenovirus (PCR) B. pertussis DNA (PCR) Coronavirus OC43 (PCR) Coronavirus HKU1 (PCR) Coronavirus 229E (PCR) SARS-CoV-2 (PCR) Coronavirus NL63 (PCR) Human Metapneumovir PCR Influenza A (H1) PCR Influ A (H1N1/09) PCR Influenza A (H3) PCR Influenza Type A (PCR) Influenza Type B (PCR) M. pneumoniae (PCR) Parainfluenza 1 (PCR) Parainfluenza 2 (PCR) Parainfluenza 3 (PCR) Parainfluenza 4 (PCR) RSV (PCR) Entero/Rhino (PCR) DS: Diagnosis Discharge Diagnosis (1) Hyperglycemia: Status: Acute Code(s): R73.9 - Hyperglycemia, unspecified (2) Diverticulosis: Status: Acute Code(s): K57.90 - Diverticulosis of intestine, part unspecified, without perforation or abscess without bleeding (3) Hepatomegaly: Status: Acute Code(s): R16.0 - Hepatomegaly, not elsewhere classified (4) Acidosis, lactic: Status: Acute Code(s): E87.20 - Acidosis, unspecified Meds Home Medications and Allergies Home Medications ?Medication ?Instructions ?Recorded ?Confirmed ?Type olanzapine 20 mg tablet 20 mg PO HS 05/04/21 04/02/24 History topiramate 50 mg tablet 50 mg PO BID Headaches 05/04/21 04/02/24 History venlafaxine 150 mg 150 mg PO DAILY MOOD 05/04/21 04/02/24 History capsule,extended release 24 hr aspirin 81 mg tablet,delayed 81 mg PO DAILY 07/19/22 04/02/24 History release (Adult Low Dose Aspirin) bupropion HCl 150 mg 24 hr tablet, 150 mg PO BID 07/19/22 04/02/24 History extended release (Wellbutrin XL) alprazolam 1 mg tablet 1 mg PO BIDP PRN Anxiety 08/08/22 04/02/24 History fluticasone 100 mcg-salmeterol 50 1 inh inhalation BIDRT COPD #60 ea 06/04/23 04/02/24 Rx mcg/dose blistr powdr for inhalation (Advair Diskus) insulin glargine 100 unit/mL (3 60 unit (0.6 mL) SQ HS Diabetes 06/04/23 04/02/24 Rx mL) subcutaneous pen #15 mL semaglutide 1 mg/dose (4 mg/3 mL) 1 mg (0.75 mL) SQ WEEKLY #3 mL 06/04/23 04/02/24 Rx subcutaneous pen injector (Ozempic) Dexcom G7 Sensor (blood-glucose #1 ea 06/22/23 04/01/24 Rx sensor) Dexcom G7 Inpatient Services Director (blood-glucose #1 ea 09/19/23 04/01/24 Rx meter,continuous) polyethylene glycol 3350 17 17 g PO BID #238 grams 12/05/23 04/02/24 Rx gram/dose oral powder (Miralax) ciprofloxacin HCl 500 mg tablet 500 mg PO BID 7 days #14 tabs 04/01/24 04/02/24 Rx metronidazole 500 mg tablet 500 mg PO TID 7 days #21 tabs 04/01/24 04/02/24 Rx blood-glucose meter #1 ea 04/02/24 Rx empagliflozin 25 mg tablet 25 mg PO DAILY 04/02/24 04/02/24 History (Jardiance) ergocalciferol (vitamin D2) 1,250 50,000 unit PO WEEKLY 04/02/24 04/02/24 History mcg (50,000 unit) capsule famotidine 20 mg tablet 20 mg PO DAILY 04/02/24 04/02/24 History fenofibric acid (choline) 135 mg 135 mg PO DAILY 04/02/24 04/02/24 History capsule,delayed release insulin lispro 100 unit/mL See Protocol SQ ACHS 30 days #10 mL 04/02/24 Rx subcutaneous solution (Humalog U-100 Insulin) lancets 30 gauge and blood glucose #200 ea 04/02/24 Rx strips combo pack pioglitazone 15 mg tablet 15 mg PO DAILYDM 04/02/24 04/02/24 History propranolol 10 mg tablet 10 mg PO TID Headaches 04/02/24 04/02/24 History rosuvastatin 40 mg tablet 40 mg PO HS 04/02/24 04/02/24 History sumatriptan succinate 100 mg tablet 100 mg PO DAILYP PRN MIGRAINE 04/02/24 04/02/24 History HEADACHES venlafaxine 75 mg capsule,extended 75 mg PO DAILY 04/02/24 04/02/24 History release 24 hr amoxicillin 875 mg-potassium 1 tab PO BID #20 tabs 04/08/24 04/08/24 Rx clavulanate 125 mg tablet ondansetron 4 mg disintegrating 4 mg PO QID PRN nausea and 04/08/24 04/08/24 Rx tablet vomiting #10 tabs New Prescriptions to Start Prescriptions: blood-glucose meter Grath Felix insulin lispro [Humalog U-100 Insulin] Garth Felix lancets-blood glucose strips Garth Felix Allergies Allergy/AdvReac Type Severity Reaction Status Date / Time adhesive tape Allergy Blister Verified 04/01/24 13:25 fluoxetine (From Prozac) Allergy Unknown Verified 04/01/24 13:25 allergy reaction latex Allergy Unknown Verified 04/01/24 13:25 allergy reaction quetiapine (From Seroquel) Allergy Unknown Verified 04/01/24 13:25 allergy reaction shellfish derived Allergy Anaphylaxis Verified 04/01/24 13:25 Discharge Plan Disposition Patient Disposition: Home, Self-Care Condition: Fair Follow up Plan Follow up with: Marcus Castellon MD [Staff Physician] - 04/11/24 10:20 am Prescriptions/Medication Reconciliation: New insulin lispro [Humalog U-100 Insulin] 100 unit/mL Solution See Protocol SQ ACHS 30 Days Qty: 10 0RF Protocol: Insulin Corrective Med-Dose Regimen Condition: Fingerstick Blood Glucose Dose/Route: Insulin Units Condition: 151-200 mg/dl Dose/Route: 2 units/SQ Condition: 201-250 mg/dl Dose/Route: 5 units/SQ Condition: 251-300 mg/dl Dose/Route: 8 units/SQ Condition: 301-350 mg/dl Dose/Route: 10 units/SQ Condition: 351-400 mg/dl Dose/Route: 12 units/SQ Condition: 401-450 mg/dl Dose/Route: 15 units/SQ Condition: > 450 mg/dl Dose/Route: CALL MD Protocol Text: Medium Intensity Sliding Scale Insulin Rx Instructions: Fingerstick Blood Glucose Insulin Units 151-200 mg/dl 2 units/SQ 201-250 mg/dl 5 units/SQ 251-300 mg/dl 8 units/SQ 301-350 mg/dl 10 units/SQ 351-400 mg/dl 12 units/SQ >401 mg/dl 15 units/SQ (DME) blood-glucose meter Kit See Rx Instructions .Route Qty: 1 0RF Rx Instructions: As directed (DME) lancets-blood glucose strips 30 gauge combo pack See Rx Instructions .Route Qty: 200 0RF Rx Instructions: As directed Continued bupropion HCl [Wellbutrin XL] 150 mg tablet extended release 24 hr 150 mg PO BID aspirin [Adult Low Dose Aspirin] 81 mg tablet,delayed release (DR/EC) 81 mg PO DAILY fluticasone propion-salmeterol [Advair Diskus] 100-50 mcg/dose blister with device 1 inh inhalation BIDRT Qty: 60 12RF insulin glargine 100 unit/mL (3 mL) insulin pen 60 unit SQ HS Qty: 15 12RF Rx Instructions: over 200 blood glucose patient takes 80 units Ozempic 1 mg/dose (4 mg/3 mL) pen injector 1 mg SQ WEEKLY Qty: 3 10RF (DME) Dexcom G7 Sensor Device See Rx Instructions .Route Qty: 1 2RF Rx Instructions: As directed ciprofloxacin HCl 500 mg tablet 500 mg PO BID 7 Days Qty: 14 0RF metronidazole 500 mg tablet 500 mg PO TID 7 Days Qty: 21 0RF Rx Instructions: hasn't started yet (DME) Dexcom G7 Inpatient Services Director Misc See Rx Instructions .Route Qty: 1 0RF Rx Instructions: As directed polyethylene glycol 3350 [Miralax] 17 gram/dose powder 17 g PO BID Qty: 238 10RF topiramate 50 MG tablet 50 mg PO BID venlafaxine 150 MG capsule,extended release 24hr 150 mg PO DAILY Rx Instructions: take with 75 mg for a total of 225mg. olanzapine 20 MG tablet 20 mg PO HS alprazolam 1 mg tablet 1 mg PO BIDP PRN (Reason: Anxiety) Patient Comments: TAKE 1 TABLET BY MOUTH TWICE DAILY NEEDED. venlafaxine 75 mg capsule,extended release 24hr 75 mg PO DAILY Rx Instructions: TAKE WITH VENLAFAXINE XR 150 MG DAILY FOR A TOTAL DOSE OF 225 MG DAILY sumatriptan succinate 100 mg tablet 100 mg PO DAILYP PRN (Reason: MIGRAINE HEADACHES) Patient Comments: TAKE 1 TABLET BY MOUTH ONCE NEEDED FOR MIGRAINE FOR UP TO 1 DOSE. pioglitazone 15 mg tablet 15 mg PO DAILYDM propranolol 10 mg tablet 10 mg PO TID famotidine 20 mg tablet 20 mg PO DAILY ergocalciferol (vitamin D2) 1,250 mcg (50,000 unit) capsule 50,000 unit PO WEEKLY rosuvastatin 40 mg tablet 40 mg PO HS fenofibric acid (choline) 135 mg capsule,delayed release(DR/EC) 135 mg PO DAILY Jardiance 25 mg tablet 25 mg PO DAILY No Action amoxicillin-pot clavulanate 875-125 mg tablet 1 tab PO BID Qty: 20 0RF ondansetron 4 mg tablet,disintegrating 4 mg PO QID PRN (Reason: nausea and vomiting) Qty: 10 0RF Problem Reconciliation Problems Reviewed?: Yes Patient Discharge Instructions Patient Instructions: DI for Hyperglycemia -- Adult Print Language: Bol[place]ian Providers Primary Care Provider: Provider,Referral Admit Provider: Garth Felix Attending Provider: Garth Felix
[2024-04-02 17:00] LABS: POC Glucose,Bedside 334 (70-110)
--- NOTE | 2024-04-03 10:42 | SW/DCPLANNER ---
Spoke with patient on the phone. Patient stated that she is doing good just tired. Patient stated that she is aware of her upcoming appointment. Patient stated that she was able to get one medicine picked up from clinic pharmacy but is getting the others at her pharmacy and is going today to get them picked up. Patient stated that she has no concerns or questions at this time. [employer]
== END 2024-04-02 17:20 | disposition home or self-care (01) ==
LOC: ER 04-02 01:22 → 2ND 04-02 01:38
PROVIDERS: Nurse Practitioner Family; Admitting Provider Student in an Organized Health Care Education/Training Program; Emergency Provider Emergency Medicine; Visit Provider Student in an Organized Health Care Education/Training Program
DX: E11.65 Type 2 diabetes mellitus with hyperglycemia (principal); K57.30 Diverticulosis of large intestine without perforation or abscess without bleeding; E87.21 Acute metabolic acidosis; R91.8 Other nonspecific abnormal finding of lung field; F17.210 Nicotine dependence, cigarettes, uncomplicated; J44.9 Chronic obstructive pulmonary disease, unspecified; N20.0 Calculus of kidney; F41.9 Anxiety disorder, unspecified; F32.9 Major depressive disorder, single episode, unspecified; K76.89 Other specified diseases of liver; E78.5 Hyperlipidemia, unspecified; Z79.84 Long term (current) use of oral hypoglycemic drugs; Z79.51 Long term (current) use of inhaled steroids; Z79.82 Long term (current) use of aspirin; Z79.85 Long-term (current) use of injectable non-insulin antidiabetic drugs; Z79.4 Long term (current) use of insulin; Z86.73 Personal history of transient ischemic attack (TIA), and cerebral infarction without residual deficits; Z85.41 Personal history of malignant neoplasm of cervix uteri; Z91.013 Allergy to seafood; Z91.040 Latex allergy status; Z88.8 Allergy status to other drugs, medicaments and biological substances; Z81.1 Family history of alcohol abuse and dependence; Z83.3 Family history of diabetes mellitus; Z81.8 Family history of other mental and behavioral disorders; Z80.9 Family history of malignant neoplasm, unspecified; Z82.5 Family history of asthma and other chronic lower respiratory diseases; Z82.49 Family history of ischemic heart disease and other diseases of the circulatory system
CPT/HCPCS: 71045; 74176; 80048; 80053; 81001; 82009; 82803; 82962; 83036; 83605; 83690; 84439; 84443; 84484; 85007; 85025; 85027; 87633; 93005; 99285; G0378; J2405; J7120

== ENCOUNTER 2024-04-07 19:51 | Emergency (ER) | payer MEDICAID, SELFPAY ==
--- NOTE | 2024-04-07 19:34 | [facility].EDGENADL ---
Discharge Plan Prescriptions Prescriptions: No Action bupropion HCl [Wellbutrin XL] 150 mg tablet extended release 24 hr 150 mg PO BID aspirin [Adult Low Dose Aspirin] 81 mg tablet,delayed release (DR/EC) 81 mg PO DAILY fluticasone propion-salmeterol [Advair Diskus] 100-50 mcg/dose blister with device 1 inh inhalation BIDRT Qty: 60 12RF insulin glargine 100 unit/mL (3 mL) insulin pen 60 unit SQ HS Qty: 15 12RF Rx Instructions: over 200 blood glucose patient takes 80 units Ozempic 1 mg/dose (4 mg/3 mL) pen injector 1 mg SQ WEEKLY Qty: 3 10RF (DME) Dexcom G7 Sensor Device See Rx Instructions .Route Qty: 1 2RF Rx Instructions: As directed ciprofloxacin HCl 500 mg tablet 500 mg PO BID 7 Days Qty: 14 0RF metronidazole 500 mg tablet 500 mg PO TID 7 Days Qty: 21 0RF Rx Instructions: hasn't started yet (DME) Dexcom G7 Switchboard Operator Supervisor Misc See Rx Instructions .Route Qty: 1 0RF Rx Instructions: As directed polyethylene glycol 3350 [Miralax] 17 gram/dose powder 17 g PO BID Qty: 238 10RF topiramate 50 MG tablet 50 mg PO BID venlafaxine 150 MG capsule,extended release 24hr 150 mg PO DAILY Rx Instructions: take with 75 mg for a total of 225mg. olanzapine 20 MG tablet 20 mg PO HS alprazolam 1 mg tablet 1 mg PO BIDP PRN (Reason: Anxiety) Patient Comments: TAKE 1 TABLET BY MOUTH TWICE DAILY NEEDED. venlafaxine 75 mg capsule,extended release 24hr 75 mg PO DAILY Rx Instructions: TAKE WITH VENLAFAXINE XR 150 MG DAILY FOR A TOTAL DOSE OF 225 MG DAILY sumatriptan succinate 100 mg tablet 100 mg PO DAILYP PRN (Reason: MIGRAINE HEADACHES) Patient Comments: TAKE 1 TABLET BY MOUTH ONCE NEEDED FOR MIGRAINE FOR UP TO 1 DOSE. pioglitazone 15 mg tablet 15 mg PO DAILYDM propranolol 10 mg tablet 10 mg PO TID famotidine 20 mg tablet 20 mg PO DAILY ergocalciferol (vitamin D2) 1,250 mcg (50,000 unit) capsule 50,000 unit PO WEEKLY rosuvastatin 40 mg tablet 40 mg PO HS fenofibric acid (choline) 135 mg capsule,delayed release(DR/EC) 135 mg PO DAILY Jardiance 25 mg tablet 25 mg PO DAILY insulin lispro [Humalog U-100 Insulin] 100 unit/mL Solution See Protocol SQ ACHS 30 Days Qty: 10 0RF Protocol: Insulin Corrective Med-Dose Regimen Condition: Fingerstick Blood Glucose Dose/Route: Insulin Units Condition: 151-200 mg/dl Dose/Route: 2 units/SQ Condition: 201-250 mg/dl Dose/Route: 5 units/SQ Condition: 251-300 mg/dl Dose/Route: 8 units/SQ Condition: 301-350 mg/dl Dose/Route: 10 units/SQ Condition: 351-400 mg/dl Dose/Route: 12 units/SQ Condition: 401-450 mg/dl Dose/Route: 15 units/SQ Condition: > 450 mg/dl Dose/Route: CALL MD Protocol Text: Medium Intensity Sliding Scale Insulin Rx Instructions: Fingerstick Blood Glucose Insulin Units 151-200 mg/dl 2 units/SQ 201-250 mg/dl 5 units/SQ 251-300 mg/dl 8 units/SQ 301-350 mg/dl 10 units/SQ 351-400 mg/dl 12 units/SQ >401 mg/dl 15 units/SQ (DME) blood-glucose meter Kit See Rx Instructions .Route Qty: 1 0RF Rx Instructions: As directed (DME) lancets-blood glucose strips 30 gauge combo pack See Rx Instructions .Route Qty: 200 0RF Rx Instructions: As directed Print Language Print Language: Setswana Discharge ED Provider: Fritz Phan General Adult HPI General Stated complaint: Abdominal Pain Related Data Home Medications ?Medication ?Instructions ?Recorded ?Confirmed olanzapine 20 mg tablet 20 mg PO HS 05/04/21 04/02/24 topiramate 50 mg tablet 50 mg PO BID Headaches 05/04/21 04/02/24 venlafaxine 150 mg 150 mg PO DAILY MOOD 05/04/21 04/02/24 capsule,extended release 24 hr aspirin 81 mg tablet,delayed 81 mg PO DAILY 07/19/22 04/02/24 release (Adult Low Dose Aspirin) bupropion HCl 150 mg 24 hr tablet, 150 mg PO BID 07/19/22 04/02/24 extended release (Wellbutrin XL) alprazolam 1 mg tablet 1 mg PO BIDP PRN Anxiety 08/08/22 04/02/24 empagliflozin 25 mg tablet 25 mg PO DAILY 04/02/24 04/02/24 (Jardiance) ergocalciferol (vitamin D2) 1,250 50,000 unit PO WEEKLY 04/02/24 04/02/24 mcg (50,000 unit) capsule famotidine 20 mg tablet 20 mg PO DAILY 04/02/24 04/02/24 fenofibric acid (choline) 135 mg 135 mg PO DAILY 04/02/24 04/02/24 capsule,delayed release pioglitazone 15 mg tablet 15 mg PO DAILYDM 04/02/24 04/02/24 propranolol 10 mg tablet 10 mg PO TID Headaches 04/02/24 04/02/24 rosuvastatin 40 mg tablet 40 mg PO HS 04/02/24 04/02/24 sumatriptan succinate 100 mg tablet 100 mg PO DAILYP PRN MIGRAINE 04/02/24 04/02/24 HEADACHES venlafaxine 75 mg capsule,extended 75 mg PO DAILY 04/02/24 04/02/24 release 24 hr Previous Rx's ?Medication ?Instructions ?Recorded fluticasone 100 mcg-salmeterol 50 1 inh inhalation BIDRT COPD #60 ea 06/04/23 mcg/dose blistr powdr for inhalation (Advair Diskus) insulin glargine 100 unit/mL (3 60 unit (0.6 mL) SQ HS Diabetes 06/04/23 mL) subcutaneous pen #15 mL semaglutide 1 mg/dose (4 mg/3 mL) 1 mg (0.75 mL) SQ WEEKLY #3 mL 06/04/23 subcutaneous pen injector (Ozempic) Dexcom G7 Sensor (blood-glucose #1 ea 06/22/23 sensor) Dexcom G7 Switchboard Operator Supervisor (blood-glucose #1 ea 09/19/23 meter,continuous) polyethylene glycol 3350 17 17 g PO BID #238 grams 12/05/23 gram/dose oral powder (Miralax) ciprofloxacin HCl 500 mg tablet 500 mg PO BID 7 days #14 tabs 04/01/24 metronidazole 500 mg tablet 500 mg PO TID 7 days #21 tabs 04/01/24 blood-glucose meter #1 ea 04/02/24 insulin lispro 100 unit/mL See Protocol SQ ACHS 30 days #10 mL 04/02/24 subcutaneous solution (Humalog U-100 Insulin) lancets 30 gauge and blood glucose #200 ea 04/02/24 strips combo pack Allergies Allergy/AdvReac Type Severity Reaction Status Date / Time adhesive tape Allergy Blister Verified 04/01/24 13:25 fluoxetine (From Prozac) Allergy Unknown Verified 04/01/24 13:25 allergy reaction latex Allergy Unknown Verified 04/01/24 13:25 allergy reaction quetiapine (From Seroquel) Allergy Unknown Verified 04/01/24 13:25 allergy reaction shellfish derived Allergy Anaphylaxis Verified 04/01/24 13:25 [facility] Disclaimer: The information contained in this section may have been updated after the patient was seen, as this information can be updated by other users. Medical History Dental caries Facial cellulitis Multiple personality Dyspnea on exertion Pneumothorax Anxiety disorder Advanced osteoarthritis of spine Major depression Migraine History of stroke Coronary artery disease Hyperlipidemia Irritable bowel syndrome (IBS) History of diverticulitis Asthma Cervical cancer Hilar lymphadenopathy Mediastinal lymphadenopathy Dyspnea on exertion History of asthma History of COPD Smoking greater than 30 pack years Multiple lung nodules on CT History of coronary angiogram Surgical History History of lung biopsy H/O laparoscopy History of tubal ligation Family History Father Alcoholism Asthma Coronary artery disease Diabetes FHx: mental illness Heart attack Hypertension Mother Anemia Asthma Coronary artery disease FHx: mental illness Hyperlipidemia Hypertension Grandmother Stroke Other Cancer Family history of COPD (chronic obstructive pulmonary disease) Family history of diabetes mellitus type II Social History (Updated 04/02/24 @ 02:02 by Mar Harvey RN) Smoking Status: Current every day smoker tobacco type: cigarettes packs per day: 2 years smoked: 35 second hand exposure: Yes alcohol intake: never substance use type: denies use current occupational status: disabled Travel in the last 8 weeks: None household members: none lives independently: Yes marital status: single pets and animals: Yes Other Medical History Have you received the Flu Vaccine for this season: No Have you received the Pneumonia Vaccine: No ROS Obtained: Yes Systems reviewed as appropriate & no additional complaints except as documented Physical Exam General General appearance: alert and in no apparent distress Head Head exam: atraumatic and normal inspection Eye Eye exam: Present normal appearance, PERRL and EOMI ENT ENT exam: Present normal exam, normal oropharynx and mucous membranes moist Neck Neck exam: Present normal inspection, full ROM and trachea midline; Absent lymphadenopathy Chest Chest inspection: Present normal inspection and symmetric chest wall rise Respiratory Respiratory exam: Present normal lung sounds bilaterally; Absent accessory muscle use Cardiovascular Cardiovascular exam: Present regular rate, normal rhythm, normal heart sounds, +S1 and +S2 Abdominal Exam Abdominal exam: Present soft and normal bowel sounds; Absent tenderness, guarding or rebound Extremities Exam Extremities exam: Present normal inspection and full ROM Neurological Exam Neurological exam: Present alert, oriented X3 and CN II-XII intact Psychiatric Psychiatric exam: Present normal affect and normal mood Skin Skin exam: Present warm, dry and normal color Lymphatic Lymphatic Findings: no adenopathy Medical Decision Making Medical Records Screening: Per USPSTF and CDC recommendations, given the prevalence of disease in our region, it is our hospital?s policy to screen for HIV and viral Hepatitis for all patients aged 18 and over and those with ongoing risk factors. Medical Decision Narrative: In summary patient is a [age, sex] who presents to the emergency department for evaluation of [complaint]. Patient is [hemodynamically stable/unstable] upon arrival, [febrile/afebrile]. [Unremarkable physical exam, nonfocal exam versus focal remarkable exam]. Differential diagnosis includes [DDx]. Initial workup will be conducted with [hematologic labs, imaging, respiratory swab, describe workup]. Initial interventions include [crystalloid bolus, medications, p.o. challenge, etc.] initial workup reviewed by me [hematologic labs are remarkable for... Imaging remarkable for... Urinalysis remarkable for]. Upon repeat evaluation [patient had acceptable resolution of symptoms, had persistent pain for which additional interventions were conducted (describe interventions), tolerated p.o., was ambulatory, etc.]. Given this [patient is appropriate for discharge at this time and will be discharged with a prescription for... The case was discussed with hospital medicine regarding management and they will admit the patient their service for continued evaluation at this time... Etc.] Places where you can increase complexity: I informally interpreted the patient's chest x-ray or CT read and is remarkable for... Documenting what the conveyor monitor shows with rate and rhythm Consideration of test but deferring. Ex: I considered chest x-ray on this patient however given that they have no oxygen requirement and are clear to auscultation all lung collier will be deferred. Social determinants of health: Given that patient is undomiciled increases complexity. Given that patient has polysubstance abuse compounds all aspects of care
[2024-04-07 19:56] VITALS: BP 111/75; PULSE 116; RESP 16; TEMP 37; O2SAT 95; BMI 28.1
--- NOTE | 2024-04-07 20:13 | ED_ITS ---
Discharge Plan Disposition Patient Disposition: Home, Self-Care Condition: Good Prescriptions Prescriptions: New amoxicillin-pot clavulanate 875-125 mg tablet 1 tab PO BID Qty: 20 0RF ondansetron 4 mg tablet,disintegrating 4 mg PO QID PRN (Reason: nausea and vomiting) Qty: 10 0RF No Action bupropion HCl [Wellbutrin XL] 150 mg tablet extended release 24 hr 150 mg PO BID aspirin [Adult Low Dose Aspirin] 81 mg tablet,delayed release (DR/EC) 81 mg PO DAILY fluticasone propion-salmeterol [Advair Diskus] 100-50 mcg/dose blister with device 1 inh inhalation BIDRT Qty: 60 12RF insulin glargine 100 unit/mL (3 mL) insulin pen 60 unit SQ HS Qty: 15 12RF Rx Instructions: over 200 blood glucose patient takes 80 units Ozempic 1 mg/dose (4 mg/3 mL) pen injector 1 mg SQ WEEKLY Qty: 3 10RF (DME) Dexcom G7 Sensor Device See Rx Instructions .Route Qty: 1 2RF Rx Instructions: As directed ciprofloxacin HCl 500 mg tablet 500 mg PO BID 7 Days Qty: 14 0RF metronidazole 500 mg tablet 500 mg PO TID 7 Days Qty: 21 0RF Rx Instructions: hasn't started yet (DME) Dexcom G7 [employer] Misc See Rx Instructions .Route Qty: 1 0RF Rx Instructions: As directed polyethylene glycol 3350 [Miralax] 17 gram/dose powder 17 g PO BID Qty: 238 10RF topiramate 50 MG tablet 50 mg PO BID venlafaxine 150 MG capsule,extended release 24hr 150 mg PO DAILY Rx Instructions: take with 75 mg for a total of 225mg. olanzapine 20 MG tablet 20 mg PO HS alprazolam 1 mg tablet 1 mg PO BIDP PRN (Reason: Anxiety) Patient Comments: TAKE 1 TABLET BY MOUTH TWICE DAILY NEEDED. venlafaxine 75 mg capsule,extended release 24hr 75 mg PO DAILY Rx Instructions: TAKE WITH VENLAFAXINE XR 150 MG DAILY FOR A TOTAL DOSE OF 225 MG DAILY sumatriptan succinate 100 mg tablet 100 mg PO DAILYP PRN (Reason: MIGRAINE HEADACHES) Patient Comments: TAKE 1 TABLET BY MOUTH ONCE NEEDED FOR MIGRAINE FOR UP TO 1 DOSE. pioglitazone 15 mg tablet 15 mg PO DAILYDM propranolol 10 mg tablet 10 mg PO TID famotidine 20 mg tablet 20 mg PO DAILY ergocalciferol (vitamin D2) 1,250 mcg (50,000 unit) capsule 50,000 unit PO WEEKLY rosuvastatin 40 mg tablet 40 mg PO HS fenofibric acid (choline) 135 mg capsule,delayed release(DR/EC) 135 mg PO DAILY Jardiance 25 mg tablet 25 mg PO DAILY insulin lispro [Humalog U-100 Insulin] 100 unit/mL Solution See Protocol SQ ACHS 30 Days Qty: 10 0RF Protocol: Insulin Corrective Med-Dose Regimen Condition: Fingerstick Blood Glucose Dose/Route: Insulin Units Condition: 151-200 mg/dl Dose/Route: 2 units/SQ Condition: 201-250 mg/dl Dose/Route: 5 units/SQ Condition: 251-300 mg/dl Dose/Route: 8 units/SQ Condition: 301-350 mg/dl Dose/Route: 10 units/SQ Condition: 351-400 mg/dl Dose/Route: 12 units/SQ Condition: 401-450 mg/dl Dose/Route: 15 units/SQ Condition: > 450 mg/dl Dose/Route: CALL MD Protocol Text: Medium Intensity Sliding Scale Insulin Rx Instructions: Fingerstick Blood Glucose Insulin Units 151-200 mg/dl 2 units/SQ 201-250 mg/dl 5 units/SQ 251-300 mg/dl 8 units/SQ 301-350 mg/dl 10 units/SQ 351-400 mg/dl 12 units/SQ >401 mg/dl 15 units/SQ (DME) blood-glucose meter Kit See Rx Instructions .Route Qty: 1 0RF Rx Instructions: As directed (DME) lancets-blood glucose strips 30 gauge combo pack See Rx Instructions .Route Qty: 200 0RF Rx Instructions: As directed Referrals Follow up/Referrals: Octaviano Marinelli MD [Staff Physician] - See instructions ProviderDakota MD [Referring] - See instructions Activity Restrictions/Add. Instructions Additional Instructions/Restrictions: I have prescribed you open for your diverticulitis. Follow-up with your PCP within 48 hours for recheck of your labs. If you have worsening signs or symptoms return to the ER including increasing pain inability to tolerate oral intake inability to pass stool or noticing blood in your stool. I have also referred you to general surgery for follow-up of diverticulitis. Please call tomorrow make your appointment. Clinical Impressions Clinical Impression: Diverticulitis of sigmoid colon Instructions Patient Instructions: DI for Acute Abdominal Pain Print Language Print Language: Albanian Discharge ED Provider: Fritz Phan General Adult HPI <BONNY Adams - Last Filed: 04/07/24 22:37> General Chief complaint: Abdominal Pain Stated complaint: Abdominal Pain Time Seen by Provider: 04/07/24 20:13 Mode of Arrival: EMS Source of Information: Patient and EMS Limitations: No Limitations Description of Symptoms (Recalled from ER Triage Doc. by RN): Pt presents with C/O LLQ pain that began today. Pt reports N/V been going on since approx 3 days. Pt reports decrease in urine output and no reported bowel movement x6 days. EMS reports 100mcg IM fentanyl and 4 mg PO zofran. Seen in this ED this past Sunday for increase BG. Pt AOx4, NAD noted, RR even and non labored, skin pwd. History of Present Illness HPI narrative: Patient presents for nausea vomiting and left lower quadrant pain. Patient reports that she was admitted for hyperglycemia last week and discharged in 24 hours. She followed up with her PCP for left lower quadrant abdominal pain and was diagnosed with diverticulitis and prescribed Levaquin and Flagyl. She has been taking that however over the last 3 days she has had increasing left lower quadrant abdominal pain and has not had a bowel movement for 6 days. She denies any fever chills hemoptysis hematochezia melena hematemesis hematuria. Related Data Home Medications ?Medication ?Instructions ?Recorded ?Confirmed olanzapine 20 mg tablet 20 mg PO HS 05/04/21 04/02/24 topiramate 50 mg tablet 50 mg PO BID Headaches 05/04/21 04/02/24 venlafaxine 150 mg 150 mg PO DAILY MOOD 05/04/21 04/02/24 capsule,extended release 24 hr aspirin 81 mg tablet,delayed 81 mg PO DAILY 07/19/22 04/02/24 release (Adult Low Dose Aspirin) bupropion HCl 150 mg 24 hr tablet, 150 mg PO BID 07/19/22 04/02/24 extended release (Wellbutrin XL) alprazolam 1 mg tablet 1 mg PO BIDP PRN Anxiety 08/08/22 04/02/24 empagliflozin 25 mg tablet 25 mg PO DAILY 04/02/24 04/02/24 (Jardiance) ergocalciferol (vitamin D2) 1,250 50,000 unit PO WEEKLY 04/02/24 04/02/24 mcg (50,000 unit) capsule famotidine 20 mg tablet 20 mg PO DAILY 04/02/24 04/02/24 fenofibric acid (choline) 135 mg 135 mg PO DAILY 04/02/24 04/02/24 capsule,delayed release pioglitazone 15 mg tablet 15 mg PO DAILYDM 04/02/24 04/02/24 propranolol 10 mg tablet 10 mg PO TID Headaches 04/02/24 04/02/24 rosuvastatin 40 mg tablet 40 mg PO HS 04/02/24 04/02/24 sumatriptan succinate 100 mg tablet 100 mg PO DAILYP PRN MIGRAINE 04/02/24 04/02/24 HEADACHES venlafaxine 75 mg capsule,extended 75 mg PO DAILY 04/02/24 04/02/24 release 24 hr Previous Rx's ?Medication ?Instructions ?Recorded fluticasone 100 mcg-salmeterol 50 1 inh inhalation BIDRT COPD #60 ea 06/04/23 mcg/dose blistr powdr for inhalation (Advair Diskus) insulin glargine 100 unit/mL (3 60 unit (0.6 mL) SQ HS Diabetes 06/04/23 mL) subcutaneous pen #15 mL semaglutide 1 mg/dose (4 mg/3 mL) 1 mg (0.75 mL) SQ WEEKLY #3 mL 06/04/23 subcutaneous pen injector (Ozempic) Dexcom G7 Sensor (blood-glucose #1 ea 06/22/23 sensor) Dexcom G7 [employer] (blood-glucose #1 ea 09/19/23 meter,continuous) polyethylene glycol 3350 17 17 g PO BID #238 grams 12/05/23 gram/dose oral powder (Miralax) ciprofloxacin HCl 500 mg tablet 500 mg PO BID 7 days #14 tabs 04/01/24 metronidazole 500 mg tablet 500 mg PO TID 7 days #21 tabs 04/01/24 blood-glucose meter #1 ea 04/02/24 insulin lispro 100 unit/mL See Protocol SQ ACHS 30 days #10 mL 04/02/24 subcutaneous solution (Humalog U-100 Insulin) lancets 30 gauge and blood glucose #200 ea 04/02/24 strips combo pack amoxicillin 875 mg-potassium 1 tab PO BID #20 tabs 04/07/24 clavulanate 125 mg tablet ondansetron 4 mg disintegrating 4 mg PO QID PRN nausea and 04/07/24 tablet vomiting #10 tabs Allergies Allergy/AdvReac Type Severity Reaction Status Date / Time adhesive tape Allergy Blister Verified 04/01/24 13:25 fluoxetine (From Prozac) Allergy Unknown Verified 04/01/24 13:25 allergy reaction latex Allergy Unknown Verified 04/01/24 13:25 allergy reaction quetiapine (From Seroquel) Allergy Unknown Verified 04/01/24 13:25 allergy reaction shellfish derived Allergy Anaphylaxis Verified 04/01/24 13:25 [facility] <BONNY Adams - Last Filed: 04/07/24 22:37> [facility] Disclaimer: The information contained in this section may have been updated after the patient was seen, as this information can be updated by other users. Medical History Dental caries Facial cellulitis Multiple personality Dyspnea on exertion Pneumothorax Anxiety disorder Advanced osteoarthritis of spine Major depression Migraine History of stroke Coronary artery disease Hyperlipidemia Irritable bowel syndrome (IBS) History of diverticulitis Asthma Cervical cancer Hilar lymphadenopathy Mediastinal lymphadenopathy Dyspnea on exertion History of asthma History of COPD Smoking greater than 30 pack years Multiple lung nodules on CT History of coronary angiogram Surgical History History of lung biopsy H/O laparoscopy History of tubal ligation Family History Father Alcoholism Asthma Coronary artery disease Diabetes FHx: mental illness Heart attack Hypertension Mother Anemia Asthma Coronary artery disease FHx: mental illness Hyperlipidemia Hypertension Grandmother Stroke Other Cancer Family history of COPD (chronic obstructive pulmonary disease) Family history of diabetes mellitus type II Social History (Updated 04/02/24 @ 02:02 by Mar Harvey RN) Smoking Status: Heavy tobacco smoker tobacco type: cigarettes packs per day: 2 years smoked: 35 second hand exposure: Yes alcohol intake: never substance use type: denies use current occupational status: disabled Travel in the last 8 weeks: None household members: none lives independently: Yes marital status: single pets and animals: Yes Have you lived/traveled outside [place] in past 30 days?: No Contact w/someone who lives/traveled outside [place] past 30 days?: No Exposure to someone with infectious disease in past 14 days?: No Do you have a fever (greater than 100.4 F or 38 C)?: No Have you tested positive for COVID-19: No Exposed to someone with COVID-19 in past 14 days?: No Do you have a sore throat?: No Do you have a cough?: No Do you have any weakness?: No Do you have any diarrhea?: No Are you experiencing any unusual bleeding?: No Do you have any muscle aches/pain?: No Do you have any abdominal pain?: Yes Are you experiencing loss of taste or smell?: No Other Medical History Have you received the Flu Vaccine for this season: No Have you received the Pneumonia Vaccine: No <BONNY Adams - Last Filed: 04/07/24 22:37> ROS Obtained: Yes Systems reviewed as appropriate & no additional complaints except as documented Physical Exam <BONNY Adams - Last Filed: 04/07/24 22:37> General General appearance: alert Respiratory Respiratory exam: Present normal lung sounds bilaterally Cardiovascular Cardiovascular exam: Present tachycardia Neurological Exam Neurological exam: Present alert and oriented X3 Medical Decision Making <BONNY Adams - Last Filed: 04/07/24 22:37> Medical Records Medical records reviewed: Yes I reviewed the patient's medical records. Screening: Per USPSTF and CDC recommendations, given the prevalence of disease in our region, it is our hospital?s policy to screen for HIV and viral Hepatitis for all patients aged 18 and over and those with ongoing risk factors. Kristofer Inquiry Pt receiving controlled substance: No Vital Signs: 04/07/24 19:56 04/07/24 22:36 04/07/24 23:26 Temperature 98.6 F 98 F Temperature Source Oral Oral Pulse Rate 99 H 98 H Pulse Rate [Radial] 116 H Respiratory Rate 16 16 16 Blood Pressure 101/57 L 120/58 L Blood Pressure [Right Arm] 111/75 Blood Pressure Mean [Right Arm] 87 Blood Pressure Position Sitting Blood Pressure Position [Right Arm] Sitting 02 Sat by Pulse Oximetry 95 97 Oxygen Delivery Method Room Air Room Air Lab Data Lab results reviewed: Yes I reviewed the patient's lab results. Lab Results 04/07/24 20:10: WBC 13.5 H, RBC 5.88 H, Hgb 17.8 H, Hct 52.4 H, MCV 89.1, MCH 30.3, MCHC 34.0, RDW 13.9, Plt Count 313, MPV 9.4, Neut % (Auto) 74.9, Lymph % (Auto) 17.4, [facility] [facility] [place] [facility] % (Auto) 6.3, Eos % (Auto) 0.7, Baso % (Auto) 0.3, Neut # (Auto) 10.1 H, Lymph # (Auto) 2.3, [facility] [place] [facility] # (Auto) 0.9, Eos # (Auto) 0.1, Baso # (Auto) 0.0, Sodium 136, Potassium 4.3, Chloride 96 L, Carbon Dioxide 24, Anion Gap 20.3 H, BUN 31 H, Creatinine 1.10 H, Estimated Creat Clear 69, Estimated GFR 52 L, Est GFR ( Amer) 63, Glucose 240 H, Calcium 10.3 H, Magnesium 1.9, Total Bilirubin 0.9, AST 98 H, ALT 104 H, Alkaline Phosphatase 85, Total Protein 9.0 H, Albumin 5.2 H, Globulin 3.8 H, Albumin/Globulin Ratio 1.4, Lipase 85 04/07/24 21:38: Urine Color Yellow, Urine Appearance Clear, Urine pH 5.5, Ur Specific Carpenter 1.020, Urine Protein Negative, Urine Glucose (UA) 3+, Urine Ketones Trace, Urine Blood Negative, Urine Nitrate Negative, Urine Bilirubin Negative, Urine Urobilinogen 0.2, Ur Leukocyte Esterase Negative, Urine WBC 3-5, Ur Squamous Epith Cells 10-20, Urine Bacteria 1+, Hyaline Casts 5-10 04/07/24 20:10 04/07/24 20:10 Orders (Tests/Meds): ED MEDICATIONS Discontinued Medications Generic Name Dose Route Start Last Admin Trade Name Freq PRN Reason Stop Dose Admin Acetaminophen 1,000 mg 04/07/24 20:20 04/07/24 20:29 Acetaminophen 1,000mg/100ml Vial IV 04/07/24 20:21 1,000 mg ONCE ONE Administration Amoxicillin/Clavulanate Potassium 1 each 04/07/24 22:26 04/07/24 22:38 Amoxicillin/Clavulanate Potassium 875/125mg Tablet PO 04/07/24 22:27 1 each ONCE ONE Administration Sodium Chloride 1,000 mls @ 999 mls/hr 04/07/24 20:20 04/07/24 20:31 Sod Chlor 0.9% 1000ml Bag IV 04/07/24 21:20 999 mls/hr .Q1H1M ONE Administration Iopamidol 75 ml 04/07/24 20:42 04/07/24 20:44 Iopamidol-370 (76%);100ml Bottle IV 04/07/24 20:43 75 ml ONCE ONE Administration Ketorolac Tromethamine 15 mg 04/07/24 20:20 04/07/24 20:30 Ketorolac 30mg/Ml Vial IV 04/07/24 20:21 15 mg ONCE ONE Administration Ondansetron HCl 4 mg 04/07/24 20:20 04/07/24 20:29 Ondansetron 4mg/2ml Vial IV 04/07/24 20:21 4 mg ONCE ONE Administration Sodium Chloride 10 ml 04/07/24 20:42 04/07/24 20:44 Sodium Chloride 0.9% 10ml Syr (Rad Only) IV 05/07/24 20:41 10 ml NEEDED PRN Administration Maintain IV Site ORDERS Category Date Time Status CT abdomen pelvis w con Stat Cat Scan 04/07/24 20:15 Completed CBC w/Auto Diff [Complete Blood Count Auto Diff] Stat Lab 04/07/24 20:10 Completed CMP [Comprehensive Metabolic Panel] Stat Lab 04/07/24 20:10 Completed Lipase Stat Lab 04/07/24 20:10 Completed Magnesium Stat Lab 04/07/24 20:10 Completed UA [Urinalysis and Microscopic] Stat Lab 04/07/24 21:38 Completed Medical Decision Narrative: In summary patient is a 3-year-old female who presents to the emergency department for evaluation of left lower quadrant abdominal pain nausea vomiting and no bowel movement for 6 days. Patient is normotensive at 111/75 tachycardic at 116 with sinus tachycardia on the bedside monitor breathing 16 times a minute satting at 95% on room air with a temperature of 98.6 upon arrival. Physical exam is remarkable for focal left lower quadrant tenderness without rebound or guarding or rigidity. Bowel sounds normal active.. Differential diagnosis includes failure outpatient treatment of diverticulitis versus constipation versus versus kidney stone versus kidney infection versus ovarian cyst etc. Initial workup will be conducted with hematologic labs CT scan abdomen pelvis urinalysis.. Initial interventions include crystalloid bolus Toradol Tylenol Zofran. Initial workup reviewed by me and her hematologic labs are significant for white count of 13.5 with a neutrophilic shift of 10.1 gap is 20 creatinine is 1.1 CO2 is 24 glucose is 240 calcium 10.3 bilirubin 0.9 AST is 98 ALT is 104 lipase is 85 urinalysis is bland and my informal interpretation of her CT scan abdomen pelvis shows sigmoid diverticulitis without evidence of perforation or abscess. Upon repeat evaluation patient reports improvement in her pain and is tolerating oral intake and her heart rate is now in the 90s.. Given this we will change patient's antibiotics from Levaquin and Flagyl to Augmentin with first dose given here and prescription sent to her pharmacy follow-up with her PCP within 48 hours for recheck and referral to general surgery for evaluation of her diverticulitis for possible surgical intervention. <Fritz Phan MD - Last Filed: 04/07/24 23:35> Vital Signs: 04/07/24 19:56 04/07/24 22:36 04/07/24 23:26 Temperature 98.6 F 98 F Temperature Source Oral Oral Pulse Rate 99 H 98 H Pulse Rate [Radial] 116 H Respiratory Rate 16 16 16 Blood Pressure 101/57 L 120/58 L Blood Pressure [Right Arm] 111/75 Blood Pressure Mean [Right Arm] 87 Blood Pressure Position Sitting Blood Pressure Position [Right Arm] Sitting 02 Sat by Pulse Oximetry 95 97 Oxygen Delivery Method Room Air Room Air Lab Data Lab Results 04/07/24 20:10: WBC 13.5 H, RBC 5.88 H, Hgb 17.8 H, Hct 52.4 H, MCV 89.1, MCH 30.3, MCHC 34.0, RDW 13.9, Plt Count 313, MPV 9.4, Neut % (Auto) 74.9, Lymph % (Auto) 17.4, [facility] [place] [facility] % (Auto) 6.3, Eos % (Auto) 0.7, Baso % (Auto) 0.3, Neut # (Auto) 10.1 H, Lymph # (Auto) 2.3, [facility] [place] [facility] # (Auto) 0.9, Eos # (Auto) 0.1, Baso # (Auto) 0.0, Sodium 136, Potassium 4.3, Chloride 96 L, Carbon Dioxide 24, Anion Gap 20.3 H, BUN 31 H, Creatinine 1.10 H, Estimated Creat Clear 69, Estimated GFR 52 L, Est GFR ( Amer) 63, Glucose 240 H, Calcium 10.3 H, Magnesium 1.9, Total Bilirubin 0.9, AST 98 H, ALT 104 H, Alkaline Phosphatase 85, Total Protein 9.0 H, Albumin 5.2 H, Globulin 3.8 H, Albumin/Globulin Ratio 1.4, Lipase 85 04/07/24 21:38: Urine Color Yellow, Urine Appearance Clear, Urine pH 5.5, Ur Specific Carpenter 1.020, Urine Protein Negative, Urine Glucose (UA) 3+, Urine Ketones Trace, Urine Blood Negative, Urine Nitrate Negative, Urine Bilirubin Negative, Urine Urobilinogen 0.2, Ur Leukocyte Esterase Negative, Urine WBC 3-5, Ur Squamous Epith Cells 10-20, Urine Bacteria 1+, Hyaline Casts 5-10 Orders (Tests/Meds): ED MEDICATIONS Discontinued Medications Generic Name Dose Route Start Last Admin Trade Name Rony PRN Reason Stop Dose Admin Acetaminophen 1,000 mg 04/07/24 20:20 04/07/24 20:29 Acetaminophen 1,000mg/100ml Vial IV 04/07/24 20:21 1,000 mg ONCE ONE Administration Amoxicillin/Clavulanate Potassium 1 each 04/07/24 22:26 04/07/24 22:38 Amoxicillin/Clavulanate Potassium 875/125mg Tablet PO 04/07/24 22:27 1 each ONCE ONE Administration Sodium Chloride 1,000 mls @ 999 mls/hr 04/07/24 20:20 04/07/24 20:31 Sod Chlor 0.9% 1000ml Bag IV 04/07/24 21:20 999 mls/hr .Q1H1M ONE Administration Iopamidol 75 ml 04/07/24 20:42 04/07/24 20:44 Iopamidol-370 (76%);100ml Bottle IV 04/07/24 20:43 75 ml ONCE ONE Administration Ketorolac Tromethamine 15 mg 04/07/24 20:20 04/07/24 20:30 Ketorolac 30mg/Ml Vial IV 04/07/24 20:21 15 mg ONCE ONE Administration Ondansetron HCl 4 mg 04/07/24 20:20 04/07/24 20:29 Ondansetron 4mg/2ml Vial IV 04/07/24 20:21 4 mg ONCE ONE Administration Sodium Chloride 10 ml 04/07/24 20:42 04/07/24 20:44 Sodium Chloride 0.9% 10ml Syr (Rad Only) IV 05/07/24 20:41 10 ml NEEDED PRN Administration Maintain IV Site ORDERS Category Date Time Status CT abdomen pelvis w con Stat Cat Scan 04/07/24 20:15 Completed CBC w/Auto Diff [Complete Blood Count Auto Diff] Stat Lab 04/07/24 20:10 Completed CMP [Comprehensive Metabolic Panel] Stat Lab 04/07/24 20:10 Completed Lipase Stat Lab 04/07/24 20:10 Completed Magnesium Stat Lab 04/07/24 20:10 Completed UA [Urinalysis and Microscopic] Stat Lab 04/07/24 21:38 Completed Medical Decision Narrative: In summary patient is a 3-year-old female who presents to the emergency department for evaluation of left lower quadrant abdominal pain nausea vomiting and no bowel movement for 6 days. Patient is normotensive at 111/75 tachycardic at 116 with sinus tachycardia on the bedside monitor breathing 16 times a minute satting at 95% on room air with a temperature of 98.6 upon arrival. Physical exam is remarkable for focal left lower quadrant tenderness without rebound or guarding or rigidity. Bowel sounds normal active.. Differential diagnosis includes failure outpatient treatment of diverticulitis versus constipation versus versus kidney stone versus kidney infection versus ovarian cyst etc. Initial workup will be conducted with hematologic labs CT scan abdomen pelvis urinalysis.. Initial interventions include crystalloid bolus Toradol Tylenol Zofran. Initial workup reviewed by me and her hematologic labs are significant for white count of 13.5 with a neutrophilic shift of 10.1 gap is 20 creatinine is 1.1 CO2 is 24 glucose is 240 calcium 10.3 bilirubin 0.9 AST is 98 ALT is 104 lipase is 85 urinalysis is bland and my informal interpretation of her CT scan abdomen pelvis shows sigmoid diverticulitis without evidence of perforation or abscess. Upon repeat evaluation patient reports improvement in her pain and is tolerating oral intake and her heart rate is now in the 90s.. Given this we will change patient's antibiotics from Levaquin and Flagyl to Augmentin with first dose given here and prescription sent to her pharmacy follow-up with her PCP within 48 hours for recheck and referral to general surgery for evaluation of her diverticulitis for possible surgical intervention. I was consulted by the JIM, and we discussed the complexity of the problems being addressed. I approved the treatment and management plan for this patient's care in the Emergency Department, thus performing a substantive portion of the medical decision making. Fritz Phan MD Critical Care <BONNY Adams - Last Filed: 04/07/24 22:37> Critical Care Time Critical Care Time: No
--- NOTE | 2024-04-07 20:15 | CT_ITS ---
PROCEDURE INFORMATION: Exam: CT Abdomen And Pelvis With Contrast Exam date and time: 04/07/2024 8:44 PM Age: 53 years old Clinical indication: Nausea and vomiting; Additional info: Nausea vomiting diarrhea and abdominal pain TECHNIQUE: Imaging protocol: Computed tomography of the abdomen and pelvis with contrast. Radiation optimization: All CT scans at this facility use at least one of these dose optimization techniques: automated exposure control; mA and/or kV adjustment per patient size (includes targeted exams where dose is matched to clinical indication); or iterative reconstruction. Contrast material: ISOVUE; Contrast volume: 75 ml; Contrast route: IV; COMPARISON: CT ABDOMEN PELVIS WO CON 12/21/2024 23:39 FINDINGS: Lungs: Mild scarring and atelectasis in the lower lungs. There is a 5 mm right lower lobe pulmonary nodule image 7 series 5 unchanged since at least 2021. Liver: Hepatic steatosis. Gallbladder and biliary ducts: Normal. No calcified stones. No ductal dilation. Pancreas: Normal. No ductal dilation. Spleen: Normal. No splenomegaly. Adrenal glands: Normal. No mass. Kidneys and ureters: [id number] right renal scarring. Stomach and bowel: Nonspecific bowel wall thickening of portions of small bowel and colon. Moderate sigmoid diverticulosis with suggestion of focal edema surrounding a diverticulum on image 82 series 5. There is no correlate on sagittal or coronal reconstruction images suggesting that this appearance is most likely volume averaging artifact. Appendix: Unremarkable appendix. Intraperitoneal space: Unremarkable. No free air. No significant fluid collection. Vasculature: The arteries demonstrate mild atherosclerotic disease. Lymph nodes: Unremarkable. No enlarged lymph nodes. Urinary bladder: Unremarkable as visualized. Reproductive: Unremarkable as visualized. Bones/joints: Unremarkable. No acute fracture. Soft tissues: Unremarkable. IMPRESSION: 1. Nonspecific bowel wall thickening of portions of small bowel and colon. Please correlate for evidence of enterocolitis. 2. Hepatic steatosis.
[2024-04-07] MEDS: ONDANSETRON 4MG/2ML VIAL 4 MG IV (20:29)
[2024-04-07] MEDS: ACETAMINOPHEN 1,000MG/100ML VIAL 1000 MG IV (20:29)
[2024-04-07] MEDS: KETOROLAC 30MG/ML VIAL 15 MG IV (20:30)
[2024-04-07] MEDS: 0.9 % SODIUM CHLORIDE 1000ML 1,000 ML 999 ML IV (20:31)
[2024-04-07 20:37] LABS: Basophils % 0.3 % (0.1-2.0); Eosinophils # 0.1 K/mm3 (0.0-0.4); Eosinophils % 0.7 % (0.1-12.0); Hematocrit 52.4 % (37.0-47.0); Hemoglobin 17.8 g/dL (12.2-16.2); Lymphocytes # 2.3 K/mm3 (0.7-4.5); Lymphocytes % 17.4 % (10-50); Mean Corpuscular Hemoglobin 30.3 pg (27.0-31.2); Mean Corpuscular Volume 89.1 fl (81-99); Mean Platelet Volume 9.4 fl (7.4-10.4); Monocytes # 0.9 K/mm3 (0.1-1.0); Monocytes % 6.3 % (1.7-9.3); Neutrophils # 10.1 K/mm3 (1.8-7.8); Neutrophils % 74.9 % (37.0-80.0); Platelet Count 313 K/mm3 (142-424); Red Blood Count 5.88 M/mm3 (4.20-5.40); Red Cell Distribution Width 13.9 % (11.5-17.5); White Blood Count 13.5 K/mm3 (4.8-10.8)
[2024-04-07 20:43] LABS: Albumin Level 5.2 g/dl (3.5-5.0); Chloride 96 mmol/L (98-107); Potassium 4.3 mmoL/L (3.5-5.1); Sodium 136 mmol/L (136-145)
[2024-04-07] MEDS: IOPAMIDOL-370 (76%);100ML BOTTLE 75 ML IV (20:44)
[2024-04-07] MEDS: SODIUM CHLORIDE 0.9% 10ML SYR (RAD ONLY) 10 ML IV (20:44)
[2024-04-07 20:46] LABS: Alanine Aminotransferase 104 U/L (12-78); Albumin/Globulin Ratio 1.4 (1.1-1.8); Alkaline Phosphatase 85 U/L (38-126); Anion Gap 20.3 mEq/L (5-15); Aspartate Amino Transferase 98 U/L (14-36); Bilirubin,Total 0.9 mg/dl (0.2-1.3); Blood Urea Nitrogen 31 mg/dl (7-17); Calcium 10.3 mg/dl (8.4-10.2); Carbon Dioxide 24 mmol/L (22.0-30.0); Creatinine Clearance Estimated 69 mL/min (50-200); Estimated Glomerular Filt Rate 52 ml/min (>60); GFR (African American) 63 ML/MIN (>60); Globulin 3.8 g/dL (1.3-3.2); Glucose 240 mg/dl (74-100); Lipase 85 U/L (23-300)
[2024-04-07 20:47] LABS: Magnesium 1.9 mg/dl (1.6-2.3)
--- NOTE | 2024-04-07 20:49 | PC.NURSE ---
urine cup taken to patients assignment at this time. Pt not in chair, will continue to check,
--- NOTE | 2024-04-07 21:05 | PC.NURSE ---
Pt aware of need for urine for testing. Reports that she is unable to provide urine sample at this time.
--- NOTE | 2024-04-07 21:33 | PC.NURSE ---
pt ambulatory to restroom to attempt to provide urine for testing.
[2024-04-07 21:44] LABS: Microscopic, Urine URINE MICROSCOPIC (MICROSCOPIC)
[2024-04-07 22:13] LABS: Appearance,Urine CLEAR (Clear); Blood, Urine Negative (Negative); Color,Urine YELLOW (Yellow); Glucose,Urine (UA) 3+ (Negative); Ketones,Urine TRACE (Negative); Leukocyte Esterase,Urine Negative (Negative); Nitrate,Urine Negative (Negative); PH,Urine 5.5 (5.0-8.5); Protein,Urine Negative (Negative); Urobilinogen,Urine 0.2 EU/dl (0.2)
[2024-04-07 22:32] LABS: Bilirubin,Urine Negative (Negative)
[2024-04-07 22:36] VITALS: BP 101/57; PULSE 99; RESP 16; O2SAT 97
[2024-04-07] MEDS: AMOXICILLIN/CLAVULANATE POTASSIUM 875/125MG TABLET 1 EACH PO (22:38)
[2024-04-07 22:41] LABS: Bacteria,Urine 1+ /lpf
[2024-04-07 23:26] VITALS: BP 120/58; PULSE 98; RESP 16; TEMP 36.6; O2SAT 100
== END 2024-04-07 23:27 | disposition home or self-care (01) ==
PROVIDERS: Physician Assistant; Emergency Provider Emergency Medicine; PCP Family Medicine
DX: K57.30 Diverticulosis of large intestine without perforation or abscess without bleeding (principal); R10.32 Left lower quadrant pain; R11.2 Nausea with vomiting, unspecified; R34 Anuria and oliguria; K59.00 Constipation, unspecified
CPT/HCPCS: 74177; 80053; 81001; 83690; 83735; 85025; 96365; 96374; 96375; 99285; J0131; J1885; J2405; J7030; Q9967

== ENCOUNTER 2024-04-08 00:46 | Emergency (ER) | payer MEDICAID, SELFPAY ==
[2024-04-08 00:48] VITALS: BP 116/75; PULSE 112; RESP 18; TEMP 36.6; O2SAT 98; BMI 28.1
--- NOTE | 2024-04-08 01:01 | ED_ITS ---
Discharge Plan Disposition Patient Disposition: Home, Self-Care Prescriptions Prescriptions: No Action bupropion HCl [Wellbutrin XL] 150 mg tablet extended release 24 hr 150 mg PO BID aspirin [Adult Low Dose Aspirin] 81 mg tablet,delayed release (DR/EC) 81 mg PO DAILY fluticasone propion-salmeterol [Advair Diskus] 100-50 mcg/dose blister with device 1 inh inhalation BIDRT Qty: 60 12RF insulin glargine 100 unit/mL (3 mL) insulin pen 60 unit SQ HS Qty: 15 12RF Rx Instructions: over 200 blood glucose patient takes 80 units Ozempic 1 mg/dose (4 mg/3 mL) pen injector 1 mg SQ WEEKLY Qty: 3 10RF (DME) Dexcom G7 Sensor Device See Rx Instructions .Route Qty: 1 2RF Rx Instructions: As directed ciprofloxacin HCl 500 mg tablet 500 mg PO BID 7 Days Qty: 14 0RF metronidazole 500 mg tablet 500 mg PO TID 7 Days Qty: 21 0RF Rx Instructions: hasn't started yet (DME) Dexcom G7 Cyber Security Consultant Misc See Rx Instructions .Route Qty: 1 0RF Rx Instructions: As directed polyethylene glycol 3350 [Miralax] 17 gram/dose powder 17 g PO BID Qty: 238 10RF topiramate 50 MG tablet 50 mg PO BID venlafaxine 150 MG capsule,extended release 24hr 150 mg PO DAILY Rx Instructions: take with 75 mg for a total of 225mg. olanzapine 20 MG tablet 20 mg PO HS alprazolam 1 mg tablet 1 mg PO BIDP PRN (Reason: Anxiety) Patient Comments: TAKE 1 TABLET BY MOUTH TWICE DAILY NEEDED. venlafaxine 75 mg capsule,extended release 24hr 75 mg PO DAILY Rx Instructions: TAKE WITH VENLAFAXINE XR 150 MG DAILY FOR A TOTAL DOSE OF 225 MG DAILY sumatriptan succinate 100 mg tablet 100 mg PO DAILYP PRN (Reason: MIGRAINE HEADACHES) Patient Comments: TAKE 1 TABLET BY MOUTH ONCE NEEDED FOR MIGRAINE FOR UP TO 1 DOSE. pioglitazone 15 mg tablet 15 mg PO DAILYDM propranolol 10 mg tablet 10 mg PO TID famotidine 20 mg tablet 20 mg PO DAILY ergocalciferol (vitamin D2) 1,250 mcg (50,000 unit) capsule 50,000 unit PO WEEKLY rosuvastatin 40 mg tablet 40 mg PO HS fenofibric acid (choline) 135 mg capsule,delayed release(DR/EC) 135 mg PO DAILY Jardiance 25 mg tablet 25 mg PO DAILY insulin lispro [Humalog U-100 Insulin] 100 unit/mL Solution See Protocol SQ ACHS 30 Days Qty: 10 0RF Protocol: Insulin Corrective Med-Dose Regimen Condition: Fingerstick Blood Glucose Dose/Route: Insulin Units Condition: 151-200 mg/dl Dose/Route: 2 units/SQ Condition: 201-250 mg/dl Dose/Route: 5 units/SQ Condition: 251-300 mg/dl Dose/Route: 8 units/SQ Condition: 301-350 mg/dl Dose/Route: 10 units/SQ Condition: 351-400 mg/dl Dose/Route: 12 units/SQ Condition: 401-450 mg/dl Dose/Route: 15 units/SQ Condition: > 450 mg/dl Dose/Route: CALL MD Protocol Text: Medium Intensity Sliding Scale Insulin Rx Instructions: Fingerstick Blood Glucose Insulin Units 151-200 mg/dl 2 units/SQ 201-250 mg/dl 5 units/SQ 251-300 mg/dl 8 units/SQ 301-350 mg/dl 10 units/SQ 351-400 mg/dl 12 units/SQ >401 mg/dl 15 units/SQ (DME) blood-glucose meter Kit See Rx Instructions .Route Qty: 1 0RF Rx Instructions: As directed (DME) lancets-blood glucose strips 30 gauge combo pack See Rx Instructions .Route Qty: 200 0RF Rx Instructions: As directed amoxicillin-pot clavulanate 875-125 mg tablet 1 tab PO BID Qty: 20 0RF ondansetron 4 mg tablet,disintegrating 4 mg PO QID PRN (Reason: nausea and vomiting) Qty: 10 0RF Referrals Follow up/Referrals: Provider,Referral, MD [Primary Care Provider] - See instructions Activity Restrictions/Add. Instructions Additional Instructions/Restrictions: Please follow-up with your primary care provider. Please return to the emergency department if you develop any new or worsening symptoms or become concerned for your health. Clinical Impressions Clinical Impression: Nausea Print Language Print Language: Hungarian Discharge ED Provider: Perry Gaytan General Adult HPI General Chief complaint: PAIN Stated complaint: abd pain, nausea Time Seen by Provider: 04/08/24 00:50 History of Present Illness HPI narrative: 53-year-old female with history of diverticulosis, disc anxiety and depression, smoking presents for persistent nausea. She was seen and fully evaluated by the previous provider less than 2 hours ago. She had labs and CT imaging and was discharged. She has been sitting in the lobby and reports that her nausea is back and that she cannot find a ride. Related Data Home Medications ?Medication ?Instructions ?Recorded ?Confirmed olanzapine 20 mg tablet 20 mg PO HS 05/04/21 04/02/24 topiramate 50 mg tablet 50 mg PO BID Headaches 05/04/21 04/02/24 venlafaxine 150 mg 150 mg PO DAILY MOOD 05/04/21 04/02/24 capsule,extended release 24 hr aspirin 81 mg tablet,delayed 81 mg PO DAILY 07/19/22 04/02/24 release (Adult Low Dose Aspirin) bupropion HCl 150 mg 24 hr tablet, 150 mg PO BID 07/19/22 04/02/24 extended release (Wellbutrin XL) alprazolam 1 mg tablet 1 mg PO BIDP PRN Anxiety 08/08/22 04/02/24 empagliflozin 25 mg tablet 25 mg PO DAILY 04/02/24 04/02/24 (Jardiance) ergocalciferol (vitamin D2) 1,250 50,000 unit PO WEEKLY 04/02/24 04/02/24 mcg (50,000 unit) capsule famotidine 20 mg tablet 20 mg PO DAILY 04/02/24 04/02/24 fenofibric acid (choline) 135 mg 135 mg PO DAILY 04/02/24 04/02/24 capsule,delayed release pioglitazone 15 mg tablet 15 mg PO DAILYDM 04/02/24 04/02/24 propranolol 10 mg tablet 10 mg PO TID Headaches 04/02/24 04/02/24 rosuvastatin 40 mg tablet 40 mg PO HS 04/02/24 04/02/24 sumatriptan succinate 100 mg tablet 100 mg PO DAILYP PRN MIGRAINE 04/02/24 04/02/24 HEADACHES venlafaxine 75 mg capsule,extended 75 mg PO DAILY 04/02/24 04/02/24 release 24 hr Previous Rx's ?Medication ?Instructions ?Recorded fluticasone 100 mcg-salmeterol 50 1 inh inhalation BIDRT COPD #60 ea 06/04/23 mcg/dose blistr powdr for inhalation (Advair Diskus) insulin glargine 100 unit/mL (3 60 unit (0.6 mL) SQ HS Diabetes 06/04/23 mL) subcutaneous pen #15 mL semaglutide 1 mg/dose (4 mg/3 mL) 1 mg (0.75 mL) SQ WEEKLY #3 mL 06/04/23 subcutaneous pen injector (Ozempic) Dexcom G7 Sensor (blood-glucose #1 ea 06/22/23 sensor) Dexcom G7 Cyber Security Consultant (blood-glucose #1 ea 09/19/23 meter,continuous) polyethylene glycol 3350 17 17 g PO BID #238 grams 12/05/23 gram/dose oral powder (Miralax) ciprofloxacin HCl 500 mg tablet 500 mg PO BID 7 days #14 tabs 04/01/24 metronidazole 500 mg tablet 500 mg PO TID 7 days #21 tabs 04/01/24 blood-glucose meter #1 ea 04/02/24 insulin lispro 100 unit/mL See Protocol SQ ACHS 30 days #10 mL 04/02/24 subcutaneous solution (Humalog U-100 Insulin) lancets 30 gauge and blood glucose #200 ea 04/02/24 strips combo pack amoxicillin 875 mg-potassium 1 tab PO BID #20 tabs 04/07/24 clavulanate 125 mg tablet ondansetron 4 mg disintegrating 4 mg PO QID PRN nausea and 04/07/24 tablet vomiting #10 tabs Allergies Allergy/AdvReac Type Severity Reaction Status Date / Time adhesive tape Allergy Blister Verified 04/01/24 13:25 fluoxetine (From Prozac) Allergy Unknown Verified 04/01/24 13:25 allergy reaction latex Allergy Unknown Verified 04/01/24 13:25 allergy reaction quetiapine (From Seroquel) Allergy Unknown Verified 04/01/24 13:25 allergy reaction shellfish derived Allergy Anaphylaxis Verified 04/01/24 13:25 [facility] Disclaimer: The information contained in this section may have been updated after the patient was seen, as this information can be updated by other users. Medical History Dental caries Facial cellulitis Multiple personality Dyspnea on exertion Pneumothorax Anxiety disorder Advanced osteoarthritis of spine Major depression Migraine History of stroke Coronary artery disease Hyperlipidemia Irritable bowel syndrome (IBS) History of diverticulitis Asthma Cervical cancer Hilar lymphadenopathy Mediastinal lymphadenopathy Dyspnea on exertion History of asthma History of COPD Smoking greater than 30 pack years Multiple lung nodules on CT History of coronary angiogram Surgical History History of lung biopsy H/O laparoscopy History of tubal ligation Family History Father Alcoholism Asthma Coronary artery disease Diabetes FHx: mental illness Heart attack Hypertension Mother Anemia Asthma Coronary artery disease FHx: mental illness Hyperlipidemia Hypertension Grandmother Stroke Other Cancer Family history of COPD (chronic obstructive pulmonary disease) Family history of diabetes mellitus type II Social History (Updated 04/02/24 @ 02:02 by Mar Harvey RN) Smoking Status: Current every day smoker tobacco type: cigarettes packs per day: 2 years smoked: 35 second hand exposure: Yes alcohol intake: never substance use type: denies use current occupational status: disabled Travel in the last 8 weeks: None household members: none lives independently: Yes marital status: single pets and animals: Yes Have you lived/traveled outside [place] in past 30 days?: No Contact w/someone who lives/traveled outside [place] past 30 days?: No Exposure to someone with infectious disease in past 14 days?: No Do you have a fever (greater than 100.4 F or 38 C)?: No Have you tested positive for COVID-19: No Exposed to someone with COVID-19 in past 14 days?: No Do you have a sore throat?: No Do you have a cough?: No Do you have any weakness?: No Do you have any diarrhea?: No Are you experiencing any unusual bleeding?: No Do you have any muscle aches/pain?: No Do you have any abdominal pain?: Yes Are you experiencing loss of taste or smell?: No Other Medical History Have you received the Flu Vaccine for this season: No Have you received the Pneumonia Vaccine: No ROS Obtained: Yes All systems reviewed & no additional complaints except as documented Physical Exam General General appearance: alert and in no apparent distress Head Head exam: atraumatic and normocephalic Eye Eye exam: Present normal appearance, PERRL and EOMI ENT ENT exam: Present normal oropharynx and normal external ear exam Neck Neck exam: Present normal inspection and full ROM Chest Chest inspection: Present normal inspection and symmetric chest wall rise; Absent tenderness Respiratory Respiratory exam: Present normal lung sounds bilaterally; Absent respiratory distress Cardiovascular Cardiovascular exam: Present regular rate and normal rhythm Abdominal Exam Abdominal exam: Present soft and tenderness (Mild generalized); Absent distention or guarding Extremities Exam Extremities exam: Present normal inspection; Absent edema or joint swelling Back Exam Back exam: Present normal inspection; Absent tenderness Neurological Exam Neurological exam: Present alert and oriented X3; Absent motor sensory deficit Psychiatric Psychiatric exam: Present normal affect and normal mood Skin Skin exam: Present warm, dry and normal color Lymphatic Lymphatic Findings: no adenopathy Medical Decision Making Medical Records Medical records reviewed: Yes I reviewed the patient's medical records. Screening: Per USPSTF and CDC recommendations, given the prevalence of disease in our region, it is our hospital?s policy to screen for HIV and viral Hepatitis for all patients aged 18 and over and those with ongoing risk factors. Kristofer Inquiry Pt receiving controlled substance: No Kristofer was queried for this patient: No Vital Signs: 04/08/24 00:48 04/08/24 01:02 Temperature 97.9 F 97.9 F Temperature Source Oral Oral Pulse Rate 112 H Pulse Rate [Left] 112 H Respiratory Rate 18 18 Blood Pressure 116/75 Blood Pressure [Right Arm] 116/75 Blood Pressure Mean [Right Arm] 88 02 Sat by Pulse Oximetry 98 Oxygen Delivery Method Room Air Room Air Lab Data Lab results reviewed: Yes I reviewed the patient's lab results. Medical Decision Narrative: 53-year-old female with history of diverticulitis, anxiety depression etc presents for persistent nausea after being seen and evaluated in the ER a couple hours ago. History was obtained via interactive discussion with patient, chart review. Please see previous provider notes for full details. On arrival, patient is [afebrile, hemodynamically stable, satting appropriately, alert, oriented x4, GCS 15], moving all extremities spontaneously. Full physical exam performed and significant for benign abdominal exam. Differential includes but is not limited to enteritis, gastroparesis malingering. I reviewed the patient's workup and imaging from last week and from today. Patient continues to report that she was diagnosed with diverticulitis, that is not evident based on CT imaging. She does have some nonspecific enteritis. She is already on antibiotics and has received multiple doses of nausea and pain medication within the last couple of hours. No indication for further workup or interventions at this time. Patient was discharged in stable condition. Procedures Risk/Benefits of Procedure(s) Were Explained: Yes Critical Care Critical Care Time Critical Care Time: No
[2024-04-08 01:02] VITALS: BP 116/75; PULSE 112; RESP 18; TEMP 36.6; O2SAT 98
== END 2024-04-08 01:08 | disposition home or self-care (01) ==
PROVIDERS: Emergency Provider Emergency Medicine
DX: R11.0 Nausea (principal); F17.210 Nicotine dependence, cigarettes, uncomplicated
CPT/HCPCS: 99282

== ENCOUNTER 2024-05-30 09:41 | Outpatient (CLI) | payer MEDICAID, SELFPAY ==
--- NOTE | 2024-05-30 10:00 | NM_ITS ---
FINAL REPORT TECHNIQUE: Sequential anterior images were obtained after the ingestion of 2 whole eggs, 2 pieces of toast, and 1 cup of water radiolabeled with 0.52 mCi technetium 99M sulfur colloid. CLINICAL HISTORY: Gastroparesis COMPARISON: None FINDINGS: GASTRIC EMPTYING SCAN Static images show normal emptying of the stomach into the small bowel. Based on the time activity curve, the estimated half-emptying time is 60 minutes. Approximately 95% of gastric contents had emptied at nearly 4 hours. IMPRESSION: Normal gastric emptying study. Reviewed, Interpreted and Dictated by Cecelia Maya MD Transcribed by Ana Navarro Authenticated and [facility]
[2024-05-30] MEDS: TC99M SULF.COLLOID;1 DOSE (UP TO 20 MCI) IV (10:15)
== END 2024-05-30 23:59 | disposition home or self-care (01) ==
LOC: RAD 09:42
PROVIDERS: PCP Family Medicine; Visit Provider Family Medicine
DX: K57.90 Diverticulosis of intestine, part unspecified, without perforation or abscess without bleeding (principal); R11.2 Nausea with vomiting, unspecified
CPT/HCPCS: 78264; A9541

== ENCOUNTER 2024-06-20 10:39 | Outpatient (CLI) | payer MEDICAID, SELFPAY ==
[2024-06-20 19:08] LABS: Creatinine,Urine Random 115 mg/dL (Not Estab.)
== END 2024-06-20 23:59 | disposition home or self-care (01) ==
LOC: LAB.DROPOF 06-23 11:27
PROVIDERS: PCP Family Medicine; Visit Provider Family Medicine
DX: E11.69 Type 2 diabetes mellitus with other specified complication (principal); Z79.4 Long term (current) use of insulin
CPT/HCPCS: 82043; 82570

== ENCOUNTER 2024-09-19 14:02 | Outpatient (CLI) | payer MEDICAID, SELFPAY ==
--- OUTSIDE RECORDS SUMMARY | 2024-07-27 09:12 | XMS_ITS | Encounter Summary ---
Author Organization [place] [address] Care Team Providers Care Radioactivity Technician Name Role Phone Marcus Castellon MD Primary Care Provider [phone] Reason for Visit * Reason Comments Hyperglycemia seeing black spots, BGL of 500. Encounter Details Date Type Department Care Team (Late st Contact Info) Description 07/27/2024 9:12 AM EDT - 07/27/2024 12:16 PM EDT Emergency . [facility] [address] [place] [address] Yogi Simpson MD [address], [place] [id number] Hyperglycemia (Primary Dx) Discharge Disposition: Home or Self Care Social History Tobacco Use Types Packs/Day Years Used Date Smoking Tobacco: Every Day Cigarettes 2 30.9 Started: 06/07/1994 Smokeless Tobacco: Never Alcohol Use Standard Drinks/Week Comments No 0 (1 standard drink = 0.6 oz pur e alcohol) Overall Financial Resource Strain (CARDIA) Answe r Date Recorded How hard is it for you to pa y for the very basics like food, housing, medical care, and heating? Not hard at all 09/26/2021 PHQ-2 Answer Date Recorded PHQ-2 Total Score 2 08/15/2022 [facility] [place] of Occupat ional [facility] - Occupational Stress Questionnaire Answer Date Recorded Do you feel stress - tense, restless, nervous, or anxious, or unable to sleep at night because your mind is troubled all the time - these days? Rather much 11/09/2020 Exercise Vital Sign Answer Date Recorde d On average, how many days pe r week do you engage in moderate to strenuous exercise (like a brisk walk)? 0 days 11/09/2020 On average, how many minutes do you engage in exercise at this level? 0 min 11/09/2020 Hunger Vital Sign Answer Date Recorded Within the past 12 months, y ou worried that your food would run out before you got the money to buy more. Often true 09/27/19 22 Within the past 12 months, t he food you bought just didn't last and you didn't have money to get more. Often true 09/26/2021 PRAPARE - Transportation Answer Date Re corded In the past 12 months, has l ack of transportation kept you from medical appointments or from getting medications? Yes 09/2021 In the past 12 months, has l ack of transportation kept you from meetings, work, or from getting things needed for daily living? Yes 09/26/2021 Comments No Sex and Gender Information Value Date Recorded Sex Assigned at Not on file Legal Sex Female 6:20 PM EDT Gender Identity Not on file Sexual Orientation Not on file documented as of this encounter Last Filed Vital Signs Vital Sign Reading Time Taken Comments Blood Pressure 118/65 07/27/2024 11:42 AM EDT Pulse 88 07/27/2024 12:00 PM EDT Temperature 36.5 C (97.7 F) 07/27/2024 9:16 AM EDT Respiratory Rate 18 07/27/2024 12:16 PM EDT Oxygen Saturation 95% 07/27/2024 12:16 PM EDT Inhaled Oxygen Concentration - - Weight - - Height - - Body Mass Index - - documented in this encounter Functional Status * Is the person deaf or does he/she have serious difficulty hearing? Answer Date of Assessment Author No 08/15/2022 1:10 PM EDT Lakesha Laamr MA * Is the person blind or does he/she have serious difficulty seeing even when wearing glasses? Answer Date of Assessment Author No 08/15/2022 1:10 PM EDT Lakesha Lamar MA * Does this person have serious difficulty walking or climbing stairs? Answer Date of Assessment Author No 08/15/2022 1:10 PM EDT Lakesha Lamar MA * Does this person have difficulty dressing or bathing? Answer Date of Assessment Author No 08/15/2022 1:10 PM EDT Lakesha Lamar MA * Because of a physical, mental or emotional condition, does this person have difficulty doing errands alone such as visiting a doctor's office or shopping? Answer Date of Assessment Author No 08/15/2022 1:10 PM EDT Lakesha Lamar MA * Suicide Severity Rating Answer Date of Assessment Author No Risk 07/27/2024 9:16 AM EDT Luh Haddad RN * [place] Suicide Severity Rating Scale (Q shift for moderate and high) Question Answer Date of Assessment Author 1. In the past month, have you wished you were or wished you could go to sleep and not wake up? 0 07/27/2024 9:16 AM EDT Kristan Villagomez ea, RN 2. In the past month, have you actually had any thoughts of killing yourself? (If no, skip to question 6) 0 07/27/2024 9:16 AM EDT Kristan Villagomez ea, RN 6. Have you ever done anything, started to do anything, or prepared to do anything to end your life? 0 07/27/2024 9:16 AM EDT Luh Villagomez RN documented as of this encounter Mental Status * Because of a physical, mental or emotional condition, does this person have serious difficulty concentrating, remembering or making decisions? Answer Entry Date Author No 08/15/2022 1:10 PM EDT Lakesha Lamar MA documented in this encounter Discharge Instructions * Discharge Instructions* Yogi Simpson MD - 07/27/2024 11:25 AM EDT Please increase your insulin to 50 units twice daily and call your primary care provider for followup as soon as possible documented in this encounter Medications at Time of Discharge ADVAIR DISKUS 250-50 mcg/dose Inhl Disk with Device Inhale 1 puff into the lungs 2 times daily. 60 Each 2 2 albuterol (PROVENTIL) 2.5 mg /3 mL (0.083 %) Inhl Solution for NebulizationIndicat ions:COPD, moderate (HCC) Inhale 1 vial into the lungs every 4 hours as needed for wheezing. 540 mL 4 aspirin 81 mg Oral Tablet, Chewable Take 1 Tablet by mouth daily. 30 Tablet 2 5 BD MAURICE 2ND GEN PEN NEEDLE 32 gauge x [facility] Needle Use once daily. 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 9 Each 3 3 DEXCOM G6 TRANSMITTER Misc Device 1 Each by Mis.(Non-Drug; Combo Route) route Every 90 Days. 1 Each 3 3 diclofenac (VOLTAREN) 75 mg Oral Tablet, Delayed Release (E.C.)Indications:I njury of left ankle, initial encounter,Injury of right knee, initial encounter TAKE 1 TABLET BY MOUTH TWICE DAILY WITH MEALS NEEDED 60 Tablet 3 empagliflozin (JARDIANCE) 25 mg Oral TabletIndications:C ontrolled type 2 diabetes mellitus with hyperglycemia, with long-term current use of insulin ([facility]) Take 1 Tablet by mouth daily. 90 Tablet 3 3 EPINEPHrine (EPIPEN) 0.3 mg/0.3 mL Inj Auto-InjectorIndica tions:Shellfish allergy Inject 0.3 mL into the muscle as needed. for anaphylaxis 2 Each 1 ergocalciferol (DRISDOL) 1,250 mcg (50,000 unit) Oral Capsule Take 1 Capsule by mouth once a week. 12 Capsule 3 3 famotidine (PEPCID) 20 mg Oral TabletIndications:N ausea and vomiting TAKE 1 TABLET BY MOUTH DAILY 30 Tablet 4 Fenofibric Acid 135 mg Oral Capsule, Delayed Release(E.C.) Take 1 Capsule by mouth once daily. 30 Capsule 5 4 LANTUS SOLOSTAR U-100 INSULIN 100 unit/mL (3 mL) SubQ Insulin PenIndications:Type 2 diabetes mellitus with hyperlipidemia (HCC),Type 2 diabetes mellitus without complication, unspecified whether keno terminal operator insulin use ([facility]) Subcutaneous (Inject under the skin) 60 Units nightly. 60 Each 1 4 methocarbamoL (ROBAXIN) 500 mg Oral Tablet Take 2 tablets by mouth 3 times daily for 10 days 60 Tablet 2 2 ondansetron (ZOFRAN) 4 mg Oral Tablet Take 1 Tablet by mouth every 8 hours as needed for nausea. 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 50 Strip 11 4 pen needle,diabetic, disp unit (ULTIGUARD SAFEPACK-PEN NEEDLE) 32 gauge x 5/32 [facility] NeedleIndications:T ype 2 diabetes mellitus with diabetic nephropathy, without long-term current use of insulin ([facility]) 1 Units by [facility].(Non-Drug; Combo Route) route daily. 100 Each 5 1 pioglitazone (ACTOS) 15 mg Oral Tablet Take 1 Tablet by mouth daily. 90 Tablet 3 3 promethazine (PHENERGAN) 25 mg Oral TabletIndications:N ausea and vomiting Take 1 Tablet by mouth every 6 hours as needed for nausea. 30 Tablet 2 3 rosuvastatin (CRESTOR) 40 mg Oral Tablet Take 1 Tablet by mouth daily. 90 Tablet 3 3 semaglutide (OZEMPIC) 1 mg/dose (4 mg/3 mL) SubQ Pen Injector Subcutaneous (Inject under the skin) 1 mg once a week 3 mL 1 3 topiramate (TOPAMAX) 50 mg Oral Tablet Take 1 Tablet by mouth 2 times daily. 60 Tablet 5 5 Varenicline (CHANTIX STARTING MONTH BOX) 0.5 mg (11)- 1 mg (42) Oral Tablets, Dose PackIndications:Tob acco abuse As directed 53 Tablet 4 Varenicline 0.5 mg (11)- 1 mg (42) Oral Tablets, Dose PackIndications:Tob acco abuse TAKE 0.5MG TABLET DAILY FOR 3 DAYS, THEN 0.5MG TABLET 2 TIMES DAILY FOR 4 DAYS, THEN 1MG TABLET 2 TIMES DAILY THEREAFTER 53 Tablet 3 Varenicline 0.5 mg (11)- 1 mg (42) Oral Tablets, Dose PackIndications:Tob acco abuse TAKE 0.5MG TABLET DAILY FOR 3 DAYS, THEN 0.5MG TABLET 2 TIMES DAILY FOR 4 DAYS, THEN 1MG TABLET 2 TIMES DAILY THEREAFTER 53 Tablet 3 VENTOLIN HFA 90 mcg/actuation Inhl HFA Aerosol InhalerIndications: Dyspnea, unspecified type Inhale 2 puffs into the lungs every 4 hours as needed for wheezing. 18 g 6 3 ALPRAZolam (XANAX) 1 mg Oral Tablet Take 1 Tablet by mouth 2 times daily as needed. 54 Tablet 2 5 08/20/19 25 varenicline tartrate (CHANTIX) 1 mg Oral Tablet Take 1 Tablet by mouth 2 times daily for 90 days. After the starter pack 56 Tablet 2 5 08/20/19 25 documented as of this encounter Discharge Disposition Disposition Code Departure Means Destination Comment s Home or Self [facility] documented in this encounter ED Notes * Yogi Simpson MD - 07/27/2024 9:12 AM EDT [facility] EMERGENCY DEPARTMENT ENCOUNTER Pt Name: Leslye Andres Birthdate 1970 Date of evaluation: 07/27/2024 CHIEF COMPLAINT Chief Complaint Patient presents with Hyperglycemia seeing black spots, BGL of 500. Nurses Notes reviewed and I agree except as noted in the HPI. HISTORY OF PRESENT ILLNESS Leslye Andres is a 53 y.o. female 53-year-old patient with a history of COPD, coronary disease, and diabetes presents to the Emergency Department for evaluation of blood glucose greater than 500 and seeing black spots. The patient reports that their blood sugar stayed above 400 all night, and their fasting glucose this morning was 556. They are experiencing blurry vision with spots in their eyes. The patient also complains of abdominal pain, which they are unsure if it's related to their current condition or growing up. The patient's diabetes management recently changed, with a switch from Humalog to Humulin about a month ago. They are currently on Humulin 45 units twice daily, which they report having trouble with since the switch. The patient took their last insulin dose this morning after checking their blood sugar. They express concern about their high blood glucose, mentioning a previous episode of diabeticketoacidosis (DKA) a few months ago. 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 They deny having gastroparesis, stating they were checked for it last month and the result was negative. Medical History - Diabetic ketoacidosis (DKA) a few months ago - Bronchitis, recently treated with prednisone - Coronary artery disease - Chronic obstructive pulmonary disease (COPD) - Diabetes mellitus, type unspecified Medications and Supplements - Humulin 70/30 45 units twice a day - Switched from Humalog about a month ago - Patient reports having trouble since the switch - Humalog 45 units twice a day - Discontinued about a month ago - Prednisone - Taken for 3 days, 2 weeks ago - Used for bronchitis Social History - Substance Use: Current smoker (patient was reminded not to smoke in the hospital) Review of Systems General: Positive for blurry vision. HEENT: Positive for seeing black spots. Gastrointestinal: Positive for abdominal pain. 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 COPD (chronic obstructive pulmonary disease) (HCC) Diabetes mellitus (HCC) Diverticulitis Gastric ulcer Hypercholesteremia MDD (major depressive disorder), recurrent severe, without psychosis (HCC) Past Surgical History Past Surgical History: Procedure Laterality Date GYNECOLOGIC CRYOSURGERY 02/19/2001 LAPAROSCOPY 02/19/1990 LUNG BIOPSY Left 08/07/2022 TUBAL LIGATION 02/19/2001 Allergies Allergies Allergen Reactions Shellfish Containing Products Anaphylaxis Latex Hives Itch/ blisters Prozac [Fluoxetine] Seroquel [Quetiapine] Vraylar [Cariprazine] Other (See Comments) Worsening depression, Adhesive Rash Family History Family History Problem Relation Age of Onset High Blood Pressure Mother Other Mother lupus Diabetes Father High Blood Pressure Father Cancer Maternal Grandmother breast Social History reports that she has been smoking cigarettes. She started smoking about 30 years ago. She has a 61.5 pack-year smoking history. She has never used smokeless tobacco. She reports that she does not drink alcohol and does not use drugs. PHYSICAL EXAM INITIAL VITALS: oral temperature is 97.7 ??F (36.5 ??C). Her blood pressure is 118/65 and her pulseis 88. Her respiration is 18 and oxygen saturation is 95%. Physical Exam Constitutional: General: She is not in acute distress. HENT: Head: Normocephalic. Eyes: Pupils: Pupils are equal, round, and reactive to light. Cardiovascular: Rate and Rhythm: Normal rate. Pulmonary: Effort: Pulmonary effort is normal. Abdominal: Palpations: Abdomen is soft. Musculoskeletal: General: Normal range of motion. Cervical back: Normal range of motion. Skin: General: Skin is warm and dry. Capillary Refill: Capillary refill takes less than 2 seconds. Neurological: General: No focal deficit present. Mental Status: She is alert. Psychiatric: Mood and Affect: Mood normal. MEDICAL DECISION MAKING: Medical Decision Making 53-year-old patient with a history of COPD, coronary disease, and diabetes presents with hyperglycemia (blood glucose >500) and visual disturbances. The patient's recent switch from Humalog to Humulin approximately one month ago appears to have led to poor glycemic control. The persistently elevated blood glucose levels (>400 overnight, fasting 560) and visual symptoms raise concern for possible diabetic ketoacidosis (DKA), especially given the patient's history of DKA a few months prior.The presence of abdominal pain, while possibly related to gastroparesis (recently ruled out), couldalso be a symptom of DKA. Recent prednisone use for bronchitis may have contributed to the glucose e levation. The management approach includes fluid resuscitation, reassessment of blood glucose levels, and evaluation for DKA. The complexity of the case is increased by the patient's multiple comorbidities and recent medication changes. Hyperglycemia Assessment: 53-year-old patient with a history of diabetes presents with blood glucose greater [id number] mg/dL and visual disturbances (seeing black spots). Patient reports blood glucose levels staying above 400 mg/dL overnight and a fasting blood glucose of 560 mg/dL this morning. Recently switchedfrom Humalog to Humulin 45 units twice daily about a month ago, which seems to have caused difficulty in glucose control. Patient has a history of diabetic ketoacidosis (DKA) a few months ago, raising concern for possible recurrence. Plan: - Administer intravenous fluids - Recheck blood glucose levels - Evaluate for diabetic ketoacidosis (DKA) - Aim to reduce blood glucose to a manageable level - Reassess patient's condition after initial interventions ED Course as of 07/27/24 1314 Yogi Simpson's Documentation Sun Jul 27, [address] Castellon. takes 45 units Humalin 70/30 0946 glucose of 456 0947 Not in DKA. Will give 10 units of insulin aspart. 1007 Mild hyperkalemia. 1043 Patient states she has had issues hyperkalemia when her sugars been high in the past. Could berelated potassiums shifting. Will recheck glucose after fluids finished. Results: Results for orders placed or performed during the hospital encounter of 07/27/24 CBC Result Value Ref Range WBC 9.5 3.7 - 10.3 x10(3)/mcL RBC 5.14 3.90 - 5.20 x10(6)/mcL Hgb 15.0 11.2 - 15.7 g/dL Hct 45.3 (H) 34.0 - 45.0 % MCV 88.1 80.0 - 100.0 fL MCH 29.2 26.0 - 34.0 pg MCHC 33.1 30.7 - 35.5 g/dL RDW 14.6 <=14.9 % Platelet 254 155 - 369 x10(3)/mcL MPV 9.4 8.8 - 12.5 fL COMPREHENSIVE METABOLIC PANEL Result Value Ref Range Sodium 134 (L) 136 - 145 mmol/L Potassium 5.4 (H) 3.5 - 5.0 mmol/L Chloride 98 98 - 107 mmol/L Total CO2 24 22 - 29 mmol/L Anion Gap 12 7 - 16 mmol/L Calcium 9.6 8.6 - 10.4 mg/dL Glucose Lvl 493 (HH) 70 - 99 mg/dL BUN 10 6 - 20 mg/dL Creatinine 0.61 0.51 - 1.30 mg/dL Albumin 4.3 3.5 - 5.2 gm/dL Total Protein 7.2 6.4 - 8.3 gm/dL Bili Total 0.2 0.2 - 1.3 mg/dL ALT 11 <=41 U/L AST 12 <=40 U/L Alk Phos 92 36 - 123 U/L eGFR (CKD-EPIcr 2020) 108 >=60 mL/min/1.73 m2 LIPASE LEVEL Result Value Ref Range Lipase Lvl 22 13 - 60 U/L BLOOD GAS, VENOUS Result Value Ref Range pH Venous 7.36 7.32 - 7.42 pH pCO2 Venous 50 41 - 51 mmHg pO2 Venous <30 25 - 40 mmHg Base Excess Miguel 1.6 mmol/L Hco3 Venous 28.1 (H) 24.0 - 28.0 mmol/L CO2 Total Miguel 25 25 - 29 mmol/L O2 Sat. Venous 43.8 40.0 - 70.0 % Inspired O2 ROOM AIR BETA-HYDROXYBUTYRIC ACID Result Value Ref Range BHB 0.48 (H) 0.00 - 0.30 mmol/L GLUCOSE METER POC Result Value Ref Range Glucose Meter POC 456 (HH) 70 - 100 mg/dL Sample Type Capillary Patient Status Non-Critical Patient Narrative Critical results for Point of Care instruments are made directly available to testing personnel andshould be communicated to the healthcare provider. GLUCOSE METER POC Result Value Ref Range Glucose Meter POC 382 (H) 70 - 100 mg/dL Sample Type Capillary Patient Status Non-Critical Patient EKG: All EKG's are interpreted by the Emergency Department Physician who either signs or Co-signs this chart in the absence of a tap puller. No orders to display Medications Given: Medications sodium chloride 0.9 % 1,000 mL IV bolus ( Intravenous Stopped 07/27/24 1043) ondansetron (ZOFRAN) injection 4 mg (4 mg Intravenous Given 07/27/24 0959) insulin aspart U-100 (NovoLOG) injection 10 Units (10 Units Subcutaneous Given 07/27/24 1005) insulin aspart U-100 (NovoLOG) injection 10 Units (10 Units Subcutaneous Given 07/27/24 4577) CRITICAL CARE: PROCEDURES: Procedures Diagnosis 1. Hyperglycemia PATIENT REFERRED TO: Marcus Castellon MD [address] [place], [place] [id number] DISCHARGE MEDICATIONS: Discharge Medication List as of 07/27/2024 12:14 PM Disposition Disposition ED Disposition Discharge Condition -- Comment Leslye Andres discharge to home/self care. Yogi Simpson MD In cases where narcotics are prescribed, VINCENT report was obtained, reviewed, and made part of record. After examining available information, and risks of prescribing or dispensing controlled substances was explained to the patient (including non-treatment or other treatment), it is considered medically appropriate to administer narcotics as prescribed. Portions of this note were dictated using [employer]. There may be errors in voice behavior analyst. Yogi Simpson MD 07/27/24 1314 documented in this encounter Plan of Treatment Not on file documented as of this encounter Goals Goal Patient Goal Type Associated Problems Recent Progress Patient-Stated? Author Blood Pressure < 140/90 Blood Pressure 118/65(2024 11:42 AM EDT) No Carolina Lopez CMA BMI (Calculated) < 30 General 26.3(11/29/19 7:35 AM EDT) No Carolina Lopez CMA Eat better, exercise, reach an ideal body weight General No Naomy Soni RN Stay Tobacco Free Lifestyle No Naomy Soni RN HEMOGLOBIN A1C < 7.0 Result Component 9.4( 12:30 PM EDT) No Carolina Lopez CMA documented as of this encounter Procedures Procedure Name Priority Date/Time Associated Diagnosis Comments GLUCOSE METER POC Routine 07/27/2024 11: 20 AM EDT GLUCOSE METER POC Routine 07/27/2024 9:4 4 AM EDT BLOOD GAS, VENOUS STAT 07/27/2024 9:3 7 AM EDT BETA-HYDROXYBUTYRIC ACID Routine 07/27/2024 9:37 AM EDT CBC STAT 07/27/2024 9:37 AM EDT LIPASE LEVEL STAT 07/27/2024 9:37 AM EDT COMPREHENSIVE METABOLIC PANEL STAT 07/27/2024 9:37 AM EDT documented in this encounter Results * (ABNORMAL) GLUCOSE METER POC (07/27/2024 11:20 AM EDT) Glucose Meter POC 382(H) 70 - 100 mg/dL 07/27/2024 11:21 AM EDT [facility] Sample Type Capillary 07/27/2024 11:21 AM EDT [facility] Patient Status Non-Critical Patient 07/27/2024 11:21 AM EDT [facility] Blood BLOOD SPECIMEN / Unknown 07/27/2024 11:20 AM EDT 07/27/2024 11:21 AM EDT [facility] POINT OF CARE TEST ORDERABLES F inal Result [facility] [address] [address] * (ABNORMAL) GLUCOSE METER POC (07/27/2024 9:44 AM EDT) Glucose Meter POC 456(HH) 70 - 100 mg/dL 07/27/2024 9:46 AM EDT [facility] Sample Type Capillary 07/27/2024 9:46 AM EDT [facility] Patient Status Non-Critical Patient 07/27/2024 9:46 AM EDT [facility] Blood BLOOD SPECIMEN / Unknown 07/27/2024 9:44 AM EDT 07/27/2024 9:46 AM EDT Narrative [facility] - 07/27/2024 9:46 AM EDT Critical results for Point of Care instruments are made directly available to testing personnel and should be communicated to the healthcare provider. Yogi Simpson MD POINT OF CARE TEST ORDERABLES F inal Result Performing Organization Address [facility] Co de Phone Number [facility] [address] [place] [address] * (ABNORMAL) BETA-HYDROXYBUTYRIC ACID (07/27/2024 9:37 AM EDT) BHB 0.48(H) 0.00 - 0.30 mmol/L 07/27/2024 9:59 AM EDT [facility] Blood VENOUS BLOOD / Unknown Venipuncture / Unknown 07/27/2024 9:37 AM EDT 07/27/2024 9:40 AM EDT Yogi Simpson MD CHEMISTRY ORDERABLES Final Resu lt Performing Organization Address [facility] de Phone Number [facility] [address] [place] [address] * (ABNORMAL) BLOOD GAS, VENOUS (07/27/2024 9:37 AM EDT) pH Venous 7.36 7.32 - 7.42 pH 07/27/2024 9:45 AM EDT [facility] pCO2 Venous 50 41 - 51 mmHg 07/27/2024 9:45 AM EDT [facility] pO2 Venous <30 25 - 40 mmHg 07/27/2024 9:45 AM EDT [facility] Comment:Interpret with cauti on. Not recommended to evaluate patient's oxygenation status. Base Excess Migule 1.6 mmol/L 9:45 AM EDT [facility] Hco3 Venous 28.1(H) 24.0 - 28.0 mmol/L 07/27/2024 9:45 AM EDT [facility] CO2 Total Miguel 25 25 - 29 mmol/L 07/27/2024 9:45 AM EDT [facility] O2 Sat. Venous 43.8 40.0 - 70.0 % 07/27/2024 9:45 AM EDT [facility] Inspired O2 ROOM AIR 07/27/2024 9:45 AM EDT [facility] LABORATORY Blood VENOUS BLOOD / Unknown Venipuncture / Unknown 07/27/2024 9:37 AM EDT 07/27/2024 9:40 AM EDT Yogi Simpson MD CHEMISTRY ORDERABLES Final Resu lt Performing Organization Address [facility]/ZIP Co de Phone Number [facility] [address] [place] [address] * LIPASE LEVEL (07/27/2024 9:37 AM EDT) Lipase Lvl 22 13 - 60 U/L 07/27/2024 9:59 AM EDT [facility] Blood VENOUS BLOOD / Unknown Venipuncture / Unknown 07/27/2024 9:37 AM EDT 07/27/2024 9:40 AM EDT oYgi Simpson MD CHEMISTRY ORDERABLES Final Resu lt Performing Organization Address [facility] de Phone Number [facility] [address] [place] [address] * (ABNORMAL) COMPREHENSIVE METABOLIC PANEL (07/27/2024 9:37 AM EDT) Sodium 134(L) 136 - 145 mmol/L 07/27/2024 10:06 AM EDT [facility] Potassium 5.4(H) 3.5 - 5.0 mmol/L 07/27/2024 10:06 AM EDT [facility] Chloride 98 98 - 107 mmol/L 07/27/2024 10:06 AM EDT [facility] Total CO2 24 22 - 29 mmol/L 07/27/2024 10:06 AM EDT [facility] Anion Gap 12 7 - 16 mmol/L 07/27/2024 10:06 AM EDT [facility] Calcium 9.6 8.6 - 10.4 mg/dL 07/27/2024 10:06 AM EDT [facility] Glucose Lvl 493() 70 - 99 mg/dL 07/27/2024 10:06 AM EDT [facility] BUN 10 6 - 20 mg/dL 07/27/2024 10:06 AM EDT [facility] Creatinine 0.61 0.51 - 1.30 mg/dL 07/27/2024 10:06 AM EDT [facility] Albumin 4.3 3.5 - 5.2 gm/dL 07/27/2024 10:06 AM EDT [facility] Total Protein 7.2 6.4 - 8.3 gm/dL 07/27/2024 10:06 AM EDT [facility] Bili Total 0.2 0.2 - 1.3 mg/dL 07/27/2024 10:06 AM EDT [facility] ALT 11 <=41 U/L 07/27/2024 10:06 AM EDT [facility] AST 12 <=40 U/L 07/27/2024 10:06 AM EDT [facility] Alk Phos 92 36 - 123 U/L 07/27/2024 10:06 AM EDT [facility] eGFR (CKD-EPIcr 2020) 108 >=60 mL/min/1.7 3 m2 07/27/2024 10:06 AM EDT [facility] Comment:Estimated GFR was ca lculated using the CKD-EPIcr (2020) equation refit without race. The equation is recommended by the [employer] - [employer] [place] [employer] of Nephrology Task Force. Blood VENOUS BLOOD / Unknown Venipuncture / Unknown 07/27/2024 9:37 AM EDT 07/27/2024 9:40 AM EDT us Yogi Simpson MD CHEMISTRY ORDERABLES Final Resu lt [facility] [address] [place] [address] * (ABNORMAL) CBC (07/27/2024 9:37 AM EDT) WBC 9.5 3.7 - 10.3 x10(3)/mcL 07/27/2024 9:42 AM EDT [facility] RBC 5.14 3.90 - 5.20 x10(6)/mcL 07/27/2024 9:42 AM EDT [facility] Hgb 15.0 11.2 - 15.7 g/dL 07/27/2024 9:42 AM EDT [facility] Hct 45.3(H) 34.0 - 45.0 % 07/27/2024 9:42 AM EDT [facility] MCV 88.1 80.0 - 100.0 fL 07/27/2024 9:42 AM EDT [facility] MCH 29.2 26.0 - 34.0 pg 07/27/2024 9:42 AM EDT [facility] MCHC 33.1 30.7 - 35.5 g/dL 07/27/2024 9:42 AM EDT [facility] RDW 14.6 <=14.9 % 07/27/2024 9:42 AM EDT [facility] Platelet 254 155 - 369 x10(3)/mcL 07/27/2024 9:42 AM EDT [facility] MPV 9.4 8.8 - 12.5 fL 07/27/2024 9:42 AM EDT [facility] Blood VENOUS BLOOD / Unknown Venipuncture / Unknown 07/27/2024 9:37 AM EDT 07/27/2024 9:40 AM EDT us Yogi Simpson MD HEMATOLOGY ORDERABLES Final Res ult [facility] [address] [facility] [place] [address] documented in this encounter Visit Diagnoses Diagnosis Hyperglycemia- Primary Other abnormal glucose documented in this encounter Administered Medications Inactive Administered Medications - up to 1 most recent administrations Medication Order MAR Action Action Date Dose Rate Site insulin aspart U-100 (NovoLOG) injection 10 Units 10 Units, Subcutaneous, ONCE, 1 dose, On 07/27/24 at 1000, Waste Sort Code = BLACK [employer]ous Waste Container Given 07/27/2024 10:05 AM EDT 10 Units Abdominal Tissue insulin aspart U-100 (NovoLOG) injection 10 Units 10 Units, Subcutaneous, ONCE, 1 dose, On 07/27/24 at 1130, Waste Sort Code = BLACK [employer] Hazardous Waste Container Given 07/27/2024 12:09 PM EDT 10 Units Abdominal Tissue ondansetron (ZOFRAN) injection 4 mg 4 mg, Intravenous, ONCE, 1 dose, On 07/27/24 at 0930 Given 07/27/2024 9:59 AM EDT 4 mg sodium chloride 0.9 % 1,000 mL IV bolus Intravenous, ONCE, 1 dose, On 07/27/24 at 0930, at 983.6 mL/hr IV Started 07/27/2024 9:42 AM EDT 983.6 mL/hr documented in this encounter Active and Recently Administered Medications Times are shown in EDT. Scheduled Medication Order 07/25/2024 07/26/2024 07/27/2024 insulin aspart U-100 (NovoLOG) injection 10 Units (COMPLETED) 10 Units, Subcutaneous, ONCE, 1 dose, On 07/27/24 at 1000, Waste Sort Code = BL[employer] Hazardous Waste Container 1005 (Given - Provid er: Berta Cyr RN) insulin aspart U-100 (NovoLOG) injection 10 Units (COMPLETED) 10 Units, Subcutaneous, ONCE, 1 dose, On 07/27/24 at 1130, Waste Sort Code = BL[employer] Hazardous Waste Container 1209 (Given - Provid er: Berta Cyr RN) ondansetron (ZOFRAN) injection 4 mg (COMPLETED) 4 mg, Intravenous, ONCE, 1 dose, On 07/27/24 at 0930 0959 (Given - Provid er: Berta Cyr RN) sodium chloride 0.9 % 1,000 mL IV bolus (COMPLETED) Intravenous, ONCE, 1 dose, On 07/27/24 at 0930, at 983.6 mL/hr 0942 (IV Started - P slick: Berta Cyr RN)1043 (Stopped - Provider: Berta Cyr RN) documented in this encounter Orders Nursing Count Last Ordered Date First Orde red Date BLOOD GLUCOSE 2 07/27/2024 documented in this encounter Additional Health Concerns Assessment Noted Time PHQ-9 Depression Total Score: 2 08/16/19 23 1:10 PM EDT PHQ-2 Depression Total Score: 2 08/16/19 23 1:10 PM EDT documented as of this encounter Care Teams Radioactivity Technician Relationship Specialty Start Date End Date Marcus Castellon MD PCP - General Family Medicine 07/16/23 documented as of this encounter
--- OUTSIDE RECORDS SUMMARY | 2024-09-19 14:04 | XMS_ITS | Encounter Summary ---
Author [place] [address] Care Team Providers Care Leaf Coverer Name Role Phone Marcus Castellon MD Primary Care Provider [phone] Reason for Visit * Reason Comments Medication Refill Encounter Details Date Type Department Care Team (Late st Contact Info) Description 07/23/2024 Refill [facility] [address] [place] [phone] Marilynn, Sunny, DO [address] [place] [address] Medication Refill Social History Tobacco Use Types Packs/Day Years [...] Date Recorded PHQ-2 Total Score 2 08/15/2022 [facility] [place] [facility] - Occupational Stress Questionnaire Answer Date Recorded [...] on file documented as of this encounter Functional Status * Is the person deaf or does he/she have serious difficulty hearing? Answer Date of Assessment Author No 08/15/2022 1:10 PM Lakesha Blake MA * Is the person blind or does he/she have serious difficulty seeing even when wearing glasses? Answer Date of Assessment Author No 08/15/2022 1:10 PM Lakesha Blake MA * Does this person have serious difficulty walking or climbing stairs? Answer Date of Assessment Author No 08/15/2022 1:10 PM Lakesha Blake MA * Does this person have difficulty dressing or bathing? Answer Date of Assessment Author No 08/15/2022 1:10 PM Lakesha Blake MA * Because of a physical, mental or emotional condition, does this person have difficulty doing errands alone such as visiting a doctor's office or shopping? Answer Date of Assessment Author No 08/15/2022 1:10 PM Lakesha Blake MA documented as of this encounter Mental Status * Because of a physical, mental or emotional condition, does this person have serious difficulty concentrating, remembering or making decisions? Answer Entry Date Author No 08/15/2022 1:10 PM EDT Lakesha Lamar MA documented in this encounter Ordered Prescriptions Prescription Sig Dispense Quantity Refills Last Filled Start Date End Date aspirin 81 mg Oral Tablet, Chewable Take 1 Tablet by mouth daily. 30 Tablet 2 07/23/2024 documented in this encounter Miscellaneous Notes * Telephone Encounter - Joyce Islas CPhT - 07/23/2024 1:51 PM EDT aspirin 81 mg There is no CRS protocol for this medication. Last [facility] office visit was 08/15/2022 Please update PCP on patient's profile if appropriate documented in this encounter Plan of Treatment Not on file documented as of this encounter Goals Goal Patient Goal Type Associated Problems Recent Progress Patient-Stated? Author Blood Pressure < 140/90 Blood Pressure 118/65(2024 11:42 AM EDT) No Carolina Lopez CMA BMI (Calculated) < 30 General 26.3(11/29/19 7:35 AM EDT) Carolina Miller CMA Eat better, exercise, reach an ideal body weight General No Naomy Soni RN Stay Tobacco Free Lifestyle No Naomy Soni RN HEMOGLOBIN A1C < 7.0 Result Component 9.4( 12:30 PM EDT) No Carolina Lopez CMA documented as of this encounter Visit Diagnoses Not on filedocumented in this encounter Discontinued Medications Medication Sig Discontinue Reason Start Date End Da te aspirin 81 mg Oral Tablet, Delayed Release (E.C.) Take 1 Tablet by mouth daily. 04/30/2024 07/23/2024 documented as of this encounter Additional Health Concerns Assessment Noted Time PHQ-9 Depression Total Score: 2 08/16/19 1:10 PM EDT PHQ-2 Depression Total Score: 2 08/16/19 1:10 PM EDT documented as of this encounter Care Teams Leaf Coverer Relationship Specialty Start Date End Date Marcus Castellon MD PCP - General Family Medicine 07/16/23 documented as of this encounter
--- OUTSIDE RECORDS SUMMARY | 2024-09-19 14:04 | XMS_ITS | Clinical Summary ---
Author Organization [facility] Address [address] [place] [address] Phone Care Team Providers Care Chaplaincy Name Role Phone Marcus Castellon MD Primary Care Provider [phone] Allergies Active Allergy Reactions Criticality Noted Date Comments Adhesive Rash Low Latex Hives 04/14/2010 Itch/ blisters Fluoxetine 09/26/2012 Quetiapine 12/29/2014 Shellfish Containing Products Anaphylaxis High 09/19/2013 Cariprazine Other (See Comments) 08/29/2019 Worsening depression, Medications * This document contains information received from the source organization and may not represent a complete record from that organization. EPINEPHrine (EPIPEN) 0.3 mg/0.3 mL Inj Auto-InjectorIndic ations:Shellfish allergy Inject 0.3 mL into the muscle as needed. for anaphylaxis 2 Each 08/12/19 21 Active pen needle,diabetic, disp unit (ULTIGUARD SAFEPACK-PEN NEEDLE) 32 gauge x [facility] NeedleIndications: Type 2 diabetes mellitus with diabetic nephropathy, without long-term current use of insulin (HCC) 1 Units by [facility].(Non-Drug; Combo Route) route daily. 100 Each 5 08/12/19 21 Active methocarbamoL (ROBAXIN) 500 mg Oral Tablet Take 2 tablets by mouth 3 times daily for 10 days 60 Tablet 2 09/09/19 22 Active Additional Information Patient not taking.Reason: Therapy Completed, Reported on 11/29/2023 ADVAIR DISKUS 250-50 mcg/dose Inhl Disk with Device Inhale 1 puff into the lungs 2 times daily. 60 Each 2 12/28/19 22 Active diclofenac (VOLTAREN) 75 mg Oral Tablet, Delayed Release (E.C.)Indications: Injury of left ankle, initial encounter,Injury of right knee, initial encounter TAKE 1 TABLET BY MOUTH TWICE DAILY WITH MEALS NEEDED 60 Tablet 03/09/19 23 Active VENTOLIN HFA 90 mcg/actuation Inhl HFA Aerosol InhalerIndications :Dyspnea, unspecified type Inhale 2 puffs into the lungs every 4 hours as needed for wheezing. 18 g 6 07/29/19 23 Active promethazine (PHENERGAN) 25 mg Oral TabletIndications: Nausea and vomiting Take 1 Tablet by mouth every 6 hours as needed for nausea. 30 Tablet 2 08/10/19 23 Active Varenicline 0.5 mg (11)- 1 mg (42) Oral Tablets, Dose PackIndications:To bacco abuse TAKE 0.5MG TABLET DAILY FOR 3 DAYS, THEN 0.5MG TABLET 2 TIMES DAILY FOR 4 DAYS, THEN 1MG TABLET 2 TIMES DAILY THEREAFTER 53 Tablet 08/19/19 23 Active Additional Information Patient not taking.Reported on 08/25/2022 DEXCOM G6 TRANSMITTER Misc Device 1 Each by [facility].(Non-Drug; Combo Route) route Every 90 Days. 1 Each 3 08/26/19 23 Active ergocalciferol (DRISDOL) 1,250 mcg (50,000 unit) Oral Capsule Take 1 Capsule by mouth once a week. 12 Capsule 3 08/26/19 23 Active empagliflozin (JARDIANCE) 25 mg Oral TabletIndications: Controlled type 2 diabetes mellitus with hyperglycemia, with long-term current use of insulin (HCC) Take 1 Tablet by mouth daily. 90 Tablet 3 08/26/19 23 Active Additional Information Patient not taking.Reason: Therapy Completed, Reported on 11/29/2023 pioglitazone (ACTOS) 15 mg Oral Tablet Take 1 Tablet by mouth daily. 90 Tablet 3 08/26/19 23 Active Additional Information Patient not taking.Reason: Therapy Completed, Reported on 11/29/2023 rosuvastatin (CRESTOR) 40 mg Oral Tablet Take 1 Tablet by mouth daily. 90 Tablet 3 08/26/19 23 Active Blood-Glucose Meter [facility] KitIndications:Typ e 2 diabetes mellitus with hyperlipidemia (HCC) Check BG 2x/day - fasting and at alternating times 1 Kit 08/26/19 Active Blood-Glucose Sensor (DEXCOM G6 SENSOR) [facility] Device 1 Each by [facility].(Non-Drug; Combo Route) route every 10 days. 9 Each 3 10/06/19 Active ondansetron (ZOFRAN) 4 mg Oral Tablet Take 1 Tablet by mouth every 8 hours as needed for nausea. 90 Tablet 12/01/19 Active Additional Information Patient not taking.Reason: switched to phenergan instead, Reported on 11/29/2023 Varenicline 0.5 mg (11)- 1 mg (42) Oral Tablets, Dose PackIndications:To bacco abuse TAKE 0.5MG TABLET DAILY FOR 3 DAYS, THEN 0.5MG TABLET 2 TIMES DAILY FOR 4 DAYS, THEN 1MG TABLET 2 TIMES DAILY THEREAFTER 53 Tablet 11/30/19 Active semaglutide (OZEMPIC) 1 mg/dose (4 mg/3 mL) SubQ Pen Injector Subcutaneous (Inject under the skin) 1 mg once a week 3 mL 1 01/20/20 Active Additional Information Patient not taking.Reason: haven't started yet, Reported on 11/29/2023 LANTUS SOLOSTAR U-100 INSULIN 100 unit/mL (3 mL) SubQ Insulin PenIndications:Typ e 2 diabetes mellitus with hyperlipidemia (HCC),Type 2 diabetes mellitus without complication, unspecified whether group home insulin use (HCC) Subcutaneous (Inject under the skin) 60 Units nightly. 60 Each 1 03/21/19 Active Fenofibric Acid 135 mg Oral Capsule, Delayed Release(E.C.) Take 1 Capsule by mouth once daily. 30 Capsule 5 05/30/19 24 Active albuterol (PROVENTIL) 2.5 mg /3 mL (0.083 %) Inhl Solution for NebulizationIndica tions:COPD, moderate (HCC) Inhale 1 vial into the lungs every 4 hours as needed for wheezing. 540 mL 05/30/19 24 Active Additional Information Patient not taking.Reason: Too expensive, Reported on 11/29/2023 famotidine (PEPCID) 20 mg Oral TabletIndications: Nausea and vomiting TAKE 1 TABLET BY MOUTH DAILY 30 Tablet 05/30/19 24 Active Varenicline (CHANTIX STARTING MONTH BOX) 0.5 mg (11)- 1 mg (42) Oral Tablets, Dose PackIndications:To bacco abuse As directed 53 Tablet 10/31/19 24 Active ONETOUCH ULTRA TEST [facility] StripIndications:T ype 2 diabetes mellitus with hyperlipidemia (HCC) Test blood sugar twice daily. 50 Strip 11 12/04/19 24 Active BD MAURICE 2ND GEN PEN NEEDLE 32 gauge x Misc Needle Use once daily. 100 Each 5 03/06/19 25 Active ONETOUCH DELICA PLUS LANCET 33 gauge [facility] MiscIndications:Ty pe 2 diabetes mellitus with diabetic nephropathy, without long-term current use of insulin ([facility]) USE TO TEST BLOOD SUGAR TWICE DAILY 100 Each 2 05/20/19 25 Active Blood-Glucose Meter (ONETOUCH ULTRA2 METER) [facility] MiscIndications:Ty pe 2 diabetes mellitus with diabetic nephropathy, without long-term current use of insulin ([facility]) USE TO TEST BLOOD SUGARS TWICE DAILY 1 Each 06/20/19 25 Active aspirin 81 mg Oral Tablet, Chewable Take 1 Tablet by mouth daily. 30 Tablet 2 07/24/19 25 Active topiramate (TOPAMAX) 50 mg Oral Tablet Take 1 Tablet by mouth 2 times daily. 60 Tablet 5 07/24/19 25 Active ALPRAZolam (XANAX) 1 mg Oral Tablet Take 1 Tablet by mouth 2 times daily as needed. 54 Tablet 2 08/20/19 25 Active varenicline tartrate (CHANTIX) 1 mg Oral Tablet Take 1 Tablet by mouth twice daily AFTER the starter pack has been completed. 56 Tablet 2 08/20/19 25 Active buPROPion (WELLBUTRIN SR) 150 mg Oral tablet sustained-release 12 hr Take 1 Tablet by mouth 2 times daily. 180 Tablet 1 08/28/19 25 Active OLANZapine (ZYPREXA) 20 mg Oral TabletIndications: Mood disorder Take 1 Tablet by mouth nightly. 90 Tablet 1 08/28/19 25 Active propranoloL (INDERAL) 10 mg Oral Tablet Take 1 Tablet by mouth 3 times daily. 270 Tablet 08/28/19 25 Active venlafaxine (EFFEXOR-XR) 150 mg Oral Capsule, Sust. Release 24 hr Take 1 Capsule by mouth daily. Take with Venlafaxine ER 75 mg for a total of 225 mg daily 100 Capsule 1 08/28/19 25 Active venlafaxine (EFFEXOR-XR) 75 mg Oral Capsule, Sust. Release 24 hr Take 1 Capsule by mouth daily. Take along with venlafaxine XR 150 mg daily for a total dose of 225 mg daily 100 Capsule 1 08/28/19 25 Active Active Problems Patient Care Coordination No te Formatting of this note migh t be different from the original. katty 01/13/14 Problem Noted Date Diagnosed Date Diabetic peripheral neuropat hy associated with type 2 diabetes mellitus 09/24/2021 Hypertension associated with diabetes 09/23/2021 Long-term insulin use 09/23/2021 Amaurosis fugax, left eye 09/23/2021 Controlled type 2 diabetes m ellitus with hyperglycemia, with long-term current use of insulin 05/23/2021 Encounter for long-term (current) use of medicat ions 05/24/2019 Suicidal ideation 05/22/2019 Chronic post-traumatic stress disorder (PTSD) Agoraphobia 05/22/2019 DDD (degenerative disc disease), cervical 2017 Major depressive disorder, r ecurrent severe without psychotic features 01/17/2017 Amitriptyline overdose 01/16/2017 Generalized anxiety disorder 04/28/2016 Primary insomnia 04/28/2016 Panic disorder 04/28/2016 Suicidal behavior 09/10/2015 Suicidal overdose 09/10/2015 Type 2 diabetes mellitus with hyperlipidemia Cigarette nicotine dependenc e with nicotine-induced disorder 06/07/2015 Migraines 03/11/2015 Morbid obesity due to excess calories 01/13/2014 Borderline personality disorder Resolved Problems Problem Noted Date Diagnosed Date Resolved Date Nightmares 05/25/2019 05/26/2019 Atypical chest pain 06/07/2015 08/17/19 16 Viral gastroenteritis 03/11/20152015 Hyperglycemia 09/19/2013 06/14/2017 Needs smoking cessation education 05/03/2011 08/17/2015 Encounters * This document contains information received from the source organization and may not represent a complete record from that organization. Date Type Department Care Team Description 07/27/2024 9:12 AM EDT - 07/27/2024 12:16 PM EDT Emergency . [facility] [address] [place] [address] Yogi Simpson MD Hyperglycemia (Primary Dx) Discharge Disposition: Home or Self Care 07/27/2024 Travel 07/23/2024 Refill [facility] [address] [facility] [place] [address] Sunny Subramanian, DO Medication Refill 06/25/2024 Refill [facility] [address] [place] [address] Elise Ag MD Medication Refill 06/19/2024 Refill [facility] [address] [place] [address] Sunny Subramanian, DO Medication Refill from Last 3 Months Immunizations Immunization Administration Dates Next Due DT 12/15/2009 Hepatitis B (Recombinant), Adjuvanted 10/18/2021 ,11/11/2019 Hepatitis B, Adult 08/29/2019 Influenza Seasonal Injectable PF 10/17/2016 Influenza Vaccine Quadrivalent PF 11/11/2019 Influenza Vaccine, Unspecified Formulation 10/17 Moderna SARS-CoV-2 Booster V accine 18+ Yrs (Light Blue Border) 09/20/2021 Pneumococcal Conjugate Vaccine 20 Valent 022 Pneumococcal Polysaccharide 23 Valent 08/29/2019 Surgical History Surgery Date Site/Laterality Comments TUBAL LIGATION 02/19/2001 LAPAROSCOPY 02/19/1990 GYNECOLOGIC CRYOSURGERY 02/19/2001 LUNG BIOPSY 08/07/2022 Left Medical History Medical History Date Comments Gastric ulcer Diverticulitis Abnormal Pap smear 2001 Diabetes mellitus (HCC) Hypercholesteremia CAD (coronary artery disease) 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 Arthritis MDD (major depressive disord er), recurrent severe, without psychosis (HCC) Borderline personality disorder (HCC) COPD (chronic obstructive pu lmonary disease) (HCC) Family History Medical History Relation Name Comments Diabetes Father High Blood Pressure Father Cancer Maternal Grandmother breast High Blood Pressure Mother Other Mother lupus Relation Name Status Comments Brother Alive Father Alive Maternal Grandfather Maternal Grandmother Mother Alive Paternal Grandfather Paternal Grandmother Sister 1 Alive Sister 2 Alive Social History Tobacco Use Types Packs/Day Years Used Date Smoking Tobacco: Every Day Cigarettes 2 30.9 Started: 06/07/1994 Smokeless Tobacco: Never Tobacco Cessation:Ready to Q uit: Not Asked; Counseling Given: Not Answered Alcohol Use Standard Drinks/Week Comments No 0 (1 standard drink = 0.6 oz pur e alcohol) Overall Financial Resource Strain (CARDIA) Answe r Date Recorded How hard is it for you to pa y for the very basics like food, housing, medical care, and heating? Not hard at all 09/26/2021 PHQ-2 Answer Date Recorded PHQ-2 Total Score 2 08/15/2022 [facility] - Occupational Stress Questionnaire Answer Date Recorded [...] on file Sexual Orientation Not on file Obstetrics History Para Term AB IAB SAB Ectopic Multiple Livin g Live Births 5 5 Date Outcome GA Total Labor Labor/2nd/3rd Weight Sex Type Anes PTL Nguyen A1 A5 Name Clin 1989 37w 0d 3h 00m/ 5 lb 2 oz (2.325 kg) M Vag-S pont Epidural 1990 36w 0d 1h 00m/ 5 lb (2.268 kg) F Vag-S pont 1994 38w 0d 5h 00m/ 6 lb 5 oz (2.863 kg) F Vag-S pont 1996 37w 0d 4h 00m/ 6 lb 8 oz (2.948 kg) M Vag-S pont Epidural 2001 36w 0d 6h 00m/ 6 lb 11 oz (3.033 kg) F Vag-S pont Epidural Last Filed Vital Signs Vital Sign Reading Time Taken Comments Blood Pressure 118/65 07/27/2024 11:42 AM EDT Pulse 88 07/27/2024 12:00 PM EDT Temperature 36.5 C (97.7 F) 07/27/2024 9:16 AM EDT Respiratory Rate 18 07/27/2024 12:1 6 PM EDT Oxygen Saturation 95% 07/27/2024 12: 16 PM EDT Inhaled Oxygen Concentration - - Weight 67.1 kg (147 lb 14.4 oz) 11/29/2023 7:35 AM EDT Height 160 cm (5' 3 ) 11/29/2023 7:35 AM EDT Body Mass Index 26.2 11/29/2023 7:35 AM EDT Plan of Treatment Health Maintenance Due Date Last Done Comments HPV/Pap Cotest 2002 Breast Cancer Screening 09/03/2014 09/03/2012 (Postp oned) Cologuard 2017 FIT 2017 Sigmoidoscopy 2017 Virtual Colonography 2017 Cervical Cancer Screening 04/25/2019 Pap Smear 04/25/2019 04/24/2016, 04/06/2012 (Postponed) DTaP/TDaP/Td (2 - Tdap) 12/16/2019 12/15/2009 Low Dose Lung Cancer Screening 2022 Zoster (1 of 2) 2022 Annual Wellness Exam 09/20/2022 09/20/2021, 03/29/19 14 Hemoglobin A1c 02/10/2023 08/11/2022, 3 , 09/23/2021, Additional history exists Kidney Health: uACR 08/12/2023 08/11/2022 Lipids 08/12/2023 08/11/2022, 093 , 08/29/2019, Additional history exists COVID-19 Vaccine ( season) 2023 09/20/2021, 06/21/2020, 05/24/2020 Diabetic Eye Exam 07/20/2024 07/20/2022, 05/19/2021 Influenza Vaccine (#1) 2024 0, 10/17/2016, 10/17/2016, Additional history exists Kidney Health: eGFR 07/27/2025 07/27/2024, 07/16/2023, 08/11/2022, Additional history exists Colon Cancer Screening 11/28/2033 Colonoscopy 11/28/2033 11/29/2023 Hepatitis B Vaccine Completed 10/18/2021, 11/11/2019, 08/29/2019 Pneumococcal Vaccine 50+ Completed 10/18/2021, 08/19 Meningococcal B Vaccine Aged Out No l onger eligible based on patient's age to complete this topic Goals Goal Patient Goal Type Associated Problems [...] 12:30 PM EDT) No Carolina Lopez CMA Procedures Procedure Name Priority Date/Time Associated Diagnosis Comments GLUCOSE METER POC Routine 07/27/2024 11: 20 AM EDT GLUCOSE METER POC Routine 07/27/2024 9:4 4 AM EDT BETA-HYDROXYBUTYRIC ACID Routine 07/27/2024 9:37 AM EDT BLOOD GAS, VENOUS STAT 07/27/2024 9:3 7 AM EDT LIPASE LEVEL STAT 07/27/2024 9:37 AM EDT COMPREHENSIVE METABOLIC PANEL STAT 07/27/2024 9:37 AM EDT CBC STAT 07/27/2024 9:37 AM EDT COLONOSCOPY Routine 11/29/2023 9:14 AM EDT Diverticulitis of large intestine without perforation or abscess without bleeding Screening for colon cancer MICROALBUMIN/CREATINI NE RATIO URINE Routine 08/11/2022 12:30 PM EDT Type 2 diabetes mellitus with hyperlipidemia (HCC) Mixed hyperlipidemia Hypertension associated with diabetes (HCC) Long-term insulin use (HCC) Vitamin D deficiency Generalized hyperhidrosis LIPID PANEL REFLEX Routine 08/11/2022 12 :30 PM EDT Mixed hyperlipidemia HEMOGLOBIN A1C Routine 08/11/2022 12:30 PM EDT Type 2 diabetes mellitus with hyperlipidemia (HCC) HM DIABETES EYE EXAM Routine 07/20/2022 [employer] CYTOLOGY REPORT Routine 04/24/2016 7 :37 PM EST from Last 3 Months or Most Recently Relevant to Health Maintenance Results * (ABNORMAL) GLUCOSE METER POC (07/27/2024 11:20 AM EDT) Only the most recent of2 resultswithin the time period is included. Glucose Meter POC 382(H) 70 - 100 mg/dL 07/27/2024 11:21 AM EDT [facility] Sample Type Capillary 07/27/2024 11:21 AM EDT [facility] Patient Status Non-Critical Patient 07/27/2024 11:21 AM EDT [facility] Blood BLOOD SPECIMEN / Unknown 07/27/2024 11:20 AM EDT 07/27/2024 11:21 AM EDT Yogi Simpson MD POINT OF CARE TEST ORDERABLES F inal Result Performing Organization Address [facility] Co de Phone Number [facility] [address] [facility] [place] [address] * (ABNORMAL) BLOOD GAS, VENOUS (07/27/2024 9:37 AM EDT) pH Venous 7.36 7.32 - 7.42 pH 07/27/2024 9:45 AM EDT [facility] pCO2 Venous 50 41 - 51 mmHg 07/27/2024 9:45 AM EDT [facility] pO2 Venous <30 25 - 40 mmHg 07/27/2024 9:45 AM EDT [facility] Comment:Interpret with cauti on. Not recommended to evaluate patient's oxygenation status. Base Excess Miguel 1.6 mmol/L 9:45 AM EDT [facility] Hco3 Venous 28.1(H) 24.0 - 28.0 mmol/L 07/27/2024 9:45 AM EDT [facility] CO2 Total Miguel 25 25 - 29 mmol/L 07/27/2024 9:45 AM EDT [facility] O2 Sat. Venous 43.8 40.0 - 70.0 % 07/27/2024 9:45 AM EDT [facility] Inspired O2 ROOM AIR 07/27/2024 9:45 AM EDT [facility] Blood VENOUS BLOOD / Unknown Venipuncture / Unknown 07/27/2024 9:37 AM EDT 07/27/2024 9:40 AM EDT us Yogi Simpson MD CHEMISTRY ORDERABLES Final Resu lt Performing Organization Address [facility] Co de Phone Number [facility] [address] [place] [address] * (ABNORMAL) BETA-HYDROXYBUTYRIC ACID (07/27/2024 9:37 AM EDT) BHB 0.48(H) 0.00 - 0.30 mmol/L 07/27/2024 9:59 AM EDT [facility] Blood VENOUS BLOOD / Unknown Venipuncture / Unknown 07/27/2024 9:37 AM EDT 07/27/2024 9:40 AM EDT us Yogi Simpson MD CHEMISTRY ORDERABLES Final Resu lt [facility] [address] [facility] [place], [place] [id number] * (ABNORMAL) CBC (07/27/2024 9:37 AM EDT) WBC 9.5 3.7 - 10.3 x10(3)/mcL 07/27/2024 9:42 AM EDT [facility] RBC 5.14 3.90 - 5.20 x10(6)/mcL 07/27/2024 9:42 AM EDT [facility] Hgb 15.0 11.2 - 15.7 g/dL 07/27/2024 9:42 AM EDT [facility] Hct 45.3(H) 34.0 - 45.0 % 07/27/2024 9:42 AM EDT [facility] MCV 88.1 80.0 - 100.0 fL 07/27/2024 9:42 AM EDT [facility] MCH 29.2 26.0 - 34.0 pg 07/27/2024 9:42 AM EDT [facility] MCHC 33.1 30.7 - 35.5 g/dL 07/27/2024 9:42 AM EDT [facility] RDW 14.6 <=14.9 % 07/27/2024 9:42 AM EDT [facility] Platelet 254 155 - 369 x10(3)/mcL 07/27/2024 9:42 AM EDT [facility] MPV 9.4 8.8 - 12.5 fL 07/27/2024 9:42 AM EDT [facility] Blood VENOUS BLOOD / Unknown Venipuncture / Unknown 07/27/2024 9:37 AM EDT 07/27/2024 9:40 AM EDT Yogi Simpson MD HEMATOLOGY ORDERABLES Final Res ult Performing Organization Address [facility] Co de Phone Number [facility] [address] [place] [address] * LIPASE LEVEL (07/27/2024 9:37 AM EDT) Lipase Lvl 22 13 - 60 U/L 07/27/2024 9:59 AM EDT [facility] Blood VENOUS BLOOD / Unknown Venipuncture / Unknown 07/27/2024 9:37 AM EDT 07/27/2024 9:40 AM EDT Yogi Simpson MD CHEMISTRY ORDERABLES Final Resu lt Performing Organization Address [facility] de Phone Number [facility] [address] [place] [address] * (ABNORMAL) COMPREHENSIVE METABOLIC PANEL (07/27/2024 9:37 AM EDT) Sodium 134(L) 136 - 145 mmol/L 07/27/2024 10:06 AM EDT [facility] Potassium 5.4(H) 3.5 - 5.0 mmol/L 07/27/2024 10:06 AM EDT [facility] Chloride 98 98 - 107 mmol/L 07/27/2024 10:06 AM EDT [facility] Total CO2 24 22 - 29 mmol/L 07/27/2024 10:06 AM EDT [facility] Anion Gap 12 7 - 16 mmol/L 07/27/2024 10:06 AM EDT [facility] Calcium 9.6 8.6 - 10.4 mg/dL 07/27/2024 10:06 AM EDT [facility] Glucose Lvl 493(HH) 70 - 99 mg/dL 07/27/2024 10:06 AM EDT [facility] BUN 10 6 - 20 mg/dL 07/27/2024 10:06 AM EDT [facility] Creatinine 0.61 0.51 - 1.30 mg/dL 07/27/2024 10:06 AM EDT [facility] Albumin 4.3 3.5 - 5.2 gm/dL 07/27/2024 10:06 AM EDT [facility] Total Protein 7.2 6.4 - 8.3 gm/dL 07/27/2024 10:06 AM EDT [facility] Bili Total 0.2 0.2 - 1.3 mg/dL 07/27/2024 10:06 AM EDT [facility] ALT 11 <=41 U/L 07/27/2024 10:06 AM EDT [facility] AST 12 <=40 U/L 07/27/2024 10:06 AM EDT [facility] Alk Phos 92 36 - 123 U/L 07/27/2024 10:06 AM EDT [facility] eGFR (CKD-EPIcr 2020) 108 >=60 mL/min/1.7 3 m2 07/27/2024 10:06 AM EDT [facility] Comment:Estimated GFR was ca lculated using the CKD-EPIcr (2020) equation refit without race. The equation is recommended by the National Kid[employer] - [place] [employer] Neph[employer] Task Force. Blood VENOUS BLOOD / Unknown Venipuncture / Unknown 07/27/2024 9:37 AM EDT 07/27/2024 9:40 AM EDT us Yogi Simpson MD CHEMISTRY ORDERABLES Final Resu lt [facility] [address] [place] [address] * COLONOSCOPY (11/29/2023 9:14 AM EDT) Anatomical Region Laterality Modality Endoscopy Narrative 11/29/2023 9:16 AM EDT Table formatting from the original result was not included. Findings Multiple medium, extensive pancolonic diverticula of moderate severity causing mild luminal narrowing (traversable). Sigmoid moderate > rest of colon mild Poor prep Internal hemorrhoids Recommendation Schedule repeat colonoscopy Inadequate bowel preparation Will need 7 days miralax bid and 2 day prep Pre-Procedure Diagnosis / Indication Screening for colon cancer, Diverticulitis of large intestine without perforation or abscess without bleeding Post-Procedure Diagnosis Screening for colon cancer, Diverticulitis of large intestine without perforation or abscess without bleeding Staff Staff Role Joanna Montenegro RN Dermatology Physician Assistant MARGARETTE Phillips CRNA, MD Anesthesiologist Paulette Aguilar RN Endoscopy Nurse Arlet Thurman MD Performing Provider Medications See Anesthesia Record. Preprocedure A history and physical has been performed, and patient medication allergies have been reviewed. The patient's tolerance of previous anesthesia has been reviewed. The risks and benefits of the procedure and the sedation options and risks were discussed with the patient. All questions were answered and informed consent obtained. ASA 3 - Patient with severe systemic disease Details of the Procedure The patient underwent monitored anesthesia care, which was administered by an anesthesia professional. The patient's blood pressure, heart rate, level of consciousness, oxygen, respirations, ECG and ETCO2 were monitored throughout the procedure. A digital rectal exam was performed. The scope was introduced through the anus and advanced to the cecum. Retroflexion was performed in the rectum. The quality of bowel preparation was evaluated using the [place] Bowel Preparation Scale with scores of: right colon = 1, transverse colon = 2, left colon = 2. The total BBPS score was 5. Bowel prep was not adequate. The patient experienced no blood loss. The procedure was moderately difficult due to loops in the digestive tract, poor preparation and tortuous colon. In response to procedure difficulty, counter pressure was applied and the observation site was lavaged. The patient tolerated the procedure well. There were no apparent adverse events. Patient provided education and educated on specific discharge instructions. Patient educated on medications given during the procedure and new medications for discharge. Patient verbalizes understanding of discharge education. Patient stable and awaiting transport for discharge. Events Procedure Events Event Event Time ENDO SCOPE IN TIME 11/29/2023 9:00 AM ENDO CECUM REACHED 11/29/2023 9:07 AM ENDO SCOPE OUT TIME 11/29/2023 9:13 AM Specimens No specimens collected Anesthesia Event Time In Patient In - Proc. Room 08:46 AM Arlet Thurman MD ENDOSCOPY PROCEDURE ORDERAB LES Final Result * (ABNORMAL) LIPID PANEL REFLEX (08/11/2022 12:30 PM EDT) Cholesterol 199 <200 mg/dL 08/11/2022 7:54 PM EDT PREFERRED [facility] Comment: < 200 Desirable 200 - 239 Borderline High >= 240 High Triglyceride 388(H) <150 mg/dL 08/11/2022 7:54 PM EDT PREFERRED [facility] Comment: < 150 Normal 150 - 199 Borderline High 200 - 499 High >= 500 Very High HDL 31(L) >=40 mg/dL 08/11/2022 7:54 PM EDT PREFERRED [facility] Comment: > 60 Optimal 40 - 60 Acceptable < 40 Low LDL Calculated 102(H) <100 mg/dL 08/11/2022 7:54 PM EDT PREFERRED [facility] Non-HDL-C Calculated 168(H) <=129 mg/dL 08/11/2022 7:54 PM EDT PREFERRED [facility] Comment: <130 Desirable 130-159 Above Desirable 160-189 Borderline High 190-219 High >= 220 Very High Fasting Specimen? 023 7:54 PM EDT PREFERRED [facility] Blood VENOUS BLOOD / Unknown Venipuncture / Unknown 08/11/2022 12:30 PM EDT 08/11/2022 12:30 PM EDT Taylor Chamorro APRN CHEMISTRY ORDERABLES Final R esult [facility]REFERR[facility] [address] [facility] , [address] [place] [id number] * MICROALBUMIN/CREATININE RATIO URINE (08/11/2022 12:30 PM EDT) Urine Microalb <12.0 mg/L 08/11/2022 7:14 PM EDT PREFERRED [facility] Urine Creatinine 68.0 mg/dL 08/12/19 7:14 PM EDT PREFERRED [facility] Ur Microalb/Creat 023 7:14 PM EDT PREFERRED LAB [facility] Comment: Because the albumin level is below the level of detection in this urine specimen, the laboratory is unable to calculate a reliable albumin/creatinine ratio. Microalbuminuria is unlikely if the urine albumin concentration is less than 20- 30 mg/L in a random specimen. Urine URINE SPECIMEN COLLECTION / Unknown 08/11/2022 12:30 PM EDT 08/11/2022 12:30 PM EDT Mike Dozier MD URINE ORDERABLES Final Res ult Performing Organization Address [facility] Co de Phone Number [facility] [employer] [address] , [place] [address] * (ABNORMAL) HEMOGLOBIN A1C (08/11/2022 12:30 PM EDT) Hgb A1C 9.4(H) 4.2 - 5.6 % 08/11/2022 7:09 PM EDT [facility] [employer] [facility] Est. Avg Glucose 223 mg/dL 08/11/2022 7:09 PM EDT [facility] [employer] [facility] Blood VENOUS BLOOD / Unknown Venipuncture / Unknown 08/11/2022 12:30 PM EDT 08/11/2022 12:30 PM EDT Narrative [facility] [employer] [facility] - 08/11/2022 7:09 PM EDT REFERENCE RANGE: Normal: 4.0-5.6% Pre-diabetes: 5.7-6.4% Provisional diagnosis of diabetes: >6.4% Hgb F>10% and anything which shortens red cell survival, such as hemolytic anemia, or unstable hemoglobin variants such as HbSS, HbSC, or HbCC, will lower the HbA1c value associated with a given level of glycemic control. Taylor Chamorro APRN CHEMISTRY ORDERABLES Final R esult Performing Organization Address [facility] Co de Phone Number [facility] [employer] [address] , [place] [address] * HM DIABETES EYE EXAM (07/20/2022) Left Diabetic Retinopathy Not Present Present/Not Present SEP OFFICE Right Diabetic Retinopathy Not Present Present/Not Present SEP OFFICE us Historical Provider Generic HEALTH MAINTENANCE E dited Result - Final SEP OFFICE * BLASTING CONTRACT MINER CYTOLOGY REPORT (04/24/2016 7:37 PM EST) Garment [employer] Cytology Report PATIENT NAME:LESLYE SANDOVAL [employer] Cytology Report Accession Number Collected Date/Time Received Date/Time [id number] 04/24/16 19:37 EST 04/25/16 13:40 EST GY Specimen Source Specimen Vag/Cerv/Endocx?: Cervical Statement of Adequacy Satisfactory for Evaluation. Transformation Zone Absent. Diagnosis NEGATIVE FOR INTRAEPITHELIAL LESION OR MALIGNANCY. Comment The Pap Smear is a screening test that aids in the detection of cervical cancer and cancer precursors. Both false positive and false negative results can occur. The test should be used at regular intervals, and positive results should be confirmed before definitive therapy. Processed using the [employer] Clinical Data Abstractor automated cytology screening device ([employer]). Exhibit Technician: DT 04/26/2016 Completed by: LEONOR Nava (Electronically signed by) 04/26/2016 [facility] 04/24/2016 7:37 PM EST us Bianca Coley MD PATHOLOGY ORDERABLES Final R esult Performing Organization Address City/[facility] Co de Phone Number [facility] [address] [place] [address] from Last 3 Months or Most Recently Relevant to Health Maintenance Insurance [facility] [address] [employer] [facility] [employer] [place] [employer] [facility] [facility] [employer] [facility] [facility] [place] MDR Advance Directives For more information, please contact: [phone] * Full Code (Latest Code Status on File) Date Activated Date Inactivated Comments 04/19/2017 6:56 PM 04/20/2017 7:41 PM * Full Code Date Activated Date Inactivated Comments 01/16/2017 2:28 PM 01/18/2017 6:43 PM * Full Code Date Activated Date Inactivated Comments 01/16/2017 5:23 AM 01/16/2017 1:47 PM * Full Code Date Activated Date Inactivated Comments 12/26/2015 11:56 AM 12/26/2015 5:31 PM * Full Code Date Activated Date Inactivated Comments 09/10/2015 2:47 AM 09/10/2015 8:46 PM Care Teams Chaplaincy Relationship Specialty Start Date End Date Marcus Castellon MD PCP - General Family Medicine 07/16/23
--- OUTSIDE RECORDS SUMMARY | 2024-09-19 14:04 | XMS_ITS | Encounter Summary ---
Author Organization [facility] [place] [id number] Care Team Providers Care Bowling Alley Operator Name Role Phone Marcus Castellon MD Primary Care Provider [phone] Encounter Details Date Type Department Care Team (Latest Contact Info) Description 07/27/2024 Travel Social History Tobacco Use Types Packs/Day Years [...] Date Recorded PHQ-2 Total Score 2 08/15/2022 [facility] - Occupational Stress [...] 1:10 PM EDT Lakesha Lamar MA * Is the person blind or [...] 9:16 AM EDT Luh Haddad RN * Bailey Suicide Severity Rating Scale (Q shift for [...] Lakesha Lamar MA documented in this encounter Plan of Treatment [...] Diagnoses Not on filedocumented in this encounter Additional Health Concerns Assessment Noted Time PHQ-9 Depression Total Score: 2 08/16/19 1:10 PM EDT PHQ-2 Depression Total Score: 2 08/16/19 1:10 PM EDT documented as of this encounter Care Teams Bowling Alley Operator Relationship Specialty Start Date End Date Marcus Castellon MD PCP - General Family Medicine 07/16/23 documented as of this encounter
[2024-09-19 14:45] LABS: Blood Urea Nitrogen 7 mg/dl (7-17); Creatinine,Serum 0.70 mg/dl (0.52-1.04); Estimated Glomerular Filt Rate 88 ml/min (>60); GFR (African American) 106 ML/MIN (>60)
--- NOTE | 2024-09-19 14:45 | CT_ITS ---
FINAL REPORT TECHNIQUE: Routine axial images were obtained from the lung apices to below the diaphragm following IV contrast administration. Individualized dose reduction techniques using automated exposure control or adjustment of the mA and/or kV according to the patient size were employed. CLINICAL HISTORY: SOBOE, COPD, pulmonary nodules COMPARISON: CTA 07/07/2022 FINDINGS: The mediastinal vasculature is well opacified. No pleural or pericardial effusion is seen. No adenopathy is present. Again seen are multiple nodules. The previously noted dominant cavitary lesion in the medial left lower lobe is no longer visualized. However, the focus in the superior segment of the right lower lobe is present measuring up to 1.5 cm in greatest dimension, stable. Other smaller nodules are also noted. There is a focus in the posterior right lower lobe measuring 6 mm, best seen on image 55 of series 2, which is also stable. IMPRESSION: Resolution of the cavitary lesion of the left lung base, presumed inflammatory. Stable nodules right lower lobe remain indeterminate but stable for greater than 2 years and presumed benign. Reviewed, Interpreted and Dictated by Elías Sumner MD Transcribed by Ana Navarro Authenticated and [facility]
[2024-09-19] MEDS: SODIUM CHLORIDE 0.9% 10ML SYR (RAD ONLY) 10 ML IV (15:04)
[2024-09-19] MEDS: IOPAMIDOL-370 (76%);100ML BOTTLE 75 ML IV (15:05)
== END 2024-09-19 23:59 | disposition home or self-care (01) ==
LOC: RAD 14:03
PROVIDERS: PCP Family Medicine; Visit Provider Nurse Practitioner
DX: R91.8 Other nonspecific abnormal finding of lung field (principal); R06.02 Shortness of breath; J44.9 Chronic obstructive pulmonary disease, unspecified; J43.9 Emphysema, unspecified
CPT/HCPCS: 36415; 71260; 82565; 84520; Q9967